=== PATIENT | female | born 1970 | race Caucasian/White ===

== ENCOUNTER 2018-01-28 18:46 | Emergency (ER) | payer OTHER, MEDICAID, SELFPAY ==
[2018-01-28 18:58] VITALS: BP 151/85; PULSE 73; RESP 13; TEMP 36.9; O2SAT 100
--- NOTE | 2018-01-28 19:18 | ED.FEMALEGU ---
HPI - Female Genitourinary <Radha Eckert PA-C - Last Filed: 01/28/18 22:15> General Chief complaint: Urogenital-Female Stated complaint: RIGHT KIDNEY PAIN Time Seen by Provider: 01/28/18 18:56 Source: patient Mode of arrival: ambulatory Limitations: no limitations History of Present Illness HPI Narrative: this 47-year-old female with a history of recurrent kidney stones comes in due to several days of worsening right flank pain. She states this feels like previous kidney stones. She follows with a local urologist and states that she had a stent placed on that side earlier this year due to an obstructing stone (it has been removed ). She has had nausea but no vomiting and states she has been pushing fluids. She denies any fever. She states that she has pain that shoots from her bladder area up into her flank when she urinates. She has not had any gross hematuria. She denies frequency or urgency. She denies any pain elsewhere in the abdomen. She denies vaginal discharge or STD concerns. She has not been constipated or had any bowel habit changes. She states that pain is constant, but worse with movement or bending. Related Data Home Medications Medication Instructions Recorded Confirmed [ESTRADIOL] 2 mg PO Q DAY #0 08/10/11 lamotrigine [Lamictal] 150 mg PO QDAY #0 08/10/11 Allergies Allergy/AdvReac Type Severity Reaction Status Date / Time ibuprofen [IBUPROFEN] Allergy Mild VOMITING Unverified 08/03/17 12:53 acetaminophen [ACETAMINOPHEN] Allergy Unknown Unverified 08/03/17 12:53 amoxicillin [AMOXICILLIN] Allergy Unknown Unverified 08/03/17 12:53 codeine [CODEINE] Allergy Unknown Unverified 08/03/17 12:53 diclofenac [DICLOFENAC] Allergy Unknown Unverified 08/03/17 12:53 hydrocodone [HYDROCODONE] Allergy Unknown Unverified 08/03/17 12:53 ketorolac [KETOROLAC] Allergy Unknown Unverified 08/03/17 12:53 propoxyphene [PROPOXYPHENE] Allergy Unknown Unverified 08/03/17 12:53 sertraline [SERTRALINE] Allergy Unknown Unverified 08/03/17 12:53 Review of Systems <Radha Eckert PA-C - Last Filed: 01/28/18 22:15> Review of Systems All systems reviewed & are unremarkable except as noted in HPI and below PFSH <Radha Eckert PA-C - Last Filed: 01/28/18 22:15> Comment: denies street drugs Exam <Radha Eckert PA-C - Last Filed: 01/28/18 22:15> Initial Vital Signs Initial Vital Signs: Vital Signs Temperature 98.5 F 01/28/18 18:58 Pulse Rate 73 01/28/18 18:58 Respiratory Rate 13 01/28/18 18:58 Blood Pressure 151/85 H 01/28/18 18:58 Pulse Oximetry 100 01/28/18 18:58 GENERAL APPEARANCE: Patient sitting comfortably, in no distress. HEENT: PERRL, EOMI, no scleral icterus NECK: Supple LUNGS: Clear to auscultation bilaterally. HEART: Rate and rhythm regular, normal S1 and S2, no S3 or S4. ABDOMEN: Soft, nondistended, bowel sounds present x 4 quadrants, no masses palpable, no hepatosplenomegaly. localized tenderness over the right flank, +right CVAT EXTREMITIES: No edema, no cyanosis DERMATOLOGIC: No jaundice or exanthem NEUROLOGIC: Alert and oriented with normal speech and coordination <Osvaldo Bergman DO - Last Filed: 01/28/18 23:45> Initial Vital Signs Initial Vital Signs: Vital Signs Temperature 98.5 F 01/28/18 18:58 Pulse Rate 73 01/28/18 18:58 Respiratory Rate 13 01/28/18 18:58 Blood Pressure 151/85 H 01/28/18 18:58 Pulse Oximetry 100 01/28/18 18:58 Course <JAY JAY Rojas Last Filed: 01/28/18 22:15> Additional Information: Patient reported improvement in pain and nausea during her stay, no vomiting and appeared to be resting comfortably prior to d/c. advised no evidence of kidney stone currently though not clear whether she may have passed 1. she does have some micro hematuria without bacteriuria. She has Zofran at home and will monitor over the weekend, agreeing to return if any acutely worsening symptoms again. Otherwise call her urologist 1st thing on Tuesday to arrange follow-up Orders Ordered: ED Orders 01/28/18 18:50 Urinalysis and Microscopic Stat 01/28/18 19:15 Complete Blood Count AUTO DIFF Stat Comprehensive Metabolic Panel Stat Lipase Stat 01/28/18 19:35 CT kidney ureter bladder (KUB) Stat Discontinued Medications Hydrocodone Bitart/Acetaminophen (Vicodin Prepack) 1 bottle MISC SEEINSTR ONE Stop: 01/28/18 21:06 Last Admin: 01/28/18 21:23 Dose: 1 bottle Hydromorphone HCl (Dilaudid) 1 mg IV NOW ONE Stop: 01/28/18 19:36 Last Admin: 01/28/18 19:50 Dose: 1 mg Ondansetron HCl (Zofran) 4 mg IV NOW ONE Stop: 01/28/18 19:36 Last Admin: 01/28/18 19:50 Dose: 4 mg Vital Signs - 8 hr 01/28/18 18:58 01/28/18 21:30 Temperature 98.5 F 99.4 F Pulse Rate 73 67 Respiratory Rate 13 18 Blood Pressure 151/85 H 137/89 Pulse Oximetry 100 96 <Osvaldo Bergman DO - Last Filed: 01/28/18 23:45> Orders Ordered: ED Orders 01/28/18 18:50 Urinalysis and Microscopic Stat 01/28/18 19:15 Complete Blood Count AUTO DIFF Stat Comprehensive Metabolic Panel Stat Lipase Stat 01/28/18 19:35 CT kidney ureter bladder (KUB) Stat Discontinued Medications Hydrocodone Bitart/Acetaminophen (Vicodin Prepack) 1 bottle MISC SEEINSTR ONE Stop: 01/28/18 21:06 Last Admin: 01/28/18 21:23 Dose: 1 bottle Hydromorphone HCl (Dilaudid) 1 mg IV NOW ONE Stop: 01/28/18 19:36 Last Admin: 01/28/18 19:50 Dose: 1 mg Ondansetron HCl (Zofran) 4 mg IV NOW ONE Stop: 01/28/18 19:36 Last Admin: 01/28/18 19:50 Dose: 4 mg Vital Signs - 8 hr 01/28/18 18:58 01/28/18 21:30 Temperature 98.5 F 99.4 F Pulse Rate 73 67 Respiratory Rate 13 18 Blood Pressure 151/85 H 137/89 Pulse Oximetry 100 96 MDM - Female Genitourinary <Radha Eckert PA-C - Last Filed: 10/06/18 22:15> Lab Data Result diagrams: 01/28/18 19:15 01/28/18 19:15 Lab Results 01/28/18 01/28/18 01/28/18 Range/Units 18:50 19:15 19:15 WBC 7.4 (4.5-11.0) X10^3/uL RBC 4.70 (4.0-5.2) X10^6/uL Hgb 14.5 (12.0-16.0) g/dL Hct 42.0 (36-46) % MCV 89.4 (80-100) fL MCH 30.8 (26-34) PG MCHC 34.4 (30-36) % RDW 13.2 (11.6-14.8) % Plt Count 285 (150-400) X10^3/uL Neut % (Auto) 55.0 (50-75) % Lymph % (Auto) 32.9 (25-40) % [place] % (Auto) 8.5 (3-14) % Eos % (Auto) 2.4 (2-4) % Baso % (Auto) 1.2 (0-2) % Neut # (Auto) 4100 (1152-3346) /uL Sodium 141 (137-145) mmol/L Potassium 3.8 (3.4-5.1) mmol/L Chloride 105 (98-107) mmol/L Carbon Dioxide 27 (22-32) mmol/L BUN 15 (7-17) mg/dL Creatinine 0.90 (0.52-1.04) mg/dL Estimated GFR > 60.0 (>60) mL/min BUN/Creatinine Ratio 16.7 (6-22) Glucose 87 (70-100) mg/dL Calcium 9.1 (8.4-10.2) mg/dL Total Bilirubin 0.3 (0.2-1.3) mg/dL AST 24 (14-36) IU/L ALT 24 (9-52) IU/L Alkaline Phosphatase 127 H (38-126) U/L Total Protein 7.5 (6.3-8.2) g/dL Albumin 4.6 (3.5-5.0) g/dL Globulin 2.9 (1.7-4.1) g/dL Albumin/Globulin Ratio 1.6 (1.0-2.8) Lipase 75 (23-300) U/L Urine Color Yellow Urine Appearance Clear Urine pH 7.0 (4.5-8.0) Ur Specific [place] <=1.005 (1.000-1.035) Urine Protein Negative (Negative) Urine Glucose (UA) Negative (Normal) g/dL Urine Ketones Negative (NEGATIVE) Urine Occult Blood 1+ H (Negative) Urine Nitrate Negative (Negative) Urine Bilirubin Negative (NEGATIVE) Urine Urobilinogen 0.2 (0.2) E.U./dL Ur Leukocyte Esterase Negative (NEGATIVE) Urine RBC 5-10/hpf H (0-5/HPF) Urine WBC None seen (0-5/HPF) Urine Bacteria None seen (None) Ur Culture Indicated? Cult not indicated Micro UA Comment Not Reportable <Osvaldo Bergman, DO - Last Filed: 01/28/18 23:45> Lab Data Lab Results 01/28/18 01/28/18 01/28/18 Range/Units 18:50 19:15 19:15 WBC 7.4 (4.5-11.0) X10^3/uL RBC 4.70 (4.0-5.2) X10^6/uL Hgb 14.5 (12.0-16.0) g/dL Hct 42.0 (36-46) % MCV 89.4 (80-100) fL MCH 30.8 (26-34) PG MCHC 34.4 (30-36) % RDW 13.2 (11.6-14.8) % Plt Count 285 (150-400) X10^3/uL Neut % (Auto) 55.0 (50-75) % Lymph % (Auto) 32.9 (25-40) % [place] % (Auto) 8.5 (3-14) % Eos % (Auto) 2.4 (2-4) % Baso % (Auto) 1.2 (0-2) % Neut # (Auto) 4100 (5933-2392) /uL Sodium 141 (137-145) mmol/L Potassium 3.8 (3.4-5.1) mmol/L Chloride 105 (98-107) mmol/L Carbon Dioxide 27 (22-32) mmol/L BUN 15 (7-17) mg/dL Creatinine 0.90 (0.52-1.04) mg/dL Estimated GFR > 60.0 (>60) mL/min BUN/Creatinine Ratio 16.7 (6-22) Glucose 87 (70-100) mg/dL Calcium 9.1 (8.4-10.2) mg/dL Total Bilirubin 0.3 (0.2-1.3) mg/dL AST 24 (14-36) IU/L ALT 24 (9-52) IU/L Alkaline Phosphatase 127 H (38-126) U/L Total Protein 7.5 (6.3-8.2) g/dL Albumin 4.6 (3.5-5.0) g/dL Globulin 2.9 (1.7-4.1) g/dL Albumin/Globulin Ratio 1.6 (1.0-2.8) Lipase 75 (23-300) U/L Urine Color Yellow Urine Appearance Clear Urine pH 7.0 (4.5-8.0) Ur Specific [place] <=1.005 (1.000-1.035) Urine Protein Negative (Negative) Urine Glucose (UA) Negative (Normal) g/dL Urine Ketones Negative (NEGATIVE) Urine Occult Blood 1+ H (Negative) Urine Nitrate Negative (Negative) Urine Bilirubin Negative (NEGATIVE) Urine Urobilinogen 0.2 (0.2) E.U./dL Ur Leukocyte Esterase Negative (NEGATIVE) Urine RBC 5-10/hpf H (0-5/HPF) Urine WBC None seen (0-5/HPF) Urine Bacteria None seen (None) Ur Culture Indicated? Cult not indicated Micro UA Comment Not Reportable Discharge Plan Departure Patient Disposition: Home Clinical Impression: Acute right flank pain Discharge Date/Time: 01/28/18 21:32 Interventions: ED Discharge Assessment Last Done: 01/28/18 21:30 Instructions: DI for Flank Pain Activity Restrictions/Additional Instructions: as we talked about, you should return if you start feeling worse again or new symptoms over the weekend such as fever. Since you are feeling better, it is okay to monitor at home for now. You can take your Zofran for nausea as needed, and you have had pain medication in the IV tonight. I did give you a little bit of hydrocodone /acetaminophen for at home since you have taken that previously. Please do not drive as it could make you sleepy. Please call your urologist 1st thing on Tuesday to arrange for follow-up since you have some microscopic blood in your urine along with the pain. there was no kidney stone seen on your scan or other acute problem found, however it is possible that you passed a stone since your pain has been worsening over the past few days. Prescriptions: No Action lamotrigine [Lamictal] 100 MG tablet 150 mg PO QDAY Qty: 0 RF: 0 [ESTRADIOL] 2 mg PO Q DAY Qty: 0 RF: 0 Referrals: Adelaida Irvin MD [Non-Staff] - Juliann Patel PA-C [Non-Staff] - <Osvaldo Bergman DO - Last Filed: 01/28/18 23:45> Cosign ED Attending Dariela Attestation: I was available for consultation during this patient's emergency department encounter
[2018-01-28 19:20] LABS: Add Manual Diff / Slide Review NO; Basophils Percent Auto 1.2 % (0-2); Eosinophils Percent Auto 2.4 % (2-4); Hemoglobin 14.5 g/dL (12.0-16.0); Lymphocytes Percent Auto 32.9 % (25-40); Mean Corpuscular HGB Conc 34.4 % (30-36); Mean Corpuscular Hemoglobin 30.8 PG (26-34); Mean Corpuscular Volume 89.4 fL (80-100); Monocytes Percent Auto 8.5 % (3-14); Neutrophils Absolute Auto 4100 /uL (3000-5900); Platelet Count 285 X10^3/uL (150-400); Red Cell Distribution Width 13.2 % (11.6-14.8); White Blood Cell Count 7.4 X10^3/uL (4.5-11.0)
[2018-01-28 19:23] LABS: Bacteria Urine None Seen; WBC Urine None Seen (0-5/HPF)
[2018-01-28 19:24] LABS: Appearance Urine UA CLEAR; Bilirubin Urine UA NEGATIVE (NEGATIVE); Color Urine UA YELLOW; Glucose Urine UA NEGATIVE (Normal); Ketones Urine UA NEGATIVE (NEGATIVE); Leukocyte Esterase Urine UA NEGATIVE (NEGATIVE); Nitrite Urine UA Negative (Negative); Occult Blood Urine UA 1+ (Negative); Protein Urine UA NEGATIVE (Negative); Specific Gravity Urine UA <=1.005 (1.000-1.035); Urobilinogen Urine UA 0.2 E.U./dL (0.2)
[2018-01-28 19:31] LABS: Alanine Aminotransferase 24 IU/L (9-52); Albumin 4.6 g/dL (3.5-5.0); Albumin Globulin Ratio 1.6 (1.0-2.8); Alkaline Phosphatase 127 U/L (38-126); Aspartate Aminotransferase 24 IU/L (14-36); BUN Creatinine Ratio 16.7 (6-22); Bilirubin Total 0.3 mg/dL (0.2-1.3); Blood Urea Nitrogen 15 mg/dL (7-17); Calcium 9.1 mg/dL (8.4-10.2); Carbon Dioxide 27 mmol/L (22-32); Chloride 105 mmol/L (98-107); Estimated Glomerular Filt Rate > 60.0 mL/min (>60); Globulin 2.9 g/dL (1.7-4.1); Glucose 87 mg/dL (70-100); HEMOLYSIS < 15 (0-50); Lipase 75 U/L (23-300); Potassium 3.8 mmol/L (3.4-5.1); Sodium 141 mmol/L (137-145); Total Protein 7.5 g/dL (6.3-8.2)
--- NOTE | 2018-01-28 19:35 | DI.CT.S_ITS ---
PROCEDURE: CT KIDNEY URETER BLADDER (KUB) INDICATIONS: R. flank pain, h/o stones TECHNIQUE: Noncontrast 5 mm thick sections acquired from the diaphragms to the symphysis. 5 mm thick coronal and sagittal reformats were then performed. For radiation dose reduction, the following was used: automated exposure control, adjustment of mA and/or kV according to patient size. COMPARISON: [facility], CT, CT KUB, 10/02/2017, 19:48. FINDINGS: Image quality: Excellent. Lung bases: There is mild scarring and atelectasis in the lung bases. Heart size is normal. Urinary system: No kidney stones. No hydronephrosis or perinephric fat stranding. Both ureters appear non-dilated throughout their expected courses. Bladder wall thickness is normal; no calcified bladder stones. Other solid organs: Liver is normal in size. Gallbladder is surgically absent. Pancreas is normal in contours. Spleen is normal in size. No adrenal nodules. Peritoneum and bowel: Unenhanced bowel loops demonstrate normal wall thickness and caliber. There are surgical clips adjacent to the cecum likely from prior appendectomy. No pericecal inflammatory changes. No free fluid or air. Nodes and vessels: No retroperitoneal or mesenteric adenopathy by size criteria. Aorta and inferior vena cava are normal in caliber. Abdominal wall: No ventral hernias. Pelvis: No free pelvic fluid. No inguinal hernias or adenopathy. Bones: No suspicious bony lesions. No vertebral body compression fractures. IMPRESSION: 1. No nephrolithiasis or hydronephrosis. 2. No definite acute intra-abdominal abnormality. Dictated by: Samir Koroma M.D. on 01/28/2018 at 20:08 Approved by: Samir Koroma M.D. on 01/28/2018 at 20:12
[2018-01-28] MEDS: ONDANSETRON 4 MG/2 ML INJ IV (19:50)
[2018-01-28] MEDS: HYDROMORPHONE 1 MG INJ IV (19:50)
[2018-01-28 19:59] LABS: Culture Indicated Urine Cult Not Indicated; RBC Urine 5-10/HPF (0-5/HPF)
[2018-01-28] MEDS: HYDROCODONE/ACET 5/325 PREPACK 1 BOTTLE MISC (21:23)
[2018-01-28 21:30] VITALS: BP 137/89; PULSE 67; RESP 18; TEMP 37.4; O2SAT 96
--- NOTE | 2018-02-02 16:37 | PC.NURSE ---
Called for pt follow up,no answer
== END 2018-01-28 21:32 | disposition home or self-care (01) ==
PROVIDERS: Emergency Provider Internal Medicine; Family Provider Family Medicine; PCP Family Medicine
DX: R10.9 Unspecified abdominal pain (principal)
CPT/HCPCS: 36591; 74176; 80053; 81001; 83690; 85025; 96374; 96375; 99282; 99284; J1170; J2405

== ENCOUNTER 2018-02-02 18:25 | Emergency (ER) | payer OTHER, MEDICAID, SELFPAY ==
[2018-02-02 18:30] VITALS: BP 139/81; PULSE 66; RESP 99; TEMP 36.7; O2SAT 99
--- NOTE | 2018-02-02 18:49 | ED.FEMALEGU ---
HPI - Female Genitourinary <ZENON Pedersen - Last Filed: 02/02/18 20:14> General Chief complaint: Urogenital-Female Stated complaint: RT KIDNEY PAIN Time Seen by Provider: 02/02/18 18:49 Source: patient Mode of arrival: ambulatory Limitations: no limitations History of Present Illness HPI Narrative: R flank pain that started about a week ago, seen here Sat, work up done, thought it was kidney stone, but they couldn't find one, pain feels like a stone, no better, still hurting, ran out of pain meds, appt with pcp next week and urology in a month, nothing makes it worse, nothing makes it better MD Complaint: other Onset (ago): week(s) (1) Location: other Female Urogenital Radiation: Non-Radiating Severity: moderate Duration: constant Relieving factors: none Exacerbating factors: none Urinary symptoms: Flank Pain Related Data Home Medications Medication Instructions Recorded Confirmed [ESTRADIOL] 2 mg PO Q DAY #0 08/10/11 lamotrigine [Lamictal] 150 mg PO QDAY #0 08/10/11 Previous Rx's Medication Instructions Recorded ondansetron [Zofran ODT] 4 mg PO Q6-8H PRN #10 tab 02/02/18 tramadol [Ultram] 50 mg PO Q6H PRN #20 tab 02/02/18 Allergies Allergy/AdvReac Type Severity Reaction Status Date / Time ibuprofen [IBUPROFEN] Allergy Mild VOMITING Unverified 08/03/17 12:53 acetaminophen [ACETAMINOPHEN] Allergy Unknown Unverified 08/03/17 12:53 amoxicillin [AMOXICILLIN] Allergy Unknown Unverified 08/03/17 12:53 codeine [CODEINE] Allergy Unknown Unverified 08/03/17 12:53 diclofenac [DICLOFENAC] Allergy Unknown Unverified 08/03/17 12:53 hydrocodone [HYDROCODONE] Allergy Unknown Unverified 08/03/17 12:53 ketorolac [KETOROLAC] Allergy Unknown Unverified 08/03/17 12:53 propoxyphene [PROPOXYPHENE] Allergy Unknown Unverified 08/03/17 12:53 sertraline [SERTRALINE] Allergy Unknown Unverified 08/03/17 12:53 Review of Systems <ZENON Pedersen - Last Filed: 02/02/18 20:14> Review of Systems All systems reviewed & are unremarkable except as noted in HPI and below Constitutional Reports as per HPI and Reports system reviewed and no additional complaints, except as docu Cardiovascular Denies chest pain and Denies dyspnea Respiratory Denies dyspnea Gastrointestinal Gastrointestinal: Reports as per HPI, Denies abdominal pain, Denies melena, Denies hematochezia, Denies constipation, Denies diarrhea and Denies vomiting Genitourinary Reports as per HPI, Denies hematuria, Denies urinary frequency, Denies difficulty voiding, Denies dysuria, Denies pelvic pain, Reports flank pain, Denies urinary hesitancy, Denies urinary urgency and Denies vaginal discharge Musculoskeletal Reports as per HPI and Denies back pain Exam <ZENON Pedersen - Last Filed: 02/02/18 20:14> Initial Vital Signs Initial Vital Signs: Vital Signs Temperature 98.0 F 02/02/18 18:30 Pulse Rate 66 02/02/18 18:30 Respiratory Rate 99 H 02/02/18 18:30 Blood Pressure 139/81 02/02/18 18:30 Pulse Oximetry 99 02/02/18 18:30 Const General: cooperative, healthy appearing, comfortable and well developed Nutritional Appearance: average body habitus Orientation: alert, awake and oriented x3 Resp Effort & Inspection: normal respiratory effort and able to speak in complete sentences Auscultation: clear to auscultation bilaterally Cardio Rate: regular rate Rhythm: regular rhythm Heart Sounds: S1 normal and S2 normal GI Inspection: normal to inspection, non-distended and no obesity Palpation: soft and No tender Auscultation: normal bowel sounds General: CVA tenderness (R mild) Back/Spine/Pelvis Cervical Spine: cervical ROM normal Thoracic/Lumbar Spine: thoraco-lumbar ROM limited Skin General: no rashes or lesions noted, elasticity normal, turgor normal and warm Neuro General: alert, awake and oriented x3 Cranial Nerves: CN's II-XI intact bilaterally Cognition: normal cognition Speech: speech normal Motor: muscle tone normal throughout Sensory Exam: no sensory deficits noted Psych Appearance: grossly normal and well kempt Mental Status: mental status grossly normal Speech and Movement: speech and movement normal Mood: congruent mood Affect: normal affect Attitude: cooperative Thought Process: normal Thought Content: normal Judgment: judgment good <Nancy Steele DO - Last Filed: 02/03/18 04:21> Initial Vital Signs Initial Vital Signs: Vital Signs Temperature 98.0 F 02/02/18 18:30 Pulse Rate 66 02/02/18 18:30 Respiratory Rate 99 H 02/02/18 18:30 Blood Pressure 139/81 02/02/18 18:30 Pulse Oximetry 99 02/02/18 18:30 Course <ZENON Pedersen - Last Filed: 02/02/18 20:14> Course Narrative: old er chart reviewed results and tx options discussed, mutually agreed that labs and ct would not be repeated with normal ua Orders Ordered: ED Orders 02/02/18 18:29 Urine Microscopic Stat Vital Signs - 8 hr 02/02/18 18:30 02/02/18 19:55 Temperature 98.0 F Pulse Rate 66 71 Respiratory Rate 99 H Blood Pressure 139/81 122/73 Pulse Oximetry 99 97 <DO Alisia Diallo Last Filed: 02/03/18 04:21> Orders Ordered: ED Orders 02/02/18 18:29 Urine Microscopic Stat Vital Signs - 8 hr 02/02/18 18:30 10 19:55 Temperature 98.0 F Pulse Rate 66 71 Respiratory Rate 99 H Blood Pressure 139/81 122/73 Pulse Oximetry 99 97 MDM - Female Genitourinary <ZENON Pedersen - Last Filed: 02/02/18 20:14> Differential Diagnosis Likely urinary tract infection and other (kidney stone, pyelo, muscle strain, hematuria, cystitis) Lab Data Attestation: I reviewed the patient's lab results. Lab Results 02/02/18 Range/Units 18:29 Urine RBC None seen (0-5/HPF) Urine WBC None seen (0-5/HPF) Amorphous Sediment 1+ Urine Bacteria None seen (None) Ur Culture Indicated? Cult not indicated Micro UA Comment Not Reportable Urine Dip Bedside Urine Glucose Negative Bedside Urine Bilirubin - Negative Bedside Urine Ketone - Negative Urine Specific [place] 1.015 Bedside Urine Occult Blood + Bedside Urine pH 6.5 Bedside Urine Protein - Negative Bedside Urine Urobilinogen - Negative Bedside Urine Nitrite - Negative Bedside Urine Leukocytes - Negative Esterase <Nancy Steele DO - Last Filed: 02/03/18 04:21> Lab Data Lab Results 02/02/18 Range/Units 18:29 Urine RBC None seen (0-5/HPF) Urine WBC None seen (0-5/HPF) Amorphous Sediment 1+ Urine Bacteria None seen (None) Ur Culture Indicated? Cult not indicated Micro UA Comment Not Reportable Urine Dip Bedside Urine Glucose Negative Bedside Urine Bilirubin - Negative Bedside Urine Ketone - Negative Urine Specific [place] 1.015 Bedside Urine Occult Blood + Bedside Urine pH 6.5 Bedside Urine Protein - Negative Bedside Urine Urobilinogen - Negative Bedside Urine Nitrite - Negative Bedside Urine Leukocytes - Negative Esterase Discharge Plan Departure Patient Disposition: Home Clinical Impression: Acute right flank pain Discharge Date/Time: 02/02/18 19:58 Interventions: ED Discharge Assessment Last Done: 02/02/18 19:55 Instructions: DI for Flank Pain Prescriptions: New tramadol [Ultram] 50 mg tablet 50 mg PO Q6H PRN (Reason: pain) Qty: 20 RF: 0 ondansetron [Zofran ODT] 4 mg tablet,disintegrating 4 mg PO Q6-8H PRN (Reason: nausea and vomiting) Qty: 10 RF: 0 No Action lamotrigine [Lamictal] 100 MG tablet 150 mg PO QDAY Qty: 0 RF: 0 [ESTRADIOL] 2 mg PO Q DAY Qty: 0 RF: 0 Referrals: Juliann Patel PA-C [Primary Care Provider] - (as scheduled or sooner with pcp or urology if able for continued pain) <Nancy Steele DO - Last Filed: 02/03/18 04:21> Cosign ED Attending Cosjesus albertoature Attestation: I was immediately available in the department for consultation. This documentation has been reviewed and I agree with assessment and plan. Supervised by Nancy Steele DO
[2018-02-02 19:09] LABS: Bacteria Urine None Seen; RBC Urine None Seen (0-5/HPF); WBC Urine None Seen (0-5/HPF)
[2018-02-02 19:21] LABS: Amorphous Sediment Urine 1+; Culture Indicated Urine Cult Not Indicated
[2018-02-02 19:55] VITALS: BP 122/73; PULSE 71; O2SAT 97
== END 2018-02-02 19:58 | disposition home or self-care (01) ==
PROVIDERS: Emergency Provider Nurse Practitioner; Family Provider Physician Assistant; PCP Physician Assistant
DX: R10.9 Unspecified abdominal pain (principal)
CPT/HCPCS: 81003; 81015; 99282; 99283

== ENCOUNTER 2018-12-22 10:09 | Emergency (ER) | payer OTHER, MEDICAID, SELFPAY ==
[2018-12-22 10:34] VITALS: BP 120/75; PULSE 65; RESP 16; TEMP 36.8; O2SAT 98; BMI 22.9
[2018-12-22 12:00] VITALS: BP 110/80; PULSE 50; RESP 12; O2SAT 96
--- NOTE | 2018-12-22 13:12 | ED.HA ---
HPI - Headache General Chief Complaint: Headache Stated Complaint: migrane 3 days Time Seen by Provider: 12/22/18 10:35 Source: patient Mode of arrival: ambulatory Limitations: no limitations History of Present Illness HPI Narrative: Patient comes emergency department complaining of headache for 3 days. She has also been experiencing nausea and vomiting. The patient states her symptoms are exactly like migraines she has had in the past, and that she has no new symptoms this time. No fever or chills. No chest pain or shortness of breath. No cough. No recent head injury. No carbon monoxide exposure. No neurologic deficits. No other complaints at this time. Related Data Home Medications Medication Instructions Recorded Confirmed duloxetine 60 mg PO DAILY 12/22/18 12/22/18 lamotrigine 25 mg PO BID 12/22/18 12/22/18 oxybutynin chloride 15 mg PO DAILY 12/22/18 12/22/18 prazosin 1 mg PO QPM 12/22/18 12/22/18 propranolol 20 mg PO QID 12/22/18 12/22/18 quetiapine 100 mg PO DAILY 12/22/18 12/22/18 ranitidine HCl 150 mg PO BID 12/22/18 tizanidine 4 mg PO TID 12/22/18 12/22/18 Allergies Allergy/AdvReac Type Severity Reaction Status Date / Time ibuprofen [IBUPROFEN] Allergy Mild VOMITING Verified 12/22/18 13:29 acetaminophen [ACETAMINOPHEN] Allergy Unknown Verified 12/22/18 13:29 amoxicillin [AMOXICILLIN] Allergy Unknown Verified 12/22/18 13:29 codeine [CODEINE] Allergy Unknown Verified 12/22/18 13:29 diclofenac [DICLOFENAC] Allergy Unknown Verified 12/22/18 13:29 hydrocodone [HYDROCODONE] Allergy Unknown Verified 12/22/18 13:29 ketorolac [KETOROLAC] Allergy Unknown Verified 12/22/18 13:29 propoxyphene [PROPOXYPHENE] Allergy Unknown Verified 12/22/18 13:29 sertraline [SERTRALINE] Allergy Unknown Verified 12/22/18 13:29 Review of Systems Review of Systems ROS Unobtainable: All systems reviewed & are unremarkable except as noted in HPI and below Constitutional Constitutional: Denies chills, Denies fatigue, Denies fever(s), Denies frequent falls, Reports headache(s), Denies lethargy and Denies weakness Eyes Eyes: Denies change in vision, Denies eye discharge, Denies irritation and Denies loss of vision ENT Ears, Nose, Mouth, and Throat: Denies change in voice, Denies dizziness, Reports headache(s), Denies neck pain, Denies sore throat and Denies throat swelling Cardiovascular Cardiovascular: Denies chest pain, Denies irregular heart rhythm, Denies lightheadedness, Denies palpitations, Denies dyspnea, Denies dyspnea on exertion and Denies orthopnea Respiratory Respiratory: Denies cough, Denies dyspnea, Denies dyspnea on exertion and Denies wheezing Gastrointestinal Gastrointestinal: Denies abdominal pain, Denies change in bowel habits, Denies diarrhea, Reports nausea and Reports vomiting Genitourinary Genitourinary: Denies hematuria, Denies flank pain, Denies urinary incontinence and Denies urinary urgency Musculoskeletal Musculoskeletal: Denies back pain, Denies muscle weakness, Denies neck pain, Denies numbness and Denies tingling Integumentary/Breasts Skin/Breast: Denies pruritus, Denies erythema, Denies rash and Denies wounds Neurologic Neurologic: Denies behavioral changes, Denies confusion, Denies dizziness, Denies frequent falls, Reports headache(s), Denies loss of vision, Denies numbness, Denies tingling and Denies weakness Psychiatric Psychiatric: Denies anxiety, Denies behavioral changes, Denies confusion, Denies depression, Denies homicidal ideation and Denies suicidal ideation Endocrine Endocrine: Denies fatigue, Denies flushing and Denies palpitations Hematologic/Lymphatic Hematologic/Lymphatic: Denies easy bruising Allergic/Immunologic Allergic/Immunologic: Denies urticaria, Denies throat swelling and Denies wheezing [facility] Medical History Bipolar depression (Chronic) Nephrolithiasis (Chronic) PTSD (post-traumatic stress disorder) (Chronic) Surgical History History of renal stent (Resolved) Status post appendectomy (Resolved) Status post hysterectomy (Resolved) Social History Smoking Status: Current every day smoker Social History Smoking Status: Current every day smoker Exam Initial Vital Signs Initial Vital Signs: Vital Signs Temperature 98.3 F 12/22/18 10:34 Pulse Rate 65 12/22/18 10:34 Respiratory Rate 16 12/22/18 10:34 Blood Pressure 120/75 12/22/18 10:34 Pulse Oximetry 98 12/22/18 10:34 Const General: cooperative and well developed Nutritional Appearance: well nourished Orientation: alert, awake, oriented x3 and not confused HENNC Head: normocephalic and atraumatic Ears: external ears normal Nose: external nose normal and No nasal discharge Face and sinus: face symmetric and No dry mucous membranes Mouth: oral mucosae normal and moist mucous membranes Teeth and gingiva: dentition normal Eyes General: appearance normal, both eyes and all related structures Eyelids: eyelids normal Conjunctivae: conjunctivae normal Sclera: sclerae normal Pupils: PERRL EOM: EOM intact bilaterally Neck Neck: normal visual inspection, trachea midline, No lymphadenopathy, No midline deformity and No JVD Lymphatic: No lymphedema Chest Chest: normal inspection of the chest Resp Effort & Inspection: normal respiratory effort, able to speak in complete sentences, no respiratory distress and no use of accessory muscles Auscultation: clear to auscultation bilaterally, no rales, no rhonchi and no wheezes Cardio Rate: regular rate Rhythm: regular rhythm Heart Sounds: no click, no gallops, no murmurs and no rubs Pulses: normal peripheral pulses GI Inspection: non-distended Palpation: soft, no hepatosplenomegaly, No guarding, No pulsatile mass and No tender Back/Spine/Pelvis Back: No CVA tenderness Cervical Spine: cervical ROM normal and No pain with cervical ROM Thoracic/Lumbar Spine: thoracic and lumbar spine normal to inspection Skin General: no rashes or lesions noted, No jaundice and No petechiae Neuro General: alert, oriented x3, gait normal and no focal motor deficits Speech: speech normal Extrem General: full ROM, no clubbing, cyanosis or edema, no pedal edema and no calf tenderness Psych Appearance: well kempt Mental Status: mental status grossly normal Attitude: cooperative Thought Content: normal and suicidality Judgment: judgment good Course Course Course Narrative: Patient was treated symptomatically in the emergency department with IV fluids, Benadryl, Compazine. She was found to be feeling much better after the above interventions. I felt the patient was stable for discharge home. We have discussed home management of the symptoms, as well as the usual indications for return. Orders Ordered: Discontinued Medications Diphenhydramine HCl (Benadryl) 12.5 mg IV NOW ONE Stop: 12/22/18 11:35 Last Admin: 12/22/18 13:33 Dose: 12.5 mg Documented by: ANDREW Sodium Chloride (Normal Saline 0.9%) 1,000 mls @ 1,000 mls/hr IV BOLUS ONE Stop: 12/22/18 12:33 Last Infusion: 12/22/18 14:40 Dose: 0 mls/hr Documented by: Admin: 12/22/18 13:32 Dose: 1,000 mls/hr Documented by: ANDREW Prochlorperazine (Compazine) 10 mg IV NOW ONE Stop: 12/22/18 11:35 Last Admin: 12/22/18 13:32 Dose: 10 mg Documented by: ANDREW Vital Signs Vital signs: Vital Signs - 8 hr 12/22/18 10:34 12/22/18 12:00 Temperature 98.3 F Pulse Rate 65 50 L Respiratory Rate 16 12 Blood Pressure 120/75 Blood Pressure [Left Arm] 110/80 Pulse Oximetry 98 96 MDM - Headache Medical Records Attestation: I reviewed the patient's medical records. Discharge Plan Departure Patient Disposition: Home Clinical Impression: Migraine Qualifiers: Migraine type: without aura Status migrainosus presence: without status migrainosus Intractability: not intractable Qualified Code(s): G43.009 - Migraine without aura, not intractable, without status migrainosus Discharge Date/Time: 12/22/18 14:51 Instructions: DI for Migraine Prescriptions: No Action oxybutynin chloride 15 mg tablet extended release 24hr 15 mg PO DAILY RF: 0 tizanidine 4 mg tablet 4 mg PO TID RF: 0 prazosin 1 mg capsule 1 mg PO QPM RF: 0 quetiapine 100 mg tablet 100 mg PO DAILY RF: 0 lamotrigine 25 mg tablet 25 mg PO BID RF: 0 ranitidine HCl 150 mg tablet 150 mg PO BID RF: 0 propranolol 20 mg tablet 20 mg PO QID RF: 0 duloxetine 60 mg capsule,delayed release(DR/EC) 60 mg PO DAILY RF: 0 Referrals: Juliann Patel PA-C [Primary Care Provider] -
[2018-12-22 13:32] VITALS: BP 132/88; PULSE 68
[2018-12-22] MEDS: PROCHLORPERAZINE 10 MG/2 ML VIAL IV (13:32)
[2018-12-22] MEDS: SODIUM CHLORIDE 0.9% 1,000 ML 1000 ML IV (13:32)
[2018-12-22] MEDS: diphenhydrAMINE 50 MG/ML VIAL 12.5 MG IV (13:33)
[2018-12-22 14:49] VITALS: BP 128/70; PULSE 78; RESP 16; O2SAT 98
== END 2018-12-22 14:51 | disposition home or self-care (01) ==
PROVIDERS: Emergency Provider Emergency Medicine; Family Provider Physician Assistant; PCP Physician Assistant
DX: G43.009 Migraine without aura, not intractable, without status migrainosus (principal)
CPT/HCPCS: 36591; 96361; 96374; 96375; 99283; 99284; J0780; J1200

== ENCOUNTER 2019-02-04 09:49 | Emergency (ER) | payer OTHER, MEDICAID, SELFPAY ==
[2019-02-04 09:58] VITALS: BP 134/70; PULSE 67; RESP 16; TEMP 36.5; O2SAT 98; BMI 23.3
--- NOTE | 2019-02-04 10:08 | ED_ITS ---
HPI - General Adult General Chief complaint: Urogenital-Female Stated complaint: right kidney pain x3days Time Seen by Provider: 02/04/19 10:00 Source: patient Mode of arrival: Ambulatory Limitations: no limitations History of Present Illness HPI narrative: 48-year-old female who states she has had kidney stones in the past here for evaluation of which she thinks is a kidney stone. Earlier this year she was seen here in the emergency department or follow up in the walk-in clinic for right-sided presumed kidney stone. She states that since that time she has seen her primary doctor and also her urologist. She has had to have urinary stents in the placed. She states that she started to have right-sided flank pain consistent with her history of kidney stones approximately 3 days ago. States the pain was worse this morning. She does state that when she urinates the pain radiates up the right side of her abdomen. No fevers. Has had some nausea. No change in bowel habits. Related Data Home Medications Medication Instructions Recorded Confirmed duloxetine 60 mg PO DAILY 12/22/18 12/22/18 lamotrigine 25 mg PO BID 12/22/18 12/22/18 oxybutynin chloride 15 mg PO DAILY 12/22/18 12/22/18 prazosin 1 mg PO QPM 12/22/18 12/22/18 propranolol 20 mg PO QID 12/22/18 12/22/18 quetiapine 100 mg PO DAILY 12/22/18 12/22/18 ranitidine HCl 150 mg PO BID 12/22/18 tizanidine 4 mg PO TID 12/22/18 12/22/18 Previous Rx's Medication Instructions Recorded ondansetron 4 mg PO Q6H PRN #10 tab 02/04/19 tramadol [Ultram] 50 mg PO Q6H PRN #7 tab 02/04/19 Allergies Allergy/AdvReac Type Severity Reaction Status Date / Time ibuprofen [IBUPROFEN] Allergy Mild VOMITING Verified 02/04/19 09:58 acetaminophen [ACETAMINOPHEN] Allergy Unknown Verified 02/04/19 09:58 amoxicillin [AMOXICILLIN] Allergy Unknown Verified 02/04/19 09:58 codeine [CODEINE] Allergy Unknown Verified 02/04/19 09:58 diclofenac [DICLOFENAC] Allergy Unknown Verified 02/04/19 09:58 hydrocodone [HYDROCODONE] Allergy Unknown Verified 02/04/19 09:58 ketorolac [KETOROLAC] Allergy Unknown Verified 02/04/19 09:58 propoxyphene [PROPOXYPHENE] Allergy Unknown Verified 02/04/19 09:58 sertraline [SERTRALINE] Allergy Unknown Verified 02/04/19 09:58 Review of Systems Constitutional Constitutional: Denies fever(s) Cardiovascular Cardiovascular: Denies chest pain and Denies dyspnea Respiratory Respiratory: Denies dyspnea Gastrointestinal Gastrointestinal: Reports abdominal pain (With urination) Genitourinary Genitourinary: Denies hematuria, Reports dysuria and Reports urinary urgency Musculoskeletal Musculoskeletal: Denies myalgias and Denies arthralgias Integumentary/Breasts Skin/Breast: Denies lesions and Denies rash Neurologic Neurologic: Denies behavioral changes Psychiatric Psychiatric: Denies behavioral changes Hematologic/Lymphatic Hematologic/Lymphatic: Denies easy bleeding and Denies easy bruising Patient History Medical/Surgical History Medical History Bipolar depression (Chronic) Nephrolithiasis (Chronic) PTSD (post-traumatic stress disorder) (Chronic) Family/Social History Social History Smoking Status: Current every day smoker Substance Use Type: marijuana Exam Initial Vital Signs Initial Vital Signs: Vital Signs Temperature 97.7 F 02/04/19 09:58 Pulse Rate 67 02/04/19 09:58 Respiratory Rate 16 02/04/19 09:58 Blood Pressure 134/70 02/04/19 09:58 Pulse Oximetry 98 02/04/19 09:58 Const General: cooperative, comfortable and well developed Resp Effort & Inspection: normal respiratory effort Auscultation: clear to auscultation bilaterally Cardio Rate: regular rate Rhythm: regular rhythm GI Inspection: non-distended Palpation: soft, No firm and No tender Back/Spine/Pelvis Back: CVA tenderness right Neuro General: alert and awake Cognition: normal cognition Speech: speech normal Gait: normal gait Extrem General: normal to inspection and capillary refill normal Psych Appearance: grossly normal and well kempt Course Orders Ordered: ED Orders 02/04/19 10:23 Urine Culture Stat Urine Microscopic Stat 02/04/19 10:40 Basic Metabolic Panel Stat Complete Blood Count AUTO DIFF Stat Test Urine Stat Discontinued Medications Lidocaine HCl 4.8 ml/ Sodium (Chloride) 54.8 mls @ 328.8 mls/hr IV NOW ONE Stop: 02/04/19 10:08 Last Infusion: 02/04/19 11:40 Dose: 0 mls/hr Documented by: Admin: 02/04/19 11:25 Dose: 328.8 mls/hr Documented by: SARI Ondansetron HCl (Zofran) 4 mg IV NOW ONE Stop: 02/04/19 10:08 Last Admin: 02/04/19 10:44 Dose: 4 mg Documented by: LAVONNE Vital Signs Vital signs: Vital Signs - 8 hr 02/04/19 09:58 02/04/19 11:27 02/04/19 11:28 Temperature 97.7 F Pulse Rate 67 87 Respiratory Rate 16 Blood Pressure 134/70 Blood Pressure [Right Arm] 125/87 Pulse Oximetry 98 100 Medical Decision Making Lab Data Lab results reviewed: Yes I reviewed the patient's lab results. Result diagrams: 02/04/19 10:40 02/04/19 10:40 Labs: Lab Results 02/04/19 02/04/19 02/04/19 Range/Units 10:23 10:40 10:40 WBC 6.4 (4.5-11.0) X10^3/uL RBC 4.35 (4.0-5.2) X10^6/uL Hgb 13.6 (12.0-16.0) g/dL Hct 39.6 (36-46) % MCV 91.1 (80-100) fL MCH 31.2 (26-34) PG MCHC 34.3 (30-36) % RDW 13.6 (11.6-14.8) % Plt Count 274 (150-400) X10^3/uL Neut % (Auto) 63.1 (50-75) % Lymph % (Auto) 28.1 (25-40) % [place] % (Auto) 6.7 (3-14) % Eos % (Auto) 1.5 L (2-4) % Baso % (Auto) 0.6 (0-2) % Neut # (Auto) 4000 (7214-2222) /uL Lymph # (Auto) 1800 (8790-9619) /uL [place] # (Auto) 400 (0-900) /uL Eos # (Auto) 100 (0-450) /uL Baso # (Auto) 0 (0-100) /uL Sodium (137-145) mmol/L Potassium (3.4-5.1) mmol/L Chloride (98-107) mmol/L Carbon Dioxide (22-32) mmol/L BUN (7-17) mg/dL Creatinine (0.52-1.04) mg/dL Estimated GFR (>60) mL/min BUN/Creatinine Ratio (6-22) Glucose (70-100) mg/dL Calcium (8.4-10.2) mg/dL Urine Color Cancelled Urine Appearance Cancelled Urine pH Cancelled Ur Specific [place] Cancelled Urine Protein Cancelled Urine Glucose (UA) Cancelled Urine Ketones Cancelled Urine Occult Blood Cancelled Urine Nitrate Cancelled Urine Bilirubin Cancelled Urine Urobilinogen Cancelled Ur Leukocyte Esterase Cancelled Urine RBC None seen (0-5/HPF) Urine WBC None seen (0-5/HPF) Ur Squamous Epith Cells 0-1 /hpf (0-5/HPF) Urine Bacteria Occasional (0-1) (None) Ur Culture Indicated? Specimen cultured Urine Test Negative (Negative) 02/04/19 Range/Units 10:40 WBC (4.5-11.0) X10^3/uL RBC (4.0-5.2) X10^6/uL Hgb (12.0-16.0) g/dL Hct (36-46) % MCV (80-100) fL MCH (26-34) PG MCHC (30-36) % RDW (11.6-14.8) % Plt Count (150-400) X10^3/uL Neut % (Auto) (50-75) % Lymph % (Auto) (25-40) % [place] % (Auto) (3-14) % Eos % (Auto) (2-4) % Baso % (Auto) (0-2) % Neut # (Auto) (2085-0984) /uL Lymph # (Auto) (9917-3365) /uL [place] # (Auto) (0-900) /uL Eos # (Auto) (0-450) /uL Baso # (Auto) (0-100) /uL Sodium 140 (137-145) mmol/L Potassium 3.7 (3.4-5.1) mmol/L Chloride 107 (98-107) mmol/L Carbon Dioxide 26 (22-32) mmol/L BUN 15 (7-17) mg/dL Creatinine 0.50 L (0.52-1.04) mg/dL Estimated GFR > 60.0 (>60) mL/min BUN/Creatinine Ratio 30.0 H (6-22) Glucose 97 (70-100) mg/dL Calcium 9.1 (8.4-10.2) mg/dL Urine Color Urine Appearance Urine pH Ur Specific [place] Urine Protein Urine Glucose (UA) Urine Ketones Urine Occult Blood Urine Nitrate Urine Bilirubin Urine Urobilinogen Ur Leukocyte Esterase Urine RBC (0-5/HPF) Urine WBC (0-5/HPF) Ur Squamous Epith Cells (0-5/HPF) Urine Bacteria (None) Ur Culture Indicated? Urine Test (Negative) Urine Dip Bedside Urine Glucose Negative Bedside Urine Bilirubin - Negative Bedside Urine Ketone - Negative Urine Specific [place] 1.010 Bedside Urine Occult Blood +/- Bedside Urine pH 6.5 Bedside Urine Protein - Negative Bedside Urine Urobilinogen - Negative Bedside Urine Nitrite - Negative Bedside Urine Leukocytes +/- 15 Esterase Point of care testing: Urine Dip Bedside Urine Glucose Negative Bedside Urine Bilirubin - Negative Bedside Urine Ketone - Negative Urine Specific [place] 1.010 Bedside Urine Occult Blood +/- Bedside Urine pH 6.5 Bedside Urine Protein - Negative Bedside Urine Urobilinogen - Negative Bedside Urine Nitrite - Negative Bedside Urine Leukocytes +/- 15 Esterase MDM Narrative Medical decision making narrative: Renal functions unremarkable. Urine shows no signs of infection. I did not CT scan her. She states that this feels exactly like prior kidney stone. Will send home with symptom treatment. She was given return precautions and follow-up instructions. She expressed understanding and agreement with plan. Discharge Plan Departure Patient Disposition: Home Clinical Impression: Renal colic on right side Instructions: DI for Kidney Stones Activity Restrictions/Additional Instructions: Contact your primary provider for follow-up. Return to the emergency department for any new symptoms to include fevers, inability to urinate, worsening pain, or any other concerning symptoms Prescriptions: New ondansetron 4 mg tablet,disintegrating 4 mg PO Q6H PRN (Reason: nausea and vomiting) Qty: 10 RF: 0 tramadol [Ultram] 50 mg tablet 50 mg PO Q6H PRN (Reason: pain) Qty: 7 RF: 0 No Action oxybutynin chloride 15 mg tablet extended release 24hr 15 mg PO DAILY RF: 0 tizanidine 4 mg tablet 4 mg PO TID RF: 0 prazosin 1 mg capsule 1 mg PO QPM RF: 0 quetiapine 100 mg tablet 100 mg PO DAILY RF: 0 lamotrigine 25 mg tablet 25 mg PO BID RF: 0 ranitidine HCl 150 mg tablet 150 mg PO BID RF: 0 propranolol 20 mg tablet 20 mg PO QID RF: 0 duloxetine 60 mg capsule,delayed release(DR/EC) 60 mg PO DAILY RF: 0 Referrals: Juliann Patel PA-C [Primary Care Provider] -
[2019-02-04 10:37] LABS: RBC Urine None Seen (0-5/HPF); WBC Urine None Seen (0-5/HPF)
[2019-02-04] MEDS: ONDANSETRON 4 MG/2 ML INJ IV (10:44)
[2019-02-04 10:51] LABS: Add Manual Diff / Slide Review NO; Basophils Absolute Auto 0 /uL (0-100); Basophils Percent Auto 0.6 % (0-2); Eosinophils Absolute Auto 100 /uL (0-450); Eosinophils Percent Auto 1.5 % (2-4); Hematocrit 39.6 % (36-46); Hemoglobin 13.6 g/dL (12.0-16.0); Lymphocytes Absolute Auto 1800 /uL (1100-4500); Lymphocytes Percent Auto 28.1 % (25-40); Mean Corpuscular HGB Conc 34.3 % (30-36); Mean Corpuscular Hemoglobin 31.2 PG (26-34); Mean Corpuscular Volume 91.1 fL (80-100); Monocytes Absolute Auto 400 /uL (0-900); Monocytes Percent Auto 6.7 % (3-14); Neutrophils Absolute Auto 4000 /uL (1500-7000); Neutrophils Percent Auto 63.1 % (50-75); Platelet Count 274 X10^3/uL (150-400); Red Blood Cell Count 4.35 X10^6/uL (4.0-5.2); Red Cell Distribution Width 13.6 % (11.6-14.8); White Blood Cell Count 6.4 X10^3/uL (4.5-11.0)
[2019-02-04 10:52] LABS: Bacteria Urine Occasional (0-1)
[2019-02-04 10:53] LABS: Culture Indicated Urine Specimen Cultured; Squamous Epithelial Cell Urine 0-1 /HPF (0-5/HPF)
[2019-02-04 11:00] LABS: Pregnancy Test Urine Negative (Negative)
[2019-02-04 11:05] LABS: Blood Urea Nitrogen 15 mg/dL (7-17); Calcium 9.1 mg/dL (8.4-10.2); Carbon Dioxide 26 mmol/L (22-32); Chloride 107 mmol/L (98-107); Estimated Glomerular Filt Rate > 60.0 mL/min (>60); Glucose 97 mg/dL (70-100); HEMOLYSIS < 15 (0-50); Potassium 3.7 mmol/L (3.4-5.1); Sodium 140 mmol/L (137-145)
[2019-02-04] MEDS: LIDOCAINE 2% 4.8 ML in SODIUM CHLORIDE 0.9% 50 ML 328.8 ML IV (11:25)
[2019-02-04 11:27] VITALS: BP 125/87
[2019-02-04 11:28] VITALS: PULSE 87; O2SAT 100
[2019-02-04 12:15] VITALS: BP 123/76; PULSE 58; RESP 12; O2SAT 100
== END 2019-02-04 12:38 | disposition home or self-care (01) ==
PROVIDERS: Emergency Provider Emergency Medicine; Family Provider Physician Assistant; PCP Physician Assistant
DX: N23 Unspecified renal colic (principal)
CPT/HCPCS: 36415; 80048; 81003; 81015; 81025; 85025; 87086; 96365; 96375; 99283; 99284; J2405

== ENCOUNTER 2019-02-10 09:37 | Emergency (ER) | payer OTHER, MEDICAID, SELFPAY ==
[2019-02-10 09:53] VITALS: BP 115/75; PULSE 64; RESP 16; TEMP 36.8; O2SAT 99
--- NOTE | 2019-02-10 10:47 | ED.FEMALEGU ---
HPI - Female Genitourinary General Chief complaint: Urogenital-Female Stated complaint: Kidney pain- Right side Time Seen by Provider: 02/10/19 10:24 Source: patient Mode of arrival: Ambulatory Limitations: no limitations History of Present Illness HPI Narrative: Patient is a 48-year-old female with history of kidney stones presenting with right flank pain radiating around her abdomen. She was actually seen evaluated here on 02/04/2019 for the same. She says she was discharged home on 7 tramadol her pain continues. She says every time she urinates she has pain radiating from her urethra up to her right kidney. Her urine culture from the did show diphtheroids. She was not placed on any antibiotics. She denies any nausea vomiting or fevers. She is unable to take NSAIDs she was given a lidocaine drip which she states did not help her at all. MD Complaint: dysuria Female Urogenital Radiation: R Flank Severity: moderate Related Data Home Medications Medication Instructions Recorded Confirmed duloxetine 60 mg PO DAILY 12/22/18 12/22/18 lamotrigine 25 mg PO BID 12/22/18 12/22/18 oxybutynin chloride 15 mg PO DAILY 12/22/18 12/22/18 prazosin 1 mg PO QPM 12/22/18 12/22/18 propranolol 20 mg PO QID 12/22/18 12/22/18 quetiapine 100 mg PO DAILY 12/22/18 12/22/18 ranitidine HCl 150 mg PO BID 12/22/18 tizanidine 4 mg PO TID 12/22/18 12/22/18 Previous Rx's Medication Instructions Recorded ondansetron 4 mg PO Q6H PRN #10 tab 02/04/19 tramadol [Ultram] 50 mg PO Q6H PRN #7 tab 02/04/19 sulfamethoxazole-trimethoprim 1 tab PO BID 5 Days #10 tab 02/10/19 [Bactrim DS] tramadol 50 mg PO BID PRN #10 tab 02/10/19 Allergies Allergy/AdvReac Type Severity Reaction Status Date / Time ibuprofen [IBUPROFEN] Allergy Mild VOMITING Verified 02/04/19 09:58 acetaminophen [ACETAMINOPHEN] Allergy Unknown Verified 02/04/19 09:58 amoxicillin [AMOXICILLIN] Allergy Unknown Verified 02/04/19 09:58 codeine [CODEINE] Allergy Unknown Verified 02/04/19 09:58 diclofenac [DICLOFENAC] Allergy Unknown Verified 02/04/19 09:58 hydrocodone [HYDROCODONE] Allergy Unknown Verified 02/04/19 09:58 ketorolac [KETOROLAC] Allergy Unknown Verified 02/04/19 09:58 propoxyphene [PROPOXYPHENE] Allergy Unknown Verified 02/04/19 09:58 sertraline [SERTRALINE] Allergy Unknown Verified 02/04/19 09:58 Review of Systems Review of Systems Narrative: GENERAL: Denies chills, fatigue, malaise, fever, sweats, travel HEENT: Denies sinus pain, ear pain, sore throat, difficulty swallowing, neck pain RESPIRATORY: Denies dyspnea, cough, wheezing, hemoptysis, sputum. CARDIOVASCULAR: Denies chest pain, palpitations, orthopnea, edema GASTROINTESTINAL: Denies nausea, vomiting, abdominal pain, diarrhea, constipation, melena. : See HPI MUSCULOSKELETAL: Denies weakness, joint pain, or bony pain SKIN: No rash, no erythema, no pruritus NEUROLOGIC: Denies weakness, dizziness, headache, numbness, change in speech, confusion PSYCHIATRIC: No concerning psychosocial issues. 12 point review of systems is negative except for those stated above and HPI Patient History Medical History Bipolar depression (Chronic) Nephrolithiasis (Chronic) PTSD (post-traumatic stress disorder) (Chronic) Surgical History History of renal stent (Resolved) Status post appendectomy (Resolved) Status post hysterectomy (Resolved) Social History Smoking Status: Current every day smoker Social History Smoking Status: Current every day smoker Substance Use Type: marijuana Exam Initial Vital Signs Initial Vital Signs: Vital Signs Temperature 98.3 F 02/10/19 09:53 Pulse Rate 64 02/10/19 09:53 Respiratory Rate 16 02/10/19 09:53 Blood Pressure 115/75 02/10/19 09:53 Pulse Oximetry 99 02/10/19 09:53 GENERAL: Well-appearing, well-nourished and in no acute distress. HEENT: Head atraumatic,EOMI, pupils reactive, face symmetric, moist mucous membranes CARDIOVASCULAR: Regular rate and rhythm without murmurs, rubs or gallops. RESPIRATORY: Breath sounds equal bilaterally, no wheezes rales or rhonchi. ABDOMEN: Soft, nontender. Normoactive bowel sounds all 4 quadrants. No guarding or rebound. : Mild right CVA tenderness EXTREMITIES: Normal range of motion, no clubbing or edema. Neurovascularly intact NEUROLOGICAL: Alert and oriented x4.Normal gait and speech. Cranial nerves II through XII grossly intact. SKIN: Warm, dry, no laceration, no petechiae, no rashes or lesions. Course Orders Ordered: ED Orders 02/10/19 10:08 Test Urine Stat Urine Culture Stat Urine Microscopic Stat 02/10/19 10:48 CT kidney ureter bladder (KUB) Stat 02/10/19 11:25 Complete Blood Count AUTO DIFF Stat Comprehensive Metabolic Panel Stat Lipase Stat Discontinued Medications Hydromorphone HCl (Dilaudid) 0.5 mg IV NOW ONE Stop: 02/10/19 12:30 Last Admin: 02/10/19 12:53 Dose: 0.5 mg Documented by: EZEQUIEL Sodium Chloride (Normal Saline 0.9%) 1,000 mls @ 150 mls/hr IV CONT ULISSES Last Infusion: 02/10/19 13:15 Dose: 0 mls/hr Documented by: Admin: 02/10/19 11:27 Dose: 150 mls/hr Documented by: EZEQUIEL Morphine Sulfate (Morphine) 2 mg IV NOW ONE Stop: 02/10/19 10:50 Last Admin: 02/10/19 11:26 Dose: 2 mg Documented by: EZEQUIEL Ondansetron HCl (Zofran) 4 mg IV NOW ONE Stop: 02/10/19 10:31 Last Admin: 02/10/19 11:26 Dose: 4 mg Documented by: EZEQUIEL Vital Signs Vital signs: Vital Signs - 8 hr 02/10/19 09:53 02/10/19 11:33 02/10/19 12:00 Temperature 98.3 F Pulse Rate 64 56 L 52 L Respiratory Rate 16 12 Blood Pressure 115/75 Blood Pressure [Left Arm] 114/76 129/77 Pulse Oximetry 99 98 02/10/19 12:55 02/10/19 13:16 Temperature Pulse Rate 67 61 Respiratory Rate 16 18 Blood Pressure 121/70 Blood Pressure [Left Arm] 131/82 Pulse Oximetry 98 100 MDM - Female Genitourinary Lab Data Attestation: I reviewed the patient's lab results. Result diagrams: 02/10/19 11:25 02/10/19 11:25 Labs: Lab Results 02/10/19 02/10/19 02/10/19 Range/Units 10:08 10:08 11:25 WBC 7.2 (4.5-11.0) X10^3/uL RBC 4.44 (4.0-5.2) X10^6/uL Hgb 14.0 (12.0-16.0) g/dL Hct 40.2 (36-46) % MCV 90.6 (80-100) fL MCH 31.6 (26-34) PG MCHC 34.8 (30-36) % RDW 13.9 (11.6-14.8) % Plt Count 285 (150-400) X10^3/uL Neut % (Auto) 64.1 (50-75) % Lymph % (Auto) 26.7 (25-40) % [place] % (Auto) 7.0 (3-14) % Eos % (Auto) 1.6 L (2-4) % Baso % (Auto) 0.6 (0-2) % Neut # (Auto) 4600 (0681-0879) /uL Lymph # (Auto) 1900 (3787-8432) /uL [place] # (Auto) 500 (0-900) /uL Eos # (Auto) 100 (0-450) /uL Baso # (Auto) 0 (0-100) /uL Sodium (137-145) mmol/L Potassium (3.4-5.1) mmol/L Chloride (98-107) mmol/L Carbon Dioxide (22-32) mmol/L BUN (7-17) mg/dL Creatinine (0.52-1.04) mg/dL Estimated GFR (>60) mL/min BUN/Creatinine Ratio (6-22) Glucose (70-100) mg/dL Calcium (8.4-10.2) mg/dL Total Bilirubin (0.2-1.3) mg/dL AST (14-36) IU/L ALT (9-52) IU/L Alkaline Phosphatase (38-126) U/L Total Protein (6.3-8.2) g/dL Albumin (3.5-5.0) g/dL Globulin (1.7-4.1) g/dL Albumin/Globulin Ratio (1.0-2.8) Lipase (23-300) U/L Urine RBC None seen (0-5/HPF) Urine WBC None seen (0-5/HPF) Ur Squamous Epith Cells 1-5 /hpf (0-5/HPF) Amorphous Sediment 1+ Urine Bacteria None seen (None) Ur Culture Indicated? Specimen cultured Urine Test Negative (Negative) 02/10/19 Range/Units 11:25 WBC (4.5-11.0) X10^3/uL RBC (4.0-5.2) X10^6/uL Hgb (12.0-16.0) g/dL Hct (36-46) % MCV (80-100) fL MCH (26-34) PG MCHC (30-36) % RDW (11.6-14.8) % Plt Count (150-400) X10^3/uL Neut % (Auto) (50-75) % Lymph % (Auto) (25-40) % [place] % (Auto) (3-14) % Eos % (Auto) (2-4) % Baso % (Auto) (0-2) % Neut # (Auto) (1656-2891) /uL Lymph # (Auto) (9017-3095) /uL [place] # (Auto) (0-900) /uL Eos # (Auto) (0-450) /uL Baso # (Auto) (0-100) /uL Sodium 142 (137-145) mmol/L Potassium 4.1 (3.4-5.1) mmol/L Chloride 107 (98-107) mmol/L Carbon Dioxide 26 (22-32) mmol/L BUN 13 (7-17) mg/dL Creatinine 0.60 (0.52-1.04) mg/dL Estimated GFR > 60.0 (>60) mL/min BUN/Creatinine Ratio 21.7 (6-22) Glucose 93 (70-100) mg/dL Calcium 9.2 (8.4-10.2) mg/dL Total Bilirubin 0.4 (0.2-1.3) mg/dL AST 47 H (14-36) IU/L ALT 12 (9-52) IU/L Alkaline Phosphatase 102 (38-126) U/L Total Protein 7.0 (6.3-8.2) g/dL Albumin 4.4 (3.5-5.0) g/dL Globulin 2.6 (1.7-4.1) g/dL Albumin/Globulin Ratio 1.7 (1.0-2.8) Lipase 49 (23-300) U/L Urine RBC (0-5/HPF) Urine WBC (0-5/HPF) Ur Squamous Epith Cells (0-5/HPF) Amorphous Sediment Urine Bacteria (None) Ur Culture Indicated? Urine Test (Negative) Urine Dip Bedside Urine Glucose Negative Bedside Urine Bilirubin - Negative Urine Specific [place] 1.010 Bedside Urine Occult Blood - Negative Bedside Urine pH 7.0 Bedside Urine Protein - Negative Bedside Urine Urobilinogen - Negative Bedside Urine Nitrite - Negative Bedside Urine Leukocytes +/- [address] scan - abdomen: Radiologist's impression: PROCEDURE: CT KIDNEY URETER BLADDER (KUB) INDICATIONS: right flank pain TECHNIQUE: Noncontrast 5 mm thick sections acquired from the diaphragms to the symphysis. 5 mm thick coronal and sagittal reformats were then performed. For radiation dose reduction, the following was used: automated exposure control, adjustment of mA and/or kV according to patient size. COMPARISON: [facility], CT, CT KIDNEY URETER BLADDER (KUB), 01/28/2018, 19:36. FINDINGS: Image quality: Excellent. Lung bases: Bibasilar volume loss. No focal consolidation or pleural effusion. Urinary system: Both kidneys are normal in size. No kidney stones. No hydronephrosis or perinephric fat stranding. Both ureters appear non-dilated throughout their expected courses. Bladder wall thickness is normal; no calcified bladder stones. Other solid organs: Liver is normal in size. Gallbladder is surgically absent. Pancreas is normal in contours. Spleen is normal in size. No adrenal nodules. Peritoneum and bowel: Unenhanced bowel loops demonstrate normal wall thickness and caliber. Formed stool throughout much of the colon. No free fluid or air. Nodes and vessels: No retroperitoneal or mesenteric adenopathy by size criteria. Aorta and inferior vena cava are normal in caliber. Abdominal wall: No ventral hernias. Pelvis: No free pelvic fluid. Small fat-containing right inguinal hernia. Bones: No suspicious bony lesions. No vertebral body compression fractures. IMPRESSION: No kidney stone or hydronephrosis. Small fat-containing right inguinal hernia. Dictated by: Francisco Botello M.D. on 02/10/2019 at 11:25 MDM Narrative Medical decision making narrative: Patient is still complaining of pain after 2 mg for then Dilaudid as well. His she actually has no kidney stone. Possible pyelonephritis she does have diptheria weights in her urine. Will treat her with antibiotics. She will be given a few more tramadol however discussed with her if she needs any more pain medication she needs to talk with her PCP. Discharge Plan Departure Patient Disposition: Home Clinical Impression: Renal colic on right side Discharge Date/Time: 02/10/19 13:16 Instructions: DI for Kidney Stones Activity Restrictions/Additional Instructions: *You have been diagnosed with right-sided kidney pain *What to do: At this time no kidney stone identified, if you continue to have pain after this course of tramadol you need to see your primary care provider *Continue to take medications as directed tramadol 50 mg every 6 hours if needed for pain A Bactrim 1 tablet twice a day for 5 days *Follow up with your primary care provider in 2-3 days *Return to ER if you should have persistent vomiting, fevers, worsening pain not controlled by tramadol or any new, worsening or concerning symptoms Prescriptions: New sulfamethoxazole-trimethoprim [Bactrim DS] 800-160 mg tablet 1 tab PO BID 5 Days Qty: 10 RF: 0 tramadol 50 mg tablet 50 mg PO BID PRN (Reason: pain) Qty: 10 RF: 0 No Action oxybutynin chloride 15 mg tablet extended release 24hr 15 mg PO DAILY RF: 0 tizanidine 4 mg tablet 4 mg PO TID RF: 0 prazosin 1 mg capsule 1 mg PO QPM RF: 0 quetiapine 100 mg tablet 100 mg PO DAILY RF: 0 lamotrigine 25 mg tablet 25 mg PO BID RF: 0 ranitidine HCl 150 mg tablet 150 mg PO BID RF: 0 propranolol 20 mg tablet 20 mg PO QID RF: 0 duloxetine 60 mg capsule,delayed release(DR/EC) 60 mg PO DAILY RF: 0 ondansetron 4 mg tablet,disintegrating 4 mg PO Q6H PRN (Reason: nausea and vomiting) Qty: 10 RF: 0 tramadol [Ultram] 50 mg tablet 50 mg PO Q6H PRN (Reason: pain) Qty: 7 RF: 0 Referrals: Adelaida Irvin MD [Non-Staff] - Juliann Patel PA-C [Primary Care Provider] -
[2019-02-10 11:16] LABS: Bacteria Urine None Seen; RBC Urine None Seen (0-5/HPF); WBC Urine None Seen (0-5/HPF)
[2019-02-10] MEDS: MORPHINE 2 MG/ML INJ IV (11:26)
[2019-02-10] MEDS: ONDANSETRON 4 MG/2 ML INJ IV (11:26)
[2019-02-10] MEDS: SODIUM CHLORIDE 0.9% 1,000 ML 150 ML IV (11:27)
[2019-02-10 11:33] VITALS: BP 114/76; PULSE 56
[2019-02-10 11:45] LABS: Pregnancy Test Urine Negative (Negative)
[2019-02-10 11:47] LABS: Amorphous Sediment Urine 1+; Culture Indicated Urine Specimen Cultured; Squamous Epithelial Cell Urine 1-5 /HPF (0-5/HPF)
[2019-02-10 12:00] VITALS: BP 129/77; PULSE 52; RESP 12; O2SAT 98
[2019-02-10 12:09] LABS: Add Manual Diff / Slide Review NO; Basophils Absolute Auto 0 /uL (0-100); Basophils Percent Auto 0.6 % (0-2); Eosinophils Absolute Auto 100 /uL (0-450); Eosinophils Percent Auto 1.6 % (2-4); Hematocrit 40.2 % (36-46); Lymphocytes Absolute Auto 1900 /uL (1100-4500); Lymphocytes Percent Auto 26.7 % (25-40); Mean Corpuscular HGB Conc 34.8 % (30-36); Mean Corpuscular Hemoglobin 31.6 PG (26-34); Mean Corpuscular Volume 90.6 fL (80-100); Monocytes Absolute Auto 500 /uL (0-900); Neutrophils Absolute Auto 4600 /uL (1500-7000); Neutrophils Percent Auto 64.1 % (50-75); Platelet Count 285 X10^3/uL (150-400); Red Blood Cell Count 4.44 X10^6/uL (4.0-5.2); Red Cell Distribution Width 13.9 % (11.6-14.8); White Blood Cell Count 7.2 X10^3/uL (4.5-11.0)
[2019-02-10 12:36] LABS: Alanine Aminotransferase 12 IU/L (9-52); Albumin 4.4 g/dL (3.5-5.0); Albumin Globulin Ratio 1.7 (1.0-2.8); Alkaline Phosphatase 102 U/L (38-126); Aspartate Aminotransferase 47 IU/L (14-36); BUN Creatinine Ratio 21.7 (6-22); Bilirubin Total 0.4 mg/dL (0.2-1.3); Blood Urea Nitrogen 13 mg/dL (7-17); Calcium 9.2 mg/dL (8.4-10.2); Carbon Dioxide 26 mmol/L (22-32); Chloride 107 mmol/L (98-107); Estimated Glomerular Filt Rate > 60.0 mL/min (>60); Globulin 2.6 g/dL (1.7-4.1); Glucose 93 mg/dL (70-100); HEMOLYSIS < 15 (0-50); Lipase 49 U/L (23-300); Potassium 4.1 mmol/L (3.4-5.1); Sodium 142 mmol/L (137-145)
[2019-02-10] MEDS: HYDROMORPHONE 0.5 MG INJ IV (12:53)
[2019-02-10 12:55] VITALS: BP 131/82; PULSE 67; RESP 16; O2SAT 98
[2019-02-10 13:16] VITALS: BP 121/70; PULSE 61; RESP 18; O2SAT 100
== END 2019-02-10 13:16 | disposition home or self-care (01) ==
PROVIDERS: Emergency Provider Emergency Medicine; Family Provider Physician Assistant; PCP Physician Assistant
DX: N23 Unspecified renal colic (principal)
CPT/HCPCS: 36415; 74176; 80053; 81003; 81015; 81025; 83690; 85025; 87077; 87086; 96361; 96374; 96375; 99283; 99284; J1170; J2270; J2405

== ENCOUNTER 2019-04-19 18:18 | Emergency (ER) | payer OTHER, MEDICAID, SELFPAY ==
[2019-04-19 18:43] VITALS: BP 110/71; PULSE 65; RESP 16; TEMP 36.5; O2SAT 97; BMI 22.4
--- NOTE | 2019-04-19 20:07 | DI.US.S_ITS ---
PROCEDURE: US BREAST RT LIMITED COMPARISON: Outside Film, MG, MG DIAGNOSTIC BILATERAL, 10/27/2018, 11:00. Outside Film, US, US BREAST LIMITED RIGHT, 10/27/2018, 11:40. [facility], US, US BREAST LIMITED RIGHT, 04/11/2019, 17:31. INDICATIONS: KNOWN ABSCESS; WORSENING PAIN FINDINGS: Multiple grayscale and color Doppler images of the right breast were acquired over the area of patient concern and pain at the 1:00 position, 3 cm from the nipple which also correlates with site of known abscess from evaluation dated 04/11/19. The fluid collection has decreased in size now measuring 2.5 x 1.0 x 2.4 cm. This previously measured 3.1 x 2.0 x 2.5 cm. There is mild skin thickening measuring approximately 3 mm. No evidence for internal vascularity. No surrounding hyperemia. No suspicious solid components. IMPRESSION: Interval decrease in size of known right breast abscess at the 1:00 position, 3 cm from the nipple. No suspicious sonographic abnormalities identified on today's study. Recommend short interval followup ultrasound approximately 2-4 weeks after treatment to document resolution of findings. Further mammographic evaluation may be necessary at that time. OVERALL IMAGING ASSESSMENT: BI-RADS 2, benign. Dictated by: Pedrito Romero M.D. on 04/19/2019 at 21:08 Approved by: Pedrito Romero M.D. on 04/19/2019 at 21:20
[2019-04-19] MEDS: TRAMADOL 50 MG TABLET PO (20:29)
--- NOTE | 2019-04-19 20:30 | ED.SKABFB ---
HPI - Skin/Abscess/Foreign Bdy <ZENON Ash - Last Filed: 04/19/19 21:49> General Chief complaint: Skin/Abscess/Foreign Body Stated complaint: abcess right side chest, not healing Time Seen by Provider: 04/19/19 19:49 Source: patient Mode of arrival: Ambulatory Limitations: no limitations History of Present Illness HPI narrative: This is a 48-year-old female, smoker, who presents to ED with chief complain of worsening right-sided breast lump and pain. Patient denies fever, chills, nausea or vomiting. Patient had right breast cyst removed recently. Patient reports her discomfort has been radiating up on her breast and has been sleeping more than her usual. Patient states she was seen 3 days ago at walk-in clinic in [facility] and was discharged with oral antibiotic medications for cellulitis. However, patient reports worsening pain after 2 days of antibiotic medication and was re-evaluated at [facility] emergency room and diagnosed with breast abscess and discharged to home with another antibiotic medication and narcotic pain medication. Patient states she is currently taking 2 different type of antibiotic medications which patient does not remember exact names but vaguely remembers as clindamycin and keflex. Patient reports she was discharged to home with oxycodone for 5 day duration which is ran out. Patient states currently taking Aleve and Tylenol at home for pain. Related Data Home Medications Medication Instructions Recorded Confirmed duloxetine 60 mg PO DAILY 12/22/18 12/22/18 lamotrigine 25 mg PO BID 12/22/18 12/22/18 oxybutynin chloride 15 mg PO DAILY 12/22/18 12/22/18 prazosin 1 mg PO QPM 12/22/18 12/22/18 propranolol 20 mg PO QID 12/22/18 12/22/18 quetiapine 100 mg PO DAILY 12/22/18 12/22/18 ranitidine HCl 150 mg PO BID 12/22/18 tizanidine 4 mg PO TID 12/22/18 12/22/18 Previous Rx's Medication Instructions Recorded ondansetron 4 mg PO Q6H PRN #10 tab 02/04/19 tramadol [Ultram] 50 mg PO Q6H PRN #7 tab 02/04/19 tramadol 50 mg PO BID PRN #10 tab 02/10/19 hydrocodone-acetaminophen [[place]] 1 tab PO Q8H PRN #7 tab 04/19/19 Allergies Allergy/AdvReac Type Severity Reaction Status Date / Time ibuprofen [IBUPROFEN] Allergy Mild VOMITING Verified 02/04/19 09:58 acetaminophen [ACETAMINOPHEN] Allergy Unknown Verified 02/04/19 09:58 amoxicillin [AMOXICILLIN] Allergy Unknown Verified 02/04/19 09:58 codeine [CODEINE] Allergy Unknown Verified 02/04/19 09:58 diclofenac [DICLOFENAC] Allergy Unknown Verified 02/04/19 09:58 hydrocodone [HYDROCODONE] Allergy Unknown Verified 02/04/19 09:58 ketorolac [KETOROLAC] Allergy Unknown Verified 02/04/19 09:58 propoxyphene [PROPOXYPHENE] Allergy Unknown Verified 02/04/19 09:58 sertraline [SERTRALINE] Allergy Unknown Verified 02/04/19 09:58 Review of Systems <ZENON Ash - Last Filed: 04/19/19 21:49> Review of Systems Narrative: General: Reports fatigue. Denies fever, chills, malaise, sweats. HEENT: Denies sinus pain, ear pain, sore throat, difficulty swallowing, dizziness. Respiratory: Denies dyspnea, cough, wheezing, hemoptysis, sputum. Cardiovascular: Denies chest pain, palpitations, orthopnea, edema. Gastrointestinal: Denies nausea, vomiting, abdominal pain, diarrhea, constipation, melena. : Denies dysuria, frequency, incontinence, hematuria, urinary retention. Musculoskeletal: Denies weakness, joint pain or bony pain. Skin: Reports right breast discomfort and lumps. Denies rash, skin lesions, or other. Neurologic: Denies weakness, headache, numbness, change in speech, confusion, seizures, incoordination. Psychiatric: No concerning psychosocial issues. 12-point review of systems is negative except for those stated above. Patient History <ZENON Ash - Last Filed: 04/19/19 21:49> Medical History (Updated 04/19/19 @ 21:38 by ZENON Ash) Bipolar depression (Chronic) Nephrolithiasis (Chronic) PTSD (post-traumatic stress disorder) (Chronic) Surgical History (Updated 04/19/19 @ 20:43 by ZENON Ash) H/O removal of cyst (Acute) History of renal stent (Resolved) Status post appendectomy (Resolved) Status post hysterectomy (Resolved) Social History Smoking Status: Current every day smoker Smoking Status: Current every day smoker tobacco type: cigarettes alcohol intake frequency: holidays/special occasions only Substance Use Type: marijuana Exam <Srinivasan SousaERNESTO StephensonP - Last Filed: 04/19/19 21:49> Narrative Exam Narrative: General appearance: well developed, well nourished, in no acute distress. Head: normocephalic, atraumatic, no scalp lesions, non-tender. ENT: Bilateral auditory canals and tympanic membranes clear. Hearing grossly intact. Nose without bleeding, purulent discharge, septal hematoma or deviation. Turbinate without erythema or swelling. Facial sinuses nontender to palpate. Mucous membrane moist, no mucosal lesion. Throat without erythema, tonsillar hypertrophy or exudate. Uvula in midline, airway patent. Neck/Thyroid: neck supple, full range of motion, no visible masses or meningeal signs. No JVD, non-tender without lymphadenopathy. Skin: no suspicious rashes, lesions over visible areas. Warm and dry and appropriate color for ethnicity. Heart: no clubbing, no cyanosis, no edema. S1 and S2 normal. RRR w/o murmurs, clicks, or bruits. Lungs: Breathing even and unlabored. No stridor. No accessory muscles used. Able to speak in full sentences. Chest: Right-sided breast no erythema, drainage, edema, warmth to touch. Small lump to palpate in R upper quad in R region in right breast and tenderness with palpation. Normal shape and expansion. Abdomen: non-obese, non-distended. Neurologic: alert and oriented. Cognitive exam, OUTREACH LIBRARIAN and PNS grossly intact on informal exam. Psych: good eye contact, normal affect. Initial Vital Signs Initial Vital Signs: Vital Signs Temperature 97.7 F 04/19/19 18:43 Pulse Rate 65 04/19/19 18:43 Respiratory Rate 16 04/19/19 18:43 Blood Pressure 110/71 04/19/19 18:43 Pulse Oximetry 97 04/19/19 18:43 <Toby Castro DO - Last Filed: 04/20/19 04:18> Initial Vital Signs Initial Vital Signs: Vital Signs Temperature 97.7 F 04/19/19 18:43 Pulse Rate 65 04/19/19 18:43 Respiratory Rate 16 04/19/19 18:43 Blood Pressure 110/71 04/19/19 18:43 Pulse Oximetry 97 04/19/19 18:43 Course <ZENON Ash - Last Filed: 04/19/19 21:49> Orders Ordered: ED Orders 04/19/19 20:07 US breast RT limited Stat Discontinued Medications Hydrocodone Bitart/Acetaminophen (Vicodin 5/325 Prepack) 1 bottle MISC SEEINSTR ONE Stop: 04/19/19 21:27 Last Admin: 04/19/19 21:37 Dose: 1 bottle Documented by: APAFFIE Tramadol HCl (Ultram) 50 mg PO NOW ONE Stop: 04/19/19 20:12 Last Admin: 04/19/19 20:29 Dose: 50 mg Documented by: ARRINGTO Vital Signs Vital signs: Vital Signs - 8 hr 04/19/19 20:34 04/19/19 21:42 Pulse Rate 56 L 56 L Respiratory Rate 14 18 Blood Pressure 123/83 Blood Pressure [Right Arm] 107/67 Pulse Oximetry 98 98 <Toby Castro DO - Last Filed: 04/20/19 04:18> Orders Ordered: ED Orders 04/19/19 20:07 breast RT limited Stat Discontinued Medications Hydrocodone Bitart/Acetaminophen (Vicodin 5/325 Prepack) 1 bottle MISC SEEINSTR ONE Stop: 04/19/19 21:27 Last Admin: 04/19/19 21:37 Dose: 1 bottle Documented by: APAFFIE Tramadol HCl (Ultram) 50 mg PO NOW ONE Stop: 04/19/19 20:12 Last Admin: 04/19/19 20:29 Dose: 50 mg Documented by: ARRINGTO Vital Signs Vital signs: Vital Signs - 8 hr 04/19/19 20:34 04/19/19 21:42 Pulse Rate 56 L 56 L Respiratory Rate 14 18 Blood Pressure 123/83 Blood Pressure [Right Arm] 107/67 Pulse Oximetry 98 98 MDM - Skin/Abscess/Foreign Bdy <ZENON Ash - Last Filed: 04/19/19 21:49> Differential Diagnosis Differential diagnosis: Likely abscess of skin or subcutaneous tissue and cellulitis Medical Records Attestation: I reviewed the patient's medical records. Imaging Data US-R breast: Radiologist's Impression: [address] [address] Ultrasound Report Signed Patient: Peg Valencia [employer]#: [id number] : 1970Acct:[id number] Age/Sex: 48 / FDate of Service: 04/19/19 Loc: ED Accession Number: [id number] Procedure: US breast RT limited Ordering Provider: Srinivasan Carmen PROCEDURE: US BREAST RT LIMITED COMPARISON: Outside Film, MG, MG DIAGNOSTIC BILATERAL, 10/27/2018, 11:00. Outside Film, US, US BREAST LIMITED RIGHT, 10/27/2018, 11:40. [facility], US, US BREAST LIMITED RIGHT, 04/11/2019, 17:31. INDICATIONS: KNOWN ABSCESS; WORSENING PAIN FINDINGS: Multiple grayscale and color Doppler images of the right breast were acquired over the area of patient concern and pain at the 1:00 position, 3 cm from the nipple which also correlates with site of known abscess from evaluation dated 04/11/19. The fluid collection has decreased in size now measuring 2.5 x 1.0 x 2.4 cm. This previously measured 3.1 x 2.0 x 2.5 cm. There is mild skin thickening measuring approximately 3 mm. No evidence for internal vascularity. No surrounding hyperemia. No suspicious solid components. IMPRESSION: Interval decrease in size of known right breast abscess at the 1:00 position, 3 cm from the nipple. No suspicious sonographic abnormalities identified on today's study. Recommend short interval followup ultrasound approximately 2-4 weeks after treatment to document resolution of findings. Further mammographic evaluation may be necessary at that time. OVERALL IMAGING ASSESSMENT: BI-RADS 2, benign. Dictated by: Pedrito Romero M.D. on 04/19/2019 at 21:08 Approved by: Pedrito Romero M.D. on 04/19/2019 at 21:20 [facility] Narrative Medical decision making narrative: This is a 48-year-old female who presents to ED with known right breast abscess according to ultrasound test done in 04/11/[address] [facility] emergency room. Patient is currently taking 2 types of antibiotic medication and [id number] Tylenol and Aleve for pain management since oxycodone had ran out. Patient reports right breast pain and lump is worse and is concerned and would like a re-evaluation. Patient denies constitutional symptoms but increase in tiredness. Vital signs in ER has been stable. Ultrasound test on right breast has repeated and indicates improving right breast abscess size from the previous test without evidence for internal vascularity or hyperemia. Patient has a follow-up with breast surgeon in 05/02/[address] [facility]. Patient was medicated with tramadol while in ED without much improvement in pain. Patient discharged to home with prepack of [place] and advised to use sparingly and written Rx provided for small dose for severe pain. Patient advised to use [id number] Tylenol and Aleve, warm pack for discomfort and return precautions were discussed. Patient verbalized understanding and agrees with the treatment plan. Discharge Plan Departure Patient Disposition: Home Clinical Impression: Abscess of right breast Discharge Date/Time: 04/19/19 21:42 Instructions: DI for Breast Pain (Mastalgia) Activity Restrictions/Additional Instructions: You have been diagnosed with [improving right breast abscess. Today's ultrasound test shows decreasing size of right breast mass to 2.5x 1.0 x 2.4 cm from the previous US exam]. What to do: *Take your medications as directed. Please take [place] only for severe pain. Please take Tylenol and Aleve for your discomfort. Tylenol 4000 mg in 24 hour period. Follow the instruction on the bottle of Aleve for dose and frequency. Please take food with Aleve to decrease GI irritation. [place] can cause drowsiness and constipation so please take precaution by not driving, drinking alcohol or operating heavy equipments. You can use warm pack on affected site 3 to 4 times a day as needed for discomfort. *Follow up with your primary care provider in 2-3 days, call for an appointment. Please follow-up with breast surgeon as scheduled or sooner if pain persists. Let them know you were seen in the ED and that we asked you to be seen in follow up. *Return to ED if you have any new, worsening, or concerning symptoms, such as [chest pain, breathing difficulty, unable to tolerate fluids, increasing redness/lump/pain, fever or any acute concerns]. Prescriptions: New hydrocodone-acetaminophen [[place]] 5-325 mg tablet 1 tab PO Q8H PRN (Reason: pain) Qty: 7 RF: 0 No Action oxybutynin chloride 15 mg tablet extended release 24hr 15 mg PO DAILY RF: 0 tizanidine 4 mg tablet 4 mg PO TID RF: 0 prazosin 1 mg capsule 1 mg PO QPM RF: 0 quetiapine 100 mg tablet 100 mg PO DAILY RF: 0 lamotrigine 25 mg tablet 25 mg PO BID RF: 0 ranitidine HCl 150 mg tablet 150 mg PO BID RF: 0 propranolol 20 mg tablet 20 mg PO QID RF: 0 duloxetine 60 mg capsule,delayed release(DR/EC) 60 mg PO DAILY RF: 0 ondansetron 4 mg tablet,disintegrating 4 mg PO Q6H PRN (Reason: nausea and vomiting) Qty: 10 RF: 0 tramadol [Ultram] 50 mg tablet 50 mg PO Q6H PRN (Reason: pain) Qty: 7 RF: 0 tramadol 50 mg tablet 50 mg PO BID PRN (Reason: pain) Qty: 10 RF: 0 Referrals: Juliann Patel PA-C [Primary Care Provider] -
[2019-04-19 20:34] VITALS: BP 107/67; PULSE 56; RESP 14; O2SAT 98
--- NOTE | 2019-04-19 20:38 | PC.NURSE ---
firm nodule noted to right breast, no redness, no warmth, no swelling, no drainage, +pain to palpate
[2019-04-19] MEDS: HYDROCODONE/ACET 5/325 PREPACK 1 BOTTLE MISC (21:37)
[2019-04-19 21:42] VITALS: BP 123/83; PULSE 56; RESP 18; O2SAT 98
== END 2019-04-19 21:42 | disposition home or self-care (01) ==
PROVIDERS: Emergency Provider Nurse Practitioner Family; Family Provider Physician Assistant; PCP Physician Assistant
DX: N61.1 Abscess of the breast and nipple (principal)
CPT/HCPCS: 76642; 99282; 99283

== ENCOUNTER 2019-04-29 20:47 | Emergency (ER) | payer OTHER, MEDICAID, SELFPAY ==
--- NOTE | 2019-04-29 20:49 | ED_ITS ---
HPI - Chest Pain General Chief Complaint: Skin/Abscess/Foreign Body Stated Complaint: R chest pain, post R breast abcess Time Seen by Provider: 04/29/19 20:49 Source: patient Mode of arrival: Ambulatory Limitations: no limitations History of Present Illness HPI narrative: 48-year-old female smoker with known recent history of right- sided breast abscess presents with a chief complaint of some increasing pain on the right side of her anterior chest in the region of her right breast. Her symptoms started after surgery to remove a lump in the fall. She had been seen and evaluated, 1st she was treated for a simple cellulitis given the redness, warmth and tenderness in the absence of abscess but on subsequent visits she was found to have abscess on ultrasound. She had been on a course of antibiotics and has a referral to see a breast surgeon in 2 days. She denies systemic findings such as fever, shaking chills nor nausea or vomiting. She does have some sharp and stabbing right anterior chest pain which is worse with deep breath and with palpitation. As stated, the redness, warmth have long since cleared MD complaint: chest pain Onset (ago): day(s) Duration: intermittent Pain location: right chest Quality: sharp Pain radiation: none Relieving factors: remaining still Exacerbating factors: inspiration and palpation Related Data On Oral Contraceptives: No Home Medications Medication Instructions Recorded Confirmed duloxetine 60 mg PO DAILY 12/22/18 12/22/18 lamotrigine 25 mg PO BID 12/22/18 12/22/18 oxybutynin chloride 15 mg PO DAILY 12/22/18 12/22/18 prazosin 1 mg PO QPM 12/22/18 12/22/18 propranolol 20 mg PO QID 12/22/18 12/22/18 quetiapine 100 mg PO DAILY 12/22/18 12/22/18 ranitidine HCl 150 mg PO BID 12/22/18 tizanidine 4 mg PO TID 12/22/18 12/22/18 Previous Rx's Medication Instructions Recorded ondansetron 4 mg PO Q6H PRN #10 tab 02/04/19 tramadol [Ultram] 50 mg PO Q6H PRN #7 tab 02/04/19 tramadol 50 mg PO BID PRN #10 tab 02/10/19 hydrocodone-acetaminophen [[place]] 1 tab PO Q8H PRN #7 tab 04/19/19 Allergies Allergy/AdvReac Type Severity Reaction Status Date / Time ibuprofen [IBUPROFEN] Allergy Mild VOMITING Verified 02/04/19 09:58 acetaminophen [ACETAMINOPHEN] Allergy Unknown Verified 02/04/19 09:58 amoxicillin [AMOXICILLIN] Allergy Unknown Verified 02/04/19 09:58 codeine [CODEINE] Allergy Unknown Verified 02/04/19 09:58 diclofenac [DICLOFENAC] Allergy Unknown Verified 02/04/19 09:58 hydrocodone [HYDROCODONE] Allergy Unknown Verified 02/04/19 09:58 ketorolac [KETOROLAC] Allergy Unknown Verified 02/04/19 09:58 propoxyphene [PROPOXYPHENE] Allergy Unknown Verified 02/04/19 09:58 sertraline [SERTRALINE] Allergy Unknown Verified 02/04/19 09:58 Review of Systems Constitutional Constitutional: Denies chills, Denies fatigue, Denies fever(s), Denies frequent falls, Denies lethargy and Denies weakness Eyes Eyes: Denies change in vision, Denies eye discharge, Denies irritation and Denies loss of vision ENT Ears, Nose, Mouth, and Throat: Denies change in voice, Denies dizziness, Denies neck pain, Denies sore throat and Denies throat swelling Cardiovascular Cardiovascular: Reports chest pain (Sharp and stabbing, reproducible to palpation), Denies irregular heart rhythm, Denies lightheadedness, Denies palpitations, Denies dyspnea, Denies dyspnea on exertion and Denies orthopnea Respiratory Respiratory: Denies cough, Denies dyspnea, Denies dyspnea on exertion and Denies wheezing Gastrointestinal Gastrointestinal: Denies abdominal pain, Denies change in bowel habits, Denies diarrhea, Denies nausea and Denies vomiting Genitourinary Genitourinary: Denies hematuria, Denies flank pain, Denies urinary incontinence and Denies urinary urgency Musculoskeletal Musculoskeletal: Denies back pain, Denies muscle weakness, Denies neck pain, Denies numbness and Denies tingling Integumentary/Breasts Skin/Breast: Denies pruritus, Denies erythema, Denies rash and Denies wounds Neurologic Neurologic: Denies behavioral changes, Denies confusion, Denies dizziness, Denies frequent falls, Denies loss of vision, Denies numbness, Denies tingling and Denies weakness Psychiatric Psychiatric: Denies anxiety, Denies behavioral changes, Denies confusion, Denies depression, Denies homicidal ideation and Denies suicidal ideation Endocrine Endocrine: Denies fatigue, Denies flushing and Denies palpitations Hematologic/Lymphatic Hematologic/Lymphatic: Denies easy bruising Allergic/Immunologic Allergic/Immunologic: Denies urticaria, Denies throat swelling and Denies wheezing Patient History Medical History Bipolar depression (Chronic) Nephrolithiasis (Chronic) PTSD (post-traumatic stress disorder) (Chronic) Surgical History H/O removal of cyst (Acute) History of renal stent (Resolved) Status post appendectomy (Resolved) Status post hysterectomy (Resolved) Social History Smoking Status: Current every day smoker Smoking Status: Current every day smoker tobacco type: cigarettes alcohol intake frequency: holidays/special occasions only Substance Use Type: marijuana Exam Narrative Exam Narrative: GEN: AOx3 and in mild distress EYES: Pupils are equal, round, and reactive to light and accommodation. Extraoccular muscles are intact bilaterally. There is no subconjunctival hemorrhage or exudate. CHEST: Lungs are clear to auscultation bilaterally and free of wheezes, rales, or rhonchi. Heart rate is regular rhythm, there are no murmurs, clicks, rubs, or gallops. Right breast examined with patient's permission and female nurse raw material handler at the bedside. There is no redness or warmth noted. There is some tenderness and induration noted at the 1 o'clock position in the absence of fluctuance. Patient states this is the area of tenderness that brought her in, and where her abscess was noted. ABD: Abdomen is soft and nontender. There is no guarding or rebound. Bowel sounds are normal in all 4 quadrants. There is no mass or organomegaly. EXT: Full painless ROM of all extremities with no loss of sensation or strength. SKIN: Warm, pink, and dry. No erythema or rash Initial Vital Signs Initial Vital Signs: Vital Signs Temperature 97.9 F 04/29/19 21:05 Pulse Rate 66 04/29/19 21:05 Respiratory Rate 16 04/29/19 21:05 Blood Pressure 119/74 04/29/19 21:05 Pulse Oximetry 96 04/29/19 21:05 Course Orders Ordered: ED Orders 04/29/19 21:04 US breast RT limited Stat Discontinued Medications Hydrocodone Bitart/Acetaminophen (Vicodin 5/325 Prepack) 1 bottle MISC SEEINSTR ONE Stop: 04/29/19 22:26 Last Admin: 04/29/19 22:36 Dose: 1 bottle Documented by: MIHIR Vital Signs Vital signs: Vital Signs - 8 hr 04/29/19 21:05 Temperature 97.9 F Pulse Rate 66 Respiratory Rate 16 Blood Pressure 119/74 Pulse Oximetry 96 MDM - Chest Pain Imaging Data Breast US: Radiologist's Impression: interval improvement over prior MDM Narrative Medical decision making narrative: Multiple etiologies for patient's symptoms c onsidered including: [Worsening of abscess versus cardiac ischemia versus costochondritis versus cellulitis versus other] Patient's symptoms improved or duration of stay with above-stated therapies. Findings and discharge diagnosis discussed with patient/family followed by verbalization of understanding Return precautions discussed with patient/family whom verbalize understanding. Discharge Plan Departure Patient Disposition: Home Clinical Impression: Abscess of right breast Discharge Date/Time: 04/29/19 22:37 Instructions: DI for Skin Abscess Activity Restrictions/Additional Instructions: *You have been diagnosed with [chronic right breast abscess with chest wall pain] *What to do: *Take medications as directed *Follow up with your primary care provider in 2-3 days, call for an appointment. Let them know you were seen in the Emergency Department and that we ask that you be seen in follow up *Return to ER if you should have any new, worsening or concerning symptoms Prescriptions: No Action oxybutynin chloride 15 mg tablet extended release 24hr 15 mg PO DAILY RF: 0 tizanidine 4 mg tablet 4 mg PO TID RF: 0 prazosin 1 mg capsule 1 mg PO QPM RF: 0 quetiapine 100 mg tablet 100 mg PO DAILY RF: 0 lamotrigine 25 mg tablet 25 mg PO BID RF: 0 ranitidine HCl 150 mg tablet 150 mg PO BID RF: 0 propranolol 20 mg tablet 20 mg PO QID RF: 0 duloxetine 60 mg capsule,delayed release(DR/EC) 60 mg PO DAILY RF: 0 ondansetron 4 mg tablet,disintegrating 4 mg PO Q6H PRN (Reason: nausea and vomiting) Qty: 10 RF: 0 tramadol [Ultram] 50 mg tablet 50 mg PO Q6H PRN (Reason: pain) Qty: 7 RF: 0 tramadol 50 mg tablet 50 mg PO BID PRN (Reason: pain) Qty: 10 RF: 0 hydrocodone-acetaminophen [[place]] 5-325 mg tablet 1 tab PO Q8H PRN (Reason: pain) Qty: 7 RF: 0 Referrals: Juliann Patel PA-C [Primary Care Provider] -
--- NOTE | 2019-04-29 21:04 | DI.US.S_ITS ---
PROCEDURE: US BREAST RT LIMITED COMPARISON: [facility], BREAST RT LIMITED, 04/19/2019, 20:11. INDICATIONS: KNOWN ABSCESS; WORSENING PAIN FINDINGS: One o'clock position in the right breast, there is ill-defined fluid measuring 2.0 x 0.511 cm previously 2.5 x 1.0 x 2.4 cm and overall decreased. No definite loculated fluid collection seen. IMPRESSION: Nonspecific ill-defined infiltrative fluid collection at the one o'clock position right breast, which appears decreased since the prior study from 04/19/19. This is presumed infectious in etiology although recommend 6 month followup ultrasound to document complete resolution BI-RADS 3 Dictated by: Jef Valderrama M.D. on 04/29/2019 at 21:56 Approved by: Jef Valderrama M.D. on 04/29/2019 at 22:03
[2019-04-29 21:05] VITALS: BP 119/74; PULSE 66; RESP 16; TEMP 36.6; O2SAT 96
--- NOTE | 2019-04-29 21:36 | PC.NURSE ---
ultrasound to right breast.
[2019-04-29] MEDS: HYDROCODONE/ACET 5/325 PREPACK 1 BOTTLE MISC (22:36)
== END 2019-04-29 22:37 | disposition home or self-care (01) ==
PROVIDERS: Emergency Provider Emergency Medicine; Family Provider Physician Assistant; PCP Physician Assistant
DX: R07.89 Other chest pain (principal); N61.1 Abscess of the breast and nipple
CPT/HCPCS: 76642; 99283

== ENCOUNTER 2019-08-22 12:26 | Emergency (ER) | payer OTHER, MEDICAID, SELFPAY ==
[2019-08-22 12:38] VITALS: BP 129/63; PULSE 74; RESP 18; TEMP 36.6; O2SAT 100
[2019-08-22 12:43] LABS: Bacteria Urine None Seen
[2019-08-22 13:05] LABS: Culture Indicated Urine Cult Not Indicated; RBC Urine 0-1/HPF (0-5/HPF); WBC Urine 0-1/HPF (0-5/HPF)
[2019-08-22] MEDS: TRAMADOL 50 MG TABLET PO (13:11)
[2019-08-22] MEDS: PHENAZOPYRIDINE 100 MG TABLET 200 MG PO (13:12)
[2019-08-22] MEDS: ACETAMINOPHEN 325 MG TABLET 650 MG PO (13:12)
[2019-08-22] MEDS: ONDANSETRON 4 MG ODT SL (13:12)
--- NOTE | 2019-08-22 13:14 | DI.CT.S_ITS ---
PROCEDURE: CT KIDNEY URETER BLADDER (KUB) INDICATIONS: Right flank pain and hematuria TECHNIQUE: Noncontrast 5 mm thick sections acquired from the diaphragms to the symphysis. 5 mm thick coronal and sagittal reformats were then performed. For radiation dose reduction, the following was used: automated exposure control, adjustment of mA and/or kV according to patient size. COMPARISON: [facility], CT, CT KIDNEY URETER BLADDER (KUB), 02/10/2019, 11:50. FINDINGS: Image quality: Excellent. Lung bases: Lung bases are clear. Heart size is normal. Urinary system: Both kidneys are normal in size. No kidney stones. No hydronephrosis or perinephric fat stranding. Both ureters appear non-dilated throughout their expected courses. Bladder wall thickness is normal; no calcified bladder stones. Other solid organs: Liver is mildly prominent. Gallbladder has been removed. Pancreas is normal in contours. Spleen is normal in size. No adrenal nodules. Peritoneum and bowel: Unenhanced bowel loops demonstrate normal wall thickness and caliber. No free fluid or air. Clips are present within the right lower quadrant presumably appendectomy. Nodes and vessels: No retroperitoneal or mesenteric adenopathy by size criteria. Aorta and inferior vena cava are normal in caliber. Abdominal wall: No ventral hernias. Pelvis: No free pelvic fluid. No inguinal hernias or adenopathy. Bones: No suspicious bony lesions. No vertebral body compression fractures. IMPRESSION: 1. No nephro or ureterolithiasis. No bladder calculi. Dictated by: Nora Diego M.D. on 08/22/2019 at 13:27 Approved by: Nora Diego M.D. on 08/22/2019 at 13:30
--- NOTE | 2019-08-22 13:22 | ED.FEMALEGU ---
HPI - Female Genitourinary <ERNESTO AshP - Last Filed: 08/22/19 16:32> General Chief complaint: Urogenital-Female Stated complaint: Bladder pain/blood in urine Time Seen by Provider: 08/22/19 12:33 Source: patient Mode of arrival: Ambulatory Limitations: no limitations History of Present Illness HPI Narrative: This is a 48-year-old female, smoker, who presents to ED with spouse with chief complain of bladder and right flank pain with hematuria that she noticed this morning during shower. Patient reports she had total hysterectomy 27 years ago due to endometriosis and ovarian cyst and noticed blood in her urine when she was taking shower this morning with sharp discomfort from her urethra up to her bladder and right kidney. Patient reports pain is worse during urination. Patient reports she is somewhat nauseated but denies fever, chills, vomiting. Patient reports has history of kidney stones and urinary stent was in placed and now it has been removed about 2 and half years ago since she was not able to pass this stone on her own. Related Data Home Medications Medication Instructions Recorded Confirmed duloxetine 60 mg PO DAILY 12/22/18 08/22/19 oxybutynin chloride 15 mg PO DAILY 12/22/18 08/22/19 prazosin 1 mg PO QPM 12/22/18 08/22/19 quetiapine 100 mg PO BEDTIME 12/22/18 08/22/19 tizanidine 4 mg PO TID PRN 12/22/18 08/22/19 albuterol sulfate 2 puff INHALATION QID PRN 08/22/19 08/22/19 Previous Rx's Medication Instructions Recorded phenazopyridine [Pyridium] 100 mg PO Q8H PRN #6 tab 08/22/19 phenazopyridine [Pyridium] 100 mg PO TID PRN #6 tab 08/22/19 Allergies Allergy/AdvReac Type Severity Reaction Status Date / Time ibuprofen [IBUPROFEN] Allergy Mild VOMITING Verified 08/22/19 12:57 amoxicillin [AMOXICILLIN] Allergy Unknown Verified 08/22/19 12:57 codeine [CODEINE] Allergy Unknown Verified 08/22/19 12:57 diclofenac [DICLOFENAC] Allergy Unknown Verified 08/22/19 12:57 hydrocodone [HYDROCODONE] Allergy Unknown Verified 08/22/19 12:57 ketorolac [KETOROLAC] Allergy Unknown Verified 08/22/19 12:57 propoxyphene [PROPOXYPHENE] Allergy Unknown Verified 08/22/19 12:57 sertraline [SERTRALINE] Allergy Unknown Verified 08/22/19 12:57 Review of Systems <ZENON Ash - Last Filed: 08/22/19 16:32> Review of Systems Narrative: General: Denies fever, chills, fatigue, malaise, sweats. HEENT: Denies sinus pain, ear pain, sore throat, difficulty swallowing, dizziness. Respiratory: Denies dyspnea, cough, wheezing, hemoptysis, sputum. Cardiovascular: Denies chest pain, palpitations, orthopnea, edema. Gastrointestinal: Denies (+) nausea, vomiting, abdominal pain, diarrhea, constipation, melena. : See HPI Musculoskeletal: Denies weakness, joint pain or bony pain, (+) right flank pain. Skin: Denies rash, skin lesions, or other. Neurologic: Denies weakness, headache, numbness, change in speech, confusion, seizures, incoordination. Psychiatric: No concerning psychosocial issues. 12-point review of systems is negative except for those stated above. Patient History <ZENON Ash - Last Filed: 08/22/19 16:32> Medical History Bipolar depression (Chronic) Nephrolithiasis (Chronic) PTSD (post-traumatic stress disorder) (Chronic) Surgical History H/O removal of cyst (Acute) History of renal stent (Resolved) Status post appendectomy (Resolved) Status post hysterectomy (Resolved) tobacco type: cigarettes alcohol intake frequency: holidays/special occasions only Substance Use Type: marijuana Exam <ZENON Ash - Last Filed: 08/22/19 16:32> Narrative Exam Narrative: GEN: Alert, oriented x 3, well appearing and nourished, and in no acute distress. Head: Normal cephalic, atraumatic. No scalp or temporal tenderness, palpable mass or rash. EYES: Pupils are equal, round, and reactive to light and accommodation. Extraocular muscles are intact bilaterally. There is no subconjunctival hemorrhage, exudate and sclera non-icteric. ENT: Hearing grossly intact. Nose without bleeding, purulent discharge. Mucous membrane dry, no mucosal lesion. Throat without erythema, tonsillar hypertrophy or exudate. Uvula in midline, airway patent. Neck: Trachea in midline. No JVD, non-tender without lymphadenopathy. No masses or thyroid megaly. Supple, non-tender and no meningeal signs. CARDIAC: Normal regular rate and rhythm without murmurs, gallops, or rubs. No chest wall tenderness. No peripheral edema, cyanosis or pallor. Capillary refill is less than 2 seconds. RESPIRATORY: Lungs are clear to auscultate bilaterally. No cough, wheezes, rales, or rhonchi. No stridor, respiratory distress, increase work of breathing, or accessary muscle used. ABD: Abdomen soft and non-distended. Mild tenderness to palpate in suprapubic region. No guarding or rebound tenderness to palpate. Bowel sounds are normal in all 4 quadrants. There is no palpable masses or organomegaly. EXT: Full painless ROM of all extremities with no loss of sensation, strength, effusion or edema. SKIN: Warm, dry, normal color for patient. No erythema, lesions or rash over visible areas. BACK: Nontender without deformity or crepitance. Right flank pain to percuss. NEUROLOGICAL: Alert and oriented to place, time and person. Sensation and motor function intact bilaterally. No facial droops, dysphasia. PSYCHIATRIC: Good judgement and reason, without hallucinations, abnormal affect or abnormal behaviors during the examination. Patient is not suicidal. Initial Vital Signs Initial Vital Signs: Vital Signs Temperature 97.8 F 08/22/19 12:38 Pulse Rate 74 08/22/19 12:38 Respiratory Rate 18 08/22/19 12:38 Blood Pressure 129/63 08/22/19 12:38 Pulse Oximetry 100 08/22/19 12:38 <Colin Cerna MD - Last Filed: 08/23/19 07:44> Initial Vital Signs Initial Vital Signs: Vital Signs Temperature 97.8 F 08/22/19 12:38 Pulse Rate 74 08/22/19 12:38 Respiratory Rate 18 08/22/19 12:38 Blood Pressure 129/63 08/22/19 12:38 Pulse Oximetry 100 08/22/19 12:38 Scores <Srinivasan SousaZENON Higgins - Last Filed: 08/22/19 16:32> GCS [place] coma scale eye opening: Spontaneous [place] coma scale verbal response: Orientated [place] coma scale motor response: Obey commands [place] coma scale total score: 15 Course <Srinivasan CarmenZENON - Last Filed: 08/22/19 16:32> Orders Ordered: Discontinued Medications Acetaminophen (Tylenol) 650 mg PO NOW ONE Stop: 08/22/19 12:59 Last Admin: 08/22/19 13:12 Dose: 650 mg Documented by: ANDREW Ondansetron HCl (Zofran Odt) 4 mg SL NOW ONE Stop: 08/22/19 12:56 Last Admin: 08/22/19 13:12 Dose: 4 mg Documented by: ANDREW Phenazopyridine HCl (Pyridium) 200 mg PO NOW ONE Stop: 08/22/19 12:58 Last Admin: 08/22/19 13:12 Dose: 200 mg Documented by: ANDREW Tramadol HCl (Ultram) 50 mg PO NOW ONE Stop: 08/22/19 12:59 Last Admin: 08/22/19 13:11 Dose: 50 mg Documented by: ANDREW Vital Signs Vital signs: Vital Signs - 8 hr 08/22/19 12:38 08/22/19 14:09 08/22/19 16:01 Temperature 97.8 F Pulse Rate 74 78 60 Respiratory Rate 18 16 16 Blood Pressure 129/63 Blood Pressure [Left Arm] 128/78 127/65 Pulse Oximetry 100 98 98 <Colin Cerna MD - Last Filed: 08/23/19 07:44> Orders Ordered: Discontinued Medications Acetaminophen (Tylenol) 650 mg PO NOW ONE Stop: 08/22/19 12:59 Last Admin: 08/22/19 13:12 Dose: 650 mg Documented by: ANDREW Ondansetron HCl (Zofran Odt) 4 mg SL NOW ONE Stop: 08/22/19 12:56 Last Admin: 08/22/19 13:12 Dose: 4 mg Documented by: ANDREW Phenazopyridine HCl (Pyridium) 200 mg PO NOW ONE Stop: 08/22/19 12:58 Last Admin: 08/22/19 13:12 Dose: 200 mg Documented by: ANDREW Tramadol HCl (Ultram) 50 mg PO NOW ONE Stop: 08/22/19 12:59 Last Admin: 08/22/19 13:11 Dose: 50 mg Documented by: ANDREW Vital Signs Vital signs: Vital Signs - 8 hr 08/22/19 12:38 08/22/19 14:09 08/22/19 16:01 Temperature 97.8 F Pulse Rate 74 78 60 Respiratory Rate 18 16 16 Blood Pressure 129/63 Blood Pressure [Left Arm] 128/78 127/65 Pulse Oximetry 100 98 98 MDM - Female Genitourinary <ZENON Ash - Last Filed: 08/22/19 16:32> Differential Diagnosis Differential diagnosis: Likely urinary tract infection, cystitis and other (Kidney stone, kidney infection) Medical Records Attestation: I reviewed the patient's medical records. Lab Data Attestation: I reviewed the patient's lab results. Result diagrams: 08/22/19 13:45 08/22/19 15:01 Labs: Lab Results 08/22/19 08/22/19 08/22/19 Range/Units 12:42 13:45 13:45 WBC 7.0 (4.5-11.0) X10^3/uL RBC 4.51 (4.0-5.2) X10^6/uL Hgb 14.7 (12.0-16.0) g/dL Hct 41.6 (36-46) % MCV 92.2 (80-100) fL MCH 32.5 (26-34) PG MCHC 35.3 (30-36) % RDW 13.7 (11.6-14.8) % Plt Count 250 (150-400) X10^3/uL Neut % (Auto) 56.1 (50-75) % Lymph % (Auto) 34.6 (25-40) % [place] % (Auto) 6.0 (3-14) % Eos % (Auto) 2.6 (2-4) % Baso % (Auto) 0.7 (0-2) % Neut # (Auto) 3900 (3968-9610) /uL Lymph # (Auto) 2400 (0470-1196) /uL [place] # (Auto) 400 (0-900) /uL Eos # (Auto) 200 (0-450) /uL Baso # (Auto) 0 (0-100) /uL Sodium 139 (137-145) mmol/L Potassium 5.2 H (3.4-5.1) mmol/L Chloride 107 (98-107) mmol/L Carbon Dioxide 25 (22-32) mmol/L BUN 11 (7-17) mg/dL Creatinine 0.52 (0.52-1.04) mg/dL Estimated GFR > 60.0 (>60) mL/min BUN/Creatinine Ratio 21.2 (6-22) Glucose 76 (70-100) mg/dL Calcium 9.3 (8.4-10.2) mg/dL Urine RBC 0-1/hpf (0-5/HPF) Urine WBC 0-1/hpf (0-5/HPF) Urine Bacteria None seen (None) Ur Culture Indicated? Cult not indicated 08/22/19 Range/Units 15:01 WBC (4.5-11.0) X10^3/uL RBC (4.0-5.2) X10^6/uL Hgb (12.0-16.0) g/dL Hct (36-46) % MCV (80-100) fL MCH (26-34) PG MCHC (30-36) % RDW (11.6-14.8) % Plt Count (150-400) X10^3/uL Neut % (Auto) (50-75) % Lymph % (Auto) (25-40) % [place] % (Auto) (3-14) % Eos % (Auto) (2-4) % Baso % (Auto) (0-2) % Neut # (Auto) (5102-1976) /uL Lymph # (Auto) (7933-7904) /uL [place] # (Auto) (0-900) /uL Eos # (Auto) (0-450) /uL Baso # (Auto) (0-100) /uL Sodium (137-145) mmol/L Potassium 4.2 (3.4-5.1) mmol/L Chloride (98-107) mmol/L Carbon Dioxide (22-32) mmol/L BUN (7-17) mg/dL Creatinine (0.52-1.04) mg/dL Estimated GFR (>60) mL/min BUN/Creatinine Ratio (6-22) Glucose (70-100) mg/dL Calcium (8.4-10.2) mg/dL Urine RBC (0-5/HPF) Urine WBC (0-5/HPF) Urine Bacteria (None) Ur Culture Indicated? Urine Dip Bedside Urine Glucose Negative Bedside Urine Bilirubin - Negative Bedside Urine Ketone - Negative Urine Specific [place] 1.010 Bedside Urine Occult Blood + Bedside Urine pH 6.5 Bedside Urine Protein - Negative Bedside Urine Urobilinogen - Negative Bedside Urine Nitrite - Negative Bedside Urine Leukocytes - Negative Esterase Imaging Data CT-KUB: Radiologist's Impression: [address] [address] [address] Scan Report Signed Patient: Peg Valencia MMR#: [id number] : 1970Acct:[id number] Age/Sex: 48 / FDate of Service: 08/22/19 Loc: ED Accession Number: [id number] Procedure: CT kidney ureter bladder (KUB) Ordering Provider: Srinivasan Carmen PROCEDURE: CT KIDNEY URETER BLADDER (KUB) INDICATIONS: Right flank pain and hematuria TECHNIQUE: Noncontrast 5 mm thick sections acquired from the diaphragms to the symphysis. 5 mm thick coronal and sagittal reformats were then performed. For radiation dose reduction, the following was used: automated exposure control, adjustment of mA and/or kV according to patient size. COMPARISON: [facility], CT, CT KIDNEY URETER BLADDER (KUB), 02/10/2019, 11:50. FINDINGS: Image quality: Excellent. Lung bases: Lung bases are clear. Heart size is normal. Urinary system: Both kidneys are normal in size. No kidney stones. No hydronephrosis or perinephric fat stranding. Both ureters appear non-dilated throughout their expected courses. Bladder wall thickness is normal; no calcified bladder stones. Other solid organs: Liver is mildly prominent. Gallbladder has been removed. Pancreas is normal in contours. Spleen is normal in size. No adrenal nodules. Peritoneum and bowel: Unenhanced bowel loops demonstrate normal wall thickness and caliber. No free fluid or air. Clips are present within the right lower quadrant presumably appendectomy. Nodes and vessels: No retroperitoneal or mesenteric adenopathy by size criteria. Aorta and inferior vena cava are normal in caliber. Abdominal wall: No ventral hernias. Pelvis: No free pelvic fluid. No inguinal hernias or adenopathy. Bones: No suspicious bony lesions. No vertebral body compression fractures. IMPRESSION: 1. No nephro or ureterolithiasis. No bladder calculi. Dictated by: Nora Diego M.D. on 08/22/2019 at 13:27 Approved by: Nora Diego M.D. on 08/22/2019 at 13:30 MDM Narrative Medical decision making narrative: This is a 48-year-old female who presents to ED with hematuria with suprapubic discomfort radiating to right flank. Patient reports has history of kidney stone which she required for urinary stent placement about 2 and half years ago. Patient reports nausea and dysuria. Patient has history of total hysterectomy. Urine test shows positive urine occult blood without nitrites or leukocyte esterase. Micro urine test does not shows urine bacteria. CT KUB Obtained and indicates no kidney stones, hydronephrosis or signs of infection. Patient was medicated with p.o. Zofran, Tylenol, tramadol for her discomfort. Normal WBC without leukocytosis. First potassium level was 5.2 (3.4-5.1) and I was informed patient had difficult blood draw and repeat potassium level was ordered. Repeat potassium level returned as 4.2 which confirms previous elevated potassium level could be due to hemolyzed sample. Patient discharged to home for dysuria with Pyridium and advised to use [id number] Tylenol as needed for discomfort and adequately hydrated. Return precautions were discussed with the patient and verbalized the understanding and in agreement with treatment plan. <Colin Cerna MD - Last Filed: 08/23/19 07:44> Lab Data Labs: Lab Results 08/22/19 08/22/19 08/22/19 Range/Units 12:42 13:45 13:45 WBC 7.0 (4.5-11.0) X10^3/uL RBC 4.51 (4.0-5.2) X10^6/uL Hgb 14.7 (12.0-16.0) g/dL Hct 41.6 (36-46) % MCV 92.2 (80-100) fL MCH 32.5 (26-34) PG MCHC 35.3 (30-36) % RDW 13.7 (11.6-14.8) % Plt Count 250 (150-400) X10^3/uL Neut % (Auto) 56.1 (50-75) % Lymph % (Auto) 34.6 (25-40) % [place] % (Auto) 6.0 (3-14) % Eos % (Auto) 2.6 (2-4) % Baso % (Auto) 0.7 (0-2) % Neut # (Auto) 3900 (4335-4759) /uL Lymph # (Auto) 2400 (6712-9699) /uL [place] # (Auto) 400 (0-900) /uL Eos # (Auto) 200 (0-450) /uL Baso # (Auto) 0 (0-100) /uL Sodium 139 (137-145) mmol/L Potassium 5.2 H (3.4-5.1) mmol/L Chloride 107 (98-107) mmol/L Carbon Dioxide 25 (22-32) mmol/L BUN 11 (7-17) mg/dL Creatinine 0.52 (0.52-1.04) mg/dL Estimated GFR > 60.0 (>60) mL/min BUN/Creatinine Ratio 21.2 (6-22) Glucose 76 (70-100) mg/dL Calcium 9.3 (8.4-10.2) mg/dL Urine RBC 0-1/hpf (0-5/HPF) Urine WBC 0-1/hpf (0-5/HPF) Urine Bacteria None seen (None) Ur Culture Indicated? Cult not indicated 08/22/19 Range/Units 15:01 WBC (4.5-11.0) X10^3/uL RBC (4.0-5.2) X10^6/uL Hgb (12.0-16.0) g/dL Hct (36-46) % MCV (80-100) fL MCH (26-34) PG MCHC (30-36) % RDW (11.6-14.8) % Plt Count (150-400) X10^3/uL Neut % (Auto) (50-75) % Lymph % (Auto) (25-40) % [place] % (Auto) (3-14) % Eos % (Auto) (2-4) % Baso % (Auto) (0-2) % Neut # (Auto) (1226-5610) /uL Lymph # (Auto) (2642-3061) /uL [place] # (Auto) (0-900) /uL Eos # (Auto) (0-450) /uL Baso # (Auto) (0-100) /uL Sodium (137-145) mmol/L Potassium 4.2 (3.4-5.1) mmol/L Chloride (98-107) mmol/L Carbon Dioxide (22-32) mmol/L BUN (7-17) mg/dL Creatinine (0.52-1.04) mg/dL Estimated GFR (>60) mL/min BUN/Creatinine Ratio (6-22) Glucose (70-100) mg/dL Calcium (8.4-10.2) mg/dL Urine RBC (0-5/HPF) Urine WBC (0-5/HPF) Urine Bacteria (None) Ur Culture Indicated? Urine Dip Bedside Urine Glucose Negative Bedside Urine Bilirubin - Negative Bedside Urine Ketone - Negative Urine Specific [place] 1.010 Bedside Urine Occult Blood + Bedside Urine pH 6.5 Bedside Urine Protein - Negative Bedside Urine Urobilinogen - Negative Bedside Urine Nitrite - Negative Bedside Urine Leukocytes - Negative Esterase Discharge Plan Departure Patient Disposition: Home Clinical Impression: Dysuria Hematuria Qualifiers: Hematuria type: other microscopic Qualified Code(s): R31.29 - Other microscopic hematuria Discharge Date/Time: 08/22/19 16:11 Instructions: DI for Hematuria, DI for Dysuria -- Adult Activity Restrictions/Additional Instructions: You have been diagnosed with [dysuria and possibly cystitis. Urine test does not appear to be having on infection. You were treated with Pyridium, tramadol, Tylenol for your discomfort. Second potassium level was normal which was 4.2 from initial 5.2. This is probably from hemolyzed sample. KUB CT test does not show hydronephrosis or kidney stones.]. What to do: *Take your medications as directed. You can take Pyridium up to every 8 hours as needed for 2 days if you have bladder discomfort. You can take [id number] Tylenol for discomfort. Please hydrate adequately. *Follow up with your primary care provider in 2-3 days, call for an appointment. Let them know you were seen in the ED and that we asked you to be seen in follow up. *Return to ED if you have any new, worsening, or concerning symptoms, such as [fever, flank pain, nausea/vomiting, chest pain, breathing difficulty, unable to tolerate fluids or any acute concerns]. Prescriptions: New phenazopyridine [Pyridium] 100 mg tablet 100 mg PO TID PRN (Reason: pain) Qty: 6 RF: 0 phenazopyridine [Pyridium] 100 mg tablet 100 mg PO Q8H PRN (Reason: pain) Qty: 6 RF: 0 No Action oxybutynin chloride 15 mg tablet extended release 24hr 15 mg PO DAILY RF: 0 tizanidine 4 mg tablet 4 mg PO TID PRN (Reason: Muscle Spasm) RF: 0 prazosin 1 mg capsule 1 mg PO QPM RF: 0 quetiapine 100 mg tablet 100 mg PO BEDTIME RF: 0 duloxetine 60 mg capsule,delayed release(DR/EC) 60 mg PO DAILY RF: 0 albuterol sulfate 90 mcg/actuation HFA aerosol inhaler 2 puff INHALATION QID PRN (Reason: Wheezing) RF: 0 Referrals: Juliann Patel PA-C [Primary Care Provider] -
[2019-08-22 13:53] LABS: Add Manual Diff / Slide Review NO; Basophils Absolute Auto 0 /uL (0-100); Basophils Percent Auto 0.7 % (0-2); Eosinophils Absolute Auto 200 /uL (0-450); Eosinophils Percent Auto 2.6 % (2-4); Hematocrit 41.6 % (36-46); Hemoglobin 14.7 g/dL (12.0-16.0); Lymphocytes Absolute Auto 2400 /uL (1100-4500); Lymphocytes Percent Auto 34.6 % (25-40); Mean Corpuscular HGB Conc 35.3 % (30-36); Mean Corpuscular Hemoglobin 32.5 PG (26-34); Mean Corpuscular Volume 92.2 fL (80-100); Monocytes Absolute Auto 400 /uL (0-900); Neutrophils Absolute Auto 3900 /uL (1500-7000); Neutrophils Percent Auto 56.1 % (50-75); Platelet Count 250 X10^3/uL (150-400); Red Blood Cell Count 4.51 X10^6/uL (4.0-5.2); Red Cell Distribution Width 13.7 % (11.6-14.8)
[2019-08-22 14:01] LABS: BUN Creatinine Ratio 21.2 (6-22); Blood Urea Nitrogen 11 mg/dL (7-17); Calcium 9.3 mg/dL (8.4-10.2); Carbon Dioxide 25 mmol/L (22-32); Chloride 107 mmol/L (98-107); Estimated Glomerular Filt Rate > 60.0 mL/min (>60); Glucose 76 mg/dL (70-100); Potassium 5.2 mmol/L (3.4-5.1); Sodium 139 mmol/L (137-145)
[2019-08-22 14:02] LABS: HEMOLYSIS 58 (0-50)
[2019-08-22 14:09] VITALS: BP 128/78; PULSE 78; RESP 16; O2SAT 98
[2019-08-22 15:23] LABS: HEMOLYSIS < 15 (0-50); Potassium 4.2 mmol/L (3.4-5.1)
[2019-08-22 16:01] VITALS: BP 127/65; PULSE 60; RESP 16; O2SAT 98
== END 2019-08-22 16:11 | disposition home or self-care (01) ==
PROVIDERS: Emergency Provider Nurse Practitioner Family; Family Provider Physician Assistant; PCP Physician Assistant
DX: R30.0 Dysuria (principal); R31.9 Hematuria, unspecified
CPT/HCPCS: 36415; 74176; 80048; 81003; 81015; 84132; 85025; 99284

== ENCOUNTER 2019-10-08 15:16 | Emergency (ER) | payer OTHER, MEDICAID, SELFPAY ==
[2019-10-08 15:20] VITALS: BP 130/78; PULSE 69; RESP 20; O2SAT 99
--- NOTE | 2019-10-08 15:39 | PC.NURSE ---
Patient reports to the Ed with complaints of 10/10 pain in the left ankle. Her ankle appears to have minimal swelling, if any. There isn't any redness or bruising to note. She complains of tenderness on palpation and states that she is unable to bear weight without 10/10 pain. She states that she took APAP 1000mg today without relief. She also states that she cannot take Toradol, Ibuprofen because is makes her sick. When asked which medications she can take for pain she said she can take oxycodone and hydrocodone for pain. She is alert and oriented x 4.
--- NOTE | 2019-10-08 15:59 | DI.RAD.S_ITS ---
PROCEDURE: XR FOOT LT MIN 3V INDICATIONS: worsening L foot pain TECHNIQUE: 3 views of the foot were acquired. COMPARISON: None. FINDINGS: Bones: No fractures or dislocations. No suspicious bony lesions. Soft tissues: No tibiotalar joint effusion. Achilles tendon appears normal. IMPRESSION: No fracture. No osseous lesion. If symptoms and/or clinical suspicion for pathology persists, further assessment with repeat radiographs (7-10 days) or advanced imaging (e.g. CT, MRI or bone scan) may be helpful. Dictated by: Adriane Castillo MD, PhD on 10/08/2019 at 16:29 Approved by: Adriane Castillo MD, PhD on 10/08/2019 at 16:30
--- NOTE | 2019-10-08 16:03 | ED_ITS ---
HPI - Extremity Injury (Lower) <Nanci Santiago PA-C - Last Filed: 10/08/19 23:14> General Chief Complaint: Extremity Injury, Upper Stated Complaint: left foot pain Time Seen by Provider: 10/08/19 15:29 Source: patient Mode of arrival: Ambulatory History of Present Illness HPI Narrative: This is a 48-year-old current smoker with chronic bronchitis who presents to the emergency department complaining of left foot pain and ankle pain that began 6 days ago when she was walking on an uneven surface, in her gravel driveway. She is unable to describe a specific moment of injury does not remember specifically twisting or injuring herself, but woke up the morning after she was walking outside in the driveway and had significant foot and ankle pain. She applied heat on and off and has been trying Tylenol with limited effect, she says she went to urgent care about 2 days after the injury occurred and was diagnosed with a sprain, contusion, and advised to wear a boot as a brace for the next 2 weeks. He says that the pain is mostly in the inside of her heel and sometimes feels like it is throbbing in her heel and radiating up into her calf slightly in the back. She says that her pain is significant, at the point where she has a lot of pain with walking, and it even bothers her at night when she is in bed, and she has not had relief from Tylenol or heat. Today she says her pain is a 7/10. She says that she cannot take ibuprofen because she has an allergy to it makes her very sick to her stomach, she says she can also not take Toradol. She denies numbness, tingling, feeling of cold sensation in her lower extremity, swelling in her calf, or any other symptoms. She says she does not have an allergy to hydrocodone or codeine, and she last took these about 2 months ago without issue. Onset (ago): day(s) (6) Injury: Left: foot Type of Injury: unknown Place: home Severity: moderate Severity scale (1-10): 7 Relieving factors: nothing Exacerbating factors: weight bearing, movement and palpation Context: walking Associated symptoms: able to partially bear weight Other symptoms: none Treatments prior to arrival: heart therapy (heat therapy) Related Data Home Medications Medication Instructions Recorded Confirmed duloxetine 60 mg PO DAILY 12/22/18 08/22/19 oxybutynin chloride 15 mg PO DAILY 12/22/18 08/22/19 prazosin 1 mg PO QPM 12/22/18 08/22/19 quetiapine 100 mg PO BEDTIME 12/22/18 08/22/19 tizanidine 4 mg PO TID PRN 12/22/18 08/22/19 albuterol sulfate 2 puff INHALATION QID PRN 08/22/19 08/22/19 Previous Rx's Medication Instructions Recorded oxycodone-acetaminophen 1 tab PO Q8H PRN #3 tab 10/08/19 Allergies Allergy/AdvReac Type Severity Reaction Status Date / Time ibuprofen [IBUPROFEN] Allergy Mild VOMITING Verified 10/08/19 15:32 amoxicillin [AMOXICILLIN] Allergy Unknown Verified 10/08/19 15:32 codeine [CODEINE] Allergy Unknown Verified 10/08/19 15:32 diclofenac [DICLOFENAC] Allergy Unknown Verified 10/08/19 15:32 hydrocodone [HYDROCODONE] Allergy Unknown Verified 10/08/19 15:32 ketorolac [KETOROLAC] Allergy Unknown Verified 10/08/19 15:32 propoxyphene [PROPOXYPHENE] Allergy Unknown Verified 10/08/19 15:32 sertraline [SERTRALINE] Allergy Unknown Verified 10/08/19 15:32 Review of Systems <Nanci Santiago PA-C - Last Filed: 10/08/19 23:14> Review of Systems Narrative: GENERAL: Denies chills, fatigue, malaise, fever, sweats. HEENT: Denies sinus pain, ear pain, sore throat, difficulty swallowing, dizziness. RESPIRATORY: Denies dyspnea, cough, wheezing, hemoptysis, sputum. CARDIOVASCULAR: Denies chest pain, palpitations, orthopnea, edema, GASTROINTESTINAL: Denies nausea, vomiting, abdominal pain, diarrhea, constipation, melena. : Denies dysuria, frequency, incontinence, hematuria, urinary retention. MUSCULOSKELETAL: denies weakness, she is positive for bony pain and soft tissue pain of her left heel. She denies joint pain in her ankle. SKIN: Denies rash, skin lesions, or other NEUROLOGIC: Denies weakness, headache, numbness, change in speech, confusion, seizures, incoordination. PSYCHIATRIC: No concerning psychosocial issues. 12 point review of systems is negative except for those stated above Patient History <Nanci Santiago PA-C - Last Filed: 10/08/19 23:14> Medical History Bipolar depression (Chronic) Nephrolithiasis (Chronic) PTSD (post-traumatic stress disorder) (Chronic) Surgical History H/O removal of cyst (Acute) History of renal stent (Resolved) Status post appendectomy (Resolved) Status post hysterectomy (Resolved) Social History Smoking Status: Current every day smoker Smoking Status: Current every day smoker tobacco type: cigarettes alcohol intake frequency: holidays/special occasions only Substance Use Type: marijuana Exam <Nanci Santiago PA-C - Last Filed: 10/08/19 23:14> Narrative Exam Narrative: GENERAL: 48 year old patient appears stated age. Well-nourished, well-developed patient, in mild distress. HEAD: Atraumatic. Normocephalic. EYES: Pupils equal round and reactive. Extraocular motions intact. No scleral icterus. No injection or drainage. ENT: Nose without bleeding, purulent drainage. Throat without erythema, tonsillar hypertrophy or exudate. Airway patent. NECK: Trachea midline. Non tender CARDIOVASCULAR: Regular rate and rhythm without murmurs, gallops, or rubs. RESPIRATORY: Clear to auscultation. Breath sounds equal bilaterally. No wheezes, rales, or rhonchi. GASTROINTESTINAL: Abdomen soft, non-tender, nondistended. EXTREMITIES: No edema or joint tenderness. There is pain with palpation of the medial calcaneus and the soft tissue overlying the calcaneus. There is reduced range of motion 2nd to pain at the left ankle, she is unable to fully dorsiflex or plantar flex 2nd to pain experienced in her heel. Sensation is intact, posterior tibialis is strong and equal bilaterally. She has mild tenderness of the First MTP joint on the left, with palpation of the sole of the foot. Calves are equal in size, without heat, tenderness or swelling. BACK: Nontender without deformity or crepitance. No flank tenderness. NEURO: AOx3. Sensation of effected extremity is intact. SKIN: No rash, swelling, erythema or discoloration of visible areas Initial Vital Signs Initial Vital Signs: Vital Signs Pulse Rate 69 10/08/19 15:20 Respiratory Rate 20 10/08/19 15:20 Blood Pressure 130/78 10/08/19 15:20 Pulse Oximetry 99 10/08/19 15:20 <Colin Cerna MD - Last Filed: 10/12/19 21:32> Initial Vital Signs Initial Vital Signs: Vital Signs Pulse Rate 69 10/08/19 15:20 Respiratory Rate 20 10/08/19 15:20 Blood Pressure 130/78 10/08/19 15:20 Pulse Oximetry 99 10/08/19 15:20 Course <Nanci Santiago PA-C - Last Filed: 10/08/19 23:14> Orders Ordered: Discontinued Medications Oxycodone/Acetaminophen (Percocet 5/325) 1 tab PO NOW ONE Stop: 10/08/19 16:00 Last Admin: 10/08/19 16:26 Dose: 1 tab Documented by: MANPREET Vital Signs Vital signs: Vital Signs - 8 hr 10/08/19 15:20 10/08/19 17:10 Pulse Rate 69 67 Respiratory Rate 20 12 Blood Pressure 130/78 130/78 Pulse Oximetry 99 100 <Colin Cerna MD - Last Filed: 10/12/19 21:32> Orders Ordered: Discontinued Medications Oxycodone/Acetaminophen (Percocet 5/325) 1 tab PO NOW ONE Stop: 10/08/19 16:00 Last Admin: 10/08/19 16:26 Dose: 1 tab Documented by: MANPREET Vital Signs Vital signs: Vital Signs - 8 hr 10/08/19 15:20 10/08/19 17:10 Pulse Rate 69 67 Respiratory Rate 20 12 Blood Pressure 130/78 130/78 Pulse Oximetry 99 100 MDM - Extremity Injury (Lower) <Nanci Santiago PA-C - Last Filed: 10/08/19 23:14> Differential Diagnosis Differential diagnosis: Likely ankle sprain and strain and other (contusion) Medical Records Attestation: I reviewed the patient's medical records. Imaging Data Extremity x-ray #1: Attestation: I personally reviewed and interpreted this imaging study as follows: Radiologist's Impression: [address] [address] XRay Report Signed Patient: Peg Valencia MMR#: [id number] : 1970Acct:[id number] Age/Sex: 48 / FDate of Service: 10/08/19 Loc: ED Accession Number: [id number] Procedure: XR foot LT min 3V Ordering Provider: Nanci Santiago P.A-C PROCEDURE: XR FOOT LT MIN 3V INDICATIONS: worsening L foot pain TECHNIQUE: 3 views of the foot were acquired. COMPARISON: None. FINDINGS: Bones: No fractures or dislocations. No suspicious bony lesions. Soft tissues: No tibiotalar joint effusion. Achilles tendon appears normal. IMPRESSION: No fracture. No osseous lesion. If symptoms and/or clinical suspicion for pathology persists, further assessment with repeat radiographs (7-10 days) or a dvanced imaging (e.g. CT, MRI or bone scan) may be helpful. Dictated by: Adriane Castillo MD, PhD on 10/08/2019 at 16:29 Approved by: Adriane Castillo MD, PhD on 10/08/2019 at 16:30 [facility] Narrative Medical decision making narrative: This is a generally well-appearing slim 48-year-old female presents to the emergency department with her partner complaining of left foot pain in her heel it is significant, and not improving 6 days after she sustained an injury while walking in her driveway. Differential diagnoses include fracture, sprain, strain, plantar fasciitis I have low suspicion for occult fracture, x-rays today did not show evidence of fracture 6 days after the injury, her pain may be consistent with a sprain or strain that has not been well managed, in addition to continuing to wear a boot, she was advised to use crutches to keep from her foot more as walking seems to exacerbate her pain. Plantar fasciitis is also possible source of her pain however her pain seems to be more specific to the calcaneus and medial heel. Given that she was unable to clearly identify an injury to account for her pain, and there is no evidence of fracture or residual physical evidence of sprain or strain, as well as reported allergy to ibuprofen and Toradol, it is also possible that she or her partner who presented with her could have been seeking pain medication. She is provided with emergency return precautions, 3 individual Percocet pills, advised regarding use of Tylenol and advised carolynin g primary care follow-up. Discharge Plan Departure Patient Disposition: Home Clinical Impression: Acute pain of left foot Sprain of foot, left Qualifiers: Encounter type: subsequent encounter Qualified Code(s): S93.602D - Unspecified sprain of left foot, subsequent encounter Discharge Date/Time: 10/08/19 17:13 Instructions: DI for Foot Sprain Activity Restrictions/Additional Instructions: Thank you for allowing us to be part of your care in the emergency department today. There is no evidence of an emergent or life threatening illness at this time, but follow up with your doctor in 1-2 days is recommended nonetheless to continue to rule out serious underlying causes of your symptoms. Please call the office for an appointment. Please return to the Emergency Department for any worsening or persistent symptoms. Please take medications as directed. As we discussed occasionally you can have hairline fracture that can cause pain that does not show up well on x-rays, however it has been about a week since her injury occurred so usually if there is a fracture it would show up on the x-ray. I recommend that you follow-up with your primary care physician in the next few days particularly if your pain is still not improving. And I recommend that you take Tylenol for pain as well as using compression with an Yuri wrap and wearing the boot that was provided to you at urgent care as well as using c rutches that we provided today. I am also providing you with a prescription for a few stronger pain medicines, however the best pain relief is going to be from staying off of your foot, and not bearing a lot of weight on it as well as doing some compression and icing. Prescriptions: New oxycodone-acetaminophen 5-325 mg tablet 1 tab PO Q8H PRN (Reason: pain) Qty: 3 RF: 0 No Action oxybutynin chloride 15 mg tablet extended release 24hr 15 mg PO DAILY RF: 0 tizanidine 4 mg tablet 4 mg PO TID PRN (Reason: Muscle Spasm) RF: 0 prazosin 1 mg capsule 1 mg PO QPM RF: 0 quetiapine 100 mg tablet 100 mg PO BEDTIME RF: 0 duloxetine 60 mg capsule,delayed release(DR/EC) 60 mg PO DAILY RF: 0 albuterol sulfate 90 mcg/actuation HFA aerosol inhaler 2 puff INHALATION QID PRN (Reason: Wheezing) RF: 0 Referrals: Juliann Patel PA-C [Primary Care Provider] -
[2019-10-08] MEDS: OXYCODONE/ACETAMINOPHEN 5/325 TABLET 1 TAB PO (16:26)
[2019-10-08 17:10] VITALS: BP 130/78; PULSE 67; RESP 12; O2SAT 100
== END 2019-10-08 17:13 | disposition home or self-care (01) ==
PROVIDERS: Emergency Provider Student in an Organized Health Care Education/Training Program; Family Provider Physician Assistant; PCP Physician Assistant
DX: S93.602A Unspecified sprain of left foot, initial encounter (principal); M79.672 Pain in left foot
CPT/HCPCS: 73630; 99283; 99284

== ENCOUNTER 2019-11-12 13:35 | Emergency (ER) | payer OTHER, MEDICAID, SELFPAY ==
[2019-11-12 13:49] VITALS: BP 126/84; PULSE 84; RESP 18; O2SAT 97; BMI 22.4
--- NOTE | 2019-11-12 14:21 | PC.NURSE ---
pt given instructions on providing UA sample while in triage. pt stated she does not use the bathroom frequently.
[2019-11-12 15:33] LABS: Bacteria Urine None Seen; WBC Urine None Seen (0-5/HPF)
[2019-11-12 15:39] LABS: Culture Indicated Urine Cult Not Indicated
[2019-11-12 15:47] LABS: RBC Urine 1-5/HPF (0-5/HPF)
[2019-11-12 16:11] LABS: Add Manual Diff / Slide Review NO; Basophils Absolute Auto 0 /uL (0-100); Basophils Percent Auto 0.5 % (0-2); Eosinophils Absolute Auto 200 /uL (0-450); Eosinophils Percent Auto 2.2 % (2-4); Hemoglobin 14.4 g/dL (12.0-16.0); Lymphocytes Absolute Auto 2300 /uL (1100-4500); Lymphocytes Percent Auto 30.8 % (25-40); Mean Corpuscular HGB Conc 33.6 % (30-36); Mean Corpuscular Hemoglobin 31.1 PG (26-34); Mean Corpuscular Volume 92.5 fL (80-100); Monocytes Absolute Auto 600 /uL (0-900); Monocytes Percent Auto 7.7 % (3-14); Neutrophils Absolute Auto 4400 /uL (1500-7000); Neutrophils Percent Auto 58.8 % (50-75); Platelet Count 273 X10^3/uL (150-400); Red Blood Cell Count 4.65 X10^6/uL (4.0-5.2); Red Cell Distribution Width 13.1 % (11.6-14.8); White Blood Cell Count 7.5 X10^3/uL (4.5-11.0)
[2019-11-12 16:21] LABS: BUN Creatinine Ratio 23.3 (6-22); Blood Urea Nitrogen 14 mg/dL (7-17); Calcium 9.9 mg/dL (8.4-10.2); Carbon Dioxide 31 mmol/L (22-32); Chloride 103 mmol/L (98-107); Estimated Glomerular Filt Rate > 60.0 mL/min (>60); Glucose 91 mg/dL (70-100); HEMOLYSIS < 15 (0-50); Potassium 3.9 mmol/L (3.4-5.1); Sodium 139 mmol/L (137-145)
[2019-11-12] MEDS: ACETAMINOPHEN 325 MG TABLET 650 MG PO (16:41)
[2019-11-12] MEDS: PHENAZOPYRIDINE 100 MG TABLET PO (16:41)
[2019-11-12] MEDS: ONDANSETRON 4 MG ODT SL (16:41)
[2019-11-12 17:03] VITALS: BP 110/72; PULSE 80; RESP 20; O2SAT 99
--- NOTE | 2019-11-13 00:17 | ED.FEMALEGU ---
HPI - Female Genitourinary <ZENON Ash - Last Filed: 11/13/19 00:36> General Chief complaint: Urogenital-Female Stated complaint: bladder pain,peeing blood Time Seen by Provider: 11/12/19 13:42 Source: patient Mode of arrival: Ambulatory Limitations: no limitations History of Present Illness HPI Narrative: This is a 48-year-old female, smoker, who has a history of multiple kidney stones and urinary stent, status post bladder mesh surgery presents to ED with chief complain of blood in her urine and suprapubic discomfort. Patient reports decreased amount of urine output but urinary frequency with this. Patient reports she is nauseated but denies fever, chills, vomiting. She denies flank pain. Patient reports her pain does not feel like her kidney stone pain in the past. Related Data Home Medications Medication Instructions Recorded Confirmed duloxetine 60 mg PO DAILY 12/22/18 08/22/19 oxybutynin chloride 15 mg PO DAILY 12/22/18 08/22/19 prazosin 1 mg PO QPM 12/22/18 08/22/19 quetiapine 100 mg PO BEDTIME 12/22/18 08/22/19 tizanidine 4 mg PO TID PRN 12/22/18 08/22/19 albuterol sulfate 2 puff INHALATION QID PRN 08/22/19 08/22/19 Previous Rx's Medication Instructions Recorded oxycodone-acetaminophen 1 tab PO Q8H PRN #3 tab 10/08/19 Allergies Allergy/AdvReac Type Severity Reaction Status Date / Time ibuprofen [IBUPROFEN] Allergy Mild VOMITING Verified 10/08/19 15:32 amoxicillin [AMOXICILLIN] Allergy Unknown Verified 10/08/19 15:32 diclofenac [DICLOFENAC] Allergy Unknown Verified 10/08/19 15:32 ketorolac [KETOROLAC] Allergy Unknown Verified 10/08/19 15:32 propoxyphene [PROPOXYPHENE] Allergy Unknown Verified 10/08/19 15:32 sertraline [SERTRALINE] Allergy Unknown Verified 10/08/19 15:32 Review of Systems <ZENON Ash - Last Filed: 11/13/19 00:36> Review of Systems Narrative: General: Denies fever, chills, fatigue, malaise, sweats. HEENT: Denies sinus pain, ear pain, sore throat, difficulty swallowing, dizziness. Respiratory: Denies dyspnea, cough, wheezing, hemoptysis, sputum. Cardiovascular: Denies chest pain, palpitations, orthopnea, edema. Gastrointestinal: Denies (+) nausea, vomiting, abdominal pain, diarrhea, constipation, melena. : See HPI Musculoskeletal: Denies weakness, joint pain or bony pain. Skin: Denies rash, skin lesions, or other. Neurologic: Denies weakness, headache, numbness, change in speech, confusion, seizures, incoordination. Psychiatric: No concerning psychosocial issues. 12-point review of systems is negative except for those stated above. Patient History <ZENON Ash - Last Filed: 11/13/19 00:36> Medical History Bipolar depression (Chronic) Nephrolithiasis (Chronic) PTSD (post-traumatic stress disorder) (Chronic) Surgical History H/O removal of cyst (Acute) History of renal stent (Resolved) Status post appendectomy (Resolved) Status post hysterectomy (Resolved) tobacco type: cigarettes alcohol intake frequency: holidays/special occasions only Substance Use Type: marijuana Exam <ZENON Ash - Last Filed: 11/13/19 00:36> Narrative Exam Narrative: General appearance: well developed, well nourished, in no acute distress. Head: normocephalic, atraumatic, no scalp lesions, non-tender. ENT: Hearing grossly intact. Airway patent. Neck/Thyroid: neck supple, full range of motion, no visible masses or meningeal signs. No JVD, non-tender without lymphadenopathy. Skin: no suspicious rashes, lesions over visible areas. Warm and dry and appropriate color for ethnicity. Heart: no clubbing, no cyanosis, no edema. Lungs: Breathing even and unlabored. No stridor. No accessory muscles used. Able to speak in full sentences. Chest: normal shape and expansion. Abdomen: non-obese, non-distended. Neurologic: alert and oriented. Cognitive exam, TECTONOPHYSICIST and PNS grossly intact on informal exam. Psych: good eye contact, normal affect. Initial Vital Signs Initial Vital Signs: Vital Signs Pulse Rate 84 11/12/19 13:49 Respiratory Rate 18 11/12/19 13:49 Blood Pressure 126/84 11/12/19 13:49 Pulse Oximetry 97 11/12/19 13:49 <Carlos Enrique Pabon MD - Last Filed: 11/13/19 09:49> Initial Vital Signs Initial Vital Signs: Vital Signs Pulse Rate 84 11/12/19 13:49 Respiratory Rate 18 11/12/19 13:49 Blood Pressure 126/84 11/12/19 13:49 Pulse Oximetry 97 11/12/19 13:49 Scores <Srinivasan SousaAlisiaMusatphaZENON carrillo - Last Filed: 11/13/19 00:36> GCS [place] coma scale eye opening: Spontaneous [place] coma scale verbal response: Orientated [place] coma scale motor response: Obey commands [place] coma scale total score: 15 Course <Srinivasan SousaZENON Higgins - Last Filed: 11/13/19 00:36> Orders Ordered: Discontinued Medications Acetaminophen (Tylenol) 650 mg PO NOW ONE Stop: 11/12/19 15:48 Last Admin: 11/12/19 16:41 Dose: 650 mg Documented by: ANDREW Ondansetron HCl (Zofran Odt) 4 mg SL NOW ONE Stop: 11/12/19 15:48 Last Admin: 11/12/19 16:41 Dose: 4 mg Documented by: ANDREW Phenazopyridine HCl (Pyridium) 100 mg PO NOW ONE Stop: 11/12/19 15:48 Last Admin: 11/12/19 16:41 Dose: 100 mg Documented by: ANDREW Vital Signs Vital signs: Vital Signs - 8 hr 11/12/19 17:03 Pulse Rate 80 Respiratory Rate 20 Blood Pressure 110/72 Pulse Oximetry 99 <Carlos Enrique Pabon MD - Last Filed: 11/13/19 09:49> Orders Ordered: Discontinued Medications Acetaminophen (Tylenol) 650 mg PO NOW ONE Stop: 11/12/19 15:48 Last Admin: 11/12/19 16:41 Dose: 650 mg Documented by: ANDREW Ondansetron HCl (Zofran Odt) 4 mg SL NOW ONE Stop: 11/12/19 15:48 Last Admin: 11/12/19 16:41 Dose: 4 mg Documented by: ANDREW Phenazopyridine HCl (Pyridium) 100 mg PO NOW ONE Stop: 11/12/19 15:48 Last Admin: 11/12/19 16:41 Dose: 100 mg Documented by: ANDREW Vital Signs Vital signs: Vital Signs - 8 hr 11/12/19 17:03 Pulse Rate 80 Respiratory Rate 20 Blood Pressure 110/72 Pulse Oximetry 99 MDM - Female Genitourinary <Srinivasan Sousa-MustaphaZENON carrillo - Last Filed: 11/13/19 00:36> Differential Diagnosis Differential diagnosis: Likely urinary tract infection, cystitis and other (Kidney stone, decreased renal function) Medical Records Attestation: I reviewed the patient's medical records. Lab Data Attestation: I reviewed the patient's lab results. Result diagrams: 11/12/19 16:01 11/12/19 16:01 Labs: Lab Results 11/12/19 11/12/19 11/12/19 Range/Units 15:26 16:01 16:01 WBC 7.5 (4.5-11.0) X10^3/uL RBC 4.65 (4.0-5.2) X10^6/uL Hgb 14.4 (12.0-16.0) g/dL Hct 43.0 (36-46) % MCV 92.5 (80-100) fL MCH 31.1 (26-34) PG MCHC 33.6 (30-36) % RDW 13.1 (11.6-14.8) % Plt Count 273 (150-400) X10^3/uL Neut % (Auto) 58.8 (50-75) % Lymph % (Auto) 30.8 (25-40) % [place] % (Auto) 7.7 (3-14) % Eos % (Auto) 2.2 (2-4) % Baso % (Auto) 0.5 (0-2) % Neut # (Auto) 4400 (2946-9998) /uL Lymph # (Auto) 2300 (5477-5433) /uL [place] # (Auto) 600 (0-900) /uL Eos # (Auto) 200 (0-450) /uL Baso # (Auto) 0 (0-100) /uL Sodium 139 (137-145) mmol/L Potassium 3.9 (3.4-5.1) mmol/L Chloride 103 (98-107) mmol/L Carbon Dioxide 31 (22-32) mmol/L BUN 14 (7-17) mg/dL Creatinine 0.60 (0.52-1.04) mg/dL Estimated GFR > 60.0 (>60) mL/min BUN/Creatinine Ratio 23.3 H (6-22) Glucose 91 (70-100) mg/dL Calcium 9.9 (8.4-10.2) mg/dL Urine RBC 1-5/hpf (0-5/HPF) Urine WBC None seen (0-5/HPF) Urine Bacteria None seen (None) Hyaline Casts Investigative Research Specialist Urine Mucus Investigative Research Specialist Ur Culture Indicated? Cult not indicated Urine Dip Bedside Urine Glucose Negative Bedside Urine Bilirubin - Negative Bedside Urine Ketone - Negative Urine Specific [place] 1.010 Bedside Urine Occult Blood + Bedside Urine pH 6.0 Bedside Urine Protein - Negative Bedside Urine Urobilinogen - Negative Bedside Urine Nitrite - Negative Bedside Urine Leukocytes - Negative Esterase MDM Narrative Medical decision making narrative: This is a 48 year female who presents to ED with suprapubic discomfort with hematuria. Patient was seen here with similar symptoms in July 2019. UA shows small amount of occult blood without indications for infection. Unremarkable CBC and BMP including kidney function test. Patient is afebrile with within normal blood pressure and heart rate. Patient is nontoxic appearing. Tylenol, Pyridium and Zofran for her symptoms before discharging to home. Patient advised to take [id number] Tylenol and offered Pyridium but declined. Advised to hydrate adequately and return precautions discussed with patient. Patient verbalized understanding and agreement with treatment plan. <Carlos Enrique Pabon MD - Last Filed: 11/13/19 09:49> Lab Data Labs: Lab Results 11/12/19 11/12/19 11/12/19 Range/Units 15:26 16:01 16:01 WBC 7.5 (4.5-11.0) X10^3/uL RBC 4.65 (4.0-5.2) X10^6/uL Hgb 14.4 (12.0-16.0) g/dL Hct 43.0 (36-46) % MCV 92.5 (80-100) fL MCH 31.1 (26-34) PG MCHC 33.6 (30-36) % RDW 13.1 (11.6-14.8) % Plt Count 273 (150-400) X10^3/uL Neut % (Auto) 58.8 (50-75) % Lymph % (Auto) 30.8 (25-40) % [place] % (Auto) 7.7 (3-14) % Eos % (Auto) 2.2 (2-4) % Baso % (Auto) 0.5 (0-2) % Neut # (Auto) 4400 (4701-1687) /uL Lymph # (Auto) 2300 (0636-2150) /uL [place] # (Auto) 600 (0-900) /uL Eos # (Auto) 200 (0-450) /uL Baso # (Auto) 0 (0-100) /uL Sodium 139 (137-145) mmol/L Potassium 3.9 (3.4-5.1) mmol/L Chloride 103 (98-107) mmol/L Carbon Dioxide 31 (22-32) mmol/L BUN 14 (7-17) mg/dL Creatinine 0.60 (0.52-1.04) mg/dL Estimated GFR > 60.0 (>60) mL/min BUN/Creatinine Ratio 23.3 H (6-22) Glucose 91 (70-100) mg/dL Calcium 9.9 (8.4-10.2) mg/dL Urine RBC 1-5/hpf (0-5/HPF) Urine WBC None seen (0-5/HPF) Urine Bacteria None seen (None) Hyaline Casts Investigative Research Specialist Urine Mucus Investigative Research Specialist Ur Culture Indicated? Cult not indicated Urine Dip Bedside Urine Glucose Negative Bedside Urine Bilirubin - Negative Bedside Urine Ketone - Negative Urine Specific [place] 1.010 Bedside Urine Occult Blood + Bedside Urine pH 6.0 Bedside Urine Protein - Negative Bedside Urine Urobilinogen - Negative Bedside Urine Nitrite - Negative Bedside Urine Leukocytes - Negative Esterase Discharge Plan Departure Patient Disposition: Home Clinical Impression: Dysuria Hematuria Qualifiers: Hematuria type: unspecified type Qualified Code(s): R31.9 - Hematuria, unspecified Discharge Date/Time: 11/12/19 17:05 Instructions: DI for Hematuria, DI for Dysuria -- Adult Activity Restrictions/Additional Instructions: You have been diagnosed with [urinary discomfort, suprapubic pain, and hematuria. Urine test does not appears to be having on infection. There is very small microscopic blood in the urine that was detected. Your kidney function is within normal and CBC was unremarkable.]. What to do: *Take your medications as directed. Please take [id number] Tylenol for discomfort. You can take Pyridium for dysuria as needed next couple of days *Follow up with your primary care provider in 2-3 days, call for an appointment. Let them know you were seen in the ED and that we asked you to be seen in follow up. If your symptoms persists, you should follow-up with the urologist. *Return to ED if you have any new, worsening, or concerning symptoms, such as [chest pain, breathing difficulty, unable to tolerate fluids, lot of blood in the urine that you cannot see through, fever, flank pain, or any acute concerns]. Prescriptions: No Action oxybutynin chloride 15 mg tablet extended release 24hr 15 mg PO DAILY RF: 0 tizanidine 4 mg tablet 4 mg PO TID PRN (Reason: Muscle Spasm) RF: 0 prazosin 1 mg capsule 1 mg PO QPM RF: 0 quetiapine 100 mg tablet 100 mg PO BEDTIME RF: 0 duloxetine 60 mg capsule,delayed release(DR/EC) 60 mg PO DAILY RF: 0 albuterol sulfate 90 mcg/actuation HFA aerosol inhaler 2 puff INHALATION QID PRN (Reason: Wheezing) RF: 0 oxycodone-acetaminophen 5-325 mg tablet 1 tab PO Q8H PRN (Reason: pain) Qty: 3 RF: 0 Referrals: Juliann Patel PA-C [Primary Care Provider] -
== END 2019-11-12 17:05 | disposition home or self-care (01) ==
PROVIDERS: Emergency Provider Nurse Practitioner Family; Family Provider Physician Assistant; PCP Physician Assistant
DX: R30.0 Dysuria (principal); R31.9 Hematuria, unspecified; R10.2 Pelvic and perineal pain
CPT/HCPCS: 36415; 51798; 80048; 81003; 81015; 85025; 99283

== ENCOUNTER 2020-01-13 08:29 | Emergency (ER) | payer OTHER, MEDICAID, SELFPAY ==
[2020-01-13] VITALS (8 sets, daily range): BP systolic 119–138; BP diastolic 60–72; PULSE 60–80; RESP 16–18; TEMP 36.5; O2SAT 95–100; BMI 23.4
--- NOTE | 2020-01-13 08:33 | ED_ITS ---
HPI - Female Genitourinary General Chief complaint: Urogenital-Female Stated complaint: bladder pain per phys Time Seen by Provider: 01/13/20 08:30 Source: patient Mode of arrival: Ambulatory Limitations: no limitations History of Present Illness HPI Narrative: 49-year-old female smoker with history of COPD presents with a friend and a chief complaint of a recurrence of pelvic pain which has been an ongoing issue for her. She's had episodes of pain on various occasions since having mesh and a bladder sling many years ago. She has a referral to a ?specialist? in [place] shortly. Her pain is RLQ and worse with motion and improves with rest. She denies fever, chills or vaginal bleeding or discharge. She denies change in bowel habits. She denies injury. MD Complaint: pelvic pain Onset (ago): day(s) Female Urogenital Radiation: LRQ Quality: Aching and Cramping Duration: constant Relieving factors: none Exacerbating factors: movement Patient : No Related Data Home Medications Medication Instructions Recorded Confirmed duloxetine 60 mg PO DAILY 12/22/18 08/22/19 oxybutynin chloride 15 mg PO DAILY 12/22/18 08/22/19 prazosin 1 mg PO QPM 12/22/18 08/22/19 quetiapine 100 mg PO BEDTIME 12/22/18 08/22/19 tizanidine 4 mg PO TID PRN 12/22/18 08/22/19 albuterol sulfate 2 puff INHALATION QID PRN 08/22/19 08/22/19 Previous Rx's Medication Instructions Recorded oxycodone-acetaminophen 1 tab PO Q8H PRN #3 tab 10/08/19 hydrocodone-acetaminophen 1 tab PO Q4-6H PRN #10 tab 01/13/20 ondansetron 4 mg PO TID-QID PRN #10 tab 01/13/20 Allergies Allergy/AdvReac Type Severity Reaction Status Date / Time ibuprofen [IBUPROFEN] Allergy Mild VOMITING Verified 10/08/19 15:32 amoxicillin [AMOXICILLIN] Allergy Unknown Verified 10/08/19 15:32 diclofenac [DICLOFENAC] Allergy Unknown Verified 10/08/19 15:32 ketorolac [KETOROLAC] Allergy Unknown Verified 10/08/19 15:32 propoxyphene [PROPOXYPHENE] Allergy Unknown Verified 06/15/20 15:32 sertraline [SERTRALINE] Allergy Unknown Verified 10/08/19 15:32 Review of Systems Constitutional Constitutional: Denies chills, Denies fatigue, Denies fever(s), Denies frequent falls, Denies lethargy and Denies weakness Eyes Eyes: Denies change in vision, Denies eye discharge, Denies irritation and Denies loss of vision ENT Ears, Nose, Mouth, and Throat: Denies change in voice, Denies dizziness, Denies neck pain, Denies sore throat and Denies throat swelling Cardiovascular Cardiovascular: Denies chest pain, Denies irregular heart rhythm, Denies lighthe adedness, Denies palpitations, Denies dyspnea, Denies dyspnea on exertion and Denies orthopnea Respiratory Respiratory: Denies cough, Denies dyspnea, Denies dyspnea on exertion and Denies wheezing Gastrointestinal Gastrointestinal: Denies abdominal pain, Denies change in bowel habits, Denies diarrhea, Denies nausea and Denies vomiting Genitourinary Comments: RLQ pain Musculoskeletal Musculoskeletal: Denies neck pain and Denies numbness Integumentary/Breasts Skin/Breast: Denies pruritus, Denies erythema, Denies rash and Denies wounds Neurologic Neurologic: Denies behavioral changes, Denies confusion, Denies dizziness, Denies frequent falls, Denies loss of vision, Denies numbness and Denies weakness Psychiatric Psychiatric: Denies anxiety, Denies behavioral changes, Denies confusion, Denies depression, Denies homicidal ideation and Denies suicidal ideation Endocrine Endocrine: Denies fatigue, Denies flushing and Denies palpitations Hematologic/Lymphatic Hematologic/Lymphatic: Denies easy bruising Allergic/Immunologic Allergic/Immunologic: Denies urticaria, Denies throat swelling and Denies wheezing Patient History Medical History (Updated 01/13/20 @ 11:42 by Toby Castro DO) Bipolar depression (Chronic) Nephrolithiasis (Chronic) PTSD (post-traumatic stress disorder) (Chronic) Surgical History H/O removal of cyst (Acute) History of renal stent (Resolved) Status post appendectomy (Resolved) Status post hysterectomy (Resolved) tobacco type: cigarettes alcohol intake frequency: holidays/special occasions only Substance Use Type: marijuana Exam Narrative Exam Narrative: GENERAL: [49] year old patient appears stated age. Well- nourished, well-developed patient, in moderate distress and rubbing her lower abdomen. HEAD: Atraumatic. Normocephalic. EYES: Pupils equal round and reactive. Extraocular motions intact. No scleral icterus. No injection or drainage. ENT: Nose without bleeding, purulent drainage. Throat without erythema, tonsillar hypertrophy or exudate. Airway patent. NECK: Trachea midline. Non tender CARDIOVASCULAR: Regular rate and rhythm without murmurs, gallops, or rubs. RESPIRATORY: Clear to auscultation. Breath sounds equal bilaterally. No wheezes, rales, or rhonchi. GASTROINTESTINAL: Abdomen soft, tender in the right lower quadrant without rebound, nondistended. EXTREMITIES: No edema or joint tenderness. BACK: Nontender without deformity or crepitance. No flank tenderness. NEURO: AOx3. SKIN: No rash or erythema of visible areas Initial Vital Signs Initial Vital Signs: Vital Signs Temperature 97.7 F 01/13/20 08:35 Pulse Rate 80 01/13/20 08:35 Respiratory Rate 16 01/13/20 08:35 Blood Pressure 119/72 01/13/20 08:35 Pulse Oximetry 100 01/13/20 08:35 Course Orders Ordered: ED Orders 01/13/20 08:40 Basic Metabolic Panel Stat Complete Blood Count AUTO DIFF Stat 01/13/20 09:14 CT abdomen pelvis w con Stat Discontinued Medications Hydromorphone HCl (Dilaudid) 0.5 mg IV NOW ONE Stop: 01/13/20 09:13 Last Admin: 01/13/20 09:23 Dose: 0.5 mg Documented by: PHYLLIS Sodium Chloride (Normal Saline 0.9%) 1,000 mls @ 1,000 mls/hr IV BOLUS ONE Stop: 01/13/20 10:11 Last Admin: 01/13/20 09:23 Dose: 1,000 mls/hr Documented by: PHYLLIS Ondansetron HCl (Zofran) 4 mg IV NOW ONE Stop: 01/13/20 09:33 Last Admin: 01/13/20 09:43 Dose: 4 mg Documented by: PHYLLIS Vital Signs Vital signs: Vital Signs - 8 hr 01/13/20 08:35 01/13/20 09:25 01/13/20 09:30 Temperature 97.7 F Pulse Rate 80 72 76 Respiratory Rate 16 Blood Pressure 119/72 120/69 124/70 Pulse Oximetry 100 98 95 01/13/20 10:11 01/13/20 10:12 01/13/20 10:30 Temperature Pulse Rate 60 63 64 Respiratory Rate Blood Pressure 137/63 127/60 Pulse Oximetry 99 99 100 01/13/20 11:00 Temperature Pulse Rate 63 Respiratory Rate Blood Pressure 132/68 Pulse Oximetry 100 MDM - Female Genitourinary Lab Data Result diagrams: 01/13/20 08:40 01/13/20 08:40 Labs: Lab Results 01/13/20 01/13/20 Range/Units 08:40 08:40 WBC 5.8 (4.5-11.0) X10^3/uL RBC 4.54 (4.0-5.2) X10^6/uL Hgb 14.1 (12.0-16.0) g/dL Hct 41.8 (36-46) % MCV 92.0 (80-100) fL MCH 31.1 (26-34) PG MCHC 33.8 (30-36) % RDW 13.4 (11.6-14.8) % Plt Count 289 (150-400) X10^3/uL Neut % (Auto) 61.4 (50-75) % Lymph % (Auto) 27.0 (25-40) % Storey % (Auto) 8.5 (3-14) % Eos % (Auto) 2.3 (2-4) % Baso % (Auto) 0.8 (0-2) % Neut # (Auto) 3600 (9832-8681) /uL Lymph # (Auto) 1600 (9140-0454) /uL Storey # (Auto) 500 (0-900) /uL Eos # (Auto) 100 (0-450) /uL Baso # (Auto) 0 (0-100) /uL Sodium 142 (137-145) mmol/L Potassium 4.0 (3.4-5.1) mmol/L Chloride 107 (98-107) mmol/L Carbon Dioxide 27 (22-32) mmol/L BUN 15 (7-17) mg/dL Creatinine 0.60 (0.52-1.04) mg/dL Estimated GFR > 60.0 (>60) mL/min BUN/Creatinine Ratio 25.0 H (6-22) Glucose 78 (70-100) mg/dL Calcium 9.2 (8.4-10.2) mg/dL Urine Dip Bedside Urine Glucose Negative Bedside Urine Bilirubin - Negative Bedside Urine Ketone - Negative Urine Specific Warren 1.015 Bedside Urine Occult Blood - Negative Bedside Urine pH 6.5 Bedside Urine Protein - Negative Bedside Urine Urobilinogen - Negative Bedside Urine Nitrite - Negative Bedside Urine Leukocytes - Negative Esterase Imaging Data CT scan - abdomen/pelvis: Radiologist's Impression: [address] [address] [address] Scan Report Signed Patient: Peg Valencia [facility]#: [id number] : 1970Acct:[id number] Age/Sex: 49 / FDate of Service: 01/13/20 Loc: ED Accession Number: [id number] Procedure: CT abdomen pelvis w con Ordering Provider: Toby Castro D.O. PROCEDURE: CT ABDOMEN PELVIS W CON INDICATIONS: severe RLQ pain TECHNIQUE: After the administration of intravenous contrast, 5 mm thick sections acquired f rom the diaphragm to the symphysis. 5 mm coronal and sagittal reformats were acquired. For radiation dose reduction, the following was used: automated exposure control, adjustment of mA and/or kV according to patient size. COMPARISON: [facility], CT, ABDOMEN/PELVIS WITH CONTRAST, 03/12/2009, 12:01. FINDINGS: Image quality: Excellent. ABDOMEN: Lung bases: Lung bases are clear. Heart size is normal. Solid organs: Liver is normal in size and enhancement. Incidental note is made of focal fatty infiltration adjacent to the falciform ligament, which is not regarded to be pathologic. Gallbladder has been removed. Biliary system is non dilated. Pancreas enhances normally. Spleen is normal in size and enhancement. Incidental note is made of an accessory splenule along the hilum of the primary spleen. No adrenal nodules. Kidneys demonstrate normal size and enhancement, without hydronephrosis. Peritoneum and bowel: In this patient with this given history, scrutiny is given to the appendix and the right lower quadrant. No appendix is identified. No focal ri ght lower quadrant inflammatory change can be seen. Numerous right lower quadrant clips are seen. There is a moderate amount of stool seen within the colon. Bowel loops demonstrate normal wall thickness and caliber. No free fluid or air. Nodes and vessels: No retroperitoneal or mesenteric adenopathy by size criteria. Aorta and inferior vena cava are normal in size. Miscellaneous: No ventral hernias. PELVIS: Genitourinary: Bladder wall thickness is normal. This patient is status post hysterectomy. No adnexal masses are seen. Miscellaneous: No inguinal hernias or adenopathy. Bones: No suspicious bony lesions. No vertebral body compression fractures. This patient has transitional lumbar anatomy. For the purposes of this examination, the level with the last well-developed pair of ribs is considered to be T12. A transitional S1 vertebral body is seen, with prominent lumbarization on the right. A tiny vestigial ribs is seen on the right at the L1 level. IMPRESSION: No appendix is seen. Numerous right lower quadrant clips are seen. Please correlate with prior appendectomy. No focal right lower quadrant inflammatory changes are seen. There is a moderate amount of stool seen within the colon. Please correlate with an underlying history of constipation. Incidental note is made of: * Cholecystectomy * Transitional lumbar anatomy, with a tiny vestigial rib on the right at L1 and a transitional S1 segment, with lumbarization on the right. * Hysterectomy Dictated by: Amor Hanson M.D. on 01/13/2020 at 9:43 Approved by: Amor Hanson M.D. on 01/13/2020 at 9:50 MDM Narrative Medical decision making narrative: Multiple etiologies for patient's symptoms considered including: [Problem with pain from mesh from prior surgery versus bowel obstruction versus kidney stone versus other] Patient's symptoms improved over duration of stay with above-stated therapies. Findings and discharge diagnosis discussed with patient/family followed by verbalization of understanding Return precautions discussed with patient/family whom verbalize understanding. Discharge Plan Departure Patient Disposition: Home Clinical Impression: Pelvic pain Discharge Date/Time: 01/13/20 11:55 Instructions: DI for Pelvic Pain Activity Restrictions/Additional Instructions: *You have been diagnosed with [pelvic pain, very reassuring labs and CT scan] *What to do: *Take medications as directed *Follow up with your primary care provider in 2-3 days, call for an appointment. Let them know you were seen in the Emergency Department and that we ask that you be seen in follow up *Return to ER if you should have any new, worsening or concerning symptoms Prescriptions: New hydrocodone-acetaminophen 5-325 mg tablet 1 tab PO Q4-6H PRN (Reason: pain) Qty: 10 RF: 0 ondansetron 4 mg tablet,disintegrating 4 mg PO TID-QID PRN (Reason: nausea and vomiting) Qty: 10 RF: 0 No Action oxybutynin chloride 15 mg tablet extended release 24hr 15 mg PO DAILY RF: 0 tizanidine 4 mg tablet 4 mg PO TID PRN (Reason: Muscle Spasm) RF: 0 prazosin 1 mg capsule 1 mg PO QPM RF: 0 quetiapine 100 mg tablet 100 mg PO BEDTIME RF: 0 duloxetine 60 mg capsule,delayed release(DR/EC) 60 mg PO DAILY RF: 0 albuterol sulfate 90 mcg/actuation HFA aerosol inhaler 2 puff INHALATION QID PRN (Reason: Wheezing) RF: 0 oxycodone-acetaminophen 5-325 mg tablet 1 tab PO Q8H PRN (Reason: pain) Qty: 3 RF: 0 Referrals: Juliann Patel PA-C [Primary Care Provider] -
--- NOTE | 2020-01-13 09:14 | DI.CT.S_ITS ---
PROCEDURE: CT ABDOMEN PELVIS W CON INDICATIONS: severe RLQ pain TECHNIQUE: After the administration of intravenous contrast, 5 mm thick sections acquired from the diaphragm to the symphysis. 5 mm coronal and sagittal reformats were acquired. For radiation dose reduction, the following was used: automated exposure control, adjustment of mA and/or kV according to patient size. COMPARISON: [facility], CT, ABDOMEN/PELVIS WITH CONTRAST, 03/12/2009, 12:01. FINDINGS: Image quality: Excellent. ABDOMEN: Lung bases: Lung bases are clear. Heart size is normal. Solid organs: Liver is normal in size and enhancement. Incidental note is made of focal fatty infiltration adjacent to the falciform ligament, which is not regarded to be pathologic. Gallbladder has been removed. Biliary system is non dilated. Pancreas enhances normally. Spleen is normal in size and enhancement. Incidental note is made of an accessory splenule along the hilum of the primary spleen. No adrenal nodules. Kidneys demonstrate normal size and enhancement, without hydronephrosis. Peritoneum and bowel: In this patient with this given history, scrutiny is given to the appendix and the right lower quadrant. No appendix is identified. No focal right lower quadrant inflammatory change can be seen. Numerous right lower quadrant clips are seen. There is a moderate amount of stool seen within the colon. Bowel loops demonstrate normal wall thickness and caliber. No free fluid or air. Nodes and vessels: No retroperitoneal or mesenteric adenopathy by size criteria. Aorta and inferior vena cava are normal in size. Miscellaneous: No ventral hernias. PELVIS: Genitourinary: Bladder wall thickness is normal. This patient is status post hysterectomy. No adnexal masses are seen. Miscellaneous: No inguinal hernias or adenopathy. Bones: No suspicious bony lesions. No vertebral body compression fractures. This patient has transitional lumbar anatomy. For the purposes of this examination, the level with the last well-developed pair of ribs is considered to be T12. A transitional S1 vertebral body is seen, with prominent lumbarization on the right. A tiny vestigial ribs is seen on the right at the L1 level. IMPRESSION: No appendix is seen. Numerous right lower quadrant clips are seen. Please correlate with prior appendectomy. No focal right lower quadrant inflammatory changes are seen. There is a moderate amount of stool seen within the colon. Please correlate with an underlying history of constipation. Incidental note is made of: * Cholecystectomy * Transitional lumbar anatomy, with a tiny vestigial rib on the right at L1 and a transitional S1 segment, with lumbarization on the right. * Hysterectomy Dictated by: Amor Hanson M.D. on 01/13/2020 at 9:43 Approved by: Amor Hanson M.D. on 01/13/2020 at 9:50
[2020-01-13] MEDS: HYDROMORPHONE 1 MG INJ 0.5 MG IV (09:23)
[2020-01-13] MEDS: SODIUM CHLORIDE 0.9% 1,000 ML 1000 ML IV (09:23)
[2020-01-13 09:26] LABS: Add Manual Diff / Slide Review NO; Basophils Absolute Auto 0 /uL (0-100); Basophils Percent Auto 0.8 % (0-2); Eosinophils Absolute Auto 100 /uL (0-450); Eosinophils Percent Auto 2.3 % (2-4); Hematocrit 41.8 % (36-46); Hemoglobin 14.1 g/dL (12.0-16.0); Lymphocytes Absolute Auto 1600 /uL (1100-4500); Mean Corpuscular HGB Conc 33.8 % (30-36); Mean Corpuscular Hemoglobin 31.1 PG (26-34); Monocytes Absolute Auto 500 /uL (0-900); Monocytes Percent Auto 8.5 % (3-14); Neutrophils Absolute Auto 3600 /uL (1500-7000); Neutrophils Percent Auto 61.4 % (50-75); Platelet Count 289 X10^3/uL (150-400); Red Blood Cell Count 4.54 X10^6/uL (4.0-5.2); Red Cell Distribution Width 13.4 % (11.6-14.8); White Blood Cell Count 5.8 X10^3/uL (4.5-11.0)
--- NOTE | 2020-01-13 09:31 | PC.NURSE ---
pt tender to rlq of abd, inguinal or suprapubic,
[2020-01-13 09:37] LABS: Blood Urea Nitrogen 15 mg/dL (7-17); Calcium 9.2 mg/dL (8.4-10.2); Carbon Dioxide 27 mmol/L (22-32); Chloride 107 mmol/L (98-107); Estimated Glomerular Filt Rate > 60.0 mL/min (>60); Glucose 78 mg/dL (70-100); HEMOLYSIS < 15 (0-50); Sodium 142 mmol/L (137-145)
[2020-01-13] MEDS: ONDANSETRON 4 MG/2 ML INJ IV (09:43)
== END 2020-01-13 11:55 | disposition home or self-care (01) ==
PROVIDERS: Emergency Provider Emergency Medicine; Family Provider Physician Assistant; PCP Physician Assistant
DX: R10.2 Pelvic and perineal pain (principal); J44.9 Chronic obstructive pulmonary disease, unspecified
CPT/HCPCS: 36415; 74177; 80048; 81003; 85025; 96374; 96375; 99284; J1170; J2405; Q9967

== ENCOUNTER 2020-02-01 11:29 | Emergency (ER) | payer OTHER, MEDICAID, SELFPAY ==
[2020-02-01 11:39] VITALS: BP 125/79; PULSE 88; RESP 20; TEMP 36.6; O2SAT 98; BMI 22.6
--- NOTE | 2020-02-01 11:48 | ED_ITS ---
HPI - Female Genitourinary <Nanci Santiago PA-C - Last Filed: 02/01/20 22:39> General Chief complaint: Urogenital-Female Stated complaint: bladder issues Time Seen by Provider: 02/01/20 11:34 Source: patient Mode of arrival: Ambulatory Limitations: no limitations History of Present Illness HPI Narrative: 49-year-old woman with a history of COPD and chronic pelvic pain issues and bladder discomfort, appendectomy, complete hysterectomy, pelvic mesh and bladder sling, presents to the emergency department complaining of 3 days of severe low pelvic pain just like her previous episodes of severe low pelvic pain including an episode for which she was seen in the emergency department in late December. She has an appointment to see specialty Urology at [facility] on Tuesday of next week in 3 days. Patient states that the pain is sharp, 9/10 and constant and points very low in her right lower quadrant over her pelvis. She describes also a ?burning sensation in my bladder?. She takes Tylenol for pain but she does not like to take it too often because she feels that it bothers her stomach. Also uses CBD oil and THC but she says these have not been helping much. She has not taken anything for pain in the last day. She notes allergies to ibuprofen, Toradol. She has had some mild diarrhea a few times in the last few days but notes that this is fairly common for her and this does not feel different than her normal diarrhea. She states she has not had any dysuria, difficulty urinating, constipation, nausea, vomiting, abdominal pain, back pain, fever, chills, body aches, flank pain, vaginal discharge or any other symptoms. States that other than the pelvic pain she has been in her normal state of health. MD Complaint: pelvic pain Onset (ago): day(s) (3) Location: suprapubic and RLQ (very low over bladder) Female Urogenital Radiation: Non-Radiating Severity: similar to previous episodes Severity scale (1-10): 9 Quality: Sharp Duration: constant Relieving factors: other (THC and CBD will are slightly helpful) Exacerbating factors: movement Related Data Home Medications Medication Instructions Recorded Confirmed duloxetine 60 mg PO DAILY 12/22/18 08/22/19 oxybutynin chloride 15 mg PO DAILY 12/22/18 08/22/19 prazosin 1 mg PO QPM 12/22/18 08/22/19 quetiapine 100 mg PO BEDTIME 12/22/18 08/22/19 tizanidine 4 mg PO TID PRN 12/22/18 08/22/19 albuterol sulfate 2 puff INHALATION QID PRN 08/22/19 08/22/19 Previous Rx's Medication Instructions Recorded oxycodone-acetaminophen 1 tab PO Q8H PRN #3 tab 10/08/19 ondansetron 4 mg PO Q8H #14 tab 02/01/20 oxycodone-acetaminophen 1 tab PO Q8H PRN #14 tab 02/01/20 Allergies Allergy/AdvReac Type Severity Reaction Status Date / Time ibuprofen [IBUPROFEN] Allergy Mild VOMITING Verified 02/01/20 11:39 amoxicillin [AMOXICILLIN] Allergy Unknown Verified 02/01/20 11:39 diclofenac [DICLOFENAC] Allergy Unknown Verified 02/01/20 11:39 ketorolac [KETOROLAC] Allergy Unknown Verified 02/01/20 11:39 propoxyphene [PROPOXYPHENE] Allergy Unknown Verified 02/01/20 11:39 sertraline [SERTRALINE] Allergy Unknown Verified 02/01/20 11:39 Review of Systems <Nanci Santiago PA-C - Last Filed: 02/01/20 22:39> Review of Systems Narrative: GENERAL: Denies chills, fatigue, malaise, fever, sweats. HEENT: Denies sinus pain, ear pain, sore throat, difficulty swallowing, dizziness. RESPIRATORY: Denies dyspnea, cough, wheezing, hemoptysis, sputum. CARDIOVASCULAR: Denies chest pain, palpitations, orthopnea, edema, GASTROINTESTINAL: Denies nausea, vomiting, abdominal pain, diarrhea, constipation, melena. : Positive for severe low pelvic pain and bladder pain. Denies dysuria, frequency, incontinence, hematuria, urinary retention. MUSCULOSKELETAL: denies weakness, joint pain, or bony pain SKIN: Denies rash, skin lesions, or other NEUROLOGIC: Denies weakness, headache, numbness, change in speech, confusion, seizures, incoordination. PSYCHIATRIC: No concerning psychosocial issues. 12 point review of systems is negative except for those stated above ROS Unobtainable: All systems reviewed & are unremarkable except as noted in HPI and below Patient History <Nanci Santiago PA-C - Last Filed: 02/01/20 22:39> Medical History Bipolar depression (Chronic) Nephrolithiasis (Chronic) PTSD (post-traumatic stress disorder) (Chronic) Surgical History H/O removal of cyst (Acute) History of renal stent (Resolved) Status post appendectomy (Resolved) Status post hysterectomy (Resolved) tobacco type: cigarettes alcohol intake frequency: holidays/special occasions only Substance Use Type: marijuana Exam <Nanci Santiago PA-C - Last Filed: 02/01/20 22:39> Narrative Exam Narrative: GENERAL: 49 year old patient appears stated age. Well-nourished, well-developed patient, in mild distress. HEAD: Atraumatic. Normocephalic. EYES: Pupils equal round and reactive. Extraocular motions intact. No scleral icterus. No injection or drainage. ENT: Nose without bleeding, purulent drainage. Throat without erythema, tonsillar hypertrophy or exudate. Airway patent. NECK: Trachea midline. Non tender CARDIOVASCULAR: Regular rate and rhythm without murmurs, gallops, or rubs. RESPIRATORY: Clear to auscultation. Breath sounds equal bilaterally. No wheezes, rales, or rhonchi. GASTROINTESTINAL: Abdomen soft, she is very tender low over the pelvis on the right side and moderately tender midline over the pelvis-tender, abdomen is otherwise nontender, nondistended. EXTREMITIES: No edema or joint tenderness. BACK: Nontender without deformity or crepitance. No flank tenderness. NEURO: AOx3. SKIN: No rash or erythema of visible areas Initial Vital Signs Initial Vital Signs: Vital Signs Temperature 97.8 F 02/01/20 11:39 Pulse Rate 88 02/01/20 11:39 Respiratory Rate 20 02/01/20 11:39 Blood Pressure 125/79 02/01/20 11:39 Pulse Oximetry 98 02/01/20 11:39 <Osvaldo Bergman DO - Last Filed: 02/04/20 19:01> Initial Vital Signs Initial Vital Signs: Vital Signs Temperature 97.8 F 02/01/20 11:39 Pulse Rate 88 02/01/20 11:39 Respiratory Rate 20 02/01/20 11:39 Blood Pressure 125/79 02/01/20 11:39 Pulse Oximetry 98 02/01/20 11:39 Scores <Nanci Santiago PA-C - Last Filed: 02/01/20 22:39> GCS Haworth coma scale eye opening: Spontaneous [place] coma scale verbal response: Orientated Ald[place] coma scale motor response: Obey commands Haworth coma scale total score: 15 Course <Nanci Santiago PA-C - Last Filed: 02/01/20 22:39> Course Course Narrative: This patient presents with pelvic pain consistent with her previous pelvic pain, did have a CT scan January 13 2020 when she was having the same kind of pain. This was unremarkable. I have very low suspicion that her pain today is related to an acute abdominal process that would require surgery or advanced imaging. Vitals are unremarkable, exam unremarkable with exception of very low pelvic pain on the right side; am obtaining basic labs however imaging is deferred. She does have an appointment to see specialty care for her pelvic pain in 3 days. 12:01 Patient reports still lot of has brought her pain down to an 8 was previously a 9. 12:42 Labs are looking good including urine, no evidence of UTI. Discussed p ossibility of an ultrasound with the attending physician however given that the patient has had had complete hysterectomy also had an appendectomy I think this would be of limited utility, and as her pain is consistent with previous episodes do not think that she warrants additional CT scan today. Plan to discharge the patient with short course of pain medicine to follow up with her specialty care appointment at [facility] in 3 days. [id number] Orders Ordered: Discontinued Medications Hydromorphone HCl (Dilaudid) 1 mg IV NOW ONE Stop: 02/01/20 11:46 Last Admin: 02/01/20 12:36 Dose: 1 mg Documented by: EZEQUIEL Hydromorphone HCl (Dilaudid) 0.5 mg IV NOW ONE Stop: 02/01/20 12:59 Last Admin: 02/01/20 13:16 Dose: 0.5 mg Documented by: STIVEN Sodium Chloride (Normal Saline 0.9%) 500 mls @ 1,000 mls/hr IV BOLUS ONE Stop: 02/01/20 12:21 Last Infusion: 02/01/20 13:15 Dose: 0 mls/hr Documented by: Admin: 02/01/20 12:36 Dose: 1,000 mls/hr Documented by: EZEQUIEL Ondansetron HCl (Zofran) 4 mg IV NOW ONE Stop: 02/01/20 11:46 Last Admin: 02/01/20 12:36 Dose: 4 mg Documented by: EZEQUIEL Vital Signs Vital signs: Vital Signs - 8 hr 02/01/20 11:39 Temperature 97.8 F Pulse Rate 88 Respiratory Rate 20 Blood Pressure 125/79 Pulse Oximetry 98 <Osvaldo Bergman DO - Last Filed: 02/04/20 19:01> Orders Ordered: Discontinued Medications Hydromorphone HCl (Dilaudid) 1 mg IV NOW ONE Stop: 02/01/20 11:46 Last Admin: 02/01/20 12:36 Dose: 1 mg Documented by: EZEQUIEL Hydromorphone HCl (Dilaudid) 0.5 mg IV NOW ONE Stop: 02/01/20 12:59 Last Admin: 02/01/20 13:16 Dose: 0.5 mg Documented by: STIVEN Sodium Chloride (Normal Saline 0.9%) 500 mls @ 1,000 mls/hr IV BOLUS ONE Stop: 02/01/20 12:21 Last Infusion: 02/01/20 13:15 Dose: 0 mls/hr Documented by: Admin: 02/01/20 12:36 Dose: 1,000 mls/hr Documented by: EZEQUIEL Ondansetron HCl (Zofran) 4 mg IV NOW ONE Stop: 02/01/20 11:46 Last Admin: 02/01/20 12:36 Dose: 4 mg Documented by: EZEQUIEL Vital Signs Vital signs: Vital Signs - 8 hr 02/01/20 11:39 Temperature 97.8 F Pulse Rate 88 Respiratory Rate 20 Blood Pressure 125/79 Pulse Oximetry 98 MDM - Female Genitourinary <Nanci Santiago PA-C - Last Filed: 02/01/20 22:39> Differential Diagnosis Differential diagnosis: Likely urinary tract infection, cystitis and other (chronic pelvic pain, post surgical pain) Lab Data Result diagrams: 02/01/20 13:05 02/01/20 12:25 Labs: Lab Results 10/09/20 10/09/20 10/09/20 Range/Units 12:25 13:05 13:24 WBC 7.0 (4.5-11.0) X10^3/uL RBC 4.49 (4.0-5.2) X10^6/uL Hgb 14.0 (12.0-16.0) g/dL Hct 41.5 (36-46) % MCV 92.4 (80-100) fL MCH 31.1 (26-34) PG MCHC 33.7 (30-36) % RDW 13.8 (11.6-14.8) % Plt Count 270 (150-400) X10^3/uL Neut % (Auto) 55.7 (50-75) % Lymph % (Auto) 32.4 (25-40) % [place] % (Auto) 8.7 (3-14) % Eos % (Auto) 2.4 (2-4) % Baso % (Auto) 0.8 (0-2) % Neut # (Auto) 3900 (5145-0477) /uL Lymph # (Auto) 2300 (2883-7624) /uL [place] # (Auto) 600 (0-900) /uL Eos # (Auto) 200 (0-450) /uL Baso # (Auto) 100 (0-100) /uL Sodium 138 (137-145) mmol/L Potassium 4.6 (3.4-5.1) mmol/L Chloride 105 (98-107) mmol/L Carbon Dioxide 24 (22-32) mmol/L BUN 14 (7-17) mg/dL Creatinine 0.60 (0.52-1.04) mg/dL Estimated GFR > 60.0 (>60) mL/min BUN/Creatinine Ratio 23.3 H (6-22) Glucose 108 H (70-100) mg/dL Calcium 9.4 (8.4-10.2) mg/dL Total Bilirubin 0.9 (0.2-1.3) mg/dL AST 37 H (14-36) IU/L ALT 18 (<35) IU/L Alkaline Phosphatase 87 (38-126) U/L Total Protein 7.5 (6.3-8.2) g/dL Albumin 4.5 (3.5-5.0) g/dL Globulin 3.0 (1.7-4.1) g/dL Albumin/Globulin Ratio 1.5 (1.0-2.8) Urine Color Yellow Urine Appearance Clear Urine pH 6.5 (4.5-8.0) Ur Specific [place] <=1.005 (1.000-1.035) Urine Protein Negative (Negative) Urine Glucose (UA) Negative (Negative) g/dL Urine Ketones Negative (NEGATIVE) Urine Occult Blood 1+ H (Negative) Urine Nitrate Negative (Negative) Urine Bilirubin Negative (NEGATIVE) Urine Urobilinogen 0.2 (0.2) E.U./dL Ur Leukocyte Esterase Negative (NEGATIVE) Urine RBC 1-5/hpf (0-5/HPF) Urine WBC 0-1/hpf (0-5/HPF) Ur Squamous Epith Cells 0-1 /hpf (0-5/HPF) Urine Bacteria None seen (None) Urine Mucus 1+ H (Negative) Ur Culture Indicated? Cult not indicated Point of Care Testing Test Results Negative MDM Narrative Medical decision making narrative: 49-year-old female with history of complete hysterectomy, appendectomy, pelvic mesh and sling, chronic pelvic pain, presents to the emergency department complaining of an episode of worsening pelvic pain over the last 3 days. This episode is very similar in nature to her previous episodes of severe pelvic pain, she is following up with [facility] pecialist early next week, she has no other symptoms concerning for an acute abdominal process, her pain is improved during her emergency department stay with fluids and IV pain medicine, she is sent out with a prescription of oral pain medicine and advised to follow-up closely with her PCP in keep her specialist appointment for evaluation of her ongoing pelvic pain. Emergency return precautions provided, all questions answered. <Osvaldo Bergman, DO - Last Filed: 02/04/20 19:01> Lab Data Labs: Lab Results 02/01/20 02/01/20 02/01/20 Range/Units 12:25 13:05 13:24 WBC 7.0 (4.5-11.0) X10^3/uL RBC 4.49 (4.0-5.2) X10^6/uL Hgb 14.0 (12.0-16.0) g/dL Hct 41.5 (36-46) % MCV 92.4 (80-100) fL MCH 31.1 (26-34) PG MCHC 33.7 (30-36) % RDW 13.8 (11.6-14.8) % Plt Count 270 (150-400) X10^3/uL Neut % (Auto) 55.7 (50-75) % Lymph % (Auto) 32.4 (25-40) % [place] % (Auto) 8.7 (3-14) % Eos % (Auto) 2.4 (2-4) % Baso % (Auto) 0.8 (0-2) % Neut # (Auto) 3900 (6397-7700) /uL Lymph # (Auto) 2300 (1750-0340) /uL [place] # (Auto) 600 (0-900) /uL Eos # (Auto) 200 (0-450) /uL Baso # (Auto) 100 (0-100) /uL Sodium 138 (137-145) mmol/L Potassium 4.6 (3.4-5.1) mmol/L Chloride 105 (98-107) mmol/L Carbon Dioxide 24 (22-32) mmol/L BUN 14 (7-17) mg/dL Creatinine 0.60 (0.52-1.04) mg/dL Estimated GFR > 60.0 (>60) mL/min BUN/Creatinine Ratio 23.3 H (6-22) Glucose 108 H (70-100) mg/dL Calcium 9.4 (8.4-10.2) mg/dL Total Bilirubin 0.9 (0.2-1.3) mg/dL AST 37 H (14-36) IU/L ALT 18 (<35) IU/L Alkaline Phosphatase 87 (38-126) U/L Total Protein 7.5 (6.3-8.2) g/dL Albumin 4.5 (3.5-5.0) g/dL Globulin 3.0 (1.7-4.1) g/dL Albumin/Globulin Ratio 1.5 (1.0-2.8) Urine Color Yellow Urine Appearance Clear Urine pH 6.5 (4.5-8.0) Ur Specific [place] <=1.005 (1.000-1.035) Urine Protein Negative (Negative) Urine Glucose (UA) Negative (Negative) g/dL Urine Ketones Negative (NEGATIVE) Urine Occult Blood 1+ H (Negative) Urine Nitrate Negative (Negative) Urine Bilirubin Negative (NEGATIVE) Urine Urobilinogen 0.2 (0.2) E.U./dL Ur Leukocyte Esterase Negative (NEGATIVE) Urine RBC 1-5/hpf (0-5/HPF) Urine WBC 0-1/hpf (0-5/HPF) Ur Squamous Epith Cells 0-1 /hpf (0-5/HPF) Urine Bacteria None seen (None) Urine Mucus 1+ H (Negative) Ur Culture Indicated? Cult not indicated Point of Care Testing Test Results Negative Discharge Plan Departure Patient Disposition: Home Clinical Impression: Pelvic pain Discharge Date/Time: 02/01/20 14:00 Instructions: DI for Pelvic Pain, Chronic Pelvic Pain-Female Activity Restrictions/Additional Instructions: Thank you for letting us be part of your care in the emergency department today. Your labs today looks good, I do think that the pelvic pain you are experiencing is not likely to be related to an acute abdominal process that would require surgery or further evaluation in the emergency department today. However please monitor your symptoms carefully at home and if you do develop any new or concerning symptoms such as fever chills nausea vomiting diarrhea s hortness of breath new or different pelvic pain or abdominal pain please do not hesitate to return to the emergency department for further evaluation. Please keep your scheduled appointment with [facility] next week, I have prescribed a course of pain medicine for you for the next few days. I hope you feel better and get some answers next week. There is no evidence of an emergent or life threatening illness at this time, but follow up with your doctor in 1-2 days is recommended nonetheless to continue to rule out serious underlying causes of your symptoms. Please call the office for an appointment. Please return to the Emergency Department for any worsening or persistent symptoms. Please take medications as directed. Prescriptions: New oxycodone-acetaminophen 10-325 mg tablet 1 tab PO Q8H PRN (Reason: pain) Qty: 14 RF: 0 ondansetron 4 mg tablet,disintegrating 4 mg PO Q8H Qty: 14 RF: 0 Discontinued hydrocodone-acetaminophen 5-325 mg tablet 1 tab PO Q4-6H PRN (Reason: pain) Qty: 10 RF: 0 ondansetron 4 mg tablet,disintegrating 4 mg PO TID-QID PRN (Reason: nausea and vomiting) Qty: 10 RF: 0 No Action oxybutynin chloride 15 mg tablet extended release 24hr 15 mg PO DAILY RF: 0 tizanidine 4 mg tablet 4 mg PO TID PRN (Reason: Muscle Spasm) RF: 0 prazosin 1 mg capsule 1 mg PO QPM RF: 0 quetiapine 100 mg tablet 100 mg PO BEDTIME RF: 0 duloxetine 60 mg capsule,delayed release(DR/EC) 60 mg PO DAILY RF: 0 albuterol sulfate 90 mcg/actuation HFA aerosol inhaler 2 puff INHALATION QID PRN (Reason: Wheezing) RF: 0 oxycodone-acetaminophen 5-325 mg tablet 1 tab PO Q8H PRN (Reason: pain) Qty: 3 RF: 0 Referrals: Juliann Patel PA-C [Primary Care Provider] - Stand Alone Forms: Work Release Note <Osvaldo Bergman, - Last Filed: 02/04/20 19:01> Cosign ED Attending Cosignature Attestation: Dr Bergman Co-Sign Statement: I was available for consultation during this patient's emergency department visit. This chart is signed by myself for administrative purposes only. I did not have direct contact with this patient during this visit. They were seen independently by the APC.
[2020-02-01] MEDS: HYDROMORPHONE 1 MG INJ IV (12:36)
[2020-02-01] MEDS: ONDANSETRON 4 MG/2 ML INJ IV (12:36)
[2020-02-01] MEDS: SODIUM CHLORIDE 0.9% 500 ML 1000 ML IV (12:36)
[2020-02-01 12:52] LABS: Alanine Aminotransferase 18 IU/L (<35); Albumin 4.5 g/dL (3.5-5.0); Albumin Globulin Ratio 1.5 (1.0-2.8); Alkaline Phosphatase 87 U/L (38-126); Aspartate Aminotransferase 37 IU/L (14-36); BUN Creatinine Ratio 23.3 (6-22); Bilirubin Total 0.9 mg/dL (0.2-1.3); Blood Urea Nitrogen 14 mg/dL (7-17); Calcium 9.4 mg/dL (8.4-10.2); Carbon Dioxide 24 mmol/L (22-32); Chloride 105 mmol/L (98-107); Estimated Glomerular Filt Rate > 60.0 mL/min (>60); Glucose 108 mg/dL (70-100); Potassium 4.6 mmol/L (3.4-5.1); Sodium 138 mmol/L (137-145); Total Protein 7.5 g/dL (6.3-8.2)
[2020-02-01 12:54] LABS: HEMOLYSIS 147 (0-50)
[2020-02-01 13:00] VITALS: BP 138/67; PULSE 71; O2SAT 96
[2020-02-01 13:16] VITALS: PULSE 65; O2SAT 98
[2020-02-01] MEDS: HYDROMORPHONE 0.5 MG INJ IV (13:16)
[2020-02-01 13:18] LABS: Add Manual Diff / Slide Review NO; Basophils Absolute Auto 100 /uL (0-100); Basophils Percent Auto 0.8 % (0-2); Eosinophils Absolute Auto 200 /uL (0-450); Eosinophils Percent Auto 2.4 % (2-4); Hematocrit 41.5 % (36-46); Lymphocytes Absolute Auto 2300 /uL (1100-4500); Lymphocytes Percent Auto 32.4 % (25-40); Mean Corpuscular HGB Conc 33.7 % (30-36); Mean Corpuscular Hemoglobin 31.1 PG (26-34); Mean Corpuscular Volume 92.4 fL (80-100); Monocytes Absolute Auto 600 /uL (0-900); Monocytes Percent Auto 8.7 % (3-14); Neutrophils Absolute Auto 3900 /uL (1500-7000); Neutrophils Percent Auto 55.7 % (50-75); Platelet Count 270 X10^3/uL (150-400); Red Blood Cell Count 4.49 X10^6/uL (4.0-5.2); Red Cell Distribution Width 13.8 % (11.6-14.8)
[2020-02-01 13:28] LABS: Bacteria Urine None Seen
[2020-02-01 13:30] VITALS: BP 129/75; PULSE 69; O2SAT 96
[2020-02-01 13:30] LABS: Appearance Urine UA CLEAR; Bilirubin Urine UA NEGATIVE (NEGATIVE); Color Urine UA YELLOW; Glucose Urine UA NEGATIVE (Negative); Ketones Urine UA NEGATIVE (NEGATIVE); Leukocyte Esterase Urine UA NEGATIVE (NEGATIVE); Nitrite Urine UA NEGATIVE (Negative); Occult Blood Urine UA 1+ (Negative); Protein Urine UA NEGATIVE (Negative); Specific Gravity Urine UA <=1.005 (1.000-1.035); Urobilinogen Urine UA 0.2 E.U./dL (0.2); pH Urine UA 6.5 (4.5-8.0)
[2020-02-01 13:45] VITALS: RESP 14
[2020-02-01 13:48] LABS: Culture Indicated Urine Cult Not Indicated; Mucus Urine 1+ (Negative); RBC Urine 1-5/HPF (0-5/HPF); Squamous Epithelial Cell Urine 0-1 /HPF (0-5/HPF); WBC Urine 0-1/HPF (0-5/HPF)
== END 2020-02-01 14:00 | disposition home or self-care (01) ==
PROVIDERS: Emergency Provider Student in an Organized Health Care Education/Training Program; Family Provider Physician Assistant; PCP Physician Assistant
DX: R10.2 Pelvic and perineal pain (principal)
CPT/HCPCS: 36415; 80053; 81001; 81025; 85025; 96361; 96374; 96375; 96376; 99284; J1170; J2405

== ENCOUNTER 2020-02-06 12:25 | Emergency (ER) | payer OTHER, MEDICAID, SELFPAY ==
--- NOTE | 2020-02-06 12:33 | ED.FEMALEGU ---
HPI - Female Genitourinary General Chief complaint: Recheck/Abnormal Lab/Rx Stated complaint: Bladder [id number] recheck from tuesday Time Seen by Provider: 02/06/20 12:27 Source: patient Mode of arrival: Ambulatory Limitations: no limitations History of Present Illness HPI Narrative: Patient is a 49-year-old female who has chronic ongoing pelvic pain from a bladder sling procedure. She was seen evaluated at the Urogynecology Clinic at [facility] yesterday. It was recommended that she start physical therapy. They would really like to see a surgeon and have a bladder functioning test done. I have explained that this is not done in the emergency department. Patient has been seen here at this ED a few times over the past few months. She has had blood work and CTs done. She says this is the same pain that she always has seems to be getting worse. She was prescribed Percocet on the 31 of January, she says she is out of those. She denies any fever or chills. She has suprapubic pain. No dysuria or UTI feelings. She has no nausea or vomiting. Both she and her are frustrated most of the history is from her . MD Complaint: pelvic pain Related Data Home Medications Medication Instructions Recorded Confirmed duloxetine 60 mg PO DAILY 12/22/18 08/22/19 oxybutynin chloride 15 mg PO DAILY 12/22/18 08/22/19 prazosin 1 mg PO QPM 12/22/18 08/22/19 quetiapine 100 mg PO BEDTIME 12/22/18 08/22/19 tizanidine 4 mg PO TID PRN 12/22/18 08/22/19 albuterol sulfate 2 puff INHALATION QID PRN 08/22/19 08/22/19 Previous Rx's Medication Instructions Recorded ondansetron 4 mg PO Q8H #14 tab 02/01/20 lidocaine 1 patch TOP DAILY PRN #30 each 02/06/20 Allergies Allergy/AdvReac Type Severity Reaction Status Date / Time ibuprofen [IBUPROFEN] Allergy Mild VOMITING Verified 02/06/20 12:35 amoxicillin [AMOXICILLIN] Allergy Unknown Verified 02/06/20 12:35 diclofenac [DICLOFENAC] Allergy Unknown Verified 02/06/20 12:35 ketorolac [KETOROLAC] Allergy Unknown Rash Verified 02/06/20 13:02 propoxyphene [PROPOXYPHENE] Allergy Unknown Verified 02/06/20 12:35 sertraline [SERTRALINE] Allergy Unknown Verified 02/06/20 12:35 Review of Systems Review of Systems Narrative: GENERAL: Denies chills, fatigue, malaise, fever, sweats, travel HEENT: Denies sinus pain, ear pain, sore throat, difficulty swallowing, neck pain RESPIRATORY: Denies dyspnea, cough, wheezing, hemoptysis, sputum. CARDIOVASCULAR: Denies chest pain, palpitations, orthopnea, edema GASTROINTESTINAL: Denies nausea, vomiting, abdominal pain, diarrhea, constipation, melena. : See HPI MUSCULOSKELETAL: Denies weakness, joint pain, or bony pain SKIN: No rash, no erythema, no pruritus NEUROLOGIC: Denies weakness, dizziness, headache, numbness, change in speech, confusion PSYCHIATRIC: No concerning psychosocial issues. 12 point review of systems is negative except for those stated above and HPI Patient History Medical History Bipolar depression (Chronic) Nephrolithiasis (Chronic) PTSD (post-traumatic stress disorder) (Chronic) Surgical History H/O removal of cyst (Acute) History of renal stent (Resolved) Status post appendectomy (Resolved) Status post hysterectomy (Resolved) tobacco type: cigarettes alcohol intake frequency: holidays/special occasions only Substance Use Type: marijuana Exam Initial Vital Signs Initial Vital Signs: Vital Signs Temperature 96.4 F L 02/06/20 12:38 Pulse Rate 72 02/06/20 12:38 Respiratory Rate 18 02/06/20 12:38 Blood Pressure 140/64 02/06/20 12:38 Pulse Oximetry 98 02/06/20 12:38 GENERAL: Well-appearing, well-nourished and in no acute distress. CARDIOVASCULAR: peripheral pulses in tact, cap refill <2 sec RESPIRATORY: No respiratory distress, speaks in full sentences without difficulty [ABDOMEN: Soft, mild suprapubic pain no guarding no rebound EXTREMITIES: Normal range of motion, no clubbing or edema. Neurovascularly intact NEUROLOGICAL: Cranial nerves II through XII grossly intact. Normal gait and speech. SKIN: Warm, dry, no petechiae, no rashes or lesions. Course Orders Ordered: ED Orders 02/06/20 13:00 Urinalysis and Microscopic Stat Discontinued Medications Ketorolac Tromethamine (Toradol) 30 mg IM NOW ONE Stop: 02/06/20 13:01 Last Admin: 02/06/20 13:22 Dose: 30 mg Documented by: ANDREW Vital Signs Vital signs: Vital Signs - 8 hr 02/06/20 12:38 02/06/20 13:44 Temperature 96.4 F L Pulse Rate 72 78 Respiratory Rate 18 18 Blood Pressure 140/64 115/70 Pulse Oximetry 98 96 MDM - Female Genitourinary Lab Data Labs: Lab Results 02/06/20 Range/Units 13:00 Urine Color Yellow Urine Appearance Clear Urine pH 7.5 (4.5-8.0) Ur Specific [place] 1.010 (1.000-1.035) Urine Protein Negative (Negative) Urine Glucose (UA) Negative (Negative) g/dL Urine Ketones Negative (NEGATIVE) Urine Occult Blood 1+ H (Negative) Urine Nitrate Negative (Negative) Urine Bilirubin Negative (NEGATIVE) Urine Urobilinogen 0.2 (0.2) E.U./dL Ur Leukocyte Esterase Negative (NEGATIVE) Urine RBC 0-1/hpf (0-5/HPF) Urine WBC None seen (0-5/HPF) Urine Bacteria None seen (None) Ur Culture Indicated? Cult not indicated MDM Narrative Medical decision making narrative: The patient receive 14 tablets of Percocet on 02/01/2020. I have explained that she will not be getting a refill of her pain medication or offered opiates in the ED. She is offered Toradol she says it does give her rash however she is willing to try it because of pain she is in. I discussed with her that she needs to see her primary care provider in regards to her chronic pain management. At this time she has ongoing pain in remains unchanged she is afebrile and stable. No sign of UTI. At this time I do not see benefit of no blood work or imaging both of which she has had a lot of. They are trying to get bladder function study done unfortunately this is not available in the ED. I recommend that they schedule that as an outpatient. Patient has had lidocaine patches the past which she says does help I am happy to write her a prescription. She has appointment today with her PCP at 4:30 pm. Discharge Plan Departure Patient Disposition: Home Clinical Impression: Pelvic pain Discharge Date/Time: 02/06/20 13:48 Instructions: Chronic Pelvic Pain-Female Activity Restrictions/Additional Instructions: *You have been diagnosed with pelvic pain *What to do: At this time I recommend talking to her PCP about pain management and possibly pain management contract. Wait to hear from physical therapy and insurance approval. He may also request to see someone different at the [facility] clinic. *Continue to take medications as directed--> SENT TO [facility] Lidocaine patch up place in the area of pain for 12 hours and remove *Follow up with your primary care provider in 2-3 days *Return to ER if you should have fever, vomiting, chills or any new, worsening or concerning symptoms Prescriptions: New lidocaine 5 % adhesive patch,medicated 1 patch TOP DAILY PRN (Reason: pain (scale score 4-6)) Qty: 30 RF: 0 No Action oxybutynin chloride 15 mg tablet extended release 24hr 15 mg PO DAILY RF: 0 tizanidine 4 mg tablet 4 mg PO TID PRN (Reason: Muscle Spasm) RF: 0 prazosin 1 mg capsule 1 mg PO QPM RF: 0 quetiapine 100 mg tablet 100 mg PO BEDTIME RF: 0 duloxetine 60 mg capsule,delayed release(DR/EC) 60 mg PO DAILY RF: 0 ondansetron 4 mg tablet,disintegrating 4 mg PO Q8H Qty: 14 RF: 0 albuterol sulfate 90 mcg/actuation HFA aerosol inhaler 2 puff INHALATION QID PRN (Reason: Wheezing) RF: 0 Referrals: Juliann Patel PA-C [Primary Care Provider] -
[2020-02-06 12:38] VITALS: BP 140/64; PULSE 72; RESP 18; TEMP 35.8; O2SAT 98; BMI 22.6
[2020-02-06 13:05] LABS: Bacteria Urine None Seen; WBC Urine None Seen (0-5/HPF)
[2020-02-06 13:09] LABS: Appearance Urine UA CLEAR; Bilirubin Urine UA NEGATIVE (NEGATIVE); Color Urine UA YELLOW; Glucose Urine UA NEGATIVE (Negative); Ketones Urine UA NEGATIVE (NEGATIVE); Leukocyte Esterase Urine UA NEGATIVE (NEGATIVE); Nitrite Urine UA NEGATIVE (Negative); Occult Blood Urine UA 1+ (Negative); Protein Urine UA NEGATIVE (Negative); Urobilinogen Urine UA 0.2 E.U./dL (0.2)
[2020-02-06 13:10] LABS: pH Urine UA 7.5 (4.5-8.0)
[2020-02-06] MEDS: KETOROLAC 60 MG/2 ML VIAL 30 MG IM (13:22)
[2020-02-06 13:28] LABS: Culture Indicated Urine Cult Not Indicated; RBC Urine 0-1/HPF (0-5/HPF)
[2020-02-06 13:44] VITALS: BP 115/70; PULSE 78; RESP 18; O2SAT 96
== END 2020-02-06 13:48 | disposition home or self-care (01) ==
PROVIDERS: Emergency Provider Emergency Medicine; Family Provider Physician Assistant; PCP Physician Assistant
DX: R10.2 Pelvic and perineal pain (principal)
CPT/HCPCS: 81001; 96372; 99283; J1885

== ENCOUNTER 2020-03-24 18:30 | Emergency (ER) | payer OTHER, MEDICAID, SELFPAY ==
[2020-03-24] VITALS (9 sets, daily range): BP systolic 119–152; BP diastolic 65–93; PULSE 84–104; RESP 14–24; TEMP 36.3; O2SAT 94–100
--- NOTE | 2020-03-24 20:07 | ED_ITS ---
HPI - Abdominal Pain General Chief Complaint: Abdominal Pain Stated Complaint: Bladder Really Bad Time Seen by Provider: 03/24/20 19:47 Source: patient Mode of arrival: Ambulatory Limitations: no limitations History of Present Illness HPI narrative: 49-year-old female daily smoker with chronic pelvic pain secondary to complications from bladder sling, managed by the [facility] presents with a chief complaint of severe pelvic pain. She's been having trouble for some time and has had multiple workups with labs and several CTs. She has referral to pain specialist and an appointment with her doctor in a few days. She had been doing pretty well until she over did it with lifting and moving her RV campsite a few days ago. She denies N/V/D. She's had no fever or chills and denies vaginal bleeding or discharge. Her pain is similar to prior episodes. Related Data Home Medications Medication Instructions Recorded Confirmed duloxetine 60 mg PO DAILY 12/22/18 08/22/19 oxybutynin chloride 15 mg PO DAILY 12/22/18 08/22/19 prazosin 1 mg PO QPM 12/22/18 08/22/19 quetiapine 100 mg PO BEDTIME 12/22/18 08/22/19 tizanidine 4 mg PO TID PRN 12/22/18 08/22/19 albuterol sulfate 2 puff INHALATION QID PRN 08/22/19 08/22/19 Previous Rx's Medication Instructions Recorded ondansetron 4 mg PO Q8H #14 tab 02/01/20 lidocaine 1 patch TOP DAILY PRN #30 each 02/06/20 hydrocodone-acetaminophen 1 tab PO Q4-6H PRN #10 tab 03/24/20 Allergies Allergy/AdvReac Type Severity Reaction Status Date / Time ibuprofen [IBUPROFEN] Allergy Mild VOMITING Verified 02/06/20 12:35 amoxicillin [AMOXICILLIN] Allergy Unknown Verified 02/06/20 12:35 diclofenac [DICLOFENAC] Allergy Unknown Verified 02/06/20 12:35 ketorolac [KETOROLAC] Allergy Unknown Rash Verified 02/06/20 13:02 propoxyphene [PROPOXYPHENE] Allergy Unknown Verified 02/06/20 12:35 sertraline [SERTRALINE] Allergy Unknown Verified 02/06/20 12:35 Review of Systems Constitutional Constitutional: Denies chills, Denies fatigue, Denies fever(s), Denies frequent falls, Denies lethargy and Denies weakness Eyes Eyes: Denies change in vision, Denies eye discharge, Denies irritation and Denies loss of vision ENT Ears, Nose, Mouth, and Throat: Denies change in voice, Denies dizziness, Denies neck pain, Denies sore throat and Denies throat swelling Cardiovascular Cardiovascular: Denies chest pain, Denies irregular heart rhythm, Denies lighth eadedness, Denies palpitations, Denies dyspnea, Denies dyspnea on exertion and Denies orthopnea Respiratory Respiratory: Denies cough, Denies dyspnea, Denies dyspnea on exertion and Denies wheezing Gastrointestinal Gastrointestinal: Denies abdominal pain, Denies change in bowel habits, Denies diarrhea, Denies nausea and Denies vomiting Genitourinary Genitourinary: Reports pelvic pain Musculoskeletal Musculoskeletal: Denies neck pain and Denies numbness Integumentary/Breasts Skin/Breast: Denies pruritus, Denies erythema, Denies rash and Denies wounds Neurologic Neurologic: Denies behavioral changes, Denies confusion, Denies dizziness, Denies frequent falls, Denies loss of vision, Denies numbness and Denies weakness Psychiatric Psychiatric: Denies anxiety, Denies behavioral changes, Denies confusion, Denies depression, Denies homicidal ideation and Denies suicidal ideation Endocrine Endocrine: Denies fatigue, Denies flushing and Denies palpitations Hematologic/Lymphatic Hematologic/Lymphatic: Denies easy bruising Allergic/Immunologic Allergic/Immunologic: Denies urticaria, Denies throat swelling and Denies wheezing Patient History Medical History Bipolar depression Nephrolithiasis PTSD (post-traumatic stress disorder) Surgical History H/O removal of cyst History of renal stent Status post appendectomy Status post hysterectomy Social History Smoking Status: Current every day smoker Smoking Status: Current every day smoker tobacco type: cigarettes alcohol intake frequency: holidays/special occasions only Substance Use Type: marijuana Exam Narrative Exam Narrative: GENERAL: [49] year old patient appears stated age. Well- nourished, well-developed patient, in mild distress. HEAD: Atraumatic. Normocephalic. EYES: Pupils equal round and reactive. Extraocular motions intact. No scleral icterus. No injection or drainage. ENT: Nose without bleeding, purulent drainage. Throat without erythema, tonsillar hypertrophy or exudate. Airway patent. NECK: Trachea midline. Non tender CARDIOVASCULAR: Regular rate and rhythm without murmurs, gallops, or rubs. RESPIRATORY: Clear to auscultation. Breath sounds equal bilaterally. No wheezes, rales, or rhonchi. GASTROINTESTINAL: Abdomen soft, mild tenderness in the suprapubic region, nondistended. EXTREMITIES: No edema or joint tenderness. BACK: Nontender without deformity or crepitance. No flank tenderness. NEURO: AOx3. SKIN: No rash or erythema of visible areas Initial Vital Signs Initial Vital Signs: Vital Signs Temperature 97.3 F L 03/24/20 18:35 Pulse Rate 104 H 03/24/20 18:35 Respiratory Rate 24 03/24/20 18:35 Blood Pressure 152/65 H 03/24/20 18:35 Pulse Oximetry 100 03/24/20 18:35 Course Orders Ordered: ED Orders 03/24/20 19:37 EKG-12 Lead Stat 03/24/20 20:08 Complete Blood Count AUTO DIFF Stat Comprehensive Metabolic Panel Stat Lipase Stat Partial Thromboplastin Time Stat Prothrombin Time INR Stat 03/24/20 21:16 UA Complete [Urinalysis and Microscopic] Stat Discontinued Medications Hydrocodone Bitart/Acetaminophen (Hydrocodone/Acet 5/325 Prepack) 1 bottle MISC SEEINSTR ONE Stop: 03/24/20 21:04 Last Admin: 03/24/20 21:16 Dose: 1 bottle Documented by: JOLLY Hydromorphone HCl (Hydromorphone 1 Mg Inj) 1 mg IV NOW ONE Stop: 03/24/20 21:04 Last Admin: 03/24/20 21:07 Dose: 1 mg Documented by: JOLLY Vital Signs Vital signs: Vital Signs - 8 hr 03/24/20 18:35 03/24/20 19:28 03/24/20 19:30 Temperature 97.3 F L Pulse Rate 104 H 98 H Respiratory Rate 24 Blood Pressure 152/65 H 138/76 132/72 Pulse Oximetry 100 97 96 03/24/20 20:00 03/24/20 20:30 03/24/20 20:33 Temperature Pulse Rate 90 86 84 Respiratory Rate 14 Blood Pressure 130/76 119/77 Pulse Oximetry 95 95 97 03/24/20 21:00 03/24/20 21:26 03/24/20 21:30 Temperature Pulse Rate 86 90 89 Respiratory Rate 20 18 17 Blood Pressure 132/93 H 128/83 Pulse Oximetry 95 95 94 MDM - Abdominal Pain Lab Data Result diagrams: 03/24/20 20:08 03/24/20 20:08 Labs: Lab Results 03/24/20 03/24/20 03/24/20 Range/Units 20:08 20:08 20:08 WBC 6.6 (4.5-11.0) X10^3/uL RBC 4.41 (4.0-5.2) X10^6/uL Hgb 13.7 (12.0-16.0) g/dL Hct 40.2 (36-46) % MCV 91.3 (80-100) fL MCH 31.1 (26-34) PG MCHC 34.1 (30-36) % RDW 13.0 (11.6-14.8) % Plt Count 270 (150-400) X10^3/uL Neut % (Auto) 49.9 L (50-75) % Lymph % (Auto) 38.5 (25-40) % [place] % (Auto) 9.1 (3-14) % Eos % (Auto) 1.9 L (2-4) % Baso % (Auto) 0.6 (0-2) % Neut # (Auto) 3300 (0820-8763) /uL Lymph # (Auto) 2500 (4544-1264) /uL [place] # (Auto) 600 (0-900) /uL Eos # (Auto) 100 (0-450) /uL Baso # (Auto) 0 (0-100) /uL PT 10.6 (10.1-12.7) SECONDS INR 0.9 (0.9-1.3) APTT 36 (26.4-36.2) SECONDS Sodium 138 (137-145) mmol/L Potassium 3.8 (3.4-5.1) mmol/L Chloride 105 (98-107) mmol/L Carbon Dioxide 32 (22-32) mmol/L BUN 11 (7-17) mg/dL Creatinine 0.65 (0.52-1.04) mg/dL Estimated GFR > 60.0 (>60) mL/min BUN/Creatinine Ratio 16.9 (6-22) Glucose 81 (70-100) mg/dL Calcium 9.2 (8.4-10.2) mg/dL Total Bilirubin 0.3 (0.2-1.3) mg/dL AST 28 (14-36) IU/L ALT 30 (<35) IU/L Alkaline Phosphatase 117 (38-126) U/L Total Protein 7.3 (6.3-8.2) g/dL Albumin 4.3 (3.5-5.0) g/dL Globulin 3.0 (1.7-4.1) g/dL Albumin/Globulin Ratio 1.4 (1.0-2.8) Lipase 139 (23-300) U/L Urine Color Urine Appearance Urine pH (4.5-8.0) Ur Specific [place] (1.000-1.035) Urine Protein (Negative) Urine Glucose (UA) (Negative) g/dL Urine Ketones (NEGATIVE) Urine Occult Blood (Negative) Urine Nitrate (Negative) Urine Bilirubin (NEGATIVE) Urine Urobilinogen (0.2) E.U./dL Ur Leukocyte Esterase (NEGATIVE) Urine RBC (0-5/HPF) Urine WBC (0-5/HPF) Ur Squamous Epith Cells (0-5/HPF) Urine Bacteria (None) Ur Culture Indicated? 03/24/20 Range/Units 21:16 WBC (4.5-11.0) X10^3/uL RBC (4.0-5.2) X10^6/uL Hgb (12.0-16.0) g/dL Hct (36-46) % MCV (80-100) fL MCH (26-34) PG MCHC (30-36) % RDW (11.6-14.8) % Plt Count (150-400) X10^3/uL Neut % (Auto) (50-75) % Lymph % (Auto) (25-40) % [place] % (Auto) (3-14) % Eos % (Auto) (2-4) % Baso % (Auto) (0-2) % Neut # (Auto) (0508-7788) /uL Lymph # (Auto) (3293-7402) /uL [place] # (Auto) (0-900) /uL Eos # (Auto) (0-450) /uL Baso # (Auto) (0-100) /uL PT (10.1-12.7) SECONDS INR (0.9-1.3) APTT (26.4-36.2) SECONDS Sodium (137-145) mmol/L Potassium (3.4-5.1) mmol/L Chloride (98-107) mmol/L Carbon Dioxide (22-32) mmol/L BUN (7-17) mg/dL Creatinine (0.52-1.04) mg/dL Estimated GFR (>60) mL/min BUN/Creatinine Ratio (6-22) Glucose (70-100) mg/dL Calcium (8.4-10.2) mg/dL Total Bilirubin (0.2-1.3) mg/dL AST (14-36) IU/L ALT (<35) IU/L Alkaline Phosphatase (38-126) U/L Total Protein (6.3-8.2) g/dL Albumin (3.5-5.0) g/dL Globulin (1.7-4.1) g/dL Albumin/Globulin Ratio (1.0-2.8) Lipase (23-300) U/L Urine Color Yellow Urine Appearance Slightly cloudy Urine pH 7.0 (4.5-8.0) Ur Specific [place] 1.010 (1.000-1.035) Urine Protein Negative (Negative) Urine Glucose (UA) Negative (Negative) g/dL Urine Ketones Negative (NEGATIVE) Urine Occult Blood 3+ H (Negative) Urine Nitrate Negative (Negative) Urine Bilirubin Negative (NEGATIVE) Urine Urobilinogen 0.2 (0.2) E.U./dL Ur Leukocyte Esterase Trace H (NEGATIVE) Urine RBC 30-100/hpf H (0-5/HPF) Urine WBC 1-5/hpf (0-5/HPF) Ur Squamous Epith Cells 10-30 /hpf H D (0-5/HPF) Urine Bacteria Many (>30) H (None) Ur Culture Indicated? Cult not indicated Point of care testing: Urine Dip Bedside Urine Glucose Negative Bedside Urine Bilirubin - Negative Bedside Urine Ketone - Negative Urine Specific [place] 1.010 Bedside Urine Occult Blood +++ Bedside Urine pH 6.0 Bedside Urine Protein - Negative Bedside Urine Urobilinogen - Negative Bedside Urine Nitrite - Negative Bedside Urine Leukocytes - Negative Esterase MDM Narrative Medical decision making narrative: Labs and exam are very reassuring. We had extensive discussion about whether imaging would likely be of any benefit. We both agree that this is likely an exacerbation of a chronic problem and we will treat her symptoms for now and if her symptoms don't improve she will return and we could consider advanced imaging at that time. Return precautions given, questions answered to her apparent satisfaction. Discharge Plan Departure Patient Disposition: Home Clinical Impression: Chronic female pelvic pain, Abscess of right breast Instructions: Chronic Pelvic Pain-Female Activity Restrictions/Additional Instructions: *You have been diagnosed with [acute on chronic pelvic pain, likely due to over exertion over the past few days. Labs and physical exam are very reassuring] *What to do: *Take medications as directed *Follow up with your primary care provider in 2-3 days, call for an appointment. Let them know you were seen in the Emergency Department and that we ask that you be seen in follow up *Return to ER if you should have any new, worsening or concerning symptoms such as worsening pain, fever greater than 101 F, shaking chills, persistent vomiting or other bothersome symptoms Prescriptions: New hydrocodone-acetaminophen 5-325 mg tablet 1 tab PO Q4-6H PRN (Reason: pain) Qty: 10 RF: 0 No Action oxybutynin chloride 15 mg tablet extended release 24hr 15 mg PO DAILY RF: 0 tizanidine 4 mg tablet 4 mg PO TID PRN (Reason: Muscle Spasm) RF: 0 prazosin 1 mg capsule 1 mg PO QPM RF: 0 quetiapine 100 mg tablet 100 mg PO BEDTIME RF: 0 duloxetine 60 mg capsule,delayed release(DR/EC) 60 mg PO DAILY RF: 0 ondansetron 4 mg tablet,disintegrating 4 mg PO Q8H Qty: 14 RF: 0 lidocaine 5 % adhesive patch,medicated 1 patch TOP DAILY PRN (Reason: pain (scale score 4-6)) Qty: 30 RF: 0 albuterol sulfate 90 mcg/actuation HFA aerosol inhaler 2 puff INHALATION QID PRN (Reason: Wheezing) RF: 0 Referrals: Juliann Patel PA-C [Primary Care Provider] -
[2020-03-24 20:16] LABS: Add Manual Diff / Slide Review NO; Basophils Absolute Auto 0 /uL (0-100); Basophils Percent Auto 0.6 % (0-2); Eosinophils Absolute Auto 100 /uL (0-450); Eosinophils Percent Auto 1.9 % (2-4); Hematocrit 40.2 % (36-46); Hemoglobin 13.7 g/dL (12.0-16.0); Lymphocytes Absolute Auto 2500 /uL (1100-4500); Lymphocytes Percent Auto 38.5 % (25-40); Mean Corpuscular HGB Conc 34.1 % (30-36); Mean Corpuscular Hemoglobin 31.1 PG (26-34); Mean Corpuscular Volume 91.3 fL (80-100); Monocytes Absolute Auto 600 /uL (0-900); Monocytes Percent Auto 9.1 % (3-14); Neutrophils Absolute Auto 3300 /uL (1500-7000); Neutrophils Percent Auto 49.9 % (50-75); Platelet Count 270 X10^3/uL (150-400); Red Blood Cell Count 4.41 X10^6/uL (4.0-5.2); White Blood Cell Count 6.6 X10^3/uL (4.5-11.0)
[2020-03-24 20:24] LABS: INR 0.9 (0.9-1.3); Prothrombin Time 10.6 SECONDS (10.1-12.7)
[2020-03-24 20:26] LABS: PTT Partial Thromboplastin Tim 36 SECONDS (26.4-36.2)
[2020-03-24 20:28] LABS: Alanine Aminotransferase 30 IU/L (<35); Albumin 4.3 g/dL (3.5-5.0); Albumin Globulin Ratio 1.4 (1.0-2.8); Alkaline Phosphatase 117 U/L (38-126); Aspartate Aminotransferase 28 IU/L (14-36); BUN Creatinine Ratio 16.9 (6-22); Bilirubin Total 0.3 mg/dL (0.2-1.3); Blood Urea Nitrogen 11 mg/dL (7-17); Calcium 9.2 mg/dL (8.4-10.2); Carbon Dioxide 32 mmol/L (22-32); Chloride 105 mmol/L (98-107); Estimated Glomerular Filt Rate > 60.0 mL/min (>60); Glucose 81 mg/dL (70-100); HEMOLYSIS < 15 (0-50); Lipase 139 U/L (23-300); Potassium 3.8 mmol/L (3.4-5.1); Sodium 138 mmol/L (137-145); Total Protein 7.3 g/dL (6.3-8.2)
[2020-03-24] MEDS: HYDROMORPHONE 1 MG INJ IV (21:07)
[2020-03-24] MEDS: HYDROCODONE/ACET 5/325 PREPACK 1 BOTTLE MISC (21:16)
[2020-03-24 21:18] LABS: Bilirubin Urine UA NEGATIVE (NEGATIVE); Color Urine UA YELLOW; Glucose Urine UA NEGATIVE (Negative); Ketones Urine UA NEGATIVE (NEGATIVE); Leukocyte Esterase Urine UA TRACE (NEGATIVE); Nitrite Urine UA NEGATIVE (Negative); Occult Blood Urine UA 3+ (Negative); Protein Urine UA NEGATIVE (Negative); Urobilinogen Urine UA 0.2 E.U./dL (0.2)
[2020-03-24 21:19] LABS: Appearance Urine UA Slightly Cloudy
[2020-03-24 21:24] LABS: RBC Urine 30-100/HPF (0-5/HPF)
[2020-03-24 21:25] LABS: Bacteria Urine Many (>30); Culture Indicated Urine Cult Not Indicated; Squamous Epithelial Cell Urine 10-30 /HPF (0-5/HPF); WBC Urine 1-5/HPF (0-5/HPF)
== END 2020-03-24 21:40 | disposition home or self-care (01) ==
PROVIDERS: Emergency Provider Emergency Medicine; Family Provider Physician Assistant; PCP Physician Assistant
DX: R10.2 Pelvic and perineal pain (principal); N61.1 Abscess of the breast and nipple
CPT/HCPCS: 36415; 80053; 81001; 81003; 83690; 85025; 85610; 85730; 93005; 93010; 96374; 99281; 99284; J1170

== ENCOUNTER 2020-07-07 13:37 | Emergency (ER) | payer OTHER, MEDICAID, SELFPAY ==
[2020-07-07] VITALS (10 sets, daily range): BP systolic 123–131; BP diastolic 72–87; PULSE 73–79; RESP 18; TEMP 36.8; O2SAT 94–99; BMI 25.7
--- NOTE | 2020-07-07 14:00 | ED.ABDPAIN ---
HPI - Abdominal Pain <Nancy AbdulCATEP-BC - Last Filed: 07/07/20 18:39> General Chief Complaint: Urogenital-Female Stated Complaint: kidney stones Time Seen by Provider: 07/07/20 13:50 Source: patient Mode of arrival: Ambulatory Limitations: no limitations History of Present Illness HPI narrative: The patient is a 49-year-old female current everyday smoker with history of kidney stones who presents with a chief complaint of right-sided flank pain onset last night. She states it is constant pain, sharp and shooting associated with nausea. Denies any dysuria urgency or frequency. She states this feels similar to a kidney stone that she had last year. She denies any fevers muscle aches or chills. She does state that she has had cold symptoms for a few days, but has been tested for COVID a total of 5 times, and is always tested negative. She has not tested since her cold symptoms started a few days ago. She has not taken anything for pain, states that NSAIDs make her vomit. Related Data Home Medications Medication Instructions Recorded Confirmed duloxetine 60 mg PO DAILY 12/22/18 08/22/19 oxybutynin chloride 15 mg PO DAILY 12/22/18 08/22/19 prazosin 1 mg PO QPM 12/22/18 08/22/19 quetiapine 100 mg PO BEDTIME 12/22/18 08/22/19 tizanidine 4 mg PO TID PRN 12/22/18 08/22/19 albuterol sulfate 2 puff INHALATION QID PRN 08/22/19 08/22/19 Previous Rx's Medication Instructions Recorded ondansetron 4 mg PO Q8H #14 tab 02/01/20 lidocaine 1 patch TOP DAILY PRN #30 each 02/06/20 hydrocodone-acetaminophen 1 tab PO Q4-6H PRN #10 tab 03/24/20 ondansetron 4 mg PO Q6H PRN #14 tab 07/07/20 tramadol 50 mg PO TID PRN #7 tab 07/07/20 Allergies Allergy/AdvReac Type Severity Reaction Status Date / Time ibuprofen [IBUPROFEN] Allergy Mild VOMITING Verified 02/06/20 12:35 amoxicillin [AMOXICILLIN] Allergy Unknown Verified 02/06/20 12:35 diclofenac [DICLOFENAC] Allergy Unknown Verified 02/06/20 12:35 ketorolac [KETOROLAC] Allergy Unknown Rash Verified 02/06/20 13:02 propoxyphene [PROPOXYPHENE] Allergy Unknown Verified 02/06/20 12:35 sertraline [SERTRALINE] Allergy Unknown Verified 02/06/20 12:35 Review of Systems <CALE Machado - Last Filed: 07/07/20 18:39> Review of Systems Narrative: GENERAL: Denies chills, fatigue, malaise, fever, sweats. HEENT: Denies sinus pain, ear pain, sore throat, difficulty swallowing, dizziness. RESPIRATORY: Denies dyspnea, cough, wheezing, hemoptysis, sputum. CARDIOVASCULAR: Denies chest pain, palpitations, orthopnea, edema, GASTROINTESTINAL: Denies nausea, vomiting, abdominal pain, diarrhea, constipation, melena. : See HPI MUSCULOSKELETAL: denies weakness, joint pain, or bony pain SKIN: Denies rash, skin lesions, or other NEUROLOGIC: Denies weakness, headache, numbness, change in speech, confusion, seizures, incoordination. PSYCHIATRIC: No concerning psychosocial issues. 12 point review of systems is negative except for those stated above Patient History <CALE Machado - Last Filed: 07/07/20 18:39> Medical History (Updated 07/07/20 @ 18:05 by CALE Machado) Bipolar depression Nephrolithiasis PTSD (post-traumatic stress disorder) Surgical History H/O removal of cyst History of renal stent Status post appendectomy Status post hysterectomy Social History Smoking Status: Current every day smoker Smoking Status: Current every day smoker tobacco type: cigarettes alcohol intake frequency: holidays/special occasions only Substance Use Type: marijuana Exam <CALE Machado - Last Filed: 07/07/20 18:39> Narrative Exam Narrative: GENERAL: This is a well-nourished, well-developed patient, in no acute distress HEAD: Atraumatic. Normocephalic. No temporal or scalp tenderness. EYES: Pupils equal round and reactive. Extraocular motions intact. No scleral icterus. No injection or drainage. ENT: Nose without bleeding, purulent drainage or septal hematoma. Throat without erythema, tonsillar hypertrophy or exudate. Uvula midline. Airway patent. NECK: Trachea midline. No JVD or lymphadenopathy. Supple, nontender, no meningeal signs. CARDIOVASCULAR: Regular rate and rhythm RESPIRATORY: Coarse bilaterally to auscultation. Breath sounds equal bilaterally. No wheezes, rales, or rhonchi. Occasional dry cough GASTROINTESTINAL: Abdomen soft, non-tender, nondistended. No hepato-splenomegaly, or palpable masses. No guarding. EXTREMITIES: No clubbing, cyanosis, or edema. No joint tenderness, effusion, or edema noted. BACK: Nontender without deformity or crepitance. CVA tenderness noted right side, no CVA tenderness noted left side NEURO: AOx3. SKIN: No rash or erythema on visible skin Initial Vital Signs Initial Vital Signs: Vital Signs Temperature 98.2 F 07/07/20 13:45 Pulse Rate 79 07/07/20 13:45 Respiratory Rate 18 07/07/20 13:45 Blood Pressure 131/84 07/07/20 13:45 Pulse Oximetry 99 07/07/20 13:45 <Susana Mendoza DO - Last Filed: 07/08/20 07:22> Initial Vital Signs Initial Vital Signs: Vital Signs Temperature 98.2 F 07/07/20 13:45 Pulse Rate 79 07/07/20 13:45 Respiratory Rate 18 07/07/20 13:45 Blood Pressure 131/84 07/07/20 13:45 Pulse Oximetry 99 07/07/20 13:45 Scores <CALE Machado - Last Filed: 07/07/20 18:39> GCS Armstrong coma scale eye opening: Spontaneous Armstrong coma scale verbal response: Orientated Armstrong coma scale motor response: Obey commands Alden coma scale total score: 15 Course <CALE Machado - Last Filed: 07/07/20 18:39> Orders Ordered: Discontinued Medications Sodium Chloride (Normal Saline 0.9%) 1,000 mls @ 1,000 mls/hr IV BOLUS ONE Stop: 07/07/20 14:51 Last Infusion: 07/07/20 15:55 Dose: 0 mls/hr Documented by: Admin: 07/07/20 14:10 Dose: 1,000 mls/hr Documented by: DEBBI Sodium Chloride (Normal Saline 0.9%) 1,000 mls @ 1,000 mls/hr IV BOLUS ONE Stop: 07/07/20 16:17 Last Infusion: 07/07/20 17:27 Dose: 0 mls/hr Documented by: Admin: 07/07/20 15:49 Dose: 1,000 mls/hr Documented by: DEBBI Morphine Sulfate (Morphine 4 Mg/Ml Inj) 4 mg IV NOW ONE Stop: 07/07/20 13:55 Last Admin: 07/07/20 14:10 Dose: 4 mg Documented by: DEBBI Morphine Sulfate (Morphine 4 Mg/Ml Inj) 4 mg IV NOW ONE Stop: 07/07/20 15:19 Last Admin: 07/07/20 15:49 Dose: 4 mg Documented by: DEBBI Ondansetron HCl (Ondansetron 4 Mg/2 Ml Inj) 4 mg IV NOW ONE Stop: 07/07/20 13:53 Last Admin: 07/07/20 14:10 Dose: 4 mg Documented by: DEBBI Vital Signs Vital signs: Vital Signs - 8 hr 07/07/20 13:45 07/07/20 13:51 07/07/20 14:00 Temperature 98.2 F Pulse Rate 79 79 75 Respiratory Rate 18 Blood Pressure 131/84 129/87 Pulse Oximetry 99 96 95 07/07/20 14:30 07/07/20 15:00 07/07/20 15:30 Temperature Pulse Rate 74 73 77 Respiratory Rate Blood Pressure 123/72 Pulse Oximetry 94 99 98 07/07/20 16:00 07/07/20 16:30 07/07/20 17:00 Temperature Pulse Rate 76 76 78 Respiratory Rate Blood Pressure Pulse Oximetry 96 97 97 07/07/20 17:30 Temperature Pulse Rate 77 Respiratory Rate 18 Blood Pressure Pulse Oximetry 96 <Susana Mendoza DO - Last Filed: 07/08/20 07:22> Orders Ordered: Discontinued Medications Sodium Chloride (Normal Saline 0.9%) 1,000 mls @ 1,000 mls/hr IV BOLUS ONE Stop: 07/07/20 14:51 Last Infusion: 07/07/20 15:55 Dose: 0 mls/hr Documented by: Admin: 07/07/20 14:10 Dose: 1,000 mls/hr Documented by: DEBBI Sodium Chloride (Normal Saline 0.9%) 1,000 mls @ 1,000 mls/hr IV BOLUS ONE Stop: 07/07/20 16:17 Last Infusion: 07/07/20 17:27 Dose: 0 mls/hr Documented by: Admin: 07/07/20 15:49 Dose: 1,000 mls/hr Documented by: DEBBI Morphine Sulfate (Morphine 4 Mg/Ml Inj) 4 mg IV NOW ONE Stop: 07/07/20 13:55 Last Admin: 07/07/20 14:10 Dose: 4 mg Documented by: DEBBI Morphine Sulfate (Morphine 4 Mg/Ml Inj) 4 mg IV NOW ONE Stop: 07/07/20 15:19 Last Admin: 07/07/20 15:49 Dose: 4 mg Documented by: DEBBI Ondansetron HCl (Ondansetron 4 Mg/2 Ml Inj) 4 mg IV NOW ONE Stop: 07/07/20 13:53 Last Admin: 07/07/20 14:10 Dose: 4 mg Documented by: DEBBI Vital Signs Vital signs: Vital Signs - 8 hr 07/07/20 13:45 07/07/20 13:51 07/07/20 14:00 Temperature 98.2 F Pulse Rate 79 79 75 Respiratory Rate 18 Blood Pressure 131/84 129/87 Pulse Oximetry 99 96 95 07/07/20 14:30 07/07/20 15:00 07/07/20 15:30 Temperature Pulse Rate 74 73 77 Respiratory Rate Blood Pressure 123/72 Pulse Oximetry 94 99 98 07/07/20 16:00 07/07/20 16:30 07/07/20 17:00 Temperature Pulse Rate 76 76 78 Respiratory Rate Blood Pressure Pulse Oximetry 96 97 97 07/07/20 17:30 Temperature Pulse Rate 77 Respiratory Rate 18 Blood Pressure Pulse Oximetry 96 MDM - Abdominal Pain <CALE Machado - Last Filed: 07/07/20 18:39> Lab Data Attestation: I reviewed the patient's lab results. Result diagrams: 07/07/20 14:02 07/07/20 14:02 Labs: Lab Results 07/07/20 07/07/20 07/07/20 Range/Units 14:02 14:02 14:02 WBC 6.5 (4.5-11.0) X10^3/uL RBC 4.41 (4.0-5.2) X10^6/uL Hgb 13.9 (12.0-16.0) g/dL Hct 39.9 (36-46) % MCV 90.4 (80-100) fL MCH 31.5 (26-34) PG MCHC 34.9 (30-36) % RDW 13.4 (11.6-14.8) % Plt Count 259 (150-400) X10^3/uL Neut % (Auto) 51.1 (50-75) % Lymph % (Auto) 35.4 (25-40) % [place] % (Auto) 10.3 (3-14) % Eos % (Auto) 2.4 (2-4) % Baso % (Auto) 0.8 (0-2) % Neut # (Auto) 3300 (6500-1351) /uL Lymph # (Auto) 2300 (7370-2079) /uL [place] # (Auto) 700 (0-900) /uL Eos # (Auto) 200 (0-450) /uL Baso # (Auto) 0 (0-100) /uL Sodium 138 (137-145) mmol/L Potassium 4.4 (3.4-5.1) mmol/L Chloride 105 (98-107) mmol/L Carbon Dioxide 27 (22-32) mmol/L BUN 18 H (7-17) mg/dL Creatinine 1.25 H (0.52-1.04) mg/dL Estimated GFR 45.4 L (>60) mL/min BUN/Creatinine Ratio 14.4 (6-22) Glucose 88 (70-100) mg/dL Lactate 0.9 (0.7-2.1) mmol/L Calcium 9.1 (8.4-10.2) mg/dL Total Bilirubin 0.3 (0.2-1.3) mg/dL AST 27 (14-36) IU/L ALT 21 (<35) IU/L Alkaline Phosphatase 130 H (38-126) U/L Total Protein 7.3 (6.3-8.2) g/dL Albumin 4.5 (3.5-5.0) g/dL Globulin 2.8 (1.7-4.1) g/dL Albumin/Globulin Ratio 1.6 (1.0-2.8) Amylase 99 (30-110) U/L Lipase 139 (23-300) U/L Urine RBC (0-5/HPF) Urine WBC (0-5/HPF) Ur Squamous Epith Cells (0-5/HPF) Amorphous Sediment Urine Bacteria (None) Ur Culture Indicated? SARS-CoV-2 (PCR) (Negative) 07/07/20 07/07/20 Range/Units 14:16 15:54 WBC (4.5-11.0) X10^3/uL RBC (4.0-5.2) X10^6/uL Hgb (12.0-16.0) g/dL Hct (36-46) % MCV (80-100) fL MCH (26-34) PG MCHC (30-36) % RDW (11.6-14.8) % Plt Count (150-400) X10^3/uL Neut % (Auto) (50-75) % Lymph % (Auto) (25-40) % [place] % (Auto) (3-14) % Eos % (Auto) (2-4) % Baso % (Auto) (0-2) % Neut # (Auto) (7319-8016) /uL Lymph # (Auto) (0876-3755) /uL [place] # (Auto) (0-900) /uL Eos # (Auto) (0-450) /uL Baso # (Auto) (0-100) /uL Sodium (137-145) mmol/L Potassium (3.4-5.1) mmol/L Chloride (98-107) mmol/L Carbon Dioxide (22-32) mmol/L BUN (7-17) mg/dL Creatinine (0.52-1.04) mg/dL Estimated GFR (>60) mL/min BUN/Creatinine Ratio (6-22) Glucose (70-100) mg/dL Lactate (0.7-2.1) mmol/L Calcium (8.4-10.2) mg/dL Total Bilirubin (0.2-1.3) mg/dL AST (14-36) IU/L ALT (<35) IU/L Alkaline Phosphatase (38-126) U/L Total Protein (6.3-8.2) g/dL Albumin (3.5-5.0) g/dL Globulin (1.7-4.1) g/dL Albumin/Globulin Ratio (1.0-2.8) Amylase (30-110) U/L Lipase (23-300) U/L Urine RBC 1-5/hpf D (0-5/HPF) Urine WBC 0-1/hpf (0-5/HPF) Ur Squamous Epith Cells 1-5 /hpf D (0-5/HPF) Amorphous Sediment 1+ Urine Bacteria Occasional (0-1) D (None) Ur Culture Indicated? Cult not indicated SARS-CoV-2 (PCR) Negative (Negative) Point of care testing: Urine Dip Bedside Urine Glucose Negative Bedside Urine Bilirubin - Negative Bedside Urine Ketone - Negative Urine Specific [place] 1.015 Bedside Urine Occult Blood ++ Bedside Urine pH 7.5 Bedside Urine Protein - Negative Bedside Urine Urobilinogen - Negative Bedside Urine Nitrite - Negative Bedside Urine Leukocytes - Negative Esterase Imaging Data CT scan - abdomen/pelvis: Radiologist's Impression: [address] [place] [id number] Scan ReportSigned Patient: Peg Valencia [facility]#: [id number]: 1970Acct:[id number]/Sex: 49 / FDate of Service: 07/07/20Loc: EDAccession Number: [id number] Procedure: CT kidney ureter bladder (KUB) Ordering Provider: Nancy Abdul PROCEDURE: CT KIDNEY URETER BLADDER (KUB) INDICATIONS: R flank pain, hx stones TECHNIQUE: Noncontrast 5 mm thick sections acquired from the diaphragms to the symphysis. 5 mm thick coronal and sagittal reformats were then performed. For radiation dose reduction, the following was used: automated exposure control, adjustment of mA and/or kV according to patient size. COMPARISON: [facility], CT, CT KUB, 02/08/2020, 12:59. [facility], CT, CT KIDNEY URETER BLADDER (KUB), 08/22/2019, 12:56. FINDINGS: Image quality: Excellent. Lung bases: Dependent hazy airspace opacity most compatible with atelectasis. No pleural effusion. Heart size is normal. Urinary system: Both kidneys are normal in size. No kidney stones. No hydronephrosis or perinephric fat stranding. Both ureters appear non-dilated throughout their expected courses. Bladder wall thickness is normal; no calcified bladder stones. Other solid organs: Liver is normal in size. Gallbladder is surgically absent. Pancreas is normal in contours. Spleen is normal in size. No adrenal nodules. Peritoneum and bowel: Unenhanced bowel loops demonstrate normal wall thickness and caliber. Surgical clips in the right lower quadrant. Prominent stool in the colon. No free fluid or air. Nodes and vessels: No retroperitoneal or mesenteric adenopathy by size criteria. Aorta and inferior vena cava are normal in caliber. Abdominal wall: No ventral hernias. Uterus is absent. Pelvis: No free pelvic fluid. Suspect fat containing left inguinal hernia. No adenopathy. Bones: No suspicious bony lesions. No vertebral body compression fractures. IMPRESSION: 1. No kidney stone. No hydronephrosis. 2. Distended bladder. 3. Prominent stool in the colon. Dictated by: Dedrick Whitley M.D. on 07/07/2020 at 15:45 Approved by: Dedrick Whitley M.D. on 07/07/2020 at 15:52 MDM Narrative Medical decision making narrative: The patient is a 49-year-old female who presents with a chief complaint of right-sided flank pain consistent with previous kidney stone. CT KUB was taking, shows no stones, or hydronephrosis. She was noted to have a distended bladder but urinated immediately after returning from CT. Urine has no signs of infection. It is entirely possible that she passed a stone prior to CT scan. She did have a slight elevation of her creatinine to 1.25, which I discussed with Dr. Mendoza. She is given 2 L of IV fluid. Encouraged to follow up with primary care provider as well as her urologist. Discussed at length coming back to the ER with Any acute concerns. Patient has no questions or concerns upon discharge states understanding of return precautions as well as follow-up care. <Susana Mendoza, DO - Last Filed: 07/08/20 07:22> Lab Data Labs: Lab Results 07/07/20 07/07/20 07/07/20 Range/Units 14:02 14:02 14:02 WBC 6.5 (4.5-11.0) X10^3/uL RBC 4.41 (4.0-5.2) X10^6/uL Hgb 13.9 (12.0-16.0) g/dL Hct 39.9 (36-46) % MCV 90.4 (80-100) fL MCH 31.5 (26-34) PG MCHC 34.9 (30-36) % RDW 13.4 (11.6-14.8) % Plt Count 259 (150-400) X10^3/uL Neut % (Auto) 51.1 (50-75) % Lymph % (Auto) 35.4 (25-40) % [place] % (Auto) 10.3 (3-14) % Eos % (Auto) 2.4 (2-4) % Baso % (Auto) 0.8 (0-2) % Neut # (Auto) 3300 (6463-7152) /uL Lymph # (Auto) 2300 (5589-6122) /uL [place] # (Auto) 700 (0-900) /uL Eos # (Auto) 200 (0-450) /uL Baso # (Auto) 0 (0-100) /uL Sodium 138 (137-145) mmol/L Potassium 4.4 (3.4-5.1) mmol/L Chloride 105 (98-107) mmol/L Carbon Dioxide 27 (22-32) mmol/L BUN 18 H (7-17) mg/dL Creatinine 1.25 H (0.52-1.04) mg/dL Estimated GFR 45.4 L (>60) mL/min BUN/Creatinine Ratio 14.4 (6-22) Glucose 88 (70-100) mg/dL Lactate 0.9 (0.7-2.1) mmol/L Calcium 9.1 (8.4-10.2) mg/dL Total Bilirubin 0.3 (0.2-1.3) mg/dL AST 27 (14-36) IU/L ALT 21 (<35) IU/L Alkaline Phosphatase 130 H (38-126) U/L Total Protein 7.3 (6.3-8.2) g/dL Albumin 4.5 (3.5-5.0) g/dL Globulin 2.8 (1.7-4.1) g/dL Albumin/Globulin Ratio 1.6 (1.0-2.8) Amylase 99 (30-110) U/L Lipase 139 (23-300) U/L Urine RBC (0-5/HPF) Urine WBC (0-5/HPF) Ur Squamous Epith Cells (0-5/HPF) Amorphous Sediment Urine Bacteria (None) Ur Culture Indicated? SARS-CoV-2 (PCR) (Negative) 07/07/20 07/07/20 Range/Units 14:16 15:54 WBC (4.5-11.0) X10^3/uL RBC (4.0-5.2) X10^6/uL Hgb (12.0-16.0) g/dL Hct (36-46) % MCV (80-100) fL MCH (26-34) PG MCHC (30-36) % RDW (11.6-14.8) % Plt Count (150-400) X10^3/uL Neut % (Auto) (50-75) % Lymph % (Auto) (25-40) % [place] % (Auto) (3-14) % Eos % (Auto) (2-4) % Baso % (Auto) (0-2) % Neut # (Auto) (9907-7445) /uL Lymph # (Auto) (1447-1128) /uL [place] # (Auto) (0-900) /uL Eos # (Auto) (0-450) /uL Baso # (Auto) (0-100) /uL Sodium (137-145) mmol/L Potassium (3.4-5.1) mmol/L Chloride (98-107) mmol/L Carbon Dioxide (22-32) mmol/L BUN (7-17) mg/dL Creatinine (0.52-1.04) mg/dL Estimated GFR (>60) mL/min BUN/Creatinine Ratio (6-22) Glucose (70-100) mg/dL Lactate (0.7-2.1) mmol/L Calcium (8.4-10.2) mg/dL Total Bilirubin (0.2-1.3) mg/dL AST (14-36) IU/L ALT (<35) IU/L Alkaline Phosphatase (38-126) U/L Total Protein (6.3-8.2) g/dL Albumin (3.5-5.0) g/dL Globulin (1.7-4.1) g/dL Albumin/Globulin Ratio (1.0-2.8) Amylase (30-110) U/L Lipase (23-300) U/L Urine RBC 1-5/hpf D (0-5/HPF) Urine WBC 0-1/hpf (0-5/HPF) Ur Squamous Epith Cells 1-5 /hpf D (0-5/HPF) Amorphous Sediment 1+ Urine Bacteria Occasional (0-1) D (None) Ur Culture Indicated? Cult not indicated SARS-CoV-2 (PCR) Negative (Negative) Point of care testing: Urine Dip Bedside Urine Glucose Negative Bedside Urine Bilirubin - Negative Bedside Urine Ketone - Negative Urine Specific [place] 1.015 Bedside Urine Occult Blood ++ Bedside Urine pH 7.5 Bedside Urine Protein - Negative Bedside Urine Urobilinogen - Negative Bedside Urine Nitrite - Negative Bedside Urine Leukocytes - Negative Esterase Discharge Plan Departure Patient Disposition: Home Clinical Impression: Acute flank pain, Acute dehydration Instructions: DI for Dehydration -- Adult, DI for Flank Pain Activity Restrictions/Additional Instructions: Thank you for trusting us with your care today. As discussed, your scan came back with no acute concerns, no evidence of kidney stones. Your urine has no signs of infection. Over all your lab work was reassuring, though you do have signs of dehydration. Please rest and push fluids. I did send prescription of pain medicine as well as nausea medicine to [facility]. You have been prescribed narcotic medications. While on these medications you cannot drive or operate heavy machinery. Additionally you cannot sign legal documents or perform any duties such as this. Many people get constipated on narcotic medications so it would be advisable to discuss stool softeners with the pharmacist when you last picker your prescription. As discussed, please come back to the emergency department for any acute concerns. Prescriptions: New tramadol 50 mg tablet 50 mg PO TID PRN (Reason: pain) Qty: 7 RF: 0 ondansetron 4 mg tablet,disintegrating 4 mg PO Q6H PRN (Reason: nausea and vomiting) Qty: 14 RF: 0 No Action oxybutynin chloride 15 mg tablet extended release 24hr 15 mg PO DAILY RF: 0 tizanidine 4 mg tablet 4 mg PO TID PRN (Reason: Muscle Spasm) RF: 0 prazosin 1 mg capsule 1 mg PO QPM RF: 0 quetiapine 100 mg tablet 100 mg PO BEDTIME RF: 0 duloxetine 60 mg capsule,delayed release(DR/EC) 60 mg PO DAILY RF: 0 ondansetron 4 mg tablet,disintegrating 4 mg PO Q8H Qty: 14 RF: 0 lidocaine 5 % adhesive patch,medicated 1 patch TOP DAILY PRN (Reason: pain (scale score 4-6)) Qty: 30 RF: 0 hydrocodone-acetaminophen 5-325 mg tablet 1 tab PO Q4-6H PRN (Reason: pain) Qty: 10 RF: 0 albuterol sulfate 90 mcg/actuation HFA aerosol inhaler 2 puff INHALATION QID PRN (Reason: Wheezing) RF: 0 Referrals: Juliann Patel PA-C [Primary Care Provider] - <Susana Mendoza DO - Last Filed: 07/08/20 07:22> Cosign ED Attending Dariela Attestation: I was immediately available in the department for consultation. Documentation has been reviewed. I agree with assessment and plan.
[2020-07-07] MEDS: MORPHINE 4 MG/ML INJ IV ×2 (14:10→15:49)
[2020-07-07] MEDS: ONDANSETRON 4 MG/2 ML INJ IV (14:10)
[2020-07-07] MEDS: SODIUM CHLORIDE 0.9% 1,000 ML 1000 ML IV ×2 (14:10→15:49)
[2020-07-07 14:11] LABS: Add Manual Diff / Slide Review NO; Basophils Absolute Auto 0 /uL (0-100); Basophils Percent Auto 0.8 % (0-2); Eosinophils Absolute Auto 200 /uL (0-450); Eosinophils Percent Auto 2.4 % (2-4); Hematocrit 39.9 % (36-46); Hemoglobin 13.9 g/dL (12.0-16.0); Lymphocytes Absolute Auto 2300 /uL (1100-4500); Lymphocytes Percent Auto 35.4 % (25-40); Mean Corpuscular HGB Conc 34.9 % (30-36); Mean Corpuscular Hemoglobin 31.5 PG (26-34); Mean Corpuscular Volume 90.4 fL (80-100); Monocytes Absolute Auto 700 /uL (0-900); Monocytes Percent Auto 10.3 % (3-14); Neutrophils Absolute Auto 3300 /uL (1500-7000); Neutrophils Percent Auto 51.1 % (50-75); Platelet Count 259 X10^3/uL (150-400); Red Blood Cell Count 4.41 X10^6/uL (4.0-5.2); Red Cell Distribution Width 13.4 % (11.6-14.8); White Blood Cell Count 6.5 X10^3/uL (4.5-11.0)
[2020-07-07 14:24] LABS: Lactate (Lactic Acid) 0.9 mmol/L (0.7-2.1)
[2020-07-07 14:27] LABS: Alanine Aminotransferase 21 IU/L (<35); Albumin 4.5 g/dL (3.5-5.0); Albumin Globulin Ratio 1.6 (1.0-2.8); Alkaline Phosphatase 130 U/L (38-126); Amylase 99 U/L (30-110); Aspartate Aminotransferase 27 IU/L (14-36); BUN Creatinine Ratio 14.4 (6-22); Bilirubin Total 0.3 mg/dL (0.2-1.3); Blood Urea Nitrogen 18 mg/dL (7-17); Calcium 9.1 mg/dL (8.4-10.2); Carbon Dioxide 27 mmol/L (22-32); Chloride 105 mmol/L (98-107); Estimated Glomerular Filt Rate 45.4 mL/min (>60); Globulin 2.8 g/dL (1.7-4.1); Glucose 88 mg/dL (70-100); HEMOLYSIS < 15 (0-50); Lipase 139 U/L (23-300); Potassium 4.4 mmol/L (3.4-5.1); Sodium 138 mmol/L (137-145); Total Protein 7.3 g/dL (6.3-8.2)
[2020-07-07 14:40] LABS: COVID19 -Nasal RAPID Negative (Negative)
--- NOTE | 2020-07-07 15:55 | DI.CT.S_ITS ---
PROCEDURE: CT KIDNEY URETER BLADDER (KUB) INDICATIONS: R flank pain, hx stones TECHNIQUE: Noncontrast 5 mm thick sections acquired from the diaphragms to the symphysis. 5 mm thick coronal and sagittal reformats were then performed. For radiation dose reduction, the following was used: automated exposure control, adjustment of mA and/or kV according to patient size. COMPARISON: [facility], CT, CT KUB, 02/08/2020, 12:59. [facility], CT, CT KIDNEY URETER BLADDER (KUB), 08/22/2019, 12:56. FINDINGS: Image quality: Excellent. Lung bases: Dependent hazy airspace opacity most compatible with atelectasis. No pleural effusion. Heart size is normal. Urinary system: Both kidneys are normal in size. No kidney stones. No hydronephrosis or perinephric fat stranding. Both ureters appear non-dilated throughout their expected courses. Bladder wall thickness is normal; no calcified bladder stones. Other solid organs: Liver is normal in size. Gallbladder is surgically absent. Pancreas is normal in contours. Spleen is normal in size. No adrenal nodules. Peritoneum and bowel: Unenhanced bowel loops demonstrate normal wall thickness and caliber. Surgical clips in the right lower quadrant. Prominent stool in the colon. No free fluid or air. Nodes and vessels: No retroperitoneal or mesenteric adenopathy by size criteria. Aorta and inferior vena cava are normal in caliber. Abdominal wall: No ventral hernias. Uterus is absent. Pelvis: No free pelvic fluid. Suspect fat containing left inguinal hernia. No adenopathy. Bones: No suspicious bony lesions. No vertebral body compression fractures. IMPRESSION: 1. No kidney stone. No hydronephrosis. 2. Distended bladder. 3. Prominent stool in the colon. Dictated by: Dedrick Whitley M.D. on 07/07/2020 at 15:45 Approved by: Dedrick Whitley M.D. on 07/07/2020 at 15:52
[2020-07-07 17:23] LABS: Amorphous Sediment Urine 1+; Bacteria Urine Occasional (0-1); Culture Indicated Urine Cult Not Indicated; RBC Urine 1-5/HPF (0-5/HPF); Squamous Epithelial Cell Urine 1-5 /HPF (0-5/HPF); WBC Urine 0-1/HPF (0-5/HPF)
== END 2020-07-07 18:17 | disposition home or self-care (01) ==
PROVIDERS: Emergency Provider Nurse Practitioner Family; Family Provider Physician Assistant; PCP Physician Assistant
DX: R10.9 Unspecified abdominal pain (principal); E86.0 Dehydration; Z20.822 Contact with and (suspected) exposure to COVID-19
CPT/HCPCS: 36415; 74176; 80053; 81003; 81015; 82150; 83605; 83690; 85025; 87635; 96361; 96374; 96375; 96376; 99284; C9803; J2270; J2405

== ENCOUNTER 2020-07-20 15:46 | Emergency (ER) | payer OTHER, MEDICAID, SELFPAY ==
[2020-07-20 15:59] VITALS: BP 128/83; PULSE 91; RESP 17; TEMP 36.8; O2SAT 100; BMI 24.1
--- NOTE | 2020-07-20 18:18 | ED.FEMALEGU ---
HPI - Female Genitourinary General Chief complaint: Urogenital-Female Stated complaint: states bladder mesh causing pain Time Seen by Provider: 07/20/20 16:25 Source: patient Mode of arrival: Family Vehicle Limitations: no limitations History of Present Illness HPI Narrative: 49-year-old female smoker with extensive history of pelvic pain thought to be related to mesh from a bladder sling many years ago presents with her significant other and a chief complaint of many weeks if not months of episodes of pelvic pain. She states that is largely present but does seem to have some elements of waxing and waning. She denies any radiation of her discomfort stating it is always in the same place. She states that it seems to improve when she remains still and worsens with motion. She denies any vaginal discharge, dysuria, frequency or urgency. She does state that every once in awhile she has a small amount of spotting but nothing significant. She has been referred to urogynecology at the [facility] and has been seen as recently as the fall. Complaint: pelvic pain Onset (ago): month(s) Location: suprapubic Severity: severe Quality: Sharp and Stabbing Duration: constant and intermittent Exacerbating factors: movement Patient : No Associated symptoms: denies other symptoms Related Data Home Medications Medication Instructions Recorded Confirmed duloxetine 60 mg PO DAILY 12/22/18 08/22/19 oxybutynin chloride 15 mg PO DAILY 12/22/18 08/22/19 prazosin 1 mg PO QPM 12/22/18 08/22/19 quetiapine 100 mg PO BEDTIME 12/22/18 08/22/19 tizanidine 4 mg PO TID PRN 12/22/18 08/22/19 albuterol sulfate 2 puff INHALATION QID PRN 08/22/19 08/22/19 Previous Rx's Medication Instructions Recorded ondansetron 4 mg PO Q8H #14 tab 02/01/20 lidocaine 1 patch TOP DAILY PRN #30 each 02/06/20 hydrocodone-acetaminophen 1 tab PO Q4-6H PRN #10 tab 03/24/20 ondansetron 4 mg PO Q6H PRN #14 tab 07/07/20 tramadol 50 mg PO TID PRN #7 tab 07/07/20 hydrocodone-acetaminophen 1 tab PO Q4-6H PRN #10 tab 07/20/20 Allergies Allergy/AdvReac Type Severity Reaction Status Date / Time ibuprofen [IBUPROFEN] Allergy Mild VOMITING Verified 07/20/20 16:02 amoxicillin [AMOXICILLIN] Allergy Unknown Verified 07/20/20 16:02 diclofenac [DICLOFENAC] Allergy Unknown Verified 07/20/20 16:02 ketorolac [KETOROLAC] Allergy Unknown Rash Verified 07/20/20 16:02 propoxyphene [PROPOXYPHENE] Allergy Unknown Verified 07/20/20 16:02 sertraline [SERTRALINE] Allergy Unknown Verified 07/20/20 16:02 Review of Systems Constitutional Constitutional: Denies chills, Denies fatigue, Denies fever(s), Denies frequent falls, Denies lethargy and Denies weakness Eyes Eyes: Denies change in vision, Denies eye discharge, Denies irritation and Denies loss of vision ENT Ears, Nose, Mouth, and Throat: Denies change in voice, Denies dizziness, Denies neck pain, Denies sore throat and Denies throat swelling Cardiovascular Cardiovascular: Denies chest pain, Denies irregular heart rhythm, Denies lightheadedness, Denies palpitations, Denies dyspnea, Denies dyspnea on exertion and Denies orthopnea Respiratory Respiratory: Denies cough, Denies dyspnea, Denies dyspnea on exertion and Denies wheezing Gastrointestinal Gastrointestinal: Denies abdominal pain, Denies change in bowel habits, Denies diarrhea, Denies nausea and Denies vomiting Genitourinary Genitourinary: Reports pelvic pain Musculoskeletal Musculoskeletal: Denies neck pain and Denies numbness Integumentary/Breasts Skin/Breast: Denies pruritus, Denies erythema, Denies rash and Denies wounds Neurologic Neurologic: Denies behavioral changes, Denies confusion, Denies dizziness, Denies frequent falls, Denies loss of vision, Denies numbness and Denies weakness Psychiatric Psychiatric: Denies anxiety, Denies behavioral changes, Denies confusion, Denies depression, Denies homicidal ideation and Denies suicidal ideation Endocrine Endocrine: Denies fatigue, Denies flushing and Denies palpitations Hematologic/Lymphatic Hematologic/Lymphatic: Denies easy bruising Allergic/Immunologic Allergic/Immunologic: Denies urticaria, Denies throat swelling and Denies wheezing Patient History Medical History Bipolar depression Nephrolithiasis PTSD (post-traumatic stress disorder) Surgical History H/O removal of cyst History of renal stent Status post appendectomy Status post hysterectomy tobacco type: cigarettes alcohol intake frequency: holidays/special occasions only Substance Use Type: marijuana Exam Narrative Exam Narrative: GENERAL: [49] year old patient appears stated age. Well-nourished, well-developed patient, in mild distress. HEAD: Atraumatic. Normocephalic. EYES: Pupils equal round and reactive. Extraocular motions intact. No scleral icterus. No injection or drainage. ENT: Nose without bleeding, purulent drainage. Throat without erythema, tonsillar hypertrophy or exudate. Airway patent. NECK: Trachea midline. Non tender CARDIOVASCULAR: Regular rate and rhythm without murmurs, gallops, or rubs. RESPIRATORY: Clear to auscultation. Breath sounds equal bilaterally. No wheezes, rales, or rhonchi. GASTROINTESTINAL: Abdomen soft, mild suprapubic tenderness nondistended. Bowel sounds present in all 4 quadrants PELVIC: No lesions, drainage, masses or abnormal findings. No pain on bimanual exam. Examination performed with the patient's permission and a female nurse per diem clerk at the bedside EXTREMITIES: No edema or joint tenderness. BACK: Nontender without deformity or crepitance. No flank tenderness. NEURO: AOx3. SKIN: No rash or erythema of visible areas Initial Vital Signs Initial Vital Signs: Vital Signs Temperature 98.2 F 07/20/20 15:59 Pulse Rate 91 H 07/20/20 15:59 Respiratory Rate 17 07/20/20 15:59 Blood Pressure 128/83 07/20/20 15:59 Pulse Oximetry 100 07/20/20 15:59 Course Orders Ordered: ED Orders 07/20/20 19:36 US pelvic complete Stat 07/20/20 19:55 Basic Metabolic Panel Stat Complete Blood Count AUTO DIFF Stat Discontinued Medications Hydrocodone Bitart/Acetaminophen (Hydrocodone/Acet 5/325 Prepack) 1 bottle MISC SEEINSTR ONE Stop: 07/20/20 21:45 Last Admin: 07/20/20 21:52 Dose: 1 bottle Documented by: MER Hydromorphone HCl (Hydromorphone 0.5 Mg Inj) 0.5 mg IV NOW ONE Stop: 07/20/20 19:37 Last Admin: 07/20/20 19:52 Dose: 0.5 mg Documented by: MER Hydromorphone HCl (Hydromorphone 0.5 Mg Inj) 0.5 mg IV NOW ONE Stop: 07/20/20 21:07 Last Admin: 07/20/20 21:11 Dose: 0.5 mg Documented by: MER Sodium Chloride (Normal Saline 0.9%) 1,000 mls @ 125 mls/hr IV CONT ULISSES Last Infusion: 07/20/20 21:52 Dose: 0 mls/hr Documented by: Admin: 07/20/20 19:52 Dose: 125 mls/hr Documented by: MER Ondansetron HCl (Ondansetron 4 Mg/2 Ml Inj) 4 mg IV NOW ONE Stop: 07/20/20 19:52 Last Admin: 07/20/20 19:52 Dose: 4 mg Documented by: MER Vital Signs Vital signs: Vital Signs - 8 hr 07/20/20 19:59 07/20/20 21:57 Pulse Rate 78 82 Respiratory Rate 16 16 Blood Pressure 148/86 H 144/88 H Pulse Oximetry 98 98 MDM - Female Genitourinary Lab Data Result diagrams: 07/20/20 19:55 07/20/20 19:55 Labs: Lab Results 07/20/20 07/20/20 Range/Units 19:55 19:55 WBC 7.7 (4.5-11.0) X10^3/uL RBC 4.78 (4.0-5.2) X10^6/uL Hgb 14.6 (12.0-16.0) g/dL Hct 42.9 (36-46) % MCV 89.8 (80-100) fL MCH 30.5 (26-34) PG MCHC 34.0 (30-36) % RDW 13.8 (11.6-14.8) % Plt Count 283 (150-400) X10^3/uL Neut % (Auto) 56.1 (50-75) % Lymph % (Auto) 31.5 (25-40) % Flagler % (Auto) 9.4 (3-14) % Eos % (Auto) 2.1 (2-4) % Baso % (Auto) 0.9 (0-2) % Neut # (Auto) 4300 (5880-8726) /uL Lymph # (Auto) 2400 (1175-6723) /uL Flagler # (Auto) 700 (0-900) /uL Eos # (Auto) 200 (0-450) /uL Baso # (Auto) 100 (0-100) /uL Sodium 138 (137-145) mmol/L Potassium 3.8 (3.4-5.1) mmol/L Chloride 103 (98-107) mmol/L Carbon Dioxide 27 (22-32) mmol/L BUN 17 (7-17) mg/dL Creatinine 0.63 (0.52-1.04) mg/dL Estimated GFR > 60.0 (>60) mL/min BUN/Creatinine Ratio 27.0 H (6-22) Glucose 95 (70-100) mg/dL Calcium 9.5 (8.4-10.2) mg/dL Imaging Data US - SHIP ERECTOR: Radiologist's Impression: Peg Valencia 49 F 1970 [place], [place] [address]Ultrasound ReportSigned Patient: Peg Valencia MMR#: [id number]: [id number]:[id number]/Sex: 49 / FDate of Service: 07/20/20Loc: EDAccession Number: [id number] Procedure: US pelvic complete Ordering Provider: Toby Castro D.O. PROCEDURE: US PELVIC COMPLETE INDICATIONS: PAIN TECHNIQUE: Real-time scanning was performed of the pelvic organs, with image documentation. Additional endovaginal scanning was necessary due to incomplete visualization of the adnexal and endometrial structures by transabdominal scanning. COMPARISON: None. FINDINGS: Uterus: Surgically absent. Ovaries: Surgically absent Other: No pathologic free abdominal or pelvic fluid. Bladder surgical mesh measures not sonographically visible. IMPRESSION: Unremarkable examination as above Dictated by: Jef Valderrama M.D. on 07/20/2020 at 20:29 Approved by: Jef Valderrama M.D. on 07/20/2020 at 20:30 MDM Narrative Medical decision making narrative: Multiple etiologies for patient's symptoms considered including: [Acute on chronic pelvic pain from scar tissue or other relating circumstance to mesh versus ovarian torsion versus urinary tract infection versus bowel obstruction versus other] Patient's symptoms improved over duration of stay with above-stated therapies. Findings and discharge diagnosis discussed with patient/family followed by verbalization of understanding Return precautions discussed with patient/family whom verbalize understanding. Discharge Plan Departure Patient Disposition: Home Clinical Impression: Pelvic pain Instructions: Chronic Pelvic Pain-Female Activity Restrictions/Additional Instructions: *You have been diagnosed with [chronic pelvic pain, no significant findings on labs, physical exam, or ultrasound.] *What to do: *Take medications as directed *Follow up with your primary care provider in 2-3 days, call for an appointment. Let them know you were seen in the Emergency Department and that we ask that you be seen in follow up *Return to ER if you should have any new, worsening or concerning symptoms, such as [bleeding through more than 1 pad per hour, fever greater than 101 F, worsening pain, shaking chills or other bothersome symptoms] Prescriptions: New hydrocodone-acetaminophen 5-325 mg tablet 1 tab PO Q4-6H PRN (Reason: pain) Qty: 10 RF: 0 No Action oxybutynin chloride 15 mg tablet extended release 24hr 15 mg PO DAILY RF: 0 tizanidine 4 mg tablet 4 mg PO TID PRN (Reason: Muscle Spasm) RF: 0 prazosin 1 mg capsule 1 mg PO QPM RF: 0 quetiapine 100 mg tablet 100 mg PO BEDTIME RF: 0 duloxetine 60 mg capsule,delayed release(DR/EC) 60 mg PO DAILY RF: 0 ondansetron 4 mg tablet,disintegrating 4 mg PO Q8H Qty: 14 RF: 0 lidocaine 5 % adhesive patch,medicated 1 patch TOP DAILY PRN (Reason: pain (scale score 4-6)) Qty: 30 RF: 0 hydrocodone-acetaminophen 5-325 mg tablet 1 tab PO Q4-6H PRN (Reason: pain) Qty: 10 RF: 0 albuterol sulfate 90 mcg/actuation HFA aerosol inhaler 2 puff INHALATION QID PRN (Reason: Wheezing) RF: 0 tramadol 50 mg tablet 50 mg PO TID PRN (Reason: pain) Qty: 7 RF: 0 ondansetron 4 mg tablet,disintegrating 4 mg PO Q6H PRN (Reason: nausea and vomiting) Qty: 14 RF: 0 Referrals: Juliann Patel PA-C [Primary Care Provider] -
--- NOTE | 2020-07-20 19:36 | DI.US.S_ITS ---
PROCEDURE: US PELVIC COMPLETE INDICATIONS: PAIN TECHNIQUE: Real-time scanning was performed of the pelvic organs, with image documentation. Additional endovaginal scanning was necessary due to incomplete visualization of the adnexal and endometrial structures by transabdominal scanning. COMPARISON: None. FINDINGS: Uterus: Surgically absent. Ovaries: Surgically absent Other: No pathologic free abdominal or pelvic fluid. Bladder surgical mesh measures not sonographically visible. IMPRESSION: Unremarkable examination as above Dictated by: Jef Valderrama M.D. on 07/20/2020 at 20:29 Approved by: Jef Valderrama M.D. on 07/20/2020 at 20:30
[2020-07-20] MEDS: HYDROMORPHONE 0.5 MG INJ IV ×2 (19:52→21:11)
[2020-07-20] MEDS: ONDANSETRON 4 MG/2 ML INJ IV (19:52)
[2020-07-20] MEDS: SODIUM CHLORIDE 0.9% 1,000 ML 125 ML IV (19:52)
[2020-07-20 19:59] VITALS: BP 148/86; PULSE 78; RESP 16; O2SAT 98
[2020-07-20 20:08] LABS: Add Manual Diff / Slide Review NO; Basophils Absolute Auto 100 /uL (0-100); Basophils Percent Auto 0.9 % (0-2); Eosinophils Absolute Auto 200 /uL (0-450); Eosinophils Percent Auto 2.1 % (2-4); Hematocrit 42.9 % (36-46); Hemoglobin 14.6 g/dL (12.0-16.0); Lymphocytes Absolute Auto 2400 /uL (1100-4500); Lymphocytes Percent Auto 31.5 % (25-40); Mean Corpuscular Hemoglobin 30.5 PG (26-34); Mean Corpuscular Volume 89.8 fL (80-100); Monocytes Absolute Auto 700 /uL (0-900); Monocytes Percent Auto 9.4 % (3-14); Neutrophils Absolute Auto 4300 /uL (1500-7000); Neutrophils Percent Auto 56.1 % (50-75); Platelet Count 283 X10^3/uL (150-400); Red Blood Cell Count 4.78 X10^6/uL (4.0-5.2); Red Cell Distribution Width 13.8 % (11.6-14.8); White Blood Cell Count 7.7 X10^3/uL (4.5-11.0)
[2020-07-20 20:18] LABS: Blood Urea Nitrogen 17 mg/dL (7-17); Calcium 9.5 mg/dL (8.4-10.2); Carbon Dioxide 27 mmol/L (22-32); Chloride 103 mmol/L (98-107); Estimated Glomerular Filt Rate > 60.0 mL/min (>60); Glucose 95 mg/dL (70-100); HEMOLYSIS < 15 (0-50); Potassium 3.8 mmol/L (3.4-5.1); Sodium 138 mmol/L (137-145)
[2020-07-20] MEDS: HYDROCODONE/ACET 5/325 PREPACK 1 BOTTLE MISC (21:52)
[2020-07-20 21:57] VITALS: BP 144/88; PULSE 82; RESP 16; O2SAT 98
== END 2020-07-20 21:59 | disposition home or self-care (01) ==
PROVIDERS: Emergency Provider Emergency Medicine; Family Provider Physician Assistant; PCP Physician Assistant
DX: R10.2 Pelvic and perineal pain (principal)
CPT/HCPCS: 36415; 76830; 76856; 80048; 85025; 96361; 96374; 96375; 96376; 99284; J1170; J2405

== ENCOUNTER → 2020-09-06 09:30 | Outpatient (CLI) | payer OTHER, MEDICAID, SELFPAY ==
[2020-09-06 12:00] LABS: COVID19 -Nasal RAPID Negative (Negative)
== END ==
PROVIDERS: Family Provider Physician Assistant; PCP Physician Assistant; Visit Provider Physician Assistant
DX: Z01.812 Encounter for preprocedural laboratory examination (principal); Z20.822 Contact with and (suspected) exposure to COVID-19
CPT/HCPCS: 87635

== ENCOUNTER 2020-09-08 12:43 | Day surgery (SDC) | payer OTHER, MEDICAID, SELFPAY ==
[2020-09-08] VITALS (8 sets, daily range): BP systolic 112–137; BP diastolic 64–83; PULSE 76–82; RESP 11–22; TEMP 36.3–37.2; O2SAT 94–99; BMI 24.1
[2020-09-08] MEDS: SCOPOLAMINE 1 PATCH TOP (13:41)
[2020-09-08] MEDS: GABAPENTIN 300 MG CAPSULE PO (13:42)
[2020-09-08] MEDS: ACETAMINOPHEN 325 MG TABLET 975 MG PO (13:42)
[2020-09-08] MEDS: LACTATED RINGERS 1,000 ML 42 ML IV (13:57)
--- NOTE | 2020-09-08 14:06 | SUR.PREOP ---
Notified Dr Eller in OR#1 of patient report of feeling really anxious and that pt takes 10mg diazepam at home PRN for anxiety and has not taken anything in about 3 weeks. Pt requesting something to help with my anxiety. No new orders at this time.
--- NOTE | 2020-09-08 14:32 | PM.PREOP ---
Pre-operative Note COVID-19 COVID-19 status: Negative Result date/Date tested (Pos, Neg/Pending): 09/06/20 Interval Note History & Physical reviewed/Exam performed by Physician: Yes Changes to H&P: No
[2020-09-08] MEDS: CEFAZOLIN 1 GM VIAL IV (15:27)
--- NOTE | 2020-09-08 15:33 | PM.PROC.1 ---
Procedures Date/Time Date of procedure: 09/08/20 Time of procedure: 15:16 Nerve Block Time out performed: Yes Nerve blocks: brachial plexus (intrascalene) Procedure successful: Yes Patient tolerated procedure: well and no complications Complications: none Additional comments: Intrascalene block performed for post-op pain control at surgeon request. Patient was positioned with IV, O2, monitors and rescue meds available. Prepped and timeout performed. Target identified with continuous ultrasound guidance. 15mL of bupivicaine 0.5% was injected perineurally with intermittent aspiration and injection. No blood, no paresthesias, no acute complications.
[2020-09-08] MEDS: SODIUM CHLORIDE IRRIG SOLUTION 3,000 ML, EPINEPHrine 1 MG IRR ×2 (15:40→15:41)
--- NOTE | 2020-09-08 15:44 | SUR.OPER ---
Lateral on padded OR bed with hardin bag positioner, head on pillow, gel axillary roll in place, bottom leg bent with gel pad under knee to foot, upper leg straight and supported with pillows. Operative arm secured in shoulder positioning suspension device. non-operative arm secured on padded arm board and part of hardin bag therefore gel pad under arm also. Safety belt at hip, tape over blanket securing lower legs.
[2020-09-08] MEDS: BUPIVACAINE 0.5% W/ EPI (PF) 30 ML VIAL INJ (15:50)
[2020-09-08] MEDS: fentaNYL 100 MCG/2 ML INJ IV (16:13)
--- NOTE | 2020-09-08 16:15 | P.OP_ITS ---
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 Same procedure as scheduled: Yes Indications: The patient is a 49-year-old woman who has had multiple prior right shoulder procedures including an arthroscopic Bankart and remplissage, and arthroscopic rotator cuff repair, and arthroscopic subacromial decompression and distal clavicle excision. She has intermittently inflamed her shoulder and this has not responded to non operative management. She requests arthroscopic debridement for likely degenerative labral tear. The risks benefits and a lternatives were discussed with her prior to surgery. Risks discussed included but were not limited to: Failure to improve, stiffness, infection, nerve damage, deep venous thrombosis, pulmonary embolism, stroke, myocardial infarction, permanent paralysis and . Surgeon: Felipe Fierro Click Yes if Unassisted: Yes Anesthesia Type: General, Peripheral nerve block and Local Operative Notes Findings: 1. Normal glenohumeral cartilage, however there were multiple small cartilaginous loose fragments in the joint. 2. Mild widespread glenoid labral fraying with intact Bankart repair 3. Intact glenohumeral ligaments 4. Intact subscapularis 5. Intact biceps and biceps origin off the glenoid 6. Intact supraspinatus 7. Intact infraspinatus with advancement into the Hill-Sachs lesion consistent with a prior remplissage procedure 8. Normal appearing axillary pouch except for scarring around the glenohumeral ligaments anteriorly where the prior Bankart repair had been performed. 9. Intact rotator cuff from the bursal surface 10. Type 1 acromion but large firm lateral scar band off the acromion in the subacromial bursa 11. AC joint not visualized 12. Full range of motion with no evidence of pathologic laxity on exam under anesthesia. Closure Type: primary Specimen(s): none sent Prosthetic devices, grafts, tissues, transplants, or devices: None Estimated Blood Loss (mL): 10 Blood products transfused: none Procedure in detail: Patient was seen in the preoperative area where she identified her right shoulder as the operative site and this was marked with my initials. She received preoperative antibiotics was taken to the operating room and placed on the operating room table in a supine position after undergoing an interscalene block. She underwent a general anesthetic. Her shoulder was examined under anesthesia with the findings given above. She was then repositioned in the left lateral decubitus position with an axillary roll and padding for all pressure points. She was stabilized in this position with a hardin bag and adhesive tape. A real time operator-out was performed. The right arm was then prepared for the fingertips to the base the neck with ChloraPrep in the usual fashion and draped through sterile drapes. The arm was placed in 10 lb of balanced skin suspension. Subcutaneous landmarks and prior scars were marked on the skin with a marking pen. All 3 of the arthroscopic portals used in this procedure a placed through prior portal scars. The posterior portal was created and the arthroscope inserted in the glenohumeral joint. Diagnostic arthroscopy was performed with result given above. An anterior portal was created for the shaver and the shaver was used to debride the minor labral fraying and also to remove the multiple cartilaginous floating loose bodies in the joint. At this point the arthroscope was moved in the subacromial bursa through the posterior portal and a lateral working portal was created. Shaver was placed in used to debride a large thickened scar band on the lateral aspect of the subacromial bursa. The bursal rotator cuff appeared to be intact and there did not appear to be in need for further subacromial decompression. After removing the scar band, all arthroscopic equipment was removed. The wounds were closed with 4-0 Monocryl and Steri-Strips. A total of 15 mL of 0.5% Marcaine with epinephrine was injected for postoperative pain control with 10 being injected in the henley bacromial bursa and 5 into the subcutaneous tissues around the portals. Wounds were dressed with sterile 4x4s and an ABD as well as Dermabond tape. Patient's arm was placed in the sling and she was transported to the recovery room in good condition having tolerated the procedure well. Complications: none Post-operative Condition: stable Disposition: PACU Plan for aftercare: The patient will be discharged today. She will be instructed to do a physical therapy program to work on the parascapular muscles and rotator cuff and deltoid for strength.
--- NOTE | 2020-09-08 16:22 | SUR.PHASEI ---
Pt awake, states that her pain is improving and that she is tolerating 7/10 well. Crackers given. Report off.
[2020-09-08] MEDS: OXYCODONE IR 5 MG TABLET PO (16:25)
[2020-09-08] MEDS: hydrOXYzine pamoate 25 MG CAPSULE PO (16:25)
--- NOTE | 2020-09-08 16:52 | SUR.PHASEII ---
Pateint charting late entry. All care at 1645. Pt up staedy on feet. DC to home with spouse. Sling in place.
== END 2020-09-08 16:48 | disposition home or self-care (01) ==
PROVIDERS: Family Provider Physician Assistant; PCP Physician Assistant; Referring Provider Orthopaedic Surgery; Visit Provider Orthopaedic Surgery
PROC: (CPT 29805; principal; 2020-09-08 15:15)
DX: M24.111 Other articular cartilage disorders, right shoulder (principal); M19.111 Post-traumatic osteoarthritis, right shoulder; M75.81 Other shoulder lesions, right shoulder; M24.011 Loose body in right shoulder
CPT/HCPCS: 29823; J0171; J0330; J0690; J1100; J2250; J2405; J2704; J3010

== ENCOUNTER 2020-10-14 19:52 | Emergency (ER) | payer OTHER, MEDICAID, SELFPAY ==
[2020-10-14 19:55] VITALS: BP 136/67; PULSE 79; RESP 20; TEMP 36.5; O2SAT 97
--- NOTE | 2020-10-14 21:55 | ED_ITS ---
HPI - Abdominal Pain General Chief Complaint: Abdominal Pain Stated Complaint: hernia pain Time Seen by Provider: 10/14/20 19:54 Source: patient Mode of arrival: Ambulatory Limitations: no limitations History of Present Illness HPI narrative: 49-year-old female smoker with history of kidney stones and ongoing pain of the right shoulder presents with right lower quadrant pain. She states that she was at an outside facility yesterday and had a thorough evaluation (records are being acquired) and given patient's right lower quadrant pain they expected she would have a kidney stone, however the CT scan suggested a fat containing right inguinal hernia. The patient was given follow-up information and has an appointment with surgery on . She states her pain seems to be worse when changing positions and improves with rest. She denies any change in bowel habits such as constipation or diarrhea. She denies any dysuria, frequency or urgency. She has no nausea or vomiting and denies fever or chills, she denies any bulging mass in her groin MD complaint: abdominal pain Onset (ago): day(s) Pain Consistency: intermittent Location: RLQ Severity: moderate Quality: cramping and aching Radiation: none Relieving factors: rest Exacerbating factors: movement Related Data Home Medications Medication Instructions Recorded Confirmed duloxetine 60 mg PO DAILY 12/22/18 09/08/20 prazosin 1 mg PO QPM 12/22/18 09/08/20 quetiapine 100 mg PO BEDTIME 12/22/18 09/08/20 tizanidine 4 mg PO TID PRN 12/22/18 09/08/20 albuterol sulfate 2 puff INHALATION QID PRN 08/22/19 09/08/20 diazepam 10 mg PO BID PRN 09/08/20 09/08/20 Previous Rx's Medication Instructions Recorded lidocaine 1 patch TOP DAILY PRN #30 each 02/06/20 hydroxyzine pamoate 25 mg PO Q6HR PRN #30 cap 09/08/20 oxycodone 5 mg PO Q4HR PRN #40 tab 09/08/20 hydrocodone-acetaminophen 1 tab PO Q4-6H PRN #10 tab 10/15/20 Allergies Allergy/AdvReac Type Severity Reaction Status Date / Time ibuprofen [IBUPROFEN] Allergy Mild VOMITING Verified 07/20/20 16:02 amoxicillin [AMOXICILLIN] Allergy Unknown Rash Verified 09/08/20 13:21 diclofenac [DICLOFENAC] Allergy Unknown Rash Verified 09/08/20 13:21 ketorolac [KETOROLAC] Allergy Unknown vomitting Verified 09/08/20 13:21 propoxyphene [PROPOXYPHENE] Allergy Unknown vomitting Verified 09/08/20 13:21 sertraline [SERTRALINE] Allergy Unknown vomitting Verified 09/08/20 13:21 Review of Systems Constitutional Constitutional: Denies chills, Denies fatigue, Denies fever(s), Denies frequent falls, Denies lethargy and Denies weakness Eyes Eyes: Denies change in vision, Denies eye discharge, Denies irritation and Denies loss of vision ENT Ears, Nose, Mouth, and Throat: Denies change in voice, Denies dizziness, Denies neck pain, Denies sore throat and Denies throat swelling Cardiovascular Cardiovascular: Denies chest pain, Denies irregular heart rhythm, Denies lightheadedness, Denies palpitations, Denies dyspnea, Denies dyspnea on exertion and Denies orthopnea Respiratory Respiratory: Denies cough, Denies dyspnea, Denies dyspnea on exertion and Denies wheezing Gastrointestinal Gastrointestinal: Reports abdominal pain, Denies change in bowel habits, Denies diarrhea, Denies nausea and Denies vomiting Musculoskeletal Musculoskeletal: Denies neck pain and Denies numbness Integumentary/Breasts Skin/Breast: Denies pruritus, Denies erythema, Denies rash and Denies wounds Neurologic Neurologic: Denies behavioral changes, Denies confusion, Denies dizziness, Denies frequent falls, Denies loss of vision, Denies numbness and Denies weakness Psychiatric Psychiatric: Denies anxiety, Denies behavioral changes, Denies confusion, Denies depression, Denies homicidal ideation and Denies suicidal ideation Endocrine Endocrine: Denies fatigue, Denies flushing and Denies palpitations Hematologic/Lymphatic Hematologic/Lymphatic: Denies easy bruising Allergic/Immunologic Allergic/Immunologic: Denies urticaria, Denies throat swelling and Denies wheezing Patient History Medical History Anxiety Bipolar depression Nephrolithiasis PTSD (post-traumatic stress disorder) Surgical History H/O removal of cyst History of renal stent Status post appendectomy Status post hysterectomy Social History household members: spouse Smoking Status: Current every day smoker alcohol intake: current Smoking Status: Current every day smoker tobacco type: cigarettes alcohol intake frequency: holidays/special occasions only Substance Use Type: marijuana Exam Narrative Exam Narrative: GENERAL: [49] year old patient appears stated age. Well- developed patient, in mild distress. HEAD: Atraumatic. Normocephalic. EYES: Pupils equal round and reactive. Extraocular motions intact. No scleral icterus. No injection or drainage. ENT: Nose without bleeding, purulent drainage. Throat without erythema, tonsillar hypertrophy or exudate. Airway patent. NECK: Trachea midline. Non tender CARDIOVASCULAR: Regular rate and rhythm without murmurs, gallops, or rubs. RESPIRATORY: Clear to auscultation. Breath sounds equal bilaterally. No wheezes, rales, or rhonchi. GASTROINTESTINAL: Abdomen soft, tender in the right lower quadrant without any swelling, erythema or warmth. There is no palpable hernia or rent but patient clearly tender in her right inguinal region. She is evaluated in the standing position and no hernia obvious, nondistended. EXTREMITIES: No edema or joint tenderness. BACK: Nontender without deformity or crepitance. No flank tenderness. NEURO: AOx3. SKIN: No rash or erythema of visible areas Initial Vital Signs Initial Vital Signs: Vital Signs Temperature 97.7 F 10/14/20 19:55 Pulse Rate 79 10/14/20 19:55 Respiratory Rate 20 10/14/20 19:55 Blood Pressure 136/67 10/14/20 19:55 Pulse Oximetry 97 10/14/20 19:55 Course Orders Ordered: ED Orders 10/14/20 23:20 Urine Microscopic Stat Discontinued Medications Oxycodone/Acetaminophen (Oxycodone/Acetaminophen 5/325 Tablet) 1 tab PO NOW ONE Stop: 10/15/20 00:21 Last Admin: 10/15/20 00:29 Dose: 1 tab Documented by: JENNY Vital Signs Vital signs: Vital Signs - 8 hr 10/14/20 19:55 10/14/20 22:05 10/14/20 22:06 Temperature 97.7 F Pulse Rate 79 75 74 Respiratory Rate 20 18 Blood Pressure 136/67 118/75 Pulse Oximetry 97 98 97 10/14/20 22:30 10/14/20 23:00 10/14/20 23:30 Temperature Pulse Rate 71 69 70 Respiratory Rate Blood Pressure Pulse Oximetry 93 94 96 10/15/20 00:00 10/15/20 00:08 Temperature Pulse Rate 71 72 Respiratory Rate Blood Pressure 131/81 Pulse Oximetry 96 96 MDM - Abdominal Pain Lab Data Labs: Lab Results 10/14/20 Range/Units 23:20 Urine RBC 1-5/hpf (0-5/HPF) Urine WBC None seen (0-5/HPF) Ur Squamous Epith Cells 0-1 /hpf (0-5/HPF) Urine Bacteria None seen (None) Ur Culture Indicated? Cult not indicated Point of care testing: Urine Dip Bedside Urine Glucose Negative Bedside Urine Bilirubin - Negative Bedside Urine Ketone - Negative Urine Specific [place] 1.015 Bedside Urine Occult Blood + Bedside Urine pH 6.0 Bedside Urine Protein - Negative Bedside Urine Urobilinogen - Negative Bedside Urine Nitrite - Negative Bedside Urine Leukocytes - Negative Esterase MDM Narrative Medical decision making narrative: Patient was very reassuring physical exam. No new labs or imaging required. Patient likely has a right inguinal hernia but it is certainly not obviously incarcerated or strangulated. Patient's pain is well controlled, she has follow-up with surgery, questions answered to her apparent satisfaction and return precautions given Discharge Plan Departure Patient Disposition: Home Clinical Impression: Hernia, inguinal, right Instructions: DI for Groin Hernia Activity Restrictions/Additional Instructions: *You have been diagnosed with [acute pain from right inguinal hernia] *What to do: *Please continue to take your regular medications as directed. [x ] New medication prescriptions sent to your pharmacy: [[facility] [place] ] [ ] New medication written as a paper prescription [ ] No new medications given *Please follow up with your primary care provider in 2-3 days, call for an appointment. Let them know you were seen in the Emergency Department and that we ask that you be seen in follow up. We will electronically transmit a record of today's note if your PCP is in our system *If you do not have a primary care provider please contact the [facility] Resource line at [phone]. They will ask some questions about your medical history and help get you set up with a doctor in the community. *Return to Emergency Department if you should have any new, worsening or concern ing symptoms, such as [fever greater than 101 F, shaking chills, worsening pain, persistent vomiting or other bothersome symptoms] *Take over the counter medications as directed: 1. Metamucil - bulk forming laxative adds fiber 2. Colace - softens your stool 3. Dulcolax Suppository - stimulates your bowels from the bottom *Avoid heavy lifting *Drink plenty of water and eat foods high in fiber Prescriptions: New hydrocodone-acetaminophen 5-325 mg tablet 1 tab PO Q4-6H PRN (Reason: pain) Qty: 10 RF: 0 No Action tizanidine 4 mg tablet 4 mg PO TID PRN (Reason: Muscle Spasm) RF: 0 prazosin 1 mg capsule 1 mg PO QPM RF: 0 quetiapine 100 mg tablet 100 mg PO BEDTIME RF: 0 duloxetine 60 mg capsule,delayed release(DR/EC) 60 mg PO DAILY RF: 0 lidocaine 5 % adhesive patch,medicated 1 patch TOP DAILY PRN (Reason: pain (scale score 4-6)) Qty: 30 RF: 0 diazepam 10 mg Tablet 10 mg PO BID PRN (Reason: Anxiety) RF: 0 oxycodone 5 mg Tablet 5 mg PO Q4HR PRN (Reason: Pain, Moderate (4-6)) Qty: 40 RF: 0 hydroxyzine pamoate 25 mg Capsule 25 mg PO Q6HR PRN (Reason: Spasms) Qty: 30 RF: 0 albuterol sulfate 90 mcg/actuation HFA aerosol inhaler 2 puff INHALATION QID PRN (Reason: Wheezing) RF: 0 Referrals: Juliann Patel PA-C [Primary Care Provider] -
[2020-10-14 22:05] VITALS: BP 118/75; PULSE 75; RESP 18; O2SAT 98
[2020-10-14 22:06] VITALS: PULSE 74; O2SAT 97
[2020-10-14 22:30] VITALS: PULSE 71; O2SAT 93
[2020-10-14 23:00] VITALS: PULSE 69; O2SAT 94
[2020-10-14 23:30] VITALS: PULSE 70; O2SAT 96
[2020-10-14 23:56] LABS: Bacteria Urine None Seen; WBC Urine None Seen (0-5/HPF)
[2020-10-15] VITALS: PULSE 71; O2SAT 96
[2020-10-15 00:08] VITALS: BP 131/81; PULSE 72; O2SAT 96
[2020-10-15] MEDS: OXYCODONE/ACETAMINOPHEN 5/325 TABLET 1 TAB PO (00:29)
[2020-10-15 00:43] LABS: Culture Indicated Urine Cult Not Indicated; RBC Urine 1-5/HPF (0-5/HPF); Squamous Epithelial Cell Urine 0-1 /HPF (0-5/HPF)
== END 2020-10-15 00:31 | disposition home or self-care (01) ==
PROVIDERS: Emergency Provider Emergency Medicine; Family Provider Physician Assistant; PCP Physician Assistant
DX: K40.90 Unilateral inguinal hernia, without obstruction or gangrene, not specified as recurrent (principal)
CPT/HCPCS: 81003; 81015; 99283

== ENCOUNTER 2021-07-29 13:40 | Emergency (ER) | payer OTHER, MEDICAID, SELFPAY ==
[2021-07-29 13:46] VITALS: BP 131/73; PULSE 71; RESP 18; TEMP 36.6; O2SAT 97; BMI 25.7
[2021-07-29 14:03] LABS: Appearance Urine UA CLEAR; Bilirubin Urine UA NEGATIVE (NEGATIVE); Color Urine UA YELLOW; Glucose Urine UA NEGATIVE (Negative); Ketones Urine UA NEGATIVE (NEGATIVE); Leukocyte Esterase Urine UA TRACE (NEGATIVE); Nitrite Urine UA NEGATIVE (Negative); Occult Blood Urine UA 3+ (Negative); Protein Urine UA NEGATIVE (Negative); Specific Gravity Urine UA <=1.005 (1.000-1.035); Urobilinogen Urine UA 0.2 E.U./dL (0.2)
[2021-07-29 14:11] LABS: Bacteria Urine None Seen; Culture Indicated Urine Cult Not Indicated; RBC Urine 1-5/HPF (0-5/HPF); WBC Urine None Seen (0-5/HPF)
--- NOTE | 2021-07-29 14:22 | ED.FEMALEGU ---
HPI - Female Genitourinary General Chief complaint: Urogenital-Female Stated complaint: Kidney pain- hematuria Time Seen by Provider: 07/29/21 14:03 Source: patient Mode of arrival: Ambulatory History of Present Illness HPI Narrative: The patient is a 50-year-old female with history of kidney stones presenting with right-sided flank pain and blood in her urine. This been ongoing for the last 2-3 days. She says it feels like a prior kidney stone. She feels nauseous but no vomiting. No painful or frequent urination. She has not had any fever or chills. She reports that she has been helping her mother move over the last few days. She says it hurts to move. That seems to be pinpoint in nature. Related Data Home Medications Medication Instructions Recorded Confirmed duloxetine 60 mg capsule,delayed 60 mg PO DAILY 12/22/18 09/08/20 release prazosin 1 mg capsule 1 mg PO QPM 12/22/18 09/08/20 quetiapine 100 mg tablet 100 mg PO BEDTIME 12/22/18 09/08/20 tizanidine 4 mg tablet 4 mg PO TID PRN 12/22/18 09/08/20 albuterol sulfate 90 mcg/actuation 2 puff INHALATION QID PRN 08/22/19 09/08/20 aerosol inhaler diazepam 10 mg tablet 10 mg PO BID PRN 09/08/20 09/08/20 Previous Rx's Medication Instructions Recorded lidocaine 5 % topical patch 1 patch TOP DAILY PRN #30 each 02/06/20 hydroxyzine pamoate 25 mg capsule 25 mg PO Q6HR PRN #30 cap 09/08/20 oxycodone 5 mg tablet 5 mg PO Q4HR PRN #40 tab 09/08/20 hydrocodone 5 mg-acetaminophen 325 1 tab PO Q4-6H PRN #10 tab 10/15/20 mg tablet cyclobenzaprine 5 mg tablet 5 mg PO TID PRN #10 tab 07/29/21 cyclobenzaprine 5 mg tablet 5 mg PO TID PRN #10 tab 07/29/21 hydrocodone 5 mg-acetaminophen 325 1 tab PO Q6H PRN #10 tab 07/29/21 mg tablet hydrocodone 5 mg-acetaminophen 325 1 tab PO Q6H PRN #10 tab 07/29/21 mg tablet Allergies Allergy/AdvReac Type Severity Reaction Status Date / Time ibuprofen [IBUPROFEN] Allergy Mild VOMITING Verified 07/29/21 13:49 amoxicillin [AMOXICILLIN] Allergy Unknown Rash Verified 07/29/21 13:49 diclofenac [DICLOFENAC] Allergy Unknown Rash Verified 07/29/21 13:49 ketorolac [KETOROLAC] Allergy Unknown vomitting Verified 07/29/21 13:49 propoxyphene [PROPOXYPHENE] Allergy Unknown vomitting Verified 07/29/21 13:49 sertraline [SERTRALINE] Allergy Unknown vomitting Verified 07/29/21 13:49 Review of Systems Review of Systems Narrative: GENERAL: Denies chills, fatigue, malaise, fever, sweats, travel HEENT: Denies sinus pain, ear pain, sore throat, difficulty swallowing, neck pain RESPIRATORY: Denies dyspnea, cough, wheezing, hemoptysis, sputum. CARDIOVASCULAR: Denies chest pain, palpitations, orthopnea, edema GASTROINTESTINAL: Denies nausea, vomiting, abdominal pain, diarrhea, constipation, melena. : See HPI MUSCULOSKELETAL: Denies weakness, joint pain, or bony pain SKIN: No rash, no erythema, no pruritus NEUROLOGIC: Denies weakness, dizziness, headache, numbness, change in speech, confusion PSYCHIATRIC: No concerning psychosocial issues. 12 point review of systems is negative except for those stated above and HPI Patient History Medical History Anxiety Bipolar depression Nephrolithiasis PTSD (post-traumatic stress disorder) Surgical History H/O removal of cyst History of renal stent Status post appendectomy Status post hysterectomy tobacco type: cigarettes alcohol intake frequency: holidays/special occasions only Substance Use Type: marijuana Exam Initial Vital Signs Initial Vital Signs: Vital Signs Temperature 97.9 F 07/29/21 13:46 Pulse Rate 71 07/29/21 13:46 Respiratory Rate 18 07/29/21 13:46 Blood Pressure 131/73 07/29/21 13:46 Pulse Oximetry 97 07/29/21 13:46 GENERAL: Alert 50-year-old female appears uncomfortable in no acute distress. HEENT: Head atraumatic,EOMI, pupils reactive, face symmetric, moist mucous membranes CARDIOVASCULAR: Regular rate and rhythm without murmurs, rubs or gallops. RESPIRATORY: Breath sounds equal bilaterally, no wheezes rales or rhonchi. ABDOMEN: Soft, nontender. Normoactive bowel sounds all 4 quadrants. No guarding or rebound. No right upper quadrant pain negative Conrad sign : Mild right CVA tenderness BACK: No vertebral tenderness or step-offs tender in right thoracic and flank area it is reproducible to touch. EXTREMITIES: Normal range of motion, no clubbing or edema. Neurovascularly intact NEUROLOGICAL: Alert and oriented x4. SKIN: Warm, dry, no laceration, no petechiae, no rashes or lesions. Course Orders Ordered: Discontinued Medications Acetaminophen (Acetaminophen 325 Mg Tablet) 975 mg PO NOW ONE Stop: 07/29/21 14:38 Last Admin: 07/29/21 14:51 Dose: 975 mg Documented by: NEYMAR Morphine Sulfate (Morphine 2 Mg/Ml Inj) 2 mg IV NOW ONE Stop: 07/29/21 16:06 Last Admin: 07/29/21 16:09 Dose: 2 mg Documented by: NEYMAR Ondansetron HCl (Ondansetron 4 Mg/2 Ml Inj) 4 mg IV NOW ONE Stop: 07/29/21 14:37 Last Admin: 07/29/21 14:50 Dose: 4 mg Documented by: NEYMAR Vital Signs Vital signs: Vital Signs - 8 hr 07/29/21 13:46 07/29/21 15:02 07/29/21 15:03 Temperature 97.9 F Pulse Rate 71 65 65 Respiratory Rate 18 Blood Pressure 131/73 141/69 H Pulse Oximetry 97 94 94 07/29/21 15:30 Temperature Pulse Rate 64 Respiratory Rate Blood Pressure Pulse Oximetry 96 MDM - Female Genitourinary Lab Data Result diagrams: 07/29/21 15:00 07/29/21 15:00 Labs: Lab Results 07/29/21 07/29/21 07/29/21 Range/Units 13:55 15:00 15:00 WBC 12.5 H (4.5-11.0) X10^3/uL RBC 4.60 (4.0-5.2) X10^6/uL Hgb 14.2 (12.0-16.0) g/dL Hct 41.0 (36-46) % MCV 89.2 (80-100) fL MCH 30.9 (26-34) PG MCHC 34.7 (30-36) % RDW 13.4 (11.6-14.8) % Plt Count 351 (150-400) X10^3/uL Neut % (Auto) 62.8 (50-75) % Lymph % (Auto) 25.7 (25-40) % Jones % (Auto) 7.5 (3-14) % Eos % (Auto) 3.3 (2-4) % Baso % (Auto) 0.7 (0-2) % Neut # (Auto) 7900 H (2919-5769) /uL Lymph # (Auto) 3200 (5007-1228) /uL Jones # (Auto) 900 (0-900) /uL Eos # (Auto) 400 (0-450) /uL Baso # (Auto) 100 (0-100) /uL Sodium 141 (137-145) mmol/L Potassium 3.9 (3.4-5.1) mmol/L Chloride 106 (98-107) mmol/L Carbon Dioxide 26 (22-32) mmol/L BUN 7 (7-17) mg/dL Creatinine 0.73 (0.52-1.04) mg/dL Estimated GFR > 60.0 (>60) mL/min BUN/Creatinine Ratio 9.6 (6-22) Glucose 91 (70-100) mg/dL Calcium 8.9 (8.4-10.2) mg/dL Total Bilirubin 0.3 (0.2-1.3) mg/dL AST 29 (14-36) IU/L ALT 22 (<35) IU/L Alkaline Phosphatase 114 (38-126) U/L Total Protein 7.6 (6.3-8.2) g/dL Albumin 4.5 (3.5-5.0) g/dL Globulin 3.1 (1.7-4.1) g/dL Albumin/Globulin Ratio 1.5 (1.0-2.8) Lipase 71 (23-300) U/L Urine Color Yellow Urine Appearance Clear Urine pH 6.0 (4.5-8.0) Ur Specific [place] <=1.005 (1.000-1.035) Urine Protein Negative (Negative) Urine Glucose (UA) Negative (Negative) g/dL Urine Ketones Negative (NEGATIVE) Urine Occult Blood 3+ H (Negative) Urine Nitrate Negative (Negative) Urine Bilirubin Negative (NEGATIVE) Urine Urobilinogen 0.2 (0.2) E.U./dL Ur Leukocyte Esterase Trace H (NEGATIVE) Urine RBC 1-5/hpf (0-5/HPF) Urine WBC None seen (0-5/HPF) Urine Bacteria None seen (None) Ur Culture Indicated? Cult not indicated Imaging Data CT scan - abdomen/pelvis: Radiologist's Impression: PROCEDURE:? CT KIDNEY URETER BLADDER (KUB) ? INDICATIONS:? right flank pain ? TECHNIQUE:? Axial sections were acquired from the lung bases to the pubic symphysis.? Coronal and sagittal reformats were performed.? For radiation dose reduction, the following was used: ?automated exposure control, adjustment of mA and/or kV according to patient size.? ? COMPARISON:? Outside Film, CT, CT ABDOMEN PELVIS WITHOUT CONTRAST, 10/13/2020, 16:43.? [facility], US, US RENAL COMPLETE, 01/28/2021, 17:57.? [facility], CT, CT KIDNEY URETER BLADDER (KUB), 07/07/2020, 16:22. ? FINDINGS:? Image quality:? Excellent.? ? Lung bases:? Unremarkable.? ? Heart:? No significant findings. ? URINARY: Right Kidney: ? No stones or hydronephrosis.? Right Ureter:? No hydroureter.? ? Left Kidney: ? No stones or hydronephrosis. Left Ureter:? No hydroureter.? ? Bladder:? Normal wall thickness. No stones. ? ? ? ABDOMEN: Liver:? Unremarkable.? ? Gallbladder:? Removed.? ? Biliary ducts:? Unremarkable.? ? Pancreas:? Unremarkable.? ? Spleen:? Unremarkable.? ? Adrenal Glands:? Unremarkable.? ? ? Stomach and Bowel:? There is a moderate to stool seen stool within the colon is dense, particularly distally. No dilated loops of small bowel are seen. Right lower quadrant clips are seen. Peritoneum:? No abnormal intraperitoneal fluid.? No free air.? ? Ventral Wall: ? No hernia.? Abdominal Nodes:? No enlarged retroperitoneal or mesenteric lymph nodes.? Vessels:? Aorta and inferior vena cava are normal in size.? ? PELVIS: Pelvic Organs: This patient is status post hysterectomy. No adnexal masses are seen.? Pelvic Nodes: Unremarkable. Miscellaneous: No inguinal hernias are seen. ? ? ? Bones: This patient has transitional lumbar anatomy. For the purposes of this examination, the level with the tiny vestigial ribs is considered to be T12.? By this numbering scheme, the level is transitional and is highly sacralized on the left. ? IMPRESSION:? Negative for kidney stones or obstructive uropathy. ? There is a moderate amount of stool seen within the colon. Please correlate with an underlying history of constipation.? 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 ? ? ? Dictated by: Amor Hanson M.D. on 07/29/2021 at 14:27 ? ? Approved by: Amor Hanson M.D. on 07/29/2021 at 14:31 ? MDM Narrative Medical decision making narrative: Patient has right-sided back pain which she says it actually hurts to touch it is worse with movement. His found to have hematuria without sign of infection or kidney stone. She has been given Tylenol and morphine for pain she is allergic to Toradol and other NSAIDs. She has previously had Flexeril which has helped. This seems to be musculoskeletal in nature with its reproducibility and history of packing and moving. Differential diagnosis includes dissection Discharge Plan Departure Patient Disposition: Home Clinical Impression: Back pain Instructions: Thoracic Back Pain Activity Restrictions/Additional Instructions: *You have been diagnosed with back pain *What to do: At this time I recommend no heavy lifting or straining. recommend heating pad light stretching and light massage if tolerated. No sign of infection or kidney stone at this time *Continue to take medications as directed [place] 1 tablet every 6 hours if needed for severe pain Flexeril 5 mg every 8 hours if needed for muscle spasm *Follow up with your primary care provider in 2-3 days or call [phone] *Return to ER if you should have increasing pain fever nausea vomiting or any new, worsening or concerning symptoms CONTROLLED SUBSTANCE DISCHARGE (Narcotoic/benzodiazepine/Flexeril/Phenergan) 1. You have been prescribed narcotic medications, it does have acetaminophen/Tylenol/paracetamol in it, DO NOT TAKE MORE THAN 4,00mg in 24 hours of Tylenol. TRAMADOL DOES NOT CONTAIN TYLENOL 2. Please understand that we cannot provide further refills of narcotics, benzodiazepines or controlled substances through the ED and her pain management will need to be through your provider. 3. While on these medications you cannot drive or operate heavy machinery. 4. You cannot sign legal documents or perform any duties such as this. 5. As long as you're taking opiate pain medications he should also be taking a stool softener such as Colace, Dulcolax, MiraLAX or prune juice, to help avoid constipation. Prescriptions: New hydrocodone-acetaminophen 5-325 mg tablet 1 tab PO Q6H PRN (Reason: pain) Qty: 10 0RF cyclobenzaprine 5 mg tablet 5 mg PO TID PRN (Reason: muscle spasm) Qty: 10 0RF hydrocodone-acetaminophen 5-325 mg tablet 1 tab PO Q6H PRN (Reason: pain) Qty: 10 0RF cyclobenzaprine 5 mg tablet 5 mg PO TID PRN (Reason: muscle spasm) Qty: 10 0RF No Action tizanidine 4 mg tablet 4 mg PO TID PRN (Reason: Muscle Spasm) 0RF prazosin 1 mg capsule 1 mg PO QPM 0RF quetiapine 100 mg tablet 100 mg PO BEDTIME 0RF duloxetine 60 mg capsule,delayed release(DR/EC) 60 mg PO DAILY 0RF lidocaine 5 % adhesive patch,medicated 1 patch TOP DAILY PRN (Reason: pain (scale score 4-6)) Qty: 30 0RF Rx Instructions: leave on most painful area for up to 12 hrs then remove diazepam 10 mg Tablet 10 mg PO BID PRN (Reason: Anxiety) 0RF oxycodone 5 mg Tablet 5 mg PO Q4HR PRN (Reason: Pain, Moderate (4-6)) Qty: 40 0RF hydroxyzine pamoate 25 mg Capsule 25 mg PO Q6HR PRN (Reason: Spasms) Qty: 30 0RF albuterol sulfate 90 mcg/actuation HFA aerosol inhaler 2 puff INHALATION QID PRN (Reason: Wheezing) 0RF hydrocodone-acetaminophen 5-325 mg tablet 1 tab PO Q4-6H PRN (Reason: pain) Qty: 10 0RF Referrals: Juliann Patel PA-C [Primary Care Provider] -
--- NOTE | 2021-07-29 14:36 | DI.CT.S_ITS ---
PROCEDURE: CT KIDNEY URETER BLADDER (KUB) INDICATIONS: right flank pain TECHNIQUE: Axial sections were acquired from the lung bases to the pubic symphysis. Coronal and sagittal reformats were performed. For radiation dose reduction, the following was used: automated exposure control, adjustment of mA and/or kV according to patient size. COMPARISON: Outside Film, CT, CT ABDOMEN PELVIS WITHOUT CONTRAST, 10/13/2020, 16:43. [facility], US, US RENAL COMPLETE, 01/28/2021, 17:57. [facility], CT, CT KIDNEY URETER BLADDER (KUB), 07/07/2020, 16:22. FINDINGS: Image quality: Excellent. Lung bases: Unremarkable. Heart: No significant findings. URINARY: Right Kidney: No stones or hydronephrosis. Right Ureter: No hydroureter. Left Kidney: No stones or hydronephrosis. Left Ureter: No hydroureter. Bladder: Normal wall thickness. No stones. ABDOMEN: Liver: Unremarkable. Gallbladder: Removed. Biliary ducts: Unremarkable. Pancreas: Unremarkable. Spleen: Unremarkable. Adrenal Glands: Unremarkable. Stomach and Bowel: There is a moderate to stool seen stool within the colon is dense, particularly distally. No dilated loops of small bowel are seen. Right lower quadrant clips are seen. Peritoneum: No abnormal intraperitoneal fluid. No free air. Ventral Wall: No hernia. Abdominal Nodes: No enlarged retroperitoneal or mesenteric lymph nodes. Vessels: Aorta and inferior vena cava are normal in size. PELVIS: Pelvic Organs: This patient is status post hysterectomy. No adnexal masses are seen. Pelvic Nodes: Unremarkable. Miscellaneous: No inguinal hernias are seen. Bones: This patient has transitional lumbar anatomy. For the purposes of this examination, the level with the tiny vestigial ribs is considered to be T12. By this numbering scheme, the level is transitional and is highly sacralized on the left. IMPRESSION: Negative for kidney stones or obstructive uropathy. There is a moderate amount of stool seen within the colon. Please correlate with an underlying history of constipation. 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 Dictated by: Amor Hanson M.D. on 07/29/2021 at 14:27 Approved by: Amor Hanson M.D. on 07/29/2021 at 14:31
[2021-07-29] MEDS: ONDANSETRON 4 MG/2 ML INJ IV (14:50)
[2021-07-29] MEDS: ACETAMINOPHEN 325 MG TABLET 975 MG PO (14:51)
[2021-07-29 15:02] VITALS: PULSE 65; O2SAT 94
[2021-07-29 15:03] VITALS: BP 141/69; PULSE 65; O2SAT 94
[2021-07-29 15:20] LABS: Add Manual Diff / Slide Review NO; Basophils Absolute Auto 100 /uL (0-100); Basophils Percent Auto 0.7 % (0-2); Eosinophils Absolute Auto 400 /uL (0-450); Eosinophils Percent Auto 3.3 % (2-4); Hemoglobin 14.2 g/dL (12.0-16.0); Lymphocytes Absolute Auto 3200 /uL (1100-4500); Lymphocytes Percent Auto 25.7 % (25-40); Mean Corpuscular HGB Conc 34.7 % (30-36); Mean Corpuscular Hemoglobin 30.9 PG (26-34); Mean Corpuscular Volume 89.2 fL (80-100); Monocytes Absolute Auto 900 /uL (0-900); Monocytes Percent Auto 7.5 % (3-14); Neutrophils Absolute Auto 7900 /uL (1500-7000); Neutrophils Percent Auto 62.8 % (50-75); Platelet Count 351 X10^3/uL (150-400); Red Cell Distribution Width 13.4 % (11.6-14.8); White Blood Cell Count 12.5 X10^3/uL (4.5-11.0)
[2021-07-29 15:29] LABS: Alanine Aminotransferase 22 IU/L (<35); Albumin 4.5 g/dL (3.5-5.0); Albumin Globulin Ratio 1.5 (1.0-2.8); Alkaline Phosphatase 114 U/L (38-126); Aspartate Aminotransferase 29 IU/L (14-36); BUN Creatinine Ratio 9.6 (6-22); Bilirubin Total 0.3 mg/dL (0.2-1.3); Blood Urea Nitrogen 7 mg/dL (7-17); Calcium 8.9 mg/dL (8.4-10.2); Carbon Dioxide 26 mmol/L (22-32); Chloride 106 mmol/L (98-107); Estimated Glomerular Filt Rate > 60.0 mL/min (>60); Globulin 3.1 g/dL (1.7-4.1); Glucose 91 mg/dL (70-100); HEMOLYSIS < 15 (0-50); Lipase 71 U/L (23-300); Potassium 3.9 mmol/L (3.4-5.1); Sodium 141 mmol/L (137-145); Total Protein 7.6 g/dL (6.3-8.2)
[2021-07-29 15:30] VITALS: PULSE 64; O2SAT 96
[2021-07-29] MEDS: MORPHINE 2 MG/ML INJ IV (16:09)
[2021-07-29 16:46] VITALS: BP 127/77; PULSE 67; RESP 18; O2SAT 95
== END 2021-07-29 16:48 | disposition home or self-care (01) ==
PROVIDERS: Emergency Provider Emergency Medicine; Family Provider Physician Assistant; PCP Physician Assistant
DX: M54.6 Pain in thoracic spine (principal); R31.9 Hematuria, unspecified
CPT/HCPCS: 36415; 74176; 80053; 81001; 83690; 85025; 96374; 96375; 99284; J2270; J2405

== ENCOUNTER 2021-09-03 19:33 | Emergency (ER) | payer OTHER, MEDICAID, SELFPAY ==
[2021-09-03 19:42] VITALS: BP 129/81; PULSE 81; RESP 14; TEMP 36.4; O2SAT 96; BMI 26.2
== END 2021-09-03 21:58 | disposition left against medical advice (07) ==
PROVIDERS: Emergency Provider Emergency Medicine; Family Provider Physician Assistant; PCP Physician Assistant
CPT/HCPCS: 99281

== ENCOUNTER 2021-12-09 17:00 | Emergency (ER) | payer OTHER, MEDICAID, SELFPAY ==
[2021-12-09 17:17] VITALS: BP 117/70; PULSE 92; RESP 18; TEMP 36.5; O2SAT 96; BMI 25.1
[2021-12-09] MEDS: ONDANSETRON 4 MG/2 ML INJ IV (17:45)
[2021-12-09 17:53] LABS: Amorphous Sediment Urine 1+; Bacteria Urine Moderate (10-30); RBC Urine 5-10/HPF (0-5/HPF); WBC Urine 10-30/HPF (0-5/HPF)
[2021-12-09 18:04] LABS: Add Manual Diff / Slide Review NO; Basophils Absolute Auto 0 /uL (0-100); Basophils Percent Auto 0.4 % (0-2); Eosinophils Absolute Auto 0 /uL (0-450); Hematocrit 38.2 % (36-46); Hemoglobin 13.4 g/dL (12.0-16.0); Lymphocytes Absolute Auto 2200 /uL (1100-4500); Lymphocytes Percent Auto 20.1 % (25-40); Mean Corpuscular Hemoglobin 30.7 PG (26-34); Mean Corpuscular Volume 87.6 fL (80-100); Monocytes Absolute Auto 800 /uL (0-900); Monocytes Percent Auto 7.1 % (3-14); Neutrophils Absolute Auto 7900 /uL (1500-7000); Neutrophils Percent Auto 72.4 % (50-75); Platelet Count 308 X10^3/uL (150-400); Red Blood Cell Count 4.35 X10^6/uL (4.0-5.2); Red Cell Distribution Width 13.6 % (11.6-14.8); White Blood Cell Count 10.9 X10^3/uL (4.5-11.0)
[2021-12-09 18:04] LABS: Alanine Aminotransferase 16 IU/L (<35); Albumin 4.2 g/dL (3.5-5.0); Albumin Globulin Ratio 1.4 (1.0-2.8); Alkaline Phosphatase 136 U/L (38-126); Aspartate Aminotransferase 25 IU/L (14-36); Bilirubin Total 0.4 mg/dL (0.2-1.3); Blood Urea Nitrogen 13 mg/dL (7-17); Calcium 8.7 mg/dL (8.4-10.2); Carbon Dioxide 28 mmol/L (22-32); Chloride 102 mmol/L (98-107); Estimated Glomerular Filt Rate > 60 mL/min (>60); Globulin 2.9 g/dL (1.7-4.1); Glucose 94 mg/dL (70-100); HEMOLYSIS < 15 (0-50); Potassium 3.6 mmol/L (3.4-5.1); Sodium 136 mmol/L (137-145); Total Protein 7.1 g/dL (6.3-8.2)
--- NOTE | 2021-12-09 19:40 | ED_ITS ---
HPI - Female Genitourinary <ZENON Simons - Last Filed: 12/09/21 20:43> General Chief complaint: Urogenital-Female Stated complaint: kidney pain Time Seen by Provider: 12/09/21 19:39 Source: patient Mode of arrival: Ambulatory History of Present Illness HPI Narrative: 51-year-old female, daily smoker, presents to emergency department with bilateral flank pain and dysuria x3 days. Patient took some Tylenol today without any relief. Patient has had history of kidney infections in the past and this feels very similar. Patient denies any trauma to her back. Related Data Home Medications Medication Instructions Recorded Confirmed duloxetine 60 mg capsule,delayed 60 mg PO DAILY 12/22/18 09/08/20 release prazosin 1 mg capsule 1 mg PO QPM 12/22/18 09/08/20 quetiapine 100 mg tablet 100 mg PO BEDTIME 12/22/18 09/08/20 tizanidine 4 mg tablet 4 mg PO TID PRN Muscle Spasm 12/22/18 09/08/20 albuterol sulfate 90 mcg/actuation 2 puff inhalation QID PRN Wheezing 08/22/19 09/08/20 aerosol inhaler diazepam 10 mg tablet 10 mg PO BID PRN Anxiety 09/08/20 09/08/20 Previous Rx's Medication Instructions Recorded lidocaine 5 % topical patch 1 patch topical DAILY PRN pain 02/06/20 (scale score 4-6) #30 ea hydroxyzine pamoate 25 mg capsule 25 mg PO Q6HR PRN Spasms #30 caps 09/08/20 oxycodone 5 mg tablet 5 mg PO Q4HR PRN Pain, Moderate 09/08/20 (4-6) #40 tabs hydrocodone 5 mg-acetaminophen 325 1 tab PO Q4-6H PRN pain #10 tabs 10/15/20 mg tablet cyclobenzaprine 5 mg tablet 5 mg PO TID PRN muscle spasm #10 07/29/21 tabs cyclobenzaprine 5 mg tablet 5 mg PO TID PRN muscle spasm #10 07/29/21 tabs hydrocodone 5 mg-acetaminophen 325 1 tab PO Q6H PRN pain #10 tabs 07/29/21 mg tablet hydrocodone 5 mg-acetaminophen 325 1 tab PO Q6H PRN pain #10 tabs 07/29/21 mg tablet levofloxacin 750 mg tablet 750 mg PO DAILY Pyelonephritis 5 12/09/21 days #5 tabs Allergies Allergy/AdvReac Type Severity Reaction Status Date / Time ibuprofen [IBUPROFEN] Allergy Mild VOMITING Verified 09/03/21 19:42 amoxicillin [AMOXICILLIN] Allergy Unknown Rash Verified 09/03/21 19:42 diclofenac [DICLOFENAC] Allergy Unknown Rash Verified 09/03/21 19:42 ketorolac [KETOROLAC] Allergy Unknown vomitting Verified 09/03/21 19:42 propoxyphene [PROPOXYPHENE] Allergy Unknown vomitting Verified 09/03/21 19:42 sertraline [SERTRALINE] Allergy Unknown vomitting Verified 09/03/21 19:42 Review of Systems <ZENON Simons - Last Filed: 12/09/21 20:43> Review of Systems Narrative: Narrative: GENERAL: Denies chills, fatigue, fever, sweats. See HPI HEENT: Denies sinus pain, ear pain, sore throat, difficulty swallowing, dizziness. RESPIRATORY: Denies dyspnea, cough, wheezing, sputum. CARDIOVASCULAR: Denies chest pain, palpitations, edema. GASTROINTESTINAL: Denies nausea, vomiting, abdominal pain, diarrhea, constipat ion. : Denies urinary frequency, incontinence, hematuria, urinary retention. Endorses bilateral flank pain. MSK: Denies weakness, joint pain, or bony pain. SKIN: Denies rash, skin lesions, or pruritis. NEUROLOGIC: Denies weakness, dizziness, headache, numbness, confusion. PSYCHIATRIC: No concerning psychosocial issues. Patient History <ZENON Simons - Last Filed: 12/09/21 20:43> Medical History Anxiety Bipolar depression Nephrolithiasis PTSD (post-traumatic stress disorder) Surgical History H/O removal of cyst History of renal stent Status post appendectomy Status post hysterectomy tobacco type: cigarettes alcohol intake frequency: holidays/special occasions only Substance Use Type: marijuana Exam <ZENON Simons - Last Filed: 12/09/21 20:43> Narrative Exam Narrative: Exam Narrative: GENERAL: This is a well-nourished, well-developed patient, in no acute distress HEAD: Atraumatic. Normocephalic. CARDIOVASCULAR: Regular rate and rhythm without murmurs, peripheral pulses intact, cap refill <2 sec. RESPIRATORY: Breath sounds equal and clear bilaterally. No wheezes, rales, or rhonchi. No cough. No increased respiratory effort. No accessory muscle use. GASTROINTESTINAL: Abdomen soft, non-tender, nondistended without guarding or rebound. No suprapubic pain. Positive bilateral CVA tenderness. MSK: Moves all extremities. Normal range of motion, no clubbing or edema. Neurovascularly intact. NEURO: A&O x 3. SKIN: Warm, dry, no rashes or lesions noted. Initial Vital Signs Initial Vital Signs: Vital Signs Temperature 97.7 F 12/09/21 17:17 Pulse Rate 92 H 12/09/21 17:17 Respiratory Rate 18 12/09/21 17:17 Blood Pressure 117/70 12/09/21 17:17 Pulse Oximetry 96 12/09/21 17:17 Oxygen Delivery Method 12/09/21 17:17 Reviewed <Marcellus Lehman MD - Last Filed: 12/10/21 00:22> Initial Vital Signs Initial Vital Signs: Vital Signs Temperature 97.7 F 12/09/21 17:17 Pulse Rate 92 H 12/09/21 17:17 Respiratory Rate 18 12/09/21 17:17 Blood Pressure 117/70 12/09/21 17:17 Pulse Oximetry 96 12/09/21 17:17 Oxygen Delivery Method 12/09/21 17:17 Course <ZENON Simons - Last Filed: 12/09/21 20:43> Orders Ordered: ED Orders 12/09/21 17:21 Comprehensive Metabolic Panel Stat 12/09/21 17:34 Urine Culture Stat Urine Microscopic Stat 12/09/21 17:35 Complete Blood Count AUTO DIFF Stat Discontinued Medications Ceftriaxone Sodium 2,000 mg/ (Sodium Chloride) 100 mls @ 200 mls/hr IV NOW ONE Stop: 12/09/21 19:55 Last Infusion: 12/09/21 20:56 Dose: 0 mls/hr Documented By: Admin: 12/09/21 20:01 Dose: 200 mls/hr Documented By: SHELIA Ondansetron HCl (Ondansetron 4 Mg/2 Ml Inj) 4 mg IV NOW ONE Stop: 12/09/21 17:21 Last Admin: 12/09/21 17:45 Dose: 4 mg Documented By: JENNIFER Oxycodone/Acetaminophen (Oxycodone/Acetaminophen 5/325 Tablet) 1 tab PO NOW ONE Stop: 12/09/21 20:07 Last Admin: 12/09/21 20:09 Dose: 1 tab Documented By: SHELIA Vital Signs Vital signs: Vital Signs - 8 hr 12/09/21 17:17 12/09/21 21:02 Temperature 97.7 F Pulse Rate 92 H 90 Respiratory Rate 18 18 Blood Pressure 117/70 110/68 Pulse Oximetry 96 99 Oxygen Delivery Method Room Air Room Air <Marcellus Lehman MD - Last Filed: 12/10/21 00:22> Orders Ordered: ED Orders 12/09/21 17:21 Comprehensive Metabolic Panel Stat 12/09/21 17:34 Urine Culture Stat Urine Microscopic Stat 12/09/21 17:35 Complete Blood Count AUTO DIFF Stat Discontinued Medications Ceftriaxone Sodium 2,000 mg/ (Sodium Chloride) 100 mls @ 200 mls/hr IV NOW ONE Stop: 12/09/21 19:55 Last Infusion: 12/09/21 20:56 Dose: 0 mls/hr Documented By: Admin: 12/09/21 20:01 Dose: 200 mls/hr Documented By: SHELIA Ondansetron HCl (Ondansetron 4 Mg/2 Ml Inj) 4 mg IV NOW ONE Stop: 12/09/21 17:21 Last Admin: 12/09/21 17:45 Dose: 4 mg Documented By: JENNIFER Oxycodone/Acetaminophen (Oxycodone/Acetaminophen 5/325 Tablet) 1 tab PO NOW ONE Stop: 12/09/21 20:07 Last Admin: 12/09/21 20:09 Dose: 1 tab Documented By: SHELIA Vital Signs Vital signs: Vital Signs - 8 hr 12/09/21 17:17 12/09/21 21:02 Temperature 97.7 F Pulse Rate 92 H 90 Respiratory Rate 18 18 Blood Pressure 117/70 110/68 Pulse Oximetry 96 99 Oxygen Delivery Method Room Air Room Air MDM - Female Genitourinary <ZENON Simons - Last Filed: 12/09/21 20:43> Differential Diagnosis Differential diagnosis: Likely other (Pyelonephritis) Lab Data Result diagrams: 12/09/21 17:35 12/09/21 17:21 Labs: Lab Results 12/09/21 12/09/21 12/09/21 Range/Units 17:21 17:34 17:35 WBC 10.9 (4.5-11.0) X10^3/uL RBC 4.35 (4.0-5.2) X10^6/uL Hgb 13.4 (12.0-16.0) g/dL Hct 38.2 (36-46) % MCV 87.6 (80-100) fL MCH 30.7 (26-34) PG MCHC 35.0 (30-36) % RDW 13.6 (11.6-14.8) % Plt Count 308 (150-400) X10^3/uL Neut % (Auto) 72.4 (50-75) % Lymph % (Auto) 20.1 L (25-40) % Grainger % (Auto) 7.1 (3-14) % Eos % (Auto) 0.0 L (2-4) % Baso % (Auto) 0.4 (0-2) % Neut # (Auto) 7900 H (7657-1434) /uL Lymph # (Auto) 2200 (5514-3369) /uL Grainger # (Auto) 800 (0-900) /uL Eos # (Auto) 0 (0-450) /uL Baso # (Auto) 0 (0-100) /uL Sodium 136 L (137-145) mmol/L Potassium 3.6 (3.4-5.1) mmol/L Chloride 102 (98-107) mmol/L Carbon Dioxide 28 (22-32) mmol/L BUN 13 (7-17) mg/dL Creatinine 0.81 (0.52-1.04) mg/dL Estimated GFR > 60 (>60) mL/min BUN/Creatinine Ratio 16.0 (6-22) Glucose 94 (70-100) mg/dL Calcium 8.7 (8.4-10.2) mg/dL Total Bilirubin 0.4 (0.2-1.3) mg/dL AST 25 (14-36) IU/L ALT 16 (<35) IU/L Alkaline Phosphatase 136 H (38-126) U/L Total Protein 7.1 (6.3-8.2) g/dL Albumin 4.2 (3.5-5.0) g/dL Globulin 2.9 (1.7-4.1) g/dL Albumin/Globulin Ratio 1.4 (1.0-2.8) Urine RBC 5-10/hpf H (0-5/HPF) Urine WBC 10-30/hpf H (0-5/HPF) Amorphous Sediment 1+ Urine Bacteria Moderate (10-30) H (None) Ur Culture Indicated? Culture not indicate Point of Care Testing Test Results Negative Urine Dip Bedside Urine Glucose Negative Bedside Urine Bilirubin - Negative Bedside Urine Ketone - Negative Urine Specific [address] 1.015 Bedside Urine Occult Blood +++ Bedside Urine pH 6.0 Bedside Urine Protein + 30 Bedside Urine Urobilinogen - Negative Bedside Urine Nitrite + Positive Bedside Urine Leukocytes ++ 125 Esterase MDM Narrative Medical decision making narrative: 51-year-old female that presents to the emergency department with pyelonephritis. Urine sample was consistent with a Pyelo. Patient complaining of pain and was given a single Percocet. 2 g of Ancef administered via IV. Patient will be sent home with [facility], per hospitalist Naif recommendation. Discussed plan of care and return precautions with patient, who was agreeable with course of action. <Marcellus Lehman MD - Last Filed: 12/10/21 00:22> Lab Data Labs: Lab Results 12/09/21 12/09/21 12/09/21 Range/Units 17:21 17:34 17:35 WBC 10.9 (4.5-11.0) X10^3/uL RBC 4.35 (4.0-5.2) X10^6/uL Hgb 13.4 (12.0-16.0) g/dL Hct 38.2 (36-46) % MCV 87.6 (80-100) fL MCH 30.7 (26-34) PG MCHC 35.0 (30-36) % RDW 13.6 (11.6-14.8) % Plt Count 308 (150-400) X10^3/uL Neut % (Auto) 72.4 (50-75) % Lymph % (Auto) 20.1 L (25-40) % Grainger % (Auto) 7.1 (3-14) % Eos % (Auto) 0.0 L (2-4) % Baso % (Auto) 0.4 (0-2) % Neut # (Auto) 7900 H (4263-6116) /uL Lymph # (Auto) 2200 (7444-5407) /uL Grainger # (Auto) 800 (0-900) /uL Eos # (Auto) 0 (0-450) /uL Baso # (Auto) 0 (0-100) /uL Sodium 136 L (137-145) mmol/L Potassium 3.6 (3.4-5.1) mmol/L Chloride 102 (98-107) mmol/L Carbon Dioxide 28 (22-32) mmol/L BUN 13 (7-17) mg/dL Creatinine 0.81 (0.52-1.04) mg/dL Estimated GFR > 60 (>60) mL/min BUN/Creatinine Ratio 16.0 (6-22) Glucose 94 (70-100) mg/dL Calcium 8.7 (8.4-10.2) mg/dL Total Bilirubin 0.4 (0.2-1.3) mg/dL AST 25 (14-36) IU/L ALT 16 (<35) IU/L Alkaline Phosphatase 136 H (38-126) U/L Total Protein 7.1 (6.3-8.2) g/dL Albumin 4.2 (3.5-5.0) g/dL Globulin 2.9 (1.7-4.1) g/dL Albumin/Globulin Ratio 1.4 (1.0-2.8) Urine RBC 5-10/hpf H (0-5/HPF) Urine WBC 10-30/hpf H (0-5/HPF) Amorphous Sediment 1+ Urine Bacteria Moderate (10-30) H (None) Ur Culture Indicated? Culture not indicate Point of Care Testing Test Results Negative Urine Dip Bedside Urine Glucose Negative Bedside Urine Bilirubin - Negative Bedside Urine Ketone - Negative Urine Specific [address] 1.015 Bedside Urine Occult Blood +++ Bedside Urine pH 6.0 Bedside Urine Protein + 30 Bedside Urine Urobilinogen - Negative Bedside Urine Nitrite + Positive Bedside Urine Leukocytes ++ 125 Esterase MDM Narrative Medical decision making narrative: 51-year-old female that presents to the emergency department with pyelonephritis. Urine sample was consistent with a Pyelo. Patient complaining of pain and was given a single Percocet. 2 g of Ancef administered via IV. Patient will be sent home with Levaquin, per hospitalist Naif recommendation. Discussed plan of care and return precautions with patient, who was agreeable with course of action. No CT scan imaging at this time. Will treat for clinical pyelonephritis. No fever. White cell count is normal. Not toxic appearing Discharge Plan Departure Patient Disposition: Home Clinical Impression: Pyelonephritis Instructions: DI for Kidney Infection Activity Restrictions/Additional Instructions: *You have been diagnosed with pyelonephritis or kidney infection. We have given you IV antibiotics but you will need to start taking the Levaquin tomorrow. If your symptoms have not improved after 72 hours, please return to the emergency department. Will send off a sample of your urine for culture and contact you only for requires a change in antibiotics. *What to do: *Please continue to take your regular medications as directed. [ ] New medication prescriptions sent to your pharmacy: [ ] [ x] New medication written as a paper prescription [ ] No new medications given *Please follow up with your primary care provider in 2-3 days, call for an appointment. Let them know you were seen in the Emergency Department and that we ask that you be seen in follow up. We will electronically transmit a record of today's note if your PCP is in our system *If you do not have a primary care provider please contact the [facility] Resource line at [phone]. They will ask some questions about your medical history and help get you set up with a doctor in the community. ? Return to ER if you should have any new, worsening or concerning symptoms, such as worsening pain, severe headache, confusion, chest pain, difficulty breathing, fever greater than 101 F, shaking chills, persistent vomiting to the point that you cannot drink fluids, or other new or worsening symptoms. Prescriptions: New levofloxacin 750 mg tablet 750 mg PO DAILY 5 Days Qty: 5 0RF No Action tizanidine 4 mg tablet 4 mg PO TID PRN (Reason: Muscle Spasm) prazosin 1 mg capsule 1 mg PO QPM quetiapine 100 mg tablet 100 mg PO BEDTIME duloxetine 60 mg capsule,delayed release(DR/EC) 60 mg PO DAILY lidocaine 5 % adhesive patch,medicated 1 patch TOP DAILY PRN (Reason: pain (scale score 4-6)) Qty: 30 0RF Rx Instructions: leave on most painful area for up to 12 hrs then remove diazepam 10 mg Tablet 10 mg PO BID PRN (Reason: Anxiety) oxycodone 5 mg Tablet 5 mg PO Q4HR PRN (Reason: Pain, Moderate (4-6)) Qty: 40 0RF hydroxyzine pamoate 25 mg Capsule 25 mg PO Q6HR PRN (Reason: Spasms) Qty: 30 0RF albuterol sulfate 90 mcg/actuation HFA aerosol inhaler 2 puff INHALATION QID PRN (Reason: Wheezing) hydrocodone-acetaminophen 5-325 mg tablet 1 tab PO Q4-6H PRN (Reason: pain) Qty: 10 0RF hydrocodone-acetaminophen 5-325 mg tablet 1 tab PO Q6H PRN (Reason: pain) Qty: 10 0RF cyclobenzaprine 5 mg tablet 5 mg PO TID PRN (Reason: muscle spasm) Qty: 10 0RF hydrocodone-acetaminophen 5-325 mg tablet 1 tab PO Q6H PRN (Reason: pain) Qty: 10 0RF cyclobenzaprine 5 mg tablet 5 mg PO TID PRN (Reason: muscle spasm) Qty: 10 0RF Referrals: Juliann Patel PA-C [Primary Care Provider] - Visit Report Forms: Patient Portal/API <Marcellus Lehman MD - Last Filed: 12/10/21 00:22> Cosign ED Attending Artisature Attestation: I was immediately available in the department for consultation. ?This documentation has been reviewed and I agree with assessment and plan. Supervised by Marcellus Lehman MD
[2021-12-09] MEDS: cefTRIAXone 2,000 MG in SODIUM CHLORIDE 0.9% 100 ML 200 MG IV (20:01)
[2021-12-09] MEDS: OXYCODONE/ACETAMINOPHEN 5/325 TABLET 1 TAB PO (20:09)
[2021-12-09 21:02] VITALS: BP 110/68; PULSE 90; RESP 18; O2SAT 99
== END 2021-12-09 21:04 | disposition home or self-care (01) ==
PROVIDERS: Emergency Medicine; Emergency Provider Registered Nurse; Family Provider Physician Assistant; PCP Physician Assistant
DX: N12 Tubulo-interstitial nephritis, not specified as acute or chronic (principal); R30.0 Dysuria
CPT/HCPCS: 36415; 80053; 81003; 81015; 81025; 85025; 87077; 87086; 87186; 96365; 96375; 99284; J0696; J2405

== ENCOUNTER 2021-12-27 11:34 | Emergency (ER) | payer OTHER, MEDICAID, SELFPAY ==
[2021-12-27 11:42] VITALS: BP 110/62; PULSE 73; RESP 18; TEMP 37.1; O2SAT 97; BMI 25.7
--- NOTE | 2021-12-27 11:46 | DI.RAD.S_ITS ---
PROCEDURE: XR ANKLE RT MIN 3V INDICATIONS: twisted/heard crack/pop TECHNIQUE: 3 views of the ankle were acquired. COMPARISON: None. FINDINGS: Bones: No fractures or dislocations. Ankle mortise is normally aligned. No suspicious bony lesions. Soft tissues: No tibiotalar joint effusion. Achilles tendon appears normal. IMPRESSION: No acute osseous findings. Dictated by: Marcellus Valencia M.D. on 12/27/2021 at 11:11 Approved by: Marcellus Valencia M.D. on 12/27/2021 at 11:13
--- NOTE | 2021-12-27 13:57 | ED.LOWEXIN ---
HPI - Extremity Injury (Lower) General Chief Complaint: Extremity Injury, Lower Stated Complaint: Twisted Rt Ankle, [place] Time Seen by Provider: 12/27/21 13:57 Source: patient Mode of arrival: Wheelchair Limitations: no limitations History of Present Illness HPI Narrative: This is a 51-year-old female who takes multiple medications for psychiatric needs, patient states she is had multiple ankle sprains and states today she was attempting to separate her dog from a raccoon while they were fighting. She ran towards them in her sandals and tripped inverting her ankle. Patient states pain, swelling and ecchymosis of the right ankle 3 days ago. Patient has had pain with weight-bearing. Some slight tingling into her foot. Denies other injuries. States she is had multiple ankle injuries/sprains in the past but has not broken it before. She states she is allergic to ibuprofen makes her feel sick, Toradol causes a rash. Related Data Home Medications Medication Instructions Recorded Confirmed duloxetine 60 mg capsule,delayed 60 mg PO DAILY 12/22/18 09/08/20 release prazosin 1 mg capsule 1 mg PO QPM 12/22/18 09/08/20 quetiapine 100 mg tablet 100 mg PO BEDTIME 12/22/18 09/08/20 tizanidine 4 mg tablet 4 mg PO TID PRN Muscle Spasm 12/22/18 09/08/20 albuterol sulfate 90 mcg/actuation 2 puff inhalation QID PRN Wheezing 08/22/19 09/08/20 aerosol inhaler diazepam 10 mg tablet 10 mg PO BID PRN Anxiety 09/08/20 09/08/20 Previous Rx's Medication Instructions Recorded lidocaine 5 % topical patch 1 patch topical DAILY PRN pain 02/06/20 (scale score 4-6) #30 ea hydroxyzine pamoate 25 mg capsule 25 mg PO Q6HR PRN Spasms #30 caps 09/08/20 oxycodone 5 mg tablet 5 mg PO Q4HR PRN Pain, Moderate 09/08/20 (4-6) #40 tabs hydrocodone 5 mg-acetaminophen 325 1 tab PO Q4-6H PRN pain #10 tabs 10/15/20 mg tablet cyclobenzaprine 5 mg tablet 5 mg PO TID PRN muscle spasm #10 07/29/21 tabs cyclobenzaprine 5 mg tablet 5 mg PO TID PRN muscle spasm #10 07/29/21 tabs hydrocodone 5 mg-acetaminophen 325 1 tab PO Q6H PRN pain #10 tabs 07/29/21 mg tablet hydrocodone 5 mg-acetaminophen 325 1 tab PO Q6H PRN pain #10 tabs 07/29/21 mg tablet hydrocodone 5 mg-acetaminophen 325 1 tab PO Q6H PRN pain #10 tabs 12/27/21 mg tablet Allergies Allergy/AdvReac Type Severity Reaction Status Date / Time ibuprofen [IBUPROFEN] Allergy Mild VOMITING Verified 09/03/21 19:42 amoxicillin [AMOXICILLIN] Allergy Unknown Rash Verified 09/03/21 19:42 diclofenac [DICLOFENAC] Allergy Unknown Rash Verified 09/03/21 19:42 ketorolac [KETOROLAC] Allergy Unknown vomitting Verified 09/03/21 19:42 propoxyphene [PROPOXYPHENE] Allergy Unknown vomitting Verified 09/03/21 19:42 sertraline [SERTRALINE] Allergy Unknown vomitting Verified 09/03/21 19:42 Review of Systems Review of Systems ROS Unobtainable: All systems reviewed & are unremarkable except as noted in HPI and below Patient History Medical History Anxiety Bipolar depression Nephrolithiasis PTSD (post-traumatic stress disorder) Surgical History H/O removal of cyst History of renal stent Status post appendectomy Status post hysterectomy Social History household members: spouse Smoking Status: Current every day smoker alcohol intake: current Smoking Status: Current every day smoker tobacco type: cigarettes alcohol intake frequency: holidays/special occasions only Substance Use Type: marijuana Exam Narrative Exam Narrative: GENERAL: Alert and oriented x three, female in mild distress HEENT: Head normocephalic, atraumatic, EOMI, pupils reactive, face symmetric, moist mucous membranes NECK: Supple, full range of motion EXTREMITIES: Normal range of motion, patient has some swelling of the right ankle and into the dorsum of the foot, she has ecchymosis just below the lateral malleoli and over the dorsum the region of the talus, patient does not have any bony tenderness of the foot. Normal plantar dorsiflexion. Neurovascularly intact. Negative joint laxity testing. 2+ dorsalis pedis. Cap refill less than 2 seconds throughout all 5 toes with normal sensation intact throughout the foot. NEUROLOGICAL: Cranial nerves II through XII grossly intact. Moving all extremities SKIN: Warm, dry, no petechiae, no rashes or lesions no lacerations or abrasions. Initial Vital Signs Initial Vital Signs: Vital Signs Temperature 98.7 F 12/27/21 11:42 Pulse Rate 73 12/27/21 11:42 Respiratory Rate 18 12/27/21 11:42 Blood Pressure 110/62 12/27/21 11:42 Pulse Oximetry 97 12/27/21 11:42 Oxygen Delivery Method 12/27/21 11:42 Course Orders Ordered: ED Orders 12/27/21 11:46 XR ankle RT min 3V Stat Vital Signs Vital signs: Vital Signs - 8 hr 12/27/21 11:42 12/27/21 14:51 Temperature 98.7 F Pulse Rate 73 67 Respiratory Rate 18 16 Blood Pressure 110/62 118/71 Pulse Oximetry 97 97 Oxygen Delivery Method Room Air Room Air MDM - Extremity Injury (Lower) Imaging Data Extremity x-ray #1: Radiologist's Impression: [address] [id number] XRay Report Signed Patient: Peg Valencia MR#: [id number] : 1970 Acct:[id number] Age/Sex: 51 / F Date of Service: 12/27/21 Loc: ED Accession Number: [id number] ?? Procedure: XR ankle RT min 3V Ordering Provider: Nancy Steele D.O. PROCEDURE:? XR ANKLE RT MIN 3V ? INDICATIONS:? twisted/heard crack/pop ? TECHNIQUE:? 3 views of the ankle were acquired.? ? COMPARISON:? None. ? FINDINGS:? ? Bones:? No fractures or dislocations.? Ankle mortise is normally aligned.? No suspicious bony lesions.? ? Soft tissues:? No tibiotalar joint effusion.? Achilles tendon appears normal.? ? ? IMPRESSION:? No acute osseous findings. ? ? ? Dictated by: Marcellus Valencia M.D. on 12/27/2021 at 11:11 ? ? Approved by: Marcellus Valencia M.D. on 12/27/2021 at 11:13?? MDM Narrative Medical decision making narrative: 51-year-old female with exam consistent with ankle sprain but persistent pain with weight-bearing, x-ray shows no obvious fracture. Crutches, return precautions and pain management prescribed. Discharge Plan Departure Patient Disposition: Home Clinical Impression: Right ankle sprain, Abscess of right breast Instructions: DI for Ankle Sprain Activity Restrictions/Additional Instructions: Follow-up in 7-10 days for repeat evaluation and potential imaging symptoms are not improving at all. You may take [place] 1-2 tablets every 6 hours as needed for pain. This medication can make you sleepy do not drive, perform hazardous activities or make any major decisions while taking it. This medication will make you constipated please take a stool softener once to twice daily until stools are soft and regular. Prescription sent to [facility] in [place]. Splint Care: Keep splint clean and dry. Elevated affected body part to decrease swelling. OK to use ice pack on the affected body part. Use for 15-20 minutes each time, for 5-6x per day. If you develop worsening pain, numbness, tingling, discoloration of the affected body part, loosen the splint by loosening the BETH wrap, and either see your doctor for an urgent re-assessment, or return to the Emergency Department. Return to the Emergency Department for any new or worsening symptoms. Prescriptions: New hydrocodone-acetaminophen 5-325 mg tablet 1 tab PO Q6H PRN (Reason: pain) Qty: 10 0RF No Action tizanidine 4 mg tablet 4 mg PO TID PRN (Reason: Muscle Spasm) prazosin 1 mg capsule 1 mg PO QPM quetiapine 100 mg tablet 100 mg PO BEDTIME duloxetine 60 mg capsule,delayed release(DR/EC) 60 mg PO DAILY lidocaine 5 % adhesive patch,medicated 1 patch TOP DAILY PRN (Reason: pain (scale score 4-6)) Qty: 30 0RF Rx Instructions: leave on most painful area for up to 12 hrs then remove diazepam 10 mg Tablet 10 mg PO BID PRN (Reason: Anxiety) oxycodone 5 mg Tablet 5 mg PO Q4HR PRN (Reason: Pain, Moderate (4-6)) Qty: 40 0RF hydroxyzine pamoate 25 mg Capsule 25 mg PO Q6HR PRN (Reason: Spasms) Qty: 30 0RF albuterol sulfate 90 mcg/actuation HFA aerosol inhaler 2 puff INHALATION QID PRN (Reason: Wheezing) hydrocodone-acetaminophen 5-325 mg tablet 1 tab PO Q4-6H PRN (Reason: pain) Qty: 10 0RF hydrocodone-acetaminophen 5-325 mg tablet 1 tab PO Q6H PRN (Reason: pain) Qty: 10 0RF cyclobenzaprine 5 mg tablet 5 mg PO TID PRN (Reason: muscle spasm) Qty: 10 0RF hydrocodone-acetaminophen 5-325 mg tablet 1 tab PO Q6H PRN (Reason: pain) Qty: 10 0RF cyclobenzaprine 5 mg tablet 5 mg PO TID PRN (Reason: muscle spasm) Qty: 10 0RF Referrals: Juliann Patel PA-C [Primary Care Provider] - Visit Report Forms: Patient Portal/API
[2021-12-27 14:51] VITALS: BP 118/71; PULSE 67; RESP 16; O2SAT 97
== END 2021-12-27 14:52 | disposition home or self-care (01) ==
PROVIDERS: Emergency Provider Emergency Medicine; Family Provider Physician Assistant; PCP Physician Assistant
DX: S93.401A Sprain of unspecified ligament of right ankle, initial encounter (principal); X50.1XXA Overexertion from prolonged static or awkward postures, initial encounter
CPT/HCPCS: 73610; 99281; 99283

== ENCOUNTER 2022-01-10 16:06 | Emergency (ER) | payer OTHER, MEDICAID, SELFPAY ==
[2022-01-10] VITALS (10 sets, daily range): BP systolic 120–142; BP diastolic 60–77; PULSE 68–82; RESP 20–30; TEMP 36.8; O2SAT 91–96; BMI 25.7
--- NOTE | 2022-01-10 16:30 | PC.NURSE ---
Patient is in 9/10 flank pain. Pain immediately reported to Provider. Notified provider of patient stated allergies. Provider stated he would like to examine the patient prior to medicating. No new orders at this time.
[2022-01-10 16:45] LABS: Appearance Urine UA CLEAR; Bilirubin Urine UA NEGATIVE (NEGATIVE); Color Urine UA YELLOW; Glucose Urine UA NEGATIVE (Negative); Ketones Urine UA NEGATIVE (NEGATIVE); Leukocyte Esterase Urine UA NEGATIVE (NEGATIVE); Nitrite Urine UA NEGATIVE (Negative); Occult Blood Urine UA 2+ (Negative); Protein Urine UA NEGATIVE (Negative); Specific Gravity Urine UA <=1.005 (1.000-1.035); Urobilinogen Urine UA 0.2 E.U./dL (0.2)
[2022-01-10 16:52] LABS: Bacteria Urine None Seen; Culture Indicated Urine Cult Not Indicated; RBC Urine 5-10/HPF (0-5/HPF); Squamous Epithelial Cell Urine 1-5 /HPF (0-5/HPF); WBC Urine 0-1/HPF (0-5/HPF)
--- NOTE | 2022-01-10 17:00 | PC.NURSE ---
pt in severe pain 10/10, pt reports pain worsening from check in and wants medications, pt awaiting provider evaluation. provider notified and no new orders at this time.
[2022-01-10 17:33] LABS: Add Manual Diff / Slide Review NO; Basophils Absolute Auto 0 /uL (0-100); Basophils Percent Auto 0.3 % (0-2); Eosinophils Absolute Auto 0 /uL (0-450); Eosinophils Percent Auto 0.2 % (2-4); Hematocrit 40.5 % (36-46); Hemoglobin 14.1 g/dL (12.0-16.0); Lymphocytes Absolute Auto 1800 /uL (1100-4500); Lymphocytes Percent Auto 17.8 % (25-40); Mean Corpuscular HGB Conc 34.8 % (30-36); Mean Corpuscular Hemoglobin 30.6 PG (26-34); Mean Corpuscular Volume 87.9 fL (80-100); Monocytes Absolute Auto 500 /uL (0-900); Monocytes Percent Auto 5.1 % (3-14); Neutrophils Absolute Auto 7700 /uL (1500-7000); Neutrophils Percent Auto 76.6 % (50-75); Platelet Count 275 X10^3/uL (150-400); Red Blood Cell Count 4.61 X10^6/uL (4.0-5.2); Red Cell Distribution Width 14.3 % (11.6-14.8)
[2022-01-10 17:47] LABS: Alanine Aminotransferase 15 IU/L (<35); Albumin 4.1 g/dL (3.5-5.0); Albumin Globulin Ratio 1.3 (1.0-2.8); Alkaline Phosphatase 103 U/L (38-126); Aspartate Aminotransferase 21 IU/L (14-36); BUN Creatinine Ratio 11.9 (6-22); Bilirubin Total 0.4 mg/dL (0.2-1.3); Blood Urea Nitrogen 8 mg/dL (7-17); Carbon Dioxide 24 mmol/L (22-32); Chloride 107 mmol/L (98-107); Estimated Glomerular Filt Rate > 60 mL/min (>60); Globulin 3.1 g/dL (1.7-4.1); Glucose 100 mg/dL (70-100); HEMOLYSIS < 15 (0-50); Lipase 71 U/L (23-300); Potassium 3.7 mmol/L (3.4-5.1); Sodium 139 mmol/L (137-145); Total Protein 7.2 g/dL (6.3-8.2)
--- NOTE | 2022-01-10 18:05 | PC.NURSE ---
Patient used call light to inform this RN that they are still in pain. New pain scale is 10/10 flank pain. Provider immediately notified. No new orders at this time.
--- NOTE | 2022-01-10 18:35 | PC.NURSE ---
I approached provider to ask if he had seen the patient yet. Patient continues to report 10/10 flank pain. Provider states no, thank you for reminding me I will be going in there next. No new orders given to this RN at this time.
--- NOTE | 2022-01-10 18:39 | PC.NURSE ---
This OUTREACH DIRECTOR answered a call light at [phone], patient in tears reporting a 10/10 pain, RN and provider notified.
--- NOTE | 2022-01-10 18:40 | PC.NURSE ---
Pt called me into room. crying wanting to leave. stating she was having pain. requesting that the doctor come in to see her. emotional support to patient. I made provider aware. Provider stated he was going in to see the patient.
--- NOTE | 2022-01-10 18:47 | PC.NURSE ---
provider at bedside [id number]
--- NOTE | 2022-01-10 18:51 | ED.FEMALEGU ---
HPI - Female Genitourinary <Horace Glasgow PA-C - Last Filed: 01/10/22 20:31> General Chief complaint: Urogenital-Female Stated complaint: kidney pain x3 days Time Seen by Provider: 01/10/22 16:18 Source: patient Mode of arrival: Ambulatory History of Present Illness HPI Narrative: Patient is a 51-year-old female who presents to the emergency room today with complaint of right-sided kidney pain. Patient states this started about 3 days ago. Facial pain is right in the mid kidney area and does not radiate. Patient admits to having a history of kidney stones and last kidney stone was about 3 months ago. Is allergic to Toradol Dilaudid and felt a pain in the past. Pain at this time is about a 10/10. Denies any other concerns. Related Data Home Medications Medication Instructions Recorded Confirmed duloxetine 60 mg capsule,delayed 60 mg PO DAILY 12/22/18 09/08/20 release prazosin 1 mg capsule 1 mg PO QPM 12/22/18 09/08/20 quetiapine 100 mg tablet 100 mg PO BEDTIME 12/22/18 09/08/20 tizanidine 4 mg tablet 4 mg PO TID PRN Muscle Spasm 12/22/18 09/08/20 albuterol sulfate 90 mcg/actuation 2 puff inhalation QID PRN Wheezing 08/22/19 09/08/20 aerosol inhaler diazepam 10 mg tablet 10 mg PO BID PRN Anxiety 09/08/20 09/08/20 Previous Rx's Medication Instructions Recorded lidocaine 5 % topical patch 1 patch topical DAILY PRN pain 02/06/20 (scale score 4-6) #30 ea hydroxyzine pamoate 25 mg capsule 25 mg PO Q6HR PRN Spasms #30 caps 09/08/20 oxycodone 5 mg tablet 5 mg PO Q4HR PRN Pain, Moderate 09/08/20 (4-6) #40 tabs hydrocodone 5 mg-acetaminophen 325 1 tab PO Q4-6H PRN pain #10 tabs 10/15/20 mg tablet cyclobenzaprine 5 mg tablet 5 mg PO TID PRN muscle spasm #10 07/29/21 tabs cyclobenzaprine 5 mg tablet 5 mg PO TID PRN muscle spasm #10 07/29/21 tabs hydrocodone 5 mg-acetaminophen 325 1 tab PO Q6H PRN pain #10 tabs 07/29/21 mg tablet hydrocodone 5 mg-acetaminophen 325 1 tab PO Q6H PRN pain #10 tabs 07/29/21 mg tablet hydrocodone 5 mg-acetaminophen 325 1 tab PO Q6H PRN pain #10 tabs 12/27/21 mg tablet ondansetron 4 mg oral soluble film 4 mg PO Q8H #30 ea 01/10/22 oxycodone-acetaminophen 5 mg-325 1 tab PO Q6H PRN pain #20 tabs 01/10/22 mg tablet (Percocet) tamsulosin 0.4 mg capsule (Flomax) 0.4 mg PO DAILY #30 caps 01/10/22 Allergies Allergy/AdvReac Type Severity Reaction Status Date / Time ibuprofen [IBUPROFEN] Allergy Mild VOMITING Verified 09/03/21 19:42 amoxicillin [AMOXICILLIN] Allergy Unknown Rash Verified 09/03/21 19:42 diclofenac [DICLOFENAC] Allergy Unknown Rash Verified 09/03/21 19:42 ketorolac [KETOROLAC] Allergy Unknown vomitting Verified 09/03/21 19:42 propoxyphene [PROPOXYPHENE] Allergy Unknown vomitting Verified 09/03/21 19:42 sertraline [SERTRALINE] Allergy Unknown vomitting Verified 09/03/21 19:42 Review of Systems <Horace Glasgow PA-C - Last Filed: 01/10/22 20:31> Review of Systems Narrative: R.O.S.: General: No fever, chills or fatigue. Cardiovascular: No chest pain or palpitations Respiratory: No S.O.B. HEENT: No congestion, ear pain, rhinorrhea, sore throat or tinnitus Gastrointestinal: No nausea or vomiting Skin: No rash or associated abnormalities Musculoskeletal: No pain in muscles or joints, no limitation of range of motion, no paresthesia or numbness. ?? Neurological: Awake, alert and in not apparent distress. No Headaches, changes in vision or other related neurological concerns. Patient History <Horace Glasgow PA-C - Last Filed: 01/10/22 20:31> Medical History Anxiety Bipolar depression Nephrolithiasis PTSD (post-traumatic stress disorder) Surgical History (Reviewed 09/04/22 @ 14:37 by TAMARA Diallo H/O removal of cyst History of renal stent Status post appendectomy Status post hysterectomy tobacco type: cigarettes alcohol intake frequency: holidays/special occasions only Substance Use Type: marijuana Exam <Horace Glasgow PA-C - Last Filed: 01/10/22 20:31> Narrative Exam Narrative: Physical Exam: ? General: normal appearance, well developed, well nourished, alert, and awake. Not in acute distress. ? Head: Normocephalic, no lesions. Chest: Lungs CTAB, no rales, rhonchi or wheezes. ?? Heart: RRR, no murmurs, rubs or gallops. Eyes: PERRLA, EOM's full, conjunctivae clear. ? Neuro: Physiological, no localizing findings, CN3-12 intact. ?? Extremities: Warm, well perfused, FROM, no deformities, no edema. ?? Skin: Normal, no rashes, no lesions noted. ?? PSYCHIATRIC: The mood is good, no blunted affect. Speech is clear. Thought process is linear, thought content is appropriate. The voice is without significant inflection. Gastrointestinal: Positive CVA tenderness on right side; Soft; NT; ND; Pos BS with Neg. rebound tenderness. No scars or major deformities noted on Visual Inspection. Initial Vital Signs Initial Vital Signs: Vital Signs Temperature 98.3 F 01/10/22 16:24 Pulse Rate 82 01/10/22 16:24 Respiratory Rate 20 01/10/22 16:24 Blood Pressure 120/60 01/10/22 16:24 Pulse Oximetry 94 01/10/22 16:24 Oxygen Delivery Method 01/10/22 16:24 <Toby Castro DO - Last Filed: 01/11/22 00:10> Initial Vital Signs Initial Vital Signs: Vital Signs Temperature 98.3 F 01/10/22 16:24 Pulse Rate 82 01/10/22 16:24 Respiratory Rate 20 01/10/22 16:24 Blood Pressure 120/60 01/10/22 16:24 Pulse Oximetry 94 01/10/22 16:24 Oxygen Delivery Method 01/10/22 16:24 Course <Horace Glasgow PA-C - Last Filed: 01/10/22 20:31> Orders Ordered: ED Orders 01/10/22 16:20 Urinalysis and Microscopic Stat 09/18/22 17:16 Complete Blood Count AUTO DIFF Stat Comprehensive Metabolic Panel Stat Lipase Stat 01/10/22 18:56 CT kidney ureter bladder (KUB) Stat Discontinued Medications Hydromorphone HCl (Hydromorphone 1 Mg Inj) 1 mg IM NOW ONE Stop: 01/10/22 18:51 Last Admin: 01/10/22 18:59 Dose: Not Given Documented By: RB Hydromorphone HCl (Hydromorphone 1 Mg Inj) 1 mg IV NOW ONE Stop: 01/10/22 18:54 Last Admin: 01/10/22 18:54 Dose: 1 mg Documented By: RB Vital Signs Vital signs: Vital Signs - 8 hr 01/10/22 16:24 01/10/22 16:34 01/10/22 16:35 Temperature 98.3 F Pulse Rate 82 81 Respiratory Rate 20 Blood Pressure 120/60 120/60 Pulse Oximetry 94 96 Oxygen Delivery Method Room Air 01/10/22 16:35 01/10/22 18:20 01/10/22 18:21 Temperature Pulse Rate 82 Respiratory Rate Blood Pressure 126/76 Pulse Oximetry 95 96 Oxygen Delivery Method 01/10/22 18:21 01/10/22 18:30 01/10/22 18:30 Temperature Pulse Rate 74 74 Respiratory Rate 20 Blood Pressure 132/77 Pulse Oximetry 95 93 Oxygen Delivery Method 01/10/22 18:59 01/10/22 18:59 01/10/22 19:00 Temperature Pulse Rate 79 Respiratory Rate 30 H Blood Pressure 142/76 H 135/74 Pulse Oximetry 93 Oxygen Delivery Method 01/10/22 19:00 01/10/22 19:30 01/10/22 20:00 Temperature Pulse Rate 76 68 75 Respiratory Rate 27 H 29 H 27 H Blood Pressure Pulse Oximetry 92 93 91 Oxygen Delivery Method <Toby Castro DO - Last Filed: 01/11/22 00:10> Orders Ordered: ED Orders 01/10/22 16:20 Urinalysis and Microscopic Stat 01/10/22 17:16 Complete Blood Count AUTO DIFF Stat Comprehensive Metabolic Panel Stat Lipase Stat 01/10/22 18:56 CT kidney ureter bladder (KUB) Stat Discontinued Medications Hydromorphone HCl (Hydromorphone 1 Mg Inj) 1 mg IM NOW ONE Stop: 01/10/22 18:51 Last Admin: 01/10/22 18:59 Dose: Not Given Documented By: RB Hydromorphone HCl (Hydromorphone 1 Mg Inj) 1 mg IV NOW ONE Stop: 01/10/22 18:54 Last Admin: 01/10/22 18:54 Dose: 1 mg Documented By: [facility] Vital Signs Vital signs: Vital Signs - 8 hr 01/10/22 16:24 01/10/22 16:34 01/10/22 16:35 Temperature 98.3 F Pulse Rate 82 81 Respiratory Rate 20 Blood Pressure 120/60 120/60 Pulse Oximetry 94 96 Oxygen Delivery Method Room Air 01/10/22 16:35 01/10/22 18:20 01/10/22 18:21 Temperature Pulse Rate 82 Respiratory Rate Blood Pressure 126/76 Pulse Oximetry 95 96 Oxygen Delivery Method 01/10/22 18:21 01/10/22 18:30 01/10/22 18:30 Temperature Pulse Rate 74 74 Respiratory Rate 20 Blood Pressure 132/77 Pulse Oximetry 95 93 Oxygen Delivery Method 01/10/22 18:59 01/10/22 18:59 01/10/22 19:00 Temperature Pulse Rate 79 Respiratory Rate 30 H Blood Pressure 142/76 H 135/74 Pulse Oximetry 93 Oxygen Delivery Method 01/10/22 19:00 01/10/22 19:30 01/10/22 20:00 Temperature Pulse Rate 76 68 75 Respiratory Rate 27 H 29 H 27 H Blood Pressure Pulse Oximetry 92 93 91 Oxygen Delivery Method MDM - Female Genitourinary <Horace Glasgow PA-C - Last Filed: 01/10/22 20:31> Lab Data Result diagrams: 01/10/22 17:16 01/10/22 17:16 Labs: Lab Results 01/10/22 01/10/22 01/10/22 Range/Units 16:20 17:16 17:16 WBC 10.0 (4.5-11.0) X10^3/uL RBC 4.61 (4.0-5.2) X10^6/uL Hgb 14.1 (12.0-16.0) g/dL Hct 40.5 (36-46) % MCV 87.9 (80-100) fL MCH 30.6 (26-34) PG MCHC 34.8 (30-36) % RDW 14.3 (11.6-14.8) % Plt Count 275 (150-400) X10^3/uL Neut % (Auto) 76.6 H (50-75) % Lymph % (Auto) 17.8 L (25-40) % [place] % (Auto) 5.1 (3-14) % Eos % (Auto) 0.2 L (2-4) % Baso % (Auto) 0.3 (0-2) % Neut # (Auto) 7700 H (8100-3325) /uL Lymph # (Auto) 1800 (0495-8849) /uL [place] # (Auto) 500 (0-900) /uL Eos # (Auto) 0 (0-450) /uL Baso # (Auto) 0 (0-100) /uL Sodium 139 (137-145) mmol/L Potassium 3.7 (3.4-5.1) mmol/L Chloride 107 (98-107) mmol/L Carbon Dioxide 24 (22-32) mmol/L BUN 8 (7-17) mg/dL Creatinine 0.67 (0.52-1.04) mg/dL Estimated GFR > 60 (>60) mL/min BUN/Creatinine Ratio 11.9 (6-22) Glucose 100 (70-100) mg/dL Calcium 9.0 (8.4-10.2) mg/dL Total Bilirubin 0.4 (0.2-1.3) mg/dL AST 21 (14-36) IU/L ALT 15 (<35) IU/L Alkaline Phosphatase 103 (38-126) U/L Total Protein 7.2 (6.3-8.2) g/dL Albumin 4.1 (3.5-5.0) g/dL Globulin 3.1 (1.7-4.1) g/dL Albumin/Globulin Ratio 1.3 (1.0-2.8) Lipase 71 (23-300) U/L Urine Color Yellow Urine Appearance Clear Urine pH 7.0 (4.5-8.0) Ur Specific [place] <=1.005 (1.000-1.035) Urine Protein Negative (Negative) Urine Glucose (UA) Negative (Negative) g/dL Urine Ketones Negative (NEGATIVE) Urine Occult Blood 2+ H (Negative) Urine Nitrate Negative (Negative) Urine Bilirubin Negative (NEGATIVE) Urine Urobilinogen 0.2 (0.2) E.U./dL Ur Leukocyte Esterase Negative (NEGATIVE) Urine RBC 5-10/hpf H (0-5/HPF) Urine WBC 0-1/hpf (0-5/HPF) Ur Squamous Epith Cells 1-5 /hpf (0-5/HPF) Urine Bacteria None seen (None) Ur Culture Indicated? Cult not indicated Urine Dip Bedside Urine Glucose Negative Bedside Urine Bilirubin - Negative Bedside Urine Ketone - Negative Urine Specific [place] 1.005 Bedside Urine Occult Blood + Bedside Urine pH 7.0 Bedside Urine Protein - Negative Bedside Urine Urobilinogen - Negative Bedside Urine Nitrite - Negative Bedside Urine Leukocytes - Negative Esterase Imaging Data CT scan - abdomen/pelvis: My Impression: PROCEDURE:? CT KIDNEY URETER BLADDER (KUB) ? INDICATIONS:? Right sided Kidney pain ? TECHNIQUE:? Axial sections were acquired from the lung bases to the pubic symphysis.? Coronal and sagittal reformats were performed.? For radiation dose reduction, the following was used: ?automated exposure control, adjustment of mA and/or kV according to patient size.? ? COMPARISON:? [facility], CT, CT KIDNEY URETER BLADDER (KUB), 07/29/2021, 15:07. ? FINDINGS:? Image quality:? Excellent.? ? Lung bases:? Unremarkable.? ? Heart:? No significant findings. ? URINARY: No perinephric fat stranding.? Nonobstructing punctate calcification within the inferior pole left kidney, as before. ? Bladder:? Normal wall thickness. No stones. ? ? ? ABDOMEN: Liver:? Unremarkable.? ? Gallbladder:? Surgically absent Biliary ducts:? Unremarkable.? ? Pancreas:? Unremarkable.? ? Spleen:? Unremarkable.? ? Adrenal Glands:? Unremarkable.? ? ? Stomach and Bowel:? Stomach, small bowel loops, and colon are unremarkable.? Appendix not seen.? No evidence of appendicitis. Peritoneum:? No abnormal intraperitoneal fluid.? No free air.? ? Ventral Wall: ? No hernia.? Abdominal Nodes:? No enlarged retroperitoneal or mesenteric lymph nodes.? Vessels:? Aorta and inferior vena cava are normal in size.? ? PELVIS: Pelvic Organs:? Unremarkable.? ? Pelvic Nodes: Unremarkable. Miscellaneous: No inguinal hernias are seen. ? ? ? Bones:? Unremarkable. ? IMPRESSION:? ? 1. Nonobstructing left renal calcification.? No evidence of urinary tract obstruction. 2. Appendix not seen.? No evidence of appendicitis. ? ? Dictated by: Chriss Nation M.D. on 01/10/2022 at 19:16 ? ? Approved by: Chriss Nation M.D. on 01/10/2022 at 19:17 ? MDM Narrative Medical decision making narrative: Patient is a 51-year-old female who presents to the emergency room today with complaint right-sided pain for the last 3 days. Has a history of kidney stones as recently as 3 months ago and has pain at this point of a 10/10. Is allergic to Toradol so Dilaudid was ordered at his work in the past to help with pain. CT KUB was a diagnostic or kidney stone at this time. Urine revealed 2+ urine occult blood and 5-10 urine RBC per high-powered field. Discussed with patient do a CT KUB results and informed patient that there is still a slight possibility that she could have a kidney stone 5 years patient treated with pain medications Flomax and Zofran. Patient advised to return for any emergent concerns arise. <Toby Castro, - Last Filed: 01/11/22 00:10> Lab Data Labs: Lab Results 01/10/22 01/10/22 01/10/22 Range/Units 16:20 17:16 17:16 WBC 10.0 (4.5-11.0) X10^3/uL RBC 4.61 (4.0-5.2) X10^6/uL Hgb 14.1 (12.0-16.0) g/dL Hct 40.5 (36-46) % MCV 87.9 (80-100) fL MCH 30.6 (26-34) PG MCHC 34.8 (30-36) % RDW 14.3 (11.6-14.8) % Plt Count 275 (150-400) X10^3/uL Neut % (Auto) 76.6 H (50-75) % Lymph % (Auto) 17.8 L (25-40) % [place] % (Auto) 5.1 (3-14) % Eos % (Auto) 0.2 L (2-4) % Baso % (Auto) 0.3 (0-2) % Neut # (Auto) 7700 H (7168-9937) /uL Lymph # (Auto) 1800 (9057-1414) /uL [place] # (Auto) 500 (0-900) /uL Eos # (Auto) 0 (0-450) /uL Baso # (Auto) 0 (0-100) /uL Sodium 139 (137-145) mmol/L Potassium 3.7 (3.4-5.1) mmol/L Chloride 107 (98-107) mmol/L Carbon Dioxide 24 (22-32) mmol/L BUN 8 (7-17) mg/dL Creatinine 0.67 (0.52-1.04) mg/dL Estimated GFR > 60 (>60) mL/min BUN/Creatinine Ratio 11.9 (6-22) Glucose 100 (70-100) mg/dL Calcium 9.0 (8.4-10.2) mg/dL Total Bilirubin 0.4 (0.2-1.3) mg/dL AST 21 (14-36) IU/L ALT 15 (<35) IU/L Alkaline Phosphatase 103 (38-126) U/L Total Protein 7.2 (6.3-8.2) g/dL Albumin 4.1 (3.5-5.0) g/dL Globulin 3.1 (1.7-4.1) g/dL Albumin/Globulin Ratio 1.3 (1.0-2.8) Lipase 71 (23-300) U/L Urine Color Yellow Urine Appearance Clear Urine pH 7.0 (4.5-8.0) Ur Specific [place] <=1.005 (1.000-1.035) Urine Protein Negative (Negative) Urine Glucose (UA) Negative (Negative) g/dL Urine Ketones Negative (NEGATIVE) Urine Occult Blood 2+ H (Negative) Urine Nitrate Negative (Negative) Urine Bilirubin Negative (NEGATIVE) Urine Urobilinogen 0.2 (0.2) E.U./dL Ur Leukocyte Esterase Negative (NEGATIVE) Urine RBC 5-10/hpf H (0-5/HPF) Urine WBC 0-1/hpf (0-5/HPF) Ur Squamous Epith Cells 1-5 /hpf (0-5/HPF) Urine Bacteria None seen (None) Ur Culture Indicated? Cult not indicated Urine Dip Bedside Urine Glucose Negative Bedside Urine Bilirubin - Negative Bedside Urine Ketone - Negative Urine Specific [place] 1.005 Bedside Urine Occult Blood + Bedside Urine pH 7.0 Bedside Urine Protein - Negative Bedside Urine Urobilinogen - Negative Bedside Urine Nitrite - Negative Bedside Urine Leukocytes - Negative Esterase Discharge Plan Departure Patient Disposition: Home Clinical Impression: Back pain Instructions: DI for Low Back Pain Activity Restrictions/Additional Instructions: *You have been diagnosed with back pain. CT scan did not discover a kidney stone at this time. Dysuria complaints I am still ordering medicine to help move a potential stone. I have also ordered medicine helped with nausea and pain. *What to do: *Please continue to take your regular medications as directed. [ ] New medication prescriptions sent to your pharmacy: [ ] [x] New medication written as a paper prescription [ ] No new medications given *Please follow up with your primary care provider in 2-3 days, call for an appointment. Let them know you were seen in the Emergency Department and that we ask that you be seen in follow up. We will electronically transmit a record of today's note if your PCP is in our system *If you do not have a primary care provider please contact the [facility] Resource line at [phone]. They will ask some questions about your medical history and help get you set up with a doctor in the community. *Return to Emergency Department if you should have any new, worsening or concerning symptoms, such as [fever greater than 101 F, shaking chills, worsening pain, persistent vomiting or other bothersome symptoms] Prescriptions: New oxycodone-acetaminophen [Percocet] 5-325 mg tablet 1 tab PO Q6H PRN (Reason: pain) Qty: 20 0RF ondansetron 4 mg film 4 mg PO Q8H Qty: 30 0RF tamsulosin [Flomax] 0.4 mg capsule 0.4 mg PO DAILY Qty: 30 0RF No Action tizanidine 4 mg tablet 4 mg PO TID PRN (Reason: Muscle Spasm) prazosin 1 mg capsule 1 mg PO QPM quetiapine 100 mg tablet 100 mg PO BEDTIME duloxetine 60 mg capsule,delayed release(DR/EC) 60 mg PO DAILY lidocaine 5 % adhesive patch,medicated 1 patch TOP DAILY PRN (Reason: pain (scale score 4-6)) Qty: 30 0RF Rx Instructions: leave on most painful area for up to 12 hrs then remove diazepam 10 mg Tablet 10 mg PO BID PRN (Reason: Anxiety) oxycodone 5 mg Tablet 5 mg PO Q4HR PRN (Reason: Pain, Moderate (4-6)) Qty: 40 0RF hydroxyzine pamoate 25 mg Capsule 25 mg PO Q6HR PRN (Reason: Spasms) Qty: 30 0RF albuterol sulfate 90 mcg/actuation HFA aerosol inhaler 2 puff INHALATION QID PRN (Reason: Wheezing) hydrocodone-acetaminophen 5-325 mg tablet 1 tab PO Q4-6H PRN (Reason: pain) Qty: 10 0RF hydrocodone-acetaminophen 5-325 mg tablet 1 tab PO Q6H PRN (Reason: pain) Qty: 10 0RF cyclobenzaprine 5 mg tablet 5 mg PO TID PRN (Reason: muscle spasm) Qty: 10 0RF hydrocodone-acetaminophen 5-325 mg tablet 1 tab PO Q6H PRN (Reason: pain) Qty: 10 0RF cyclobenzaprine 5 mg tablet 5 mg PO TID PRN (Reason: muscle spasm) Qty: 10 0RF hydrocodone-acetaminophen 5-325 mg tablet 1 tab PO Q6H PRN (Reason: pain) Qty: 10 0RF Referrals: Juliann Patel PA-C [Primary Care Provider] - Visit Report Forms: Patient Portal/API <Toby Castro DO - Last Filed: 01/11/22 00:10> Cosjesus alberto ED Attending Dariela Attestation: I was immediately available in the department for consultation. Documentation has been reviewed. I agree with assessment and plan.
[2022-01-10] MEDS: HYDROMORPHONE 1 MG INJ IV (18:54)
--- NOTE | 2022-01-10 18:56 | DI.CT.S_ITS ---
PROCEDURE: CT KIDNEY URETER BLADDER (KUB) INDICATIONS: Right sided Kidney pain TECHNIQUE: Axial sections were acquired from the lung bases to the pubic symphysis. Coronal and sagittal reformats were performed. For radiation dose reduction, the following was used: automated exposure control, adjustment of mA and/or kV according to patient size. COMPARISON: [facility], CT, CT KIDNEY URETER BLADDER (KUB), 07/29/2021, 15:07. FINDINGS: Image quality: Excellent. Lung bases: Unremarkable. Heart: No significant findings. URINARY: No perinephric fat stranding. Nonobstructing punctate calcification within the inferior pole left kidney, as before. Bladder: Normal wall thickness. No stones. ABDOMEN: Liver: Unremarkable. Gallbladder: Surgically absent Biliary ducts: Unremarkable. Pancreas: Unremarkable. Spleen: Unremarkable. Adrenal Glands: Unremarkable. Stomach and Bowel: Stomach, small bowel loops, and colon are unremarkable. Appendix not seen. No evidence of appendicitis. Peritoneum: No abnormal intraperitoneal fluid. No free air. Ventral Wall: No hernia. Abdominal Nodes: No enlarged retroperitoneal or mesenteric lymph nodes. Vessels: Aorta and inferior vena cava are normal in size. PELVIS: Pelvic Organs: Unremarkable. Pelvic Nodes: Unremarkable. Miscellaneous: No inguinal hernias are seen. Bones: Unremarkable. IMPRESSION: 1. Nonobstructing left renal calcification. No evidence of urinary tract obstruction. 2. Appendix not seen. No evidence of appendicitis. Dictated by: Chriss Nation M.D. on 01/10/2022 at 19:16 Approved by: Chriss Nation M.D. on 01/10/2022 at 19:17
--- NOTE | 2022-01-10 19:00 | PC.NURSE ---
Provider placed order for dilaudid 1mg IM. I approached provider to ask if we could administer this medication via the existing IV. Provider agreed and discontinued this order and created an updated order. Medication administered.
--- NOTE | 2022-01-10 19:22 | PC.NURSE ---
Gave report to Keshav LU for this patient. 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 Reassessed pain with the patient. Patient states that her pain is an 8/10 but that the medication has taken the edge off. I informed Keshav and the provider.
== END 2022-01-10 20:34 | disposition home or self-care (01) ==
PROVIDERS: Emergency Provider Physician Assistant; Family Provider Physician Assistant; PCP Physician Assistant
DX: M54.50 Low back pain, unspecified (principal); Z87.442 Personal history of urinary calculi
CPT/HCPCS: 36415; 74176; 80053; 81001; 81003; 83690; 85025; 96374; 99284; J1170

== ENCOUNTER 2022-02-09 15:58 | Emergency (ER) | payer OTHER, MEDICAID, SELFPAY ==
[2022-02-09 16:08] VITALS: BP 119/71; PULSE 81; RESP 18; TEMP 36.2; O2SAT 98; BMI 25.7
--- NOTE | 2022-02-09 18:07 | ED.FEMALEGU ---
HPI - Female Genitourinary General Chief complaint: Urogenital-Female Stated complaint: PAIN IN KIDNEYS/PELVIC Time Seen by Provider: 02/09/22 18:03 Source: patient Mode of arrival: Ambulatory Related Data Home Medications Medication Instructions Recorded Confirmed duloxetine 60 mg capsule,delayed 60 mg PO DAILY 12/22/18 09/08/20 release prazosin 1 mg capsule 1 mg PO QPM 12/22/18 09/08/20 quetiapine 100 mg tablet 100 mg PO BEDTIME 12/22/18 09/08/20 tizanidine 4 mg tablet 4 mg PO TID PRN Muscle Spasm 12/22/18 09/08/20 albuterol sulfate 90 mcg/actuation 2 puff inhalation QID PRN Wheezing 08/22/19 09/08/20 aerosol inhaler diazepam 10 mg tablet 10 mg PO BID PRN Anxiety 09/08/20 09/08/20 Previous Rx's Medication Instructions Recorded lidocaine 5 % topical patch 1 patch topical DAILY PRN pain 02/06/20 (scale score 4-6) #30 ea hydroxyzine pamoate 25 mg capsule 25 mg PO Q6HR PRN Spasms #30 caps 09/08/20 oxycodone 5 mg tablet 5 mg PO Q4HR PRN Pain, Moderate 09/08/20 (4-6) #40 tabs hydrocodone 5 mg-acetaminophen 325 1 tab PO Q4-6H PRN pain #10 tabs 10/15/20 mg tablet cyclobenzaprine 5 mg tablet 5 mg PO TID PRN muscle spasm #10 07/29/21 tabs cyclobenzaprine 5 mg tablet 5 mg PO TID PRN muscle spasm #10 07/29/21 tabs hydrocodone 5 mg-acetaminophen 325 1 tab PO Q6H PRN pain #10 tabs 07/29/21 mg tablet hydrocodone 5 mg-acetaminophen 325 1 tab PO Q6H PRN pain #10 tabs 07/29/21 mg tablet hydrocodone 5 mg-acetaminophen 325 1 tab PO Q6H PRN pain #10 tabs 12/27/21 mg tablet ondansetron 4 mg oral soluble film 4 mg PO Q8H #30 ea 01/10/22 oxycodone-acetaminophen 5 mg-325 1 tab PO Q6H PRN pain #20 tabs 01/10/22 mg tablet (Percocet) tamsulosin 0.4 mg capsule (Flomax) 0.4 mg PO DAILY #30 caps 01/10/22 Allergies Allergy/AdvReac Type Severity Reaction Status Date / Time ibuprofen [IBUPROFEN] Allergy Mild VOMITING Verified 02/09/22 16:12 amoxicillin [AMOXICILLIN] Allergy Unknown Rash Verified 02/09/22 16:12 diclofenac [DICLOFENAC] Allergy Unknown Rash Verified 02/09/22 16:12 ketorolac [KETOROLAC] Allergy Unknown vomitting Verified 02/09/22 16:12 propoxyphene [PROPOXYPHENE] Allergy Unknown vomitting Verified 02/09/22 16:12 sertraline [SERTRALINE] Allergy Unknown vomitting Verified 02/09/22 16:12 Patient History Medical History Anxiety Bipolar depression Nephrolithiasis PTSD (post-traumatic stress disorder) Surgical History H/O removal of cyst History of renal stent Status post appendectomy Status post hysterectomy tobacco type: cigarettes alcohol intake frequency: holidays/special occasions only Substance Use Type: marijuana Exam Initial Vital Signs Initial Vital Signs: Vital Signs Temperature 97.2 F L 02/09/22 16:08 Pulse Rate 81 02/09/22 16:08 Respiratory Rate 18 02/09/22 16:08 Blood Pressure 119/71 02/09/22 16:08 Pulse Oximetry 98 02/09/22 16:08 Oxygen Delivery Method 02/09/22 16:08 Course Orders Ordered: ED Orders 02/09/22 17:52 Urinalysis and Microscopic Stat Vital Signs Vital signs: Vital Signs - 8 hr 02/09/22 16:08 Temperature 97.2 F L Pulse Rate 81 Respiratory Rate 18 Blood Pressure 119/71 Pulse Oximetry 98 Oxygen Delivery Method Room Air Discharge Plan Departure Prescriptions: No Action tizanidine 4 mg tablet 4 mg PO TID PRN (Reason: Muscle Spasm) prazosin 1 mg capsule 1 mg PO QPM quetiapine 100 mg tablet 100 mg PO BEDTIME duloxetine 60 mg capsule,delayed release(DR/EC) 60 mg PO DAILY lidocaine 5 % adhesive patch,medicated 1 patch TOP DAILY PRN (Reason: pain (scale score 4-6)) Qty: 30 0RF Rx Instructions: leave on most painful area for up to 12 hrs then remove diazepam 10 mg Tablet 10 mg PO BID PRN (Reason: Anxiety) oxycodone 5 mg Tablet 5 mg PO Q4HR PRN (Reason: Pain, Moderate (4-6)) Qty: 40 0RF hydroxyzine pamoate 25 mg Capsule 25 mg PO Q6HR PRN (Reason: Spasms) Qty: 30 0RF oxycodone-acetaminophen [Percocet] 5-325 mg tablet 1 tab PO Q6H PRN (Reason: pain) Qty: 20 0RF ondansetron 4 mg film 4 mg PO Q8H Qty: 30 0RF tamsulosin [Flomax] 0.4 mg capsule 0.4 mg PO DAILY Qty: 30 0RF albuterol sulfate 90 mcg/actuation HFA aerosol inhaler 2 puff INHALATION QID PRN (Reason: Wheezing) hydrocodone-acetaminophen 5-325 mg tablet 1 tab PO Q4-6H PRN (Reason: pain) Qty: 10 0RF hydrocodone-acetaminophen 5-325 mg tablet 1 tab PO Q6H PRN (Reason: pain) Qty: 10 0RF cyclobenzaprine 5 mg tablet 5 mg PO TID PRN (Reason: muscle spasm) Qty: 10 0RF hydrocodone-acetaminophen 5-325 mg tablet 1 tab PO Q6H PRN (Reason: pain) Qty: 10 0RF cyclobenzaprine 5 mg tablet 5 mg PO TID PRN (Reason: muscle spasm) Qty: 10 0RF hydrocodone-acetaminophen 5-325 mg tablet 1 tab PO Q6H PRN (Reason: pain) Qty: 10 0RF Referrals: Juliann Patel PA-C [Primary Care Provider] -
[2022-02-09 19:31] LABS: Appearance Urine UA CLEAR; Bacteria Urine None Seen; Bilirubin Urine UA NEGATIVE (NEGATIVE); Color Urine UA YELLOW; Glucose Urine UA NEGATIVE (Negative); Ketones Urine UA NEGATIVE (NEGATIVE); Leukocyte Esterase Urine UA NEGATIVE (NEGATIVE); Nitrite Urine UA NEGATIVE (Negative); Occult Blood Urine UA 3+ (Negative); Protein Urine UA 1+ (Negative); RBC Urine 5-10/HPF (0-5/HPF); Specific Gravity Urine UA 1.025 (1.000-1.035); Squamous Epithelial Cell Urine 1-5 /HPF (0-5/HPF); Urobilinogen Urine UA 0.2 E.U./dL (0.2); WBC Urine 1-5/HPF (0-5/HPF)
[2022-02-09 19:32] LABS: Culture Indicated Urine Cult Not Indicated; Hyaline Casts Urine 1-5/LPF
== END 2022-02-09 18:10 | disposition left against medical advice (07) ==
PROVIDERS: Family Medicine Addiction Medicine; Emergency Provider Emergency Medicine; Family Provider Physician Assistant; PCP Physician Assistant
DX: R10.2 Pelvic and perineal pain (principal)
CPT/HCPCS: 81001; 99281

== ENCOUNTER 2022-02-10 19:12 | Emergency (ER) | payer OTHER, MEDICAID, SELFPAY ==
[2022-02-10 19:34] VITALS: BP 148/87; PULSE 83; RESP 16; TEMP 35.9; O2SAT 98; BMI 25.7
[2022-02-10 20:23] LABS: Amorphous Sediment Urine 1+; Bacteria Urine None Seen; Culture Indicated Urine Specimen Cultured; RBC Urine 5-10/HPF (0-5/HPF); Squamous Epithelial Cell Urine 1-5 /HPF (0-5/HPF); WBC Urine 5-10/HPF (0-5/HPF)
--- NOTE | 2022-02-10 21:34 | DI.CT.S_ITS ---
PROCEDURE: CT KIDNEY URETER BLADDER (KUB) INDICATIONS: Right flank pain TECHNIQUE: Axial sections were acquired from the lung bases to the pubic symphysis. Coronal and sagittal reformats were performed. For radiation dose reduction, the following was used: automated exposure control, adjustment of mA and/or kV according to patient size. COMPARISON: [facility], CT, CT KIDNEY URETER BLADDER (KUB), 01/10/2022, 19:10. FINDINGS: Image quality: Excellent. Lung bases: Scarring/atelectasis in anterior medial aspect of right lung base is seen. Heart: No significant findings. URINARY: Right Kidney: No stones or hydronephrosis. Right Ureter: No hydroureter. Left Kidney: No hydronephrosis. Tiny 1-2 mm nonobstructing stone in mid to lower pole of left kidney is again seen. Left Ureter: No hydroureter. Bladder: Normal wall thickness. No stones. ABDOMEN: Liver: Unremarkable. Gallbladder: Gallbladder is surgically absent. Biliary ducts: Unremarkable. Pancreas: Unremarkable. Spleen: Unremarkable. Adrenal Glands: Unremarkable. Stomach and Bowel: Postsurgical changes are seen in right lower quadrant abdomen. Mild fecal stasis throughout the colon is seen. No bowel obstruction or abnormal bowel wall thickening. No mesenteric fat stranding. No abscess collection. Peritoneum: No abnormal intraperitoneal fluid. No free air. Ventral Wall: No hernia. Abdominal Nodes: No enlarged retroperitoneal or mesenteric lymph nodes. Vessels: Aorta and inferior vena cava are normal in size. PELVIS: Pelvic Organs: Unremarkable. Pelvic Nodes: Unremarkable. Miscellaneous: No inguinal hernias are seen. Bones: No suspicious bony lesion. No acute vertebral body compression fracture. IMPRESSION: 1. Nonobstructing left renal calculus. No hydronephrosis or hydroureter. Normal appearing urinary bladder. 2. Postsurgical changes in right lower quadrant abdomen. No evidence of acute appendicitis. No bowel obstruction. No free fluid or free air. Mild constipation. Dictated by: Adal Caballero M.D. on 02/10/2022 at 22:32 Approved by: Adal Caballero M.D. on 02/10/2022 at 22:38
--- NOTE | 2022-02-10 21:36 | ED.ABDPAIN ---
HPI - Abdominal Pain General Chief Complaint: Urogenital-Female Stated Complaint: Bladder/Kidney pain Time Seen by Provider: 02/10/22 21:34 History of Present Illness HPI narrative: Patient here with daughter. Complaints of 5 days of right flank pain radiating to the right groin area. Uncomfortable can not get comfortable position. Has had urinary frequency urgency and hematuria. States feels like another kidney stone. Has had nausea and sweating. No vomiting. No chest pain. Related Data Home Medications Medication Instructions Recorded Confirmed duloxetine 60 mg capsule,delayed 60 mg PO DAILY 12/22/18 09/08/20 release prazosin 1 mg capsule 1 mg PO QPM 12/22/18 09/08/20 quetiapine 100 mg tablet 100 mg PO BEDTIME 12/22/18 09/08/20 tizanidine 4 mg tablet 4 mg PO TID PRN Muscle Spasm 12/22/18 09/08/20 albuterol sulfate 90 mcg/actuation 2 puff inhalation QID PRN Wheezing 08/22/19 09/08/20 aerosol inhaler diazepam 10 mg tablet 10 mg PO BID PRN Anxiety 09/08/20 09/08/20 Previous Rx's Medication Instructions Recorded lidocaine 5 % topical patch 1 patch topical DAILY PRN pain 02/06/20 (scale score 4-6) #30 ea hydroxyzine pamoate 25 mg capsule 25 mg PO Q6HR PRN Spasms #30 caps 09/08/20 oxycodone 5 mg tablet 5 mg PO Q4HR PRN Pain, Moderate 09/08/20 (4-6) #40 tabs hydrocodone 5 mg-acetaminophen 325 1 tab PO Q4-6H PRN pain #10 tabs 10/15/20 mg tablet cyclobenzaprine 5 mg tablet 5 mg PO TID PRN muscle spasm #10 07/29/21 tabs cyclobenzaprine 5 mg tablet 5 mg PO TID PRN muscle spasm #10 07/29/21 tabs hydrocodone 5 mg-acetaminophen 325 1 tab PO Q6H PRN pain #10 tabs 07/29/21 mg tablet hydrocodone 5 mg-acetaminophen 325 1 tab PO Q6H PRN pain #10 tabs 07/29/21 mg tablet hydrocodone 5 mg-acetaminophen 325 1 tab PO Q6H PRN pain #10 tabs 12/27/21 mg tablet ondansetron 4 mg oral soluble film 4 mg PO Q8H #30 ea 01/10/22 oxycodone-acetaminophen 5 mg-325 1 tab PO Q6H PRN pain #20 tabs 01/10/22 mg tablet (Percocet) tamsulosin 0.4 mg capsule (Flomax) 0.4 mg PO DAILY #30 caps 01/10/22 ondansetron 4 mg disintegrating 4 mg PO Q8H PRN nausea and 02/10/22 tablet vomiting #10 tabs Allergies Allergy/AdvReac Type Severity Reaction Status Date / Time ibuprofen [IBUPROFEN] Allergy Mild VOMITING Verified 02/10/22 19:38 amoxicillin [AMOXICILLIN] Allergy Unknown Rash Verified 02/10/22 19:38 diclofenac [DICLOFENAC] Allergy Unknown Rash Verified 02/10/22 19:38 ketorolac [KETOROLAC] Allergy Unknown vomitting Verified 02/10/22 19:38 propoxyphene [PROPOXYPHENE] Allergy Unknown vomitting Verified 02/10/22 19:38 sertraline [SERTRALINE] Allergy Unknown vomitting Verified 02/10/22 19:38 Review of Systems Review of Systems Narrative: GENERAL: Denies chills, fatigue, malaise, fever, sweats. HEENT: Denies sinus pain, ear pain, sore throat RESPIRATORY: Denies dyspnea, cough CARDIOVASCULAR: Denies chest pain, palpitations GASTROINTESTINAL: Positive nausea, negative vomiting, positive flank and abdominal pain : Positive dysuria, frequency, hematuria MUSCULOSKELETAL: denies muscle or bony pain SKIN: Denies rash, skin lesions NEUROLOGIC: Denies weakness, numbness ROS Unobtainable: All systems reviewed & are unremarkable except as noted in HPI and below Patient History Medical History Anxiety Bipolar depression Nephrolithiasis PTSD (post-traumatic stress disorder) Surgical History H/O removal of cyst History of renal stent Status post appendectomy Status post hysterectomy Social History household members: spouse Smoking Status: Current every day smoker alcohol intake: current Smoking Status: Current every day smoker tobacco type: cigarettes alcohol intake frequency: holidays/special occasions only Substance Use Type: marijuana Exam Narrative Exam Narrative: GENERAL: in no distress, not toxic not dyspneic HEAD: Normocephalic. EYES: Pupils equal round No scleral icterus. ENT: Mucous membranes moist. NECK: Trachea midline. CARDIOVASCULAR: Regular rate and rhythm without murmurs RESPIRATORY: Clear to auscultation. Breath sounds equal bilaterally. No wheezes, rales, or rhonchi. GASTROINTESTINAL: Abdomen soft, non-tender EXTREMITIES: No gross deformities. BACK: Mild right CVA tenderness NEURO: AOx4. SKIN: Warm and dry PSYCH: Not anxious, is cooperative Initial Vital Signs Initial Vital Signs: Vital Signs Temperature 96.6 F L 02/10/22 19:34 Pulse Rate 83 02/10/22 19:34 Respiratory Rate 16 02/10/22 19:34 Blood Pressure 148/87 H 02/10/22 19:34 Pulse Oximetry 98 02/10/22 19:34 Oxygen Delivery Method 02/10/22 19:34 Course Course Course Narrative: No new issues during course of stay Orders Ordered: ED Orders 02/10/22 19:40 Urine Culture Stat Urine Microscopic Stat 02/10/22 21:34 CT kidney ureter bladder (KUB) Stat 02/10/22 22:00 Complete Blood Count AUTO DIFF Stat Comprehensive Metabolic Panel Stat Discontinued Medications Ciprofloxacin (Ciprofloxacin 250 Mg Tablet) 500 mg PO NOW ONE Stop: 02/10/22 22:58 Last Admin: 02/10/22 23:01 Dose: Not Given Documented By: NR Sodium Chloride (Normal Saline 0.9%) 1,000 mls @ 1,000 mls/hr IV BOLUS ONE Stop: 02/10/22 22:33 Last Infusion: 02/10/22 23:16 Dose: 0 mls/hr Documented By: Admin: 02/10/22 21:59 Dose: 1,000 mls/hr Documented By: NR Morphine Sulfate (Morphine 4 Mg/Ml Inj) 4 mg IV NOW ONE Stop: 02/10/22 21:35 Last Admin: 02/10/22 21:59 Dose: 4 mg Documented By: NR Ondansetron HCl (Ondansetron 4 Mg/2 Ml Inj) 4 mg IV NOW ONE Stop: 02/10/22 21:35 Last Admin: 02/10/22 21:59 Dose: 4 mg Documented By: NR Ondansetron HCl (Ondansetron 4 Mg Odt Prepack) 1 bottle MISC SEEINSTR ONE Stop: 02/10/22 23:02 Last Admin: 02/10/22 23:16 Dose: 1 bottle Documented By: NR Reevaluation(s) Reevaluation #1: Pain control at time of discharge. Patient feeling much better with medications. Reviewed results with patient and daughter. Agree with treatment plan follow up with primary care. No antibiotics indicated at this time. White cell count normal no fever, no signs of infection in the urine. CT scan reassuring. Pain controlled at time of discharge. Does agree for prescription Zofran. Will have referral to Urology as well. Return precautions reviewed with her. Reviewed with her flank pain nonspecific could have passed a kidney stone when this 1st started 2 or 3 days ago and has renal colic/renal colic, ureteral colic Time: 22:57 Vital Signs Vital signs: Vital Signs - 8 hr 02/10/22 19:34 02/10/22 22:06 02/10/22 22:06 Temperature 96.6 F L Pulse Rate 83 71 Respiratory Rate 16 Blood Pressure 148/87 H 149/85 H Pulse Oximetry 98 96 Oxygen Delivery Method Room Air 02/10/22 22:30 02/10/22 22:30 02/10/22 23:21 Temperature Pulse Rate 70 73 Respiratory Rate 24 Blood Pressure 133/91 H 157/88 H Pulse Oximetry 94 97 Oxygen Delivery Method Room Air MDM - Abdominal Pain Differential Diagnosis Differential diagnosis: Likely abdominal pain, acute appendicitis, calculus of kidney, small bowel obstruction and other (Pyelonephritis) Lab Data Result diagrams: 02/10/22 22:00 02/10/22 22:00 Labs: Lab Results 02/10/22 02/10/22 02/10/22 Range/Units 19:40 22:00 22:00 WBC 7.5 (4.5-11.0) X10^3/uL RBC 4.74 (4.0-5.2) X10^6/uL Hgb 14.4 (12.0-16.0) g/dL Hct 42.3 (36-46) % MCV 89.3 (80-100) fL MCH 30.4 (26-34) PG MCHC 34.0 (30-36) % RDW 14.7 (11.6-14.8) % Plt Count 276 (150-400) X10^3/uL Neut % (Auto) 60.8 (50-75) % Lymph % (Auto) 32.0 (25-40) % [place] % (Auto) 6.4 (3-14) % Eos % (Auto) 0.1 L (2-4) % Baso % (Auto) 0.7 (0-2) % Neut # (Auto) 4500 (6632-2841) /uL Lymph # (Auto) 2400 (2625-6434) /uL [place] # (Auto) 500 (0-900) /uL Eos # (Auto) 0 (0-450) /uL Baso # (Auto) 100 (0-100) /uL Sodium 139 (137-145) mmol/L Potassium 3.9 (3.4-5.1) mmol/L Chloride 105 (98-107) mmol/L Carbon Dioxide 27 (22-32) mmol/L BUN 15 (7-17) mg/dL Creatinine 0.75 (0.52-1.04) mg/dL Estimated GFR > 60 (>60) mL/min BUN/Creatinine Ratio 20.0 (6-22) Glucose 88 (70-100) mg/dL Calcium 8.8 (8.4-10.2) mg/dL Total Bilirubin 0.2 (0.2-1.3) mg/dL AST 26 (14-36) IU/L ALT 29 (<35) IU/L Alkaline Phosphatase 132 H (38-126) U/L Total Protein 7.4 (6.3-8.2) g/dL Albumin 4.3 (3.5-5.0) g/dL Globulin 3.1 (1.7-4.1) g/dL Albumin/Globulin Ratio 1.4 (1.0-2.8) Urine RBC 5-10/hpf H (0-5/HPF) Urine WBC 5-10/hpf H (0-5/HPF) Ur Squamous Epith Cells 1-5 /hpf (0-5/HPF) Amorphous Sediment 1+ Urine Bacteria None seen (None) Ur Culture Indicated? Specimen cultured Point of care testing: Urine Dip Bedside Urine Glucose Negative Bedside Urine Bilirubin - Negative Bedside Urine Ketone - Negative Urine Specific [place] 1.025 Bedside Urine Occult Blood +++ Bedside Urine pH 6.0 Bedside Urine Protein +/- 15 Bedside Urine Urobilinogen - Negative Bedside Urine Nitrite - Negative Bedside Urine Leukocytes - Negative Esterase Imaging Data CT scan - abdomen/pelvis: Radiologist's Impression: [address] [address] [address] Scan Report Signed Patient: Peg Valencia MR#: [id number] : 1970 Acct:[id number] Age/Sex: 51 / F Date of Service: 02/10/22 Loc: ED Accession Number: [id number] ?? Procedure: CT kidney ureter bladder (KUB) Ordering Provider: Marcellus Lehman MD PROCEDURE:? CT KIDNEY URETER BLADDER (KUB) ? INDICATIONS:? Right flank pain ? TECHNIQUE:? Axial sections were acquired from the lung bases to the pubic symphysis.? Coronal and sagittal reformats were performed.? For radiation dose reduction, the following was used: ?automated exposure control, adjustment of mA and/or kV according to patient size.? ? COMPARISON:? [facility], [place], CT KIDNEY URETER BLADDER (KUB), 01/10/2022, 19:10. ? FINDINGS:? Image quality:? Excellent.? ? Lung bases:? Scarring/atelectasis in anterior medial aspect of right lung base is seen. Heart:? No significant findings. ? URINARY: Right Kidney:? No stones or hydronephrosis.? Right Ureter:? No hydroureter. ? Left Kidney:? No hydronephrosis.? Tiny 1-2 mm nonobstructing stone in mid to lower pole of left kidney is again seen. Left Ureter:? No hydroureter. ? Bladder:? Normal wall thickness. No stones. ? ? ? ABDOMEN: Liver:? Unremarkable.? ? Gallbladder:? Gallbladder is surgically absent. Biliary ducts:? Unremarkable.? ? Pancreas:? Unremarkable.? ? Spleen:? Unremarkable.? ? Adrenal Glands:? Unremarkable.? ? ? Stomach and Bowel:? Postsurgical changes are seen in right lower quadrant abdomen.? Mild fecal stasis throughout the colon is seen.? No bowel obstruction or abnormal bowel wall thickening.? No mesenteric fat stranding.? No abscess collection.? Peritoneum:? No abnormal intraperitoneal fluid.? No free air.? ? Ventral Wall: ? No hernia.? Abdominal Nodes:? No enlarged retroperitoneal or mesenteric lymph nodes.? Vessels:? Aorta and inferior vena cava are normal in size.? ? PELVIS: Pelvic Organs:? Unremarkable.? ? Pelvic Nodes: Unremarkable. Miscellaneous: No inguinal hernias are seen. ? ? ? Bones:? No suspicious bony lesion.? No acute vertebral body compression fracture. ? IMPRESSION:? ? 1. Nonobstructing left renal calculus.? No hydronephrosis or hydroureter.? Normal appearing urinary bladder. ? 2. Postsurgical changes in right lower quadrant abdomen.? No evidence of acute appendicitis.? No bowel obstruction.? No free fluid or free air.? Mild constipation.? ? Dictated by: Adal Caballero M.D. on 02/10/2022 at 22:32 ? ? Approved by: Adal Caballero M.D. on 02/10/2022 at 22:38 ? MDM Narrative Medical decision making narrative: Appropriate for discharge home. Exam and laboratory studies and imaging are reassuring. Flank pain nonspecific however could have passed a kidney stone few days ago and having ureteral colic and hematuria. Referral for Urology given. Return precautions provided. Patient has a septic pump truck driver. Feeling much better at time of discharge. No antibiotics indicated at this time. Nausea medication prescription provided. Patient desires discharge home Discharge Plan Departure Patient Disposition: Home Clinical Impression: Acute flank pain, Hematuria Instructions: DI for Hematuria, DI for Flank Pain Activity Restrictions/Additional Instructions: No driving operating machinery tonight. Keep well hydrated. Call provided urology office in the morning for office recheck for blood in urine and flank pain. Nausea medication has been sent to your pharmacy. Return if worse if any questions or concerns. Prescriptions: New ondansetron 4 mg tablet,disintegrating 4 mg PO Q8H PRN (Reason: nausea and vomiting) Qty: 10 0RF No Action tizanidine 4 mg tablet 4 mg PO TID PRN (Reason: Muscle Spasm) prazosin 1 mg capsule 1 mg PO QPM quetiapine 100 mg tablet 100 mg PO BEDTIME duloxetine 60 mg capsule,delayed release(DR/EC) 60 mg PO DAILY lidocaine 5 % adhesive patch,medicated 1 patch TOP DAILY PRN (Reason: pain (scale score 4-6)) Qty: 30 0RF Rx Instructions: leave on most painful area for up to 12 hrs then remove diazepam 10 mg Tablet 10 mg PO BID PRN (Reason: Anxiety) oxycodone 5 mg Tablet 5 mg PO Q4HR PRN (Reason: Pain, Moderate (4-6)) Qty: 40 0RF hydroxyzine pamoate 25 mg Capsule 25 mg PO Q6HR PRN (Reason: Spasms) Qty: 30 0RF oxycodone-acetaminophen [Percocet] 5-325 mg tablet 1 tab PO Q6H PRN (Reason: pain) Qty: 20 0RF ondansetron 4 mg film 4 mg PO Q8H Qty: 30 0RF tamsulosin [Flomax] 0.4 mg capsule 0.4 mg PO DAILY Qty: 30 0RF albuterol sulfate 90 mcg/actuation HFA aerosol inhaler 2 puff INHALATION QID PRN (Reason: Wheezing) hydrocodone-acetaminophen 5-325 mg tablet 1 tab PO Q4-6H PRN (Reason: pain) Qty: 10 0RF hydrocodone-acetaminophen 5-325 mg tablet 1 tab PO Q6H PRN (Reason: pain) Qty: 10 0RF cyclobenzaprine 5 mg tablet 5 mg PO TID PRN (Reason: muscle spasm) Qty: 10 0RF hydrocodone-acetaminophen 5-325 mg tablet 1 tab PO Q6H PRN (Reason: pain) Qty: 10 0RF cyclobenzaprine 5 mg tablet 5 mg PO TID PRN (Reason: muscle spasm) Qty: 10 0RF hydrocodone-acetaminophen 5-325 mg tablet 1 tab PO Q6H PRN (Reason: pain) Qty: 10 0RF Referrals: Juliann Patel PA-C [Primary Care Provider] - Latasha Alfonso MD [Physician] - Visit Report Forms: Patient Portal/API
[2022-02-10] MEDS: SODIUM CHLORIDE 0.9% 1,000 ML 1000 ML IV (21:59)
[2022-02-10] MEDS: MORPHINE 4 MG/ML INJ IV (21:59)
[2022-02-10] MEDS: ONDANSETRON 4 MG/2 ML INJ IV (21:59)
[2022-02-10 22:06] VITALS: BP 149/85; PULSE 71; O2SAT 96
[2022-02-10 22:09] LABS: Add Manual Diff / Slide Review NO; Basophils Absolute Auto 100 /uL (0-100); Basophils Percent Auto 0.7 % (0-2); Eosinophils Absolute Auto 0 /uL (0-450); Eosinophils Percent Auto 0.1 % (2-4); Hematocrit 42.3 % (36-46); Hemoglobin 14.4 g/dL (12.0-16.0); Lymphocytes Absolute Auto 2400 /uL (1100-4500); Mean Corpuscular Hemoglobin 30.4 PG (26-34); Mean Corpuscular Volume 89.3 fL (80-100); Monocytes Absolute Auto 500 /uL (0-900); Monocytes Percent Auto 6.4 % (3-14); Neutrophils Absolute Auto 4500 /uL (1500-7000); Neutrophils Percent Auto 60.8 % (50-75); Platelet Count 276 X10^3/uL (150-400); Red Blood Cell Count 4.74 X10^6/uL (4.0-5.2); Red Cell Distribution Width 14.7 % (11.6-14.8); White Blood Cell Count 7.5 X10^3/uL (4.5-11.0)
[2022-02-10 22:23] LABS: Alanine Aminotransferase 29 IU/L (<35); Albumin 4.3 g/dL (3.5-5.0); Albumin Globulin Ratio 1.4 (1.0-2.8); Alkaline Phosphatase 132 U/L (38-126); Aspartate Aminotransferase 26 IU/L (14-36); Bilirubin Total 0.2 mg/dL (0.2-1.3); Blood Urea Nitrogen 15 mg/dL (7-17); Calcium 8.8 mg/dL (8.4-10.2); Carbon Dioxide 27 mmol/L (22-32); Chloride 105 mmol/L (98-107); Estimated Glomerular Filt Rate > 60 mL/min (>60); Globulin 3.1 g/dL (1.7-4.1); Glucose 88 mg/dL (70-100); HEMOLYSIS 17 (0-50); Potassium 3.9 mmol/L (3.4-5.1); Sodium 139 mmol/L (137-145); Total Protein 7.4 g/dL (6.3-8.2)
[2022-02-10 22:30] VITALS: BP 133/91; PULSE 70; O2SAT 94
--- NOTE | 2022-02-10 22:59 | PC.NURSE ---
patient stated 10/10 pain prior to morphine. patient laughing, on phone, sitting up, chatting with daughter. 4mg morphine given to patient. patient now states her pain is slightly better, rates it a 8/10. patient is on phone able to ambulate to bathroom. gait steady.
[2022-02-10] MEDS: ONDANSETRON 4 MG ODT PREPACK 1 BOTTLE MISC (23:16)
[2022-02-10 23:21] VITALS: BP 157/88; PULSE 73; RESP 24; O2SAT 97
== END 2022-02-10 23:22 | disposition home or self-care (01) ==
PROVIDERS: Emergency Provider Emergency Medicine; Family Provider Physician Assistant; PCP Physician Assistant
DX: R10.9 Unspecified abdominal pain (principal); R31.9 Hematuria, unspecified
CPT/HCPCS: 36415; 74176; 80053; 81003; 81015; 85025; 87086; 96361; 96374; 96375; 99284; J2270; J2405